=== PATIENT | female | born 1950 | race Caucasian/White ===

== ENCOUNTER → 2017-01-02 | Outpatient (CLI) | payer MEDICARE, BC ==
[~2017-01-02] MED LIST: ACET-62 PO; ALBU18HF4 IH; ALBU2.5V2 AEROSOL; ASPI-1085 PO; BUDE0.5A AEROSOL; BUSP10TA3 PO; CALC600T12 PO; CARV6.25 PO; CEFA1VIA11 IV; CLOP75TA PO; DICL100T3 PO; DULO30CA2 PO; FLUD0.1T PO; HYDR-4072 PO; LACT1CAP46 PO; LEVO50TA11 PO; LIDO20SO PO; LIDOCAINE 1%/EPI 1:100,000 20ml MDV INJ ONE; LISI2.5T2 PO; MENTHOL COUGH MM; MIRT15TA PO; NITR0.4T SL; NYST5ORA7 PO; PANT40TA27 PO; PRED1TAB PO; ROSU20TA PO; TIOT18CA6 IH
== END ==
LOC: NWCC 10:20
PROVIDERS: ATTEND Internal Medicine
DX: L89.893 Pressure ulcer of other site, stage 3 (principal); L89.623 Pressure ulcer of left heel, stage 3; L89.613 Pressure ulcer of right heel, stage 3; T81.4XXA Infection following a procedure, initial encounter; Y83.8 Other surgical procedures as the cause of abnormal reaction of the patient, or of later complication, without mention of misadventure at the time of the procedure; M06.9 Rheumatoid arthritis, unspecified; S91.302A Unspecified open wound, left foot, initial encounter; B95.62 Methicillin resistant Staphylococcus aureus infection as the cause of diseases classified elsewhere; Z87.898 Personal history of other specified conditions
CPT/HCPCS: 11042; 97605; A6021; A6209; A6237; G0463

== ENCOUNTER → 2017-01-12 | Outpatient (CLI) | payer MEDICARE, BC ==
[~2017-01-12] MED LIST changes: -LIDOCAINE 1%/EPI 1:100,000 20ml MDV INJ ONE
== END ==
LOC: NWCC 12:59
PROVIDERS: ATTEND Internal Medicine
DX: L89.623 Pressure ulcer of left heel, stage 3 (principal); L89.893 Pressure ulcer of other site, stage 3; S91.301A Unspecified open wound, right foot, initial encounter; B95.62 Methicillin resistant Staphylococcus aureus infection as the cause of diseases classified elsewhere; Z87.898 Personal history of other specified conditions
CPT/HCPCS: 97605; A6021; A6209; G0463

== ENCOUNTER → 2017-01-16 | Outpatient (CLI) | payer MEDICARE, BC | LOC: NWCC 09:57 | PROVIDERS: ATTEND Internal Medicine | DX: L89.893 Pressure ulcer of other site, stage 3 (principal); L89.623 Pressure ulcer of left heel, stage 3; S91.301A Unspecified open wound, right foot, initial encounter; Z87.898 Personal history of other specified conditions; B95.62 Methicillin resistant Staphylococcus aureus infection as the cause of diseases classified elsewhere | CPT/HCPCS: 97605; A6209; G0463 ==

== ENCOUNTER → 2017-01-19 | Outpatient (CLI) | payer MEDICARE, BC | LOC: NWCC 11:13 | PROVIDERS: ATTEND Internal Medicine | DX: L89.893 Pressure ulcer of other site, stage 3 (principal); L89.623 Pressure ulcer of left heel, stage 3; S91.301A Unspecified open wound, right foot, initial encounter; Z87.898 Personal history of other specified conditions; B95.62 Methicillin resistant Staphylococcus aureus infection as the cause of diseases classified elsewhere | CPT/HCPCS: 97605; A6209; G0463 ==

== ENCOUNTER → 2017-01-23 | Outpatient (CLI) | payer MEDICARE, BC | LOC: NWCC 10:22 | PROVIDERS: ATTEND Internal Medicine | DX: L89.623 Pressure ulcer of left heel, stage 3 (principal); L89.893 Pressure ulcer of other site, stage 3; Z87.898 Personal history of other specified conditions; T81.4XXA Infection following a procedure, initial encounter; Y83.8 Other surgical procedures as the cause of abnormal reaction of the patient, or of later complication, without mention of misadventure at the time of the procedure | CPT/HCPCS: 11042; 97605; A6021; A6209; A6237; G0463 ==

== ENCOUNTER → 2017-01-26 | Outpatient (CLI) | payer MEDICARE, BC ==
[~2017-01-26] MED LIST changes: +SALINE FLUSH 10ml SYRINGE IVF ONE
== END ==
LOC: NWCC 09:57
PROVIDERS: ATTEND Internal Medicine
DX: L89.893 Pressure ulcer of other site, stage 3 (principal); Z87.898 Personal history of other specified conditions; S91.301A Unspecified open wound, right foot, initial encounter; B95.62 Methicillin resistant Staphylococcus aureus infection as the cause of diseases classified elsewhere
CPT/HCPCS: 97605; A6021; A6210; G0463

== ENCOUNTER → 2017-01-30 | Outpatient (CLI) | payer MEDICARE, BC ==
[~2017-01-30] MED LIST changes: -SALINE FLUSH 10ml SYRINGE IVF ONE
[2017-01-30 11:33] LABS: BASOPHILS # (AUTO) 0.1 T/MM3 (0-0.2); BASOPHILS % (AUTO) 0.7 % (0-2); EOSINOPHILS # (AUTO) 0.9 T/MM3 (0-0.5); EOSINOPHILS % (AUTO) 10.2 % (0-4); HCT - HEMATOCRIT 32.2 % (36-46); HGB - HEMOGLOBIN 9.7 GM/DL (12-16); IMMATURE GRANULOCYTE # (AUTO) 0.02 T/MM3 (0.00-0.03); IMMATURE GRANULOCYTE % (AUTO) 0.2 % (0.0-0.5); LYMPHOCYTES % (AUTO) 21.3 % (23-45); MEAN CORPUSCULAR HGB 26.8 UUG (26-34); MEAN CORPUSCULAR HGB CONC(MCHC 30.1 GM/DL (31-37); MEAN PLATELET VOLUME 9.1 UM3 (9.4-12.4); MONOCYTES # (AUTO) 1.5 T/MM3 (0-0.8); MONOCYTES % (AUTO) 15.9 % (0-9.0); NEUTROPHILS #(AUTO)-ABSOLUTE 4.8 T/MM3 (1.8-7.7); NEUTROPHILS % (AUTO) 51.7 % (33-66); RED BLOOD COUNT 3.62 M/MM3 (4.00-5.20); WBC - WHITE BLOOD COUNT 9.2 T/MM3 (4.5-11.0)
[2017-02-01 02:23] LABS: FERRITIN 13.1 NG/ML (11-264)
[2017-02-01 02:53] LABS: FOLATE 17.8 NG/ML (2.76-20)
== END ==
LOC: LAB 11:07
PROVIDERS: ATTEND Family Medicine
DX: D50.9 Iron deficiency anemia, unspecified (principal); D53.9 Nutritional anemia, unspecified; E53.8 Deficiency of other specified B group vitamins; M86.171 Other acute osteomyelitis, right ankle and foot
CPT/HCPCS: 36415; 82607; 82728; 82746; 83540; 83550; 85025

== ENCOUNTER → 2017-01-30 | Outpatient (CLI) | payer MEDICARE, BC | LOC: NWCC 10:10 | PROVIDERS: ATTEND Internal Medicine | DX: L89.893 Pressure ulcer of other site, stage 3 (principal); B95.62 Methicillin resistant Staphylococcus aureus infection as the cause of diseases classified elsewhere; Z87.898 Personal history of other specified conditions; S91.301A Unspecified open wound, right foot, initial encounter | CPT/HCPCS: 97605; A6021; A6209; A6237; G0463 ==

== ENCOUNTER → 2017-02-02 | Outpatient (CLI) | payer MEDICARE, BC | LOC: NWCC 09:48 | PROVIDERS: ATTEND Internal Medicine | DX: L89.893 Pressure ulcer of other site, stage 3 (principal); S91.301A Unspecified open wound, right foot, initial encounter; B95.62 Methicillin resistant Staphylococcus aureus infection as the cause of diseases classified elsewhere; Z87.898 Personal history of other specified conditions | CPT/HCPCS: 11042; 97605 ==

== ENCOUNTER → 2017-02-06 | Outpatient (CLI) | payer MEDICARE, BC | LOC: NWCC 10:36 | PROVIDERS: ATTEND Internal Medicine | DX: L89.893 Pressure ulcer of other site, stage 3 (principal); T81.4XXA Infection following a procedure, initial encounter; Y83.8 Other surgical procedures as the cause of abnormal reaction of the patient, or of later complication, without mention of misadventure at the time of the procedure; S91.302A Unspecified open wound, left foot, initial encounter; Z87.898 Personal history of other specified conditions | CPT/HCPCS: 11042; 97605; G0463 ==

== ENCOUNTER → 2017-02-09 | Outpatient (CLI) | payer MEDICARE, BC | LOC: NWCC 11:15 | PROVIDERS: ATTEND Internal Medicine | DX: L89.893 Pressure ulcer of other site, stage 3 (principal); T81.4XXA Infection following a procedure, initial encounter; Y83.8 Other surgical procedures as the cause of abnormal reaction of the patient, or of later complication, without mention of misadventure at the time of the procedure; S91.302A Unspecified open wound, left foot, initial encounter; Z87.898 Personal history of other specified conditions; B96.89 Other specified bacterial agents as the cause of diseases classified elsewhere | CPT/HCPCS: A6021; A6209; G0463 ==

== ENCOUNTER → 2017-02-20 | Outpatient (CLI) | payer MEDICARE, BC | LOC: NWCC 10:32 | PROVIDERS: ATTEND Internal Medicine | DX: L89.893 Pressure ulcer of other site, stage 3 (principal); T81.4XXA Infection following a procedure, initial encounter; S91.302A Unspecified open wound, left foot, initial encounter; Y83.8 Other surgical procedures as the cause of abnormal reaction of the patient, or of later complication, without mention of misadventure at the time of the procedure; Z87.898 Personal history of other specified conditions | CPT/HCPCS: 11042; A6209; G0463 ==

== ENCOUNTER → 2017-02-23 | Outpatient (CLI) | payer MEDICARE, BC | LOC: NWCC 13:54 | PROVIDERS: ATTEND Internal Medicine | DX: L89.893 Pressure ulcer of other site, stage 3 (principal); T81.4XXA Infection following a procedure, initial encounter; Y83.8 Other surgical procedures as the cause of abnormal reaction of the patient, or of later complication, without mention of misadventure at the time of the procedure; Z87.898 Personal history of other specified conditions | CPT/HCPCS: A6021; A6209; G0463 ==

== ENCOUNTER → 2017-03-06 | Outpatient (CLI) | payer MEDICARE, BC ==
[~2017-03-06] MED LIST changes: +CALMOSEPTINE OINTMENT 3.5 G PACKET TOP ONE
== END ==
LOC: NWCC 10:07
PROVIDERS: ATTEND Internal Medicine
DX: L89.893 Pressure ulcer of other site, stage 3 (principal); T81.4XXA Infection following a procedure, initial encounter; Y83.8 Other surgical procedures as the cause of abnormal reaction of the patient, or of later complication, without mention of misadventure at the time of the procedure; Z87.898 Personal history of other specified conditions; B95.62 Methicillin resistant Staphylococcus aureus infection as the cause of diseases classified elsewhere
CPT/HCPCS: 11042; 87070; 87075; 87077; 87147; 87186; 87205; A6209; A6212; A9270

== ENCOUNTER → 2017-03-07 | Outpatient (CLI) | payer MEDICARE, BC ==
[~2017-03-07] MED LIST changes: -CALMOSEPTINE OINTMENT 3.5 G PACKET TOP ONE; +IOHEXOL 300 MG/ML 75ml INJECTION ONE; +NORMAL SALINE 100 ML ONE; +SALINE FLUSH 10ml SYRINGE ONE
[2017-03-07 15:13] LABS: CREATININE 0.8 MG/DL (0.7-1.2)
--- NOTE | 2017-03-07 16:07 | DI ---
Indication: ITS.REASON: R91.8 abnormal finding of lung field PROCEDURE: CT CHEST W/CONTRAST: Encounter: Subsequent Comparison: CT chest dated December 05, 2005 and CTA chest dated August 24, 2016 Technique: Axial CT images were performed through the chest after the administration of intravenous contrast. Coronal and sagittal two-dimensional reformats. Automated Exposure Control and Iterative Reconstruction dose reducing techniques were utilized. Contrast: Omnipaque 300 74 mL Findings: Scattered areas of subpleural scarring and mild fibrosis are again seen. Intrapulmonary lymph node along the inferior anterior right major fissure. Some small areas of groundglass opacity seen in both lower lung ball, improved from the comparison exam. No consolidative pneumonia, pleural effusion or pneumothorax. The central airways are patent. Prior groundglass opacity in the left lower lobe appears slightly smaller on today's study measuring 7 mm in diameter on axial image #29 compared to 8 mm previously. Stable 4 mm left lower lobe nodule on image #33. Stable area of scarring in the posterior left lower lobe on image #37 with an area of atelectasis in the lingula at this level. No new or enlarging pulmonary nodules or masses. No evidence of bronchial wall thickening. No axillary or mediastinal adenopathy. Heart size is stable. No pericardial effusion. The upper abdomen shows no acute findings. Bone windows show old compression fractures of T7 and T12. Impression: Decreasing size of the 7 mm left lower lobe nodule suggestive of a benign etiology. Stable appearance of the 4 mm left lower lobe nodule. Follow-up CT is recommended in two years to document continued stability. .
== END ==
LOC: IMA 14:38
PROVIDERS: ATTEND Internal Medicine Pulmonary Disease
DX: R91.8 Other nonspecific abnormal finding of lung field (principal)
CPT/HCPCS: 36415; 71260; 82565; 84520; J7050; Q9967

== ENCOUNTER → 2017-03-13 | Outpatient (CLI) | payer MEDICARE, BC ==
[~2017-03-13] MED LIST changes: +CALMOSEPTINE OINTMENT 3.5 G PACKET TOP ONE; -IOHEXOL 300 MG/ML 75ml INJECTION ONE; -NORMAL SALINE 100 ML ONE; -SALINE FLUSH 10ml SYRINGE ONE
== END ==
LOC: NWCC 10:01
PROVIDERS: ATTEND Internal Medicine
DX: L89.893 Pressure ulcer of other site, stage 3 (principal); Z87.898 Personal history of other specified conditions; T81.4XXA Infection following a procedure, initial encounter; Y83.8 Other surgical procedures as the cause of abnormal reaction of the patient, or of later complication, without mention of misadventure at the time of the procedure; B96.89 Other specified bacterial agents as the cause of diseases classified elsewhere
CPT/HCPCS: A6209; A6212; A9270; G0463

== ENCOUNTER 2017-08-17 10:54 | Inpatient (IN) ==
[2017-08-17] MEDS ORDERED: CEFAZOLIN 1 G INJECTION IVP ONE (11:07)
--- NOTE | 2017-08-17 12:54 | Anesthesia Preoperative Report ---
Anesthesia Preoperative Record - Date and Time Date: 08/17/17 Preoperative Diagnosis: grt toe amp/bone bx L89.893 L97.422 M06.9 Proposed Procedure: right toe amputation I/D left ankle NPO Since Date: 08/17/17 NPO Since Time: 05:00 Allergies/Adverse Reactions: Allergies Allergy/AdvReac Type Severity Reaction Status Date / Time morphine Allergy Mild ITCHING Verified 08/17/17 11:26 methylprednisolone Allergy Unknown Verified 08/17/17 11:26 doxycycline AdvReac Severe DIARRHEA Verified 08/17/17 11:26 adalimumab AdvReac Intermediate LOW GRADE Verified 08/17/17 11:26 FEVER atorvastatin AdvReac Unknown LEG CRAMPS Verified 08/17/17 11:26 bupropion AdvReac Unknown ANXIETY Verified 08/17/17 11:26 clotrimazole AdvReac Unknown MOUTH Verified 08/17/17 11:26 DISORDERS - Vital Signs Vital Signs: Temperature 98.5 F 08/17/17 11:10 Pulse Rate 120 H 08/17/17 11:10 Respiratory Rate 22 08/17/17 11:10 Blood Pressure 114/75 08/17/17 11:10 Pulse Oximetry 96 08/17/17 11:10 Height and Weight: Height 1.57 m Weight 38.6 kg Body Mass Index 15.5 - Medications Inpatient Medications: Current Medications Lactated Ringer's (Lactated Ringers) 1,000 mls @ 50 mls/hr IV .Q20H KATHERINE Last Admin: 08/17/17 12:10 Dose: 50 mls/hr Lidocaine HCl (Xylocaine-Mpf 1% Vial) 1 mg ID O ONE Stop: 08/17/17 16:33 Last Admin: 08/17/17 12:10 Dose: 1 mg Home Medications: Home Medications Medication Instructions Recorded Confirmed Type Albuterol Sulfate [Proventil Hfa 1 - 2 puff IH Q4HR PRN #0 07/07/10 08/17/17 History 90mcg] Tiotropium Handihaler [Spiriva] 1 cap IH DAILY #0 07/07/10 08/17/17 History Acetaminophen 1,000 mg PO Q6H PRN #0 01/05/16 08/17/17 History Buspirone HCl 20 mg PO BID #0 01/05/16 08/17/17 History Calcium Carbonate [Calcium] 1,200 mg PO DAILY #0 07/28/16 08/17/17 History Rosuvastatin Calcium [Crestor] 20 mg PO HS #0 07/28/16 08/17/17 History Clopidogrel Bisulfate [Plavix] 75 mg PO DAILY #0 08/24/16 08/17/17 History Diclofenac Sodium [Diclofenac 100 mg PO BID #0 08/24/16 08/17/17 History Sodium ER] Aspirin [Aspirin EC] 81 mg PO DAILY #0 10/09/16 08/17/17 History Lisinopril 2.5 mg PO HS #0 10/09/16 08/17/17 History Nitroglycerin [Nitrostat] 0.4 mg SL Q5MIN PRN #0 10/09/16 08/17/17 History Fludrocortisone [Florinef] 0.1 mg PO DAILY #0 tab 12/18/16 08/17/17 History Levothyroxine Sodium 50 mcg PO ACB #0 tab 12/18/16 08/17/17 History Mirtazapine [Remeron] 1 tab PO HS #0 tab 12/18/16 08/17/17 History Acidoph/L.bulg/Bif.b/S.thermop 2 cap PO DAILY 08/17/17 08/17/17 History [Bacid Caplet] Beclomethasone Dipropionate [Qvar 1 puff INH BID 08/17/17 08/17/17 History 80] Lidocaine For Magic Mouthwash 5 ml PO QID 08/17/17 08/17/17 History [Xylocaine Viscous] Sulfamethox/Tmp [Bactrim Ds] 1 tab PO BID 08/17/17 08/17/17 History Venlafaxine [Effexor] 75 mg PO DAILY 08/17/17 08/17/17 History Is Patient on Beta Gisela?: No - Medical History Respiratory: Reports: Asthma, Chronic Obstructive Pulmonary Disease (COPD), Other (o2 at night ) Cardiovascular: Reports: Abnormal EKG, Congestive Heart Failure, Coronary Artery Disease, Hypertension, Myocardial Infarction (EF 20%) Renal/Endocrine: Reports: Thyroid Disease - Surgical History HEENT Surgeries: Reports: Nose Surgery Cardiac Surgeries/Treatments: Reports: Cardiac Catheterization, Other (stent) Respiratory Surgery/Treatments: Reports: Oxygen Administration (2L/NC with exertion & at noc) GI Surgery/Treatments: Reports: Colon Resection, Other (ileostomy) Musculoskeletal Surgery/Tx: Reports: Joint Surgery (LEFT HIP-PINS), Shoulder Arthroscopy (RIGHT SHOULDER REPLACEMENT), Total Knee Replacement (ANDRES.), Other ( FUSION- L. ANKLE, R,WRIST,NECK) Reproductive Surgery/Treatment: Reports: Tubal Ligation Anesthesia Reactions: None Hx Family Anesthesia Reaction: No History of Motion Sickness: No - Social History Smoking Status: Former smoker Packs per day: 1 Pack-years: 40 Hx Chewing Tobacco Use: No Second Hand Exposure: No Time spent discussing smoking cessation with patient: 3 to 10 minutes Substance Use Type: does not use Alcohol Intake Frequency: does not drink - Pertinent Findings Laboratory: CBC and BMP 08/17/17 11:30 08/17/17 11:30 BMP 08/17/17 11:30 Sodium 139 Potassium 3.9 Chloride 103 Carbon Dioxide 28 BUN 21.0 H Creatinine 0.7 Glucose 66 Calcium 8.7 EKG: Sinus Rhythm - Physical Exam Respiratory Exam: Present: lungs clear Cardiovascular Exam: Present: regular rate and rhythm, systolic murmur - Airway Assessment Mallampati Score: II TMD: 2 Fingerbreadths Neck Extension: poor Teeth: chipped teeth/crowns Overall Assessment: may be difficult intubation - ASA ASA Score: 4 - Plan Anesthesia: General TIVA - Discussion Discussion: Discussed risks/options/alternatives of anesthesia and questions answered. Patient consents. Nursing pain assessment noted. Present for Discussion: family member Attestation Statement: Prior to the delivery of any anesthetic medication, I examined the patient, developed the plan, obtained the patient's consent and discussed the risk and benefits of the procedure with the patient/guardian. - Additional Information Seen by Anesthesia: Yes
[2017-08-17] MEDS ORDERED: MIDAZOLAM 2mg/2ml INJECTION IVP ONE (12:55)
[2017-08-17] MEDS ORDERED: FentaNYL 100 MCG/2 ML INJECTION ONE (12:58)
[2017-08-17] MEDS ORDERED: KETAMINE 500 MG/10 ML INJECTION ONE (12:59)
[2017-08-17] MEDS ORDERED: PROPOFOL 500 MG/50 ML VIAL IV ONE (12:59)
[2017-08-17] MEDS ORDERED: BUPIVACAINE 0.25% (2.5mg/ml) PF 30ml INJECTION ONE (13:18)
[2017-08-17] MEDS ORDERED: LIDOCAINE 1% (10mg/ml) 30ml SDV INJ ONE (13:18)
--- NOTE | 2017-08-17 14:20 | Anesthesia Postoperative Note ---
- Date and Time Date: 08/17/17 Time: 14:20 - Status Patient Participated in Evaluation: Patient Participated in Person Vital Signs: Temperature 96.8 F 08/17/17 13:47 Pulse Rate 102 H 08/17/17 14:10 Respiratory Rate 20 08/17/17 14:05 Blood Pressure 129/73 08/17/17 14:05 Pulse Oximetry 98 08/17/17 14:05 Respiratory Function: Airway Patent, Regular Respirations Cardiovascular Function: Regular Pulse Mental Status: Alert and Oriented Pain Intensity: 0 Hydration: IV Infusing Complications During Recover: None Apparent - Follow-Up Instructions Instructions: Per Surgeon
[2017-08-17] MEDS ORDERED: HYDROCODONE/APAP 7.5 MG/325 MG TABLET PO PRN (15:29)
[2017-08-17] MEDS ORDERED: NITROGLYCERIN 0.4 MG SUBLINGUAL TABLET SL PRN (15:29)
[2017-08-17] MEDS ORDERED: ONDANSETRON 4 MG/2 ML INJECTION IVP PRN (15:29)
[2017-08-17] MEDS ORDERED: VANCOMYCIN - PHARMACY CONSULT MC ONE (15:35)
--- NOTE | 2017-08-17 16:30 | Operative Note ---
DATE OF OPERATION 08/17/2017 POSTOPERATIVE DIAGNOSIS 1. Right great toe osteomyelitis. 2. Left heel pressure ulcer. POSTOPERATIVE DIAGNOSIS 1. Right great toe osteomyelitis. 2. Left heel pressure ulcer. PROCEDURE 1. Right great toe amputation. 2. Bone biopsy of right first metatarsal head. 3. Excisional debridement of left heel pressure ulcer. SURGEON Omar Collier MD TERRAZZO LAYER Rogelio Rogers PA-C COMPLICATIONS None ANESTHESIA TIVA EBL AND FLUIDS Please see Anesthetic record. DESCRIPTION OF PROCEDURE Ms. Gore and her bilateral feet were identified and marked in the preoperative holding area. She was brought back to the operating suite and placed supine on the operating table. She was placed under general anesthesia. Time-out was performed after both lower extremities were prepped and draped in my normal sterile fashion. was used at the incision site. It was first marked out around the base of the first toe. Sharp incision was made down to bone around the base of the great toe. The MTP joint was then disarticulated and the great toe removed. There was some pustulous material noted especially inferiorly at the incision site. Then I assessed the first metatarsal head articular cartilage. There was some damage and it was rather soft. It was difficult to tell if this was from infection or from her rheumatoid disease. I removed some distal metatarsal head with a rongeur to send for bone biopsy and also to allow better closure of the amputation site so that it would close without pressure. I then thoroughly irrigated the wound with normal saline. The amputation site was then closed with 3-0 nylon in a simple interrupted fashion. This was then dressed. I then moved to the left foot. She had a pressure ulcer measuring 1 cm x 0.5 cm. The base was 100% necrotic subcutaneous tissue. I sharply debrided it with a curet down to fascia. The fascia itself looked to be viable so I did not go past the fascia. This wound was then also thoroughly irrigated with normal saline and then dressed with Aquacel silver and a Mepilex dressing. She was then allowed to awake from general anesthesia and taken to the recovery room under the care of Anesthesia. She tolerated the procedure well and there were no complications. TONY
[2017-08-17] MEDS ORDERED: LIDOCAINE 1% (10mg/ml) 2mL INJ PF SDV ID ONE (16:32)
[2017-08-17] MEDS ORDERED: LR 1,000 ML IV SCH (16:45)
[2017-08-17] MEDS ORDERED: NS FLUSH BAG 500ml IV PRN (20:01)
[2017-08-17] MEDS: PANTOPRAZOLE 40 MG TABLET PO SCH (20:09)
[2017-08-17] MEDS: CARVEDILOL 6.25 MG TABLET PO SCH (20:09)
[2017-08-17] MEDS: DICLOFENAC SODIUM DR 25 MG TABLET PO SCH (20:10)
[2017-08-17] MEDS: TMP PO SCH (20:33)
[2017-08-17] MEDS: [UNRECOGNIZED DRUG - OTHER] PO SCH (20:33)
[2017-08-17] MEDS: SULFAMETHOXAZOLE PO SCH (20:33)
[2017-08-17] MEDS: BUSPIRONE 10 MG TABLET PO SCH (20:33)
[2017-08-17] MEDS: POM ROSUVASTATIN 20 MG TABLET PO SCH (20:34)
[2017-08-17] MEDS ORDERED: BUDESONIDE INH.SOLN 0.5mg/2ml NEB AEROSOL SCH (21:00)
[2017-08-17] MEDS ORDERED: DICLOFENAC SODIUM 100 MG PO SCH (21:00)
[2017-08-17] MEDS ORDERED: MIRTAZAPINE 15 MG TABLET PO SCH (21:00)
[2017-08-17] MEDS ORDERED: LISINOPRIL 2.5 MG PO SCH (21:00)
[2017-08-17] MEDS: ALBUTEROL 2.5mg/3ml (0.083%) NEB AEROSOL PRN (21:05)
[2017-08-18] MEDS: PANTOPRAZOLE 40 MG TABLET PO SCH ×2 (06:05→17:50)
[2017-08-18] MEDS: POM LEVOTHYROXINE 50 MCG TABLET PO SCH (06:05)
[2017-08-18] MEDS ORDERED: DICLOFENAC 100 MG PO ONE (09:00)
[2017-08-18] MEDS ORDERED: CALCIUM CARBONATE 600 MG TABLET PO SCH (09:00)
[2017-08-18] MEDS ORDERED: VENLAFAXINE 75 MG TABLET PO SCH (09:00)
[2017-08-18] MEDS ORDERED: PREDNISONE 1 MG PO ONE (09:15)
[2017-08-18] MEDS: ASPIRIN *EC* 81 MG TABLET PO SCH (09:41)
[2017-08-18] MEDS: BUSPIRONE 10 MG TABLET PO SCH ×2 (09:42→20:08)
[2017-08-18] MEDS: POM CLOPIDOGREL 75 MG TABLET PO SCH (09:44)
[2017-08-18] MEDS: FLUDROCORTISONE 0.1 MG PO SCH (09:44)
[2017-08-18] MEDS: SULFAMETHOXAZOLE PO SCH (09:46)
[2017-08-18] MEDS: TMP PO SCH (09:46)
[2017-08-18] MEDS: [UNRECOGNIZED DRUG - OTHER] PO SCH (09:46)
[2017-08-18] MEDS: POM TIOTROPIUM 18mcg/cap HANDIHALER ORAL INH SCH (09:47)
[2017-08-18] MEDS: POM PredniSONE 5 MG TABLET PO SCH (09:48)
[2017-08-18] MEDS: CARVEDILOL 3.125 MG TABLET PO SCH ×2 (09:49→17:51)
[2017-08-18] MEDS: ALBUTEROL 2.5mg/3ml (0.083%) NEB AEROSOL PRN (10:14)
[2017-08-18] MEDS: BUDESONIDE INH.SOLN 0.5mg/2ml NEB AEROSOL SCH (10:15)
[2017-08-18] MEDS ORDERED: TRAMADOL 50 MG TABLET PO PRN (10:23)
--- NOTE | 2017-08-18 10:41 | Pharmacy Consult-Antibiotics ---
Pharmacy Consult-Vancomycin - Laboratory Information WBC 7.4 T/MM3 (4.5-11.0) 08/17/17 11:30 BUN 21.0 MG/DL (7-17) H 08/17/17 11:30 Creatinine 0.7 MG/DL (0.7-1.2) 08/17/17 11:30 - Consult Information VANCOMYCIN CONSULT: Dx: toe amputation. Current Renal Fx: SCr = 0.7mg/dl. Will give Vancomycin 750mg IV q12hrs. Will continue to monitor and adjust regimen to maintain therapeutic levels. Thank you.
[2017-08-18] MEDS: VENLAFAXINE 75 MG PO SCH (10:58)
[2017-08-18] MEDS: CARVEDILOL 6.25 MG TABLET PO SCH (11:58)
[2017-08-18] MEDS: DICLOFENAC SODIUM DR 25 MG TABLET PO SCH (11:58)
--- NOTE | 2017-08-18 14:10 | Orthopedic Progress Note ---
Date: 406 Subjective/Severity of Illness: Moderate pain. Dressing has been changed several times due to bleeding thru. No CP, cough or SOA. She feels very unsteady on her feet. Orthopedic Objective PO Vital signs: Temperature 98.6 F 08/18/17 11:49 Pulse Rate 108 H 08/18/17 12:20 Respiratory Rate 18 08/18/17 12:20 Blood Pressure 98/63 08/18/17 12:20 Pulse Oximetry 97 08/18/17 11:49 Height and Weight: Height 5 ft 2 in Weight 87 lb 4.849 oz Body Mass Index 15.5 - Constitutional General Appearance: Present: alert, cooperative - Respiratory Exam Present: non-labored - Extremities Exam Extremities: Present: pulses intact - Surgical Site Incision: dressing intact, bloody drainage present Wound Drainage: moderate amount - Neurological Exam Present: no deficits - Psychiatric Exam Present: alert, oriented, normal affect - Labs Result Diagrams: 08/17/17 11:30 08/17/17 11:30 H & H 08/17/17 Range/Units 11:30 Hgb 12.0 (12-16) GM/DL Hct 37.3 (36-46) % Orthopedic Assessment and Plan (1) Toe osteomyelitis, right Status: Acute Assessment and Plan: Will add PT / OT for her mobility needs. Change to inpatient and plan IV Vanco until culture results are available. Hospitalist consulted to help manage multiple medical conditions. Continue dressing changes PRN. (2) Ulcer of left heel Status: Acute Assessment and Plan: I&D of the wound done 08/17/17. Wound care to resume seeing her after discharge. Aquacel dressing and Mepilex in place. Bactrim DS BID PO after discharge. IV Vanco at this time - Anticoagulation Therapy Anticoagulation: other Hospital Course Summary Disclaimer: The visit summary below is not to be considered part of the above Progress Note.
--- NOTE | 2017-08-18 14:46 | Consult Note ---
<Shabnam Valentine - Last Filed: 08/18/17 15:22> Consult Information - Data of Consult Consult date: 08/18/17 Requesting Physician: Omar Collier MD Primary Care Provider: Eula Shoemaker [facility] Provider: Eula Shoemaker - Consult Narrative Reason for consult: tachycardia, hypotension History of present illness: Patient is a 67-year-old female who had a right great toe amputation for osteomyelitis performed yesterday by Dr. Collier. Hospitalist service has been consulted regarding hypotension and tachycardia. She reports she feels "woozy and floaty" but otherwise has no other complaints. Patient reports her pulse is likely high because she just had a breathing treatment and this usually causes her heart to race. 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 She has CHF with systolic dysfunction. She takes lisinopril and Coreg for this. She is on Crestor, Plavix, and aspirin 81 mg daily as she had cardiac stent placement in 12/2015 and had a TIA in March 2017. She takes Ventolin , Spiriva, Breo Ellipta for COPD and is on oxygen at 2 L at home. She runs it through her CPAP at night. She has a history of hyponatremia. Workup was suggestive of adrenal insufficiency. She's on Florinef daily. Sodium levels have been stable. She has a history of iron deficiency anemia and has had intermittent iron infusions. Hemoglobin has been stable. She has B12 deficiency and receives monthly B12 injections. She takes Synthroid for hypothyroidism. TSH was last checked 12/2016. Amputation went well. Pathology is pending. She is on vancomycin at this time for the infection. Her most recent labs performed yesterday are essentially normal. Normal white count of 7.4. Hemoglobin is 12.0. BUN is slightly high 21. Creatinine 0.7. PFSH Medical History Coronary artery disease - (s/p PTCA with stent placement 1) 2014 Dr. 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 Anxiety/depression Hypothyroidism Ileostomy due to bowel perforation Surgical History: Left inguinal hernia and mid abdominal incisional hernia repair (2007), repeat left inguinal hernia repair (2008), right hernia repair (), tubal ligation (1980), right oophorectomy and lysis of adhesions (06/2002 ), sinus surgery (01/1999), right knee synovectomy (02/2003), small bowel perforation with right hemicolectomy and ileostomy placement 01/23, bilateral bunionectomies, right foot joint fusion (1989), left ankle fusion (07/2000), bilateral knee replacements (left 2006, right 2004), left hip repair, right wrist fusion (09/2002), right shoulder surgery, cervical spine fusion C3, 4, 5 fusion (Isaac), carpal tunnel surgery (left 2005, right 2003), right great toe amputation secondary to osteomyelitis (Dr. Collier 08/2017), cardiac stent 1 ( Dr. Arora 2014). Colonoscopy 04/2011 (diverticulitis), EGD 07/28 (essentially normal) Family History: Father-coronary artery disease, at age 78 from an [place] Mother-depression Sister-breast cancer Sister-depression Sister-hyperlipidemia - Social History Smoking status: Former smoker (quit in 2002. Smoked 1 pack per day starting at age 27) Substance use type: does not use Alcohol intake frequency: does not drink Housing: apartment ([employer] in [place]) Household members: none Current occupational status: retired Does patient use chewing tobacco?: No Social history: PCP-Dr. Eula Espinosa-[employer] Telesales Professional-Dr. Arora Medical Social Worker-Dr. Hernandez Shirt Closer-Dr. Bill Neurosurgeon-Dr. Gray Application Development Team Lead-Dr. Fajardo Review of Systems All systems PM: 10-point ROS was reviewed, no additional remarkable complaints except - Constitutional Constitutional: Present: other ("woozy and floaty") Medications Home Medications Medication Instructions Recorded Confirmed Type Albuterol Sulfate [Proventil Hfa 1 - 2 puff IH Q4HR PRN #0 07/07/10 08/17/17 History 90mcg] Tiotropium Handihaler [Spiriva] 1 cap IH DAILY #0 07/07/10 08/17/17 History Acetaminophen 1,000 mg PO Q6H PRN #0 01/05/16 08/17/17 History Buspirone HCl 20 mg PO BID #0 01/05/16 08/17/17 History Calcium Carbonate [Calcium] 1,200 mg PO DAILY #0 07/28/16 08/17/17 History Rosuvastatin Calcium [Crestor] 20 mg PO HS #0 07/28/16 08/17/17 History Clopidogrel Bisulfate [Plavix] 75 mg PO DAILY #0 08/24/16 08/17/17 History Diclofenac Sodium [Diclofenac 100 mg PO BID #0 08/24/16 08/17/17 History Sodium ER] Aspirin [Aspirin EC] 81 mg PO DAILY #0 10/09/16 08/17/17 History Lisinopril 2.5 mg PO HS #0 10/09/16 08/17/17 History Nitroglycerin [Nitrostat] 0.4 mg SL Q5MIN PRN #0 10/09/16 08/17/17 History Fludrocortisone [Florinef] 0.1 mg PO DAILY #0 tab 12/18/16 08/17/17 History Levothyroxine Sodium 50 mcg PO ACB #0 tab 12/18/16 08/17/17 History Mirtazapine [Remeron] 1 tab PO HS #0 tab 12/18/16 08/17/17 History Acidoph/L.bulg/Bif.b/S.thermop 2 cap PO DAILY 08/17/17 08/17/17 History [Bacid Caplet] Beclomethasone Dipropionate [Qvar 1 puff INH BID 08/17/17 08/17/17 History 80] Lidocaine For Magic Mouthwash 5 ml PO QID 08/17/17 08/17/17 History [Xylocaine Viscous] Sulfamethox/Tmp [Bactrim Ds] 1 tab PO BID 08/17/17 08/17/17 History Venlafaxine [Effexor] 75 mg PO DAILY 08/17/17 08/17/17 History Allergies Allergy/AdvReac Type Severity Reaction Status Date / Time morphine Allergy Mild ITCHING Verified 08/17/17 11:26 methylprednisolone Allergy Unknown Verified 08/17/17 11:26 doxycycline AdvReac Severe DIARRHEA Verified 08/17/17 11:26 adalimumab AdvReac Intermediate LOW GRADE Verified 08/17/17 11:26 FEVER atorvastatin AdvReac Unknown LEG CRAMPS Verified 08/17/17 11:26 bupropion AdvReac Unknown ANXIETY Verified 08/17/17 11:26 clotrimazole AdvReac Unknown MOUTH Verified 08/17/17 11:26 DISORDERS Exam Vital Signs: Temperature 98.6 F 08/18/17 11:49 Pulse Rate 108 H 08/18/17 12:20 Respiratory Rate 18 08/18/17 12:20 Blood Pressure 98/63 08/18/17 12:20 Pulse Oximetry 97 08/18/17 11:49 Height/Weight/BMI: Height 1.57 m Weight 39.6 kg Body Mass Index 15.5 - Constitutional Present: no acute distress, well nourished, well developed, thin, cooperative - Routine HEENT Exam Head: Present: normocephalic, atraumatic Eye: Present: EOMI. Absent: conjunctival icterus ENT: Present: mucous membranes moist, external ear normal - Routine Neck Exam Present: supple. Absent: thyromegaly - Routine Respiratory Exam Present: CTA bilaterally, distant breath sounds. Absent: wheezes - Routine Cardiovascular Exam Present: RRR, S1, S2, tachycardia (mild). Absent: murmur - Routine Abdominal Exam Present: soft, normoactive bowel sounds, non distended, ostomy. Absent: tenderness - Routine Extremities Exam Present: no edema, normal capillary refill, amputation (right great toe. Right foot is wrapped with gauze) Comments: Deformity of the hands secondary to rheumatoid arthritis - Routine Skin Exam Present: dry, warm - Routine Neurological Exam Present: alert, oriented X3, CN II-XII intact - Routine Psychiatric Exam Present: normal affect, normal thought process, cooperative Results - Labs CBC & Chem 7: 08/17/17 11:30 08/17/17 11:30 Microbiology Results: Microbiology 08/17/17 13:22 Toe,Right Great Gram Stain - Final 08/17/17 13:22 Toe,Right Great Deep Wound Culture - Preliminary Culture Initiated - Results Pending 08/17/17 13:20 Toe Great, Right, Bone Gram Stain - Final 08/17/17 13:20 Toe Great, Right, Bone Surgical Culture - Preliminary Early growth - ECG Data Tracing #1 Sinus tachycardia with incomplete right bundle branch block. Rate 110. Assessment and Plan Assessment and Plan: Assessment Status post right great toe amputation secondary to osteomyelitis-Dr. Collier (08/17) Coronary artery disease - (s/p PTCA with stent placement 1) 2014 Dr. Ulysses CERDA Hypertension CHF- transthoracic echo 04/29 EF =15% TIA-03/2017 Rheumatoid arthritis COPD - requiring 2 L O2 Adrenal insufficiency secondary to chronic steroid use Anxiety/depression Hypothyroidism Ileostomy due to bowel perforation Plan Check CBC, BMP, pro calcitonin and lactate given the hypotension and tachycardia and diagnosis of osteomyelitis. Reviewed recent EKGs. Will bolus 500 cc of normal saline. I spoke with her PCP, Dr. Eula Shoemaker, who states patient is typically tachycardic at baseline. Will continue to follow her vital signs and watch for development of new or worsening symptoms. Appreciate the consult. We will follow patient with you throughout the rest of her stay. Hospital Course Summary Disclaimer: The visit summary below is not to be considered part of the above Progress Note. Hospital Course: Assessment Status post right great toe amputation secondary to osteomyelitis-Dr. Collier (08/17) Coronary artery disease - (s/p PTCA with stent placement 1) 2014 Dr. Ulysses CERDA Hypertension CHF- transthoracic echo 04/29 EF =15% TIA-03/2017 Rheumatoid arthritis COPD - requiring 2 L O2 Adrenal insufficiency secondary to chronic steroid use Anxiety/depression Hypothyroidism Ileostomy due to bowel perforation 08/18/17-hospitalist consult Check CBC, BMP, pro calcitonin and lactate given the hypotension and tachycardia and diagnosis of osteomyelitis. Reviewed recent EKGs. Will bolus 500 cc of normal saline. I spoke with her PCP, Dr. Eula Shoemaker, who states patient is typically tachycardic at baseline. Will continue to follow her vital signs and watch for development of new or worsening symptoms. Appreciate the consult. We will follow patient with you throughout the rest of her stay. <Shayy Salazar - Last Filed: 08/18/17 20:42> Consult Information - Data of Consult Requesting Physician: Omar Collier MD Primary Care Provider: Eula Shoemaker Family Provider: Eula Shoemaker COUNT INCLUDES THE [facility] Patient Stated Medical History Transient Ischemic Attacks ( march 2017 TIA) Angina Yes: none in past year Cardiac Arrhythmia Yes: at. fib./ tachycardia Congestive Heart Failure Yes Coronary Artery Disease Yes Hypertension Yes Myocardial Infarction Yes: EF 20% Asthma Yes Chronic Obstructive Pulmonary Yes Disease (COPD) Sleep Apnea No Other Respiratory Yes: o2 at night Gastroesophageal Reflux Yes Disease Anemia Yes Clotting Problems Yes: takes plavix Osteoarthritis Yes Other Musculoskeletal Yes: RA MRSA Yes Blood Transfusions Yes: NO REACTION Depression Yes Ovarian Cysts Yes Post Menopausal Yes Exam Vital Signs: Temperature 97.0 F 08/18/17 19:47 Pulse Rate 101 H 08/18/17 19:47 Respiratory Rate 18 08/18/17 19:47 Blood Pressure 129/75 08/18/17 19:47 Pulse Oximetry 91 08/18/17 19:47 Height/Weight/BMI: Height 1.57 m Weight 39.6 kg Body Mass Index 15.5 Results - Labs CBC & Chem 7: 08/18/17 15:03 08/18/17 18:17 Microbiology Results: Microbiology 08/17/17 13:22 Toe,Right Great Gram Stain - Final 08/17/17 13:22 Toe,Right Great Deep Wound Culture - Preliminary Culture Initiated - Results Pending 08/17/17 13:20 Toe Great, Right, Bone Gram Stain - Final 08/17/17 13:20 Toe Great, Right, Bone Surgical Culture - Preliminary Early growth Assessment and Plan Assessment and Plan: 08/18/2017-I reviewed this chart, the patient history, and the [facility] GEOLOGIST's/PA's documented findings as above. We discussed and formulated the assessment and plan as above with the additions below.-Dr. Salazar The patient was seen earlier this evening. She stated she was feeling better after IV fluids. She no longer felt lightheaded or woozy. She is eating and drinking okay. She denies any chest pains or palpitations. Ileostomy is functioning normally. On exam she is thin and appears chronically ill. HEENT reveals sclerae to be anicteric and oropharynx is moist. Neck is supple. Chest is clear to auscultation. Cardio vascular reveals a borderline tachycardic rate with irregular rhythm. She states her heart rate is always a little high and more so after breathing treatment. Abdomen is soft and nontender. Extremities are free of edema. Right foot is wrapped after surgery. She has ulnar deviation in her hands from rheumatoid arthritis. Potassium earlier today was 5.2 up from 3.9. A repeat potassium was ordered and was 5.0. She was given lactated Ringer's earlier today. Impression/plan Hypotension and tachycardia improved with normal saline IV fluid bolus. The patient tends to have borderline tachycardia per primary care physician. She is on chronic low-dose steroids for rheumatoid arthritis and Florinef. Since blood pressure improved with IV fluids, I do not think the patient needs stress dose steroids at this time, but if blood pressure is low again would consider repeating IV fluids and if not improving then would give stress dose steroids. She would like to avoid stress dose steroids if possible, but is agreeable if necessary. Regarding elevated potassium-I would watch this closely. She is on Bactrim which she thinks was started about a week ago for her infected toe. She is also on lisinopril which is a chronic medication. Will recheck potassium tomorrow. Renal function shows a BUN of 15 and creatinine of 0.8. Baseline creatinine appears to be 0.5-0.7. Continue current treatment for COPD. Hospital Course Summary Disclaimer: The visit summary below is not to be considered part of the above Progress Note.
[2017-08-18] MEDS: DICLOFENAC 100 MG PO SCH (17:51)
[2017-08-18] MEDS: ACETAMINOPHEN 500 MG TABLET PO PRN (19:54)
[2017-08-18] MEDS: CALCIUM CARBONATE 600 MG TABLET PO SCH ×2 (19:54→20:02)
[2017-08-18] MEDS: POM ROSUVASTATIN 20 MG TABLET PO SCH (20:03)
[2017-08-18] MEDS ORDERED: MIRTAZAPINE 30 MG PO SCH (21:00)
[2017-08-19] MEDS: BUDESONIDE INH.SOLN 0.5mg/2ml NEB AEROSOL SCH ×3 (00:36→19:54)
[2017-08-19] MEDS: PANTOPRAZOLE 40 MG TABLET PO SCH ×2 (05:59→17:10)
[2017-08-19] MEDS: POM LEVOTHYROXINE 50 MCG TABLET PO SCH (05:59)
[2017-08-19] MEDS: ACETAMINOPHEN 500 MG TABLET PO PRN (05:59)
[2017-08-19] MEDS ORDERED: PREDNISONE 1 MG PO SCH (08:00)
[2017-08-19] MEDS: POM TIOTROPIUM 18mcg/cap HANDIHALER ORAL INH SCH (09:07)
--- NOTE | 2017-08-19 09:58 | Orthopedic Progress Note ---
Date: Subjective/Severity of Illness: POD 2 sp right foot debridement. Bleeding slowed significantly and no recent dressing changes needed. No significant pain. Awaiting cultures for abx direction. Denies NVFC. Orthopedic Objective PO Vital signs: Temperature 97.7 F 08/19/17 07:32 Pulse Rate 104 H 08/19/17 07:32 Respiratory Rate 16 08/19/17 09:08 Blood Pressure 133/68 08/19/17 07:32 Pulse Oximetry 94 08/19/17 07:32 Height and Weight: Height 5 ft 2 in Weight 89 lb 8.123 oz Body Mass Index 15.5 - Constitutional General Appearance: Present: alert, orientated x3, cooperative - Respiratory Exam Present: non-labored - Abdominal Exam Absent: tenderness - Extremities Exam Extremities: Present: pulses intact. Absent: calf tenderness, Kelsea's sign - Surgical Site Incision: dressing intact, bloody drainage present (smaller than dime sized. Dry.) Wound Drainage: minimal amount - Neurological Exam Present: no deficits - Psychiatric Exam Present: alert, oriented, normal affect - Labs Result Diagrams: 08/19/17 05:02 08/19/17 05:02 Abnormal lab results 08/18/17 08/18/17 08/19/17 Range/Units 15:03 15:03 05:02 RBC 3.72 L (4.00-5.20) M/MM3 Hgb 10.4 L D 11.2 L (12-16) GM/DL Hct 33.1 L D (36-46) % RDW Std Deviation 54.0 H 54.8 H (36.9-50.2) FL MPV 9.0 L 8.8 L (9.4-12.4) UM3 Neut % (Auto) 72.0 H (33-66) % Lymph % (Auto) 18.1 L (23-45) % Lymphocytes % (Manual) 50.0 H (23-45) % Eosinophils % (Manual) 5.0 H (0-4) % Potassium 5.2 H D (3.6-5) MEQ/L Glucose 112 H (65-110) MG/DL Albumin (3.5-5.0) G/DL 08/19/17 Range/Units 05:02 RBC (4.00-5.20) M/MM3 Hgb (12-16) GM/DL Hct (36-46) % RDW Std Deviation (36.9-50.2) FL MPV (9.4-12.4) UM3 Neut % (Auto) (33-66) % Lymph % (Auto) (23-45) % Lymphocytes % (Manual) (23-45) % Eosinophils % (Manual) (0-4) % Potassium (3.6-5) MEQ/L Glucose (65-110) MG/DL Albumin 3.2 L (3.5-5.0) G/DL H & H 08/17/17 08/18/17 08/19/17 Range/Units 11:30 15:03 05:02 Hgb 12.0 10.4 L D 11.2 L (12-16) GM/DL Hct 37.3 33.1 L D 36.1 (36-46) % Orthopedic Assessment and Plan (1) Toe osteomyelitis, right Status: Acute Assessment and Plan: Cont PT / OT for her mobility needs. Cont IV Vanco until culture results are available. Hospitalist consulted to help manage multiple medical conditions. Continue dressing changes PRN. (2) Ulcer of left heel Status: Acute Assessment and Plan: I&D of the wound done 08/17/17. Wound care to resume seeing her after discharge. Aquacel dressing and Mepilex in place. Bactrim DS BID PO after discharge. IV Vanco at this time - Anticoagulation Therapy Anticoagulation: other Hospital Course Summary Disclaimer: The visit summary below is not to be considered part of the above Progress Note. Hospital Course: Assessment Status post right great toe amputation secondary to osteomyelitis-Dr. Collier (08/17) Coronary artery disease - (s/p PTCA with stent placement 1) 2014 Dr. 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 Anxiety/depression Hypothyroidism Ileostomy due to bowel perforation 08/18/17-hospitalist consult Check CBC, BMP, pro calcitonin and lactate given the hypotension and tachycardia and diagnosis of osteomyelitis. Reviewed recent EKGs. Will bolus 500 cc of normal saline. I spoke with her PCP, Dr. Eula Shoemaker, who states patient is typically tachycardic at baseline. Will continue to follow her vital signs and watch for development of new or worsening symptoms. Appreciate the consult. We will follow patient with you throughout the rest of her stay.
[2017-08-19] MEDS: CARVEDILOL 3.125 MG TABLET PO SCH ×2 (10:04→17:10)
[2017-08-19] MEDS: DICLOFENAC 100 MG PO SCH ×2 (10:05→17:11)
[2017-08-19] MEDS: ASPIRIN *EC* 81 MG TABLET PO SCH (10:06)
[2017-08-19] MEDS: POM PredniSONE 5 MG TABLET PO SCH (10:06)
[2017-08-19] MEDS: CALCIUM CARBONATE 600 MG TABLET PO SCH ×2 (10:07→20:48)
[2017-08-19] MEDS: POM CLOPIDOGREL 75 MG TABLET PO SCH (10:07)
[2017-08-19] MEDS: BUSPIRONE 10 MG TABLET PO SCH ×2 (10:07→20:48)
[2017-08-19] MEDS: FLUDROCORTISONE 0.1 MG PO SCH (10:08)
[2017-08-19] MEDS: VENLAFAXINE 75 MG PO SCH (10:08)
--- NOTE | 2017-08-19 13:39 | Progress Note ---
Subjective: 67-year-old female who had a right great toe amputation for osteomyelitis, Bone biopsy of right first metatarsal head and Excisional debridement of left heel pressure ulcer performed 08/17/[address] Collier. Hospitalist service was consulted regarding hypotension and tachycardia. She reported feeling "woozy and floaty " but otherwise had no other complaints. She reported her HR was likely high from recent resp treatment and this usually causes her heart to race. Patient has COPD, rheumatoid arthritis, coronary artery disease, recent TIA, and adrenal insufficiency due to chronic steroid use. She has CHF with systolic dysfunction. She takes lisinopril and Coreg. She is on Crestor, Plavix, and aspirin 81 mg daily as she had cardiac stent placement in 12/2015 and had a TIA in March 2017. She takes Ventolin, Spiriva, Breo Ellipta for COPD and is on oxygen at 2 L at home. She runs it through her CPAP at night. She has a history of hyponatremia. Workup was suggestive of adrenal insufficiency. She's on Florinef daily. Sodium levels have been stable. She has a history of iron deficiency anemia and has had intermittent iron infusions. Hemoglobin has been stable. She has B12 deficiency and receives monthly B12 injections. She takes Synthroid for hypothyroidism. TSH was last checked 12/2016. 08/19/2017 She is POD 2. She is doing well. Her pain is controlled. She was ambulating with physical therapy earlier this morning. She is not eating well but states that that's not new for her. She is also not drinking much water. She has slight spot of bloody drainage on the great toe area of her right foot. Her left still wound is still bandaged with no sign of bleeding on the Band-Aid. She denies chest pain or palpitations. She denies shortness of breath. She denies lightheadedness or dizziness. She denies fever or chills. She denies nausea or vomiting. She reports her bowels moved yesterday. Objective Vital signs: Temperature 98.4 F 08/19/17 11:41 Pulse Rate 99 08/19/17 11:41 Respiratory Rate 16 08/19/17 11:41 Blood Pressure 127/82 08/19/17 11:41 Pulse Oximetry 94 08/19/17 11:41 Height/Weight/BMI: Height 1.57 m Weight 40.6 kg Body Mass Index 15.5 Comments: Gen.: She patient is alert and oriented. She said no acute distress. Skin: warm and dry. HEENT: NC/AT PERRL. EOMI. Sclera, lids and conjunctiva wnl. MMM. OP clear. Neck: supple. No JVP. Carotids 2+ and upstroke without bruits. Lungs: clear without rales, rhonchi or wheezes. CV: heart is regular. No murmur, Richard or gallop. Abdomen: soft, nontender, nondistended, positive bowel sounds MS: no lower extremity edema. Right foot with dressing intact. Small amt of dried blood on great toe area. Small band aid on Left lateral heel wound. Neuro: No focal deficits. Results - Labs CBC & Chem 7: 08/19/17 05:02 08/19/17 05:02 Microbiology Results: Microbiology 08/17/17 13:22 Toe,Right Great Gram Stain - Final 08/17/17 13:22 Toe,Right Great Deep Wound Culture - Preliminary Gram Positive Cocci 08/17/17 13:20 Toe Great, Right, Bone Gram Stain - Final 08/17/17 13:20 Toe Great, Right, Bone Surgical Culture - Preliminary Assessment and Plan Assessment and Plan: 08/18/2017-I reviewed this chart, the patient history, and the [employer]'s/PA's documented findings as above. We discussed and formulated the assessment and plan as above with the additions below.-Dr. Salazar The patient was seen earlier this evening. She stated she was feeling better after IV fluids. She no longer felt lightheaded or woozy. She is eating and drinking okay. She denies any chest pains or palpitations. Ileostomy is functioning normally. On exam she is thin and appears chronically ill. HEENT reveals sclerae to be anicteric and oropharynx is moist. Neck is supple. Chest is clear to auscultation. Cardio vascular reveals a borderline tachycardic rate with irregular rhythm. She states her heart rate is always a little high and more so after breathing treatment. Abdomen is soft and nontender. Extremities are free of edema. Right foot is wrapped after surgery. She has ulnar deviation in her hands from rheumatoid arthritis. Potassium earlier today was 5.2 up from 3.9. A repeat potassium was ordered and was 5.0. She was given lactated Ringer's earlier today. Impression/plan Hypotension and tachycardia improved with normal saline IV fluid bolus. The patient tends to have borderline tachycardia per primary care physician. She is on chronic low-dose steroids for rheumatoid arthritis and Florinef. Since blood pressure improved with IV fluids, I do not think the patient needs stress dose steroids at this time, but if blood pressure is low again would consider repeating IV fluids and if not improving then would give stress dose steroids. She would like to avoid stress dose steroids if possible, but is agreeable if necessary. Regarding elevated potassium-I would watch this closely. She is on Bactrim which she thinks was started about a week ago for her infected toe. She is also on lisinopril which is a chronic medication. Will recheck potassium tomorrow. Renal function shows a BUN of 15 and creatinine of 0.8. Baseline creatinine appears to be 0.5-0.7. Continue current treatment for COPD. 08/19/2017 Assessment/Plan: 1. Status post right great toe amputation for osteomyelitis, Bone biopsy of right first metatarsal head and Excisional debridement of left heel pressure ulcer performed 08/17/[address] Collier -Cultures with light growth of gram + cocci -Pt on vanco managed by pharm as well as bactrim 2. Coronary artery disease - (s/p PTCA with stent placement 1) 2014 Dr. Arora -On ASA, plavix, Coreg, Lisinopril, crestor 3. PSVT -On coreg, appears stable 4. Hypertension -Reasonable control on Coreg 3.125mg BID and Lisinopril 2.5mg daily -Home coreg dose 6.25mg BID documented 5. Systolic HF -Appears compensated at present. -transthoracic echo 04/29 EF =15% -On Coreg, Lisinopril -No routinely on diuretics 6. TIA-03/2017 -ASA, Plavix 7. HLP -On crestor 8. Rheumatoid arthritis -on steroids 9. COPD - requiring 2 L O2 -On resp therapy 10. Adrenal insufficiency secondary to chronic steroid use -on steroids and florinef 11. Anxiety/depression -On effexor and remeron 12. Hypothyroidism -On levothyroxine 13. Ileostomy due to bowel perforation -Output noted. 14. Prophylaxis -SCDs, ambulate Hospital Course Summary Disclaimer: The visit summary below is not to be considered part of the above Progress Note. Hospital Course: Assessment Status post right great toe amputation secondary to osteomyelitis-Dr. Collier (08/17) Coronary artery disease - (s/p PTCA with stent placement 1) 2014 Dr. 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 Anxiety/depression Hypothyroidism Ileostomy due to bowel perforation 08/18/17-hospitalist consult Check CBC, BMP, pro calcitonin and lactate given the hypotension and tachycardia and diagnosis of osteomyelitis. Reviewed recent EKGs. Will bolus 500 cc of normal saline. I spoke with her PCP, Dr. Eula Shoemaker, who states patient is typically tachycardic at baseline. Will continue to follow her vital signs and watch for development of new or worsening symptoms. Appreciate the consult. We will follow patient with you throughout the rest of her stay.
[2017-08-19] MEDS: --POM--Albuterol HFA 8 GM INHALER ORAL INH PRN (19:54)
[2017-08-19] MEDS: LISINOPRIL 2.5 MG TABLET PO SCH (20:47)
[2017-08-19] MEDS: ROSUVASTATIN 20 MG TABLET PO SCH (20:48)
[2017-08-19] MEDS: SULFAMETHOXAZOLE/TMP 800 MG/160 MG DS TABLET PO SCH (20:49)
[2017-08-19] MEDS: MIRTAZAPINE 30 MG TABLET PO SCH (20:52)
[2017-08-20] MEDS ORDERED: FALL RISK - PHARMACY CONSULT MC ONE (00:13)
[2017-08-20] MEDS: LEVOTHYROXINE 50 MCG TABLET PO SCH (06:35)
[2017-08-20] MEDS: PANTOPRAZOLE 40 MG TABLET PO SCH ×2 (06:35→17:29)
[2017-08-20] MEDS: --POM--Albuterol HFA 8 GM INHALER ORAL INH PRN ×2 (07:04→19:02)
[2017-08-20] MEDS: BUDESONIDE INH.SOLN 0.5mg/2ml NEB AEROSOL SCH ×2 (07:04→19:01)
[2017-08-20] MEDS: POM TIOTROPIUM 18mcg/cap HANDIHALER ORAL INH SCH (08:05)
--- NOTE | 2017-08-20 08:07 | Pharmacy Consult-Antibiotics ---
Pharmacy Consult-Vancomycin - Laboratory Information WBC 8.4 T/MM3 (4.5-11.0) 08/19/17 05:02 BUN 13.0 MG/DL (7-17) 08/19/17 05:02 Creatinine 0.7 MG/DL (0.7-1.2) 08/19/17 05:02 Procalcitonin < 0.05 NG/ML 08/18/17 15:03 Vancomycin Trough 12.49 UG/ML (15-20) L 08/20/17 04:56 - Consult Information VANCOMYCIN CONSULT: Vancomycin Trough = 12.49 mcg/ml. Today's SCr = not ordered. Will give Vancomycin 1,000 mg IV q12hrs. Will continue to monitor and make adjustments accordingly. Thank you.
--- NOTE | 2017-08-20 08:30 | Progress Note ---
<Shabnam Valentine - Last Filed: 08/20/17 08:26> Subjective: Patient is seen today sitting in her chair getting ready for breakfast. She states she feels good. She has no complaints at this time. She's having no pain in the foot. She states that the bolus of IV fluids she received a few days ago "really made a difference." She is no longer feeling "woozy." She is worried about how she will manage transportation if she has to come to [place] for IV antibiotics after discharged. Objective Vital signs: Temperature 97.1 F 08/20/17 07:48 Pulse Rate 104 H 08/20/17 07:48 Respiratory Rate 16 08/20/17 08:05 Blood Pressure 133/85 08/20/17 07:48 Pulse Oximetry 97 08/20/17 07:48 Height/Weight/BMI: Height 1.57 m Weight 40.6 kg Body Mass Index 15.5 - Constitutional Present: no acute distress, thin - Routine Respiratory Exam Present: CTA bilaterally. Absent: wheezes - Routine Cardiovascular Exam Present: RRR, S1, S2. Absent: murmur - Routine Abdominal Exam Present: soft, normoactive bowel sounds, non distended. Absent: tenderness - Routine Extremities Exam Present: no edema, normal capillary refill Comments: Deformity to hands secondary to RA. - Routine Skin Exam Present: dry, warm - Routine Neurological Exam Present: alert, oriented X3 - Routine Lymphatic Exam Lymphatic: Absent: adenopathy - Routine Psychiatric Exam Present: normal affect, normal thought process, cooperative Results - Labs CBC & Chem 7: 08/19/17 05:02 08/19/17 05:02 Microbiology Results: Microbiology Toe culture-Staphylococcus aureus and coag-negative Staphylococcus Sensitive to all tested with the exception of ciprofloxacin, clindamycin, erythromycin, and levofloxacin Assessment and Plan Assessment and Plan: 08/20/2017 Assessment/Plan: 1. Status post right great toe amputation for osteomyelitis, Bone biopsy of right first metatarsal head and Excisional debridement of left heel pressure ulcer performed 08/17/[address] Collier -Cultures with light growth of Staphylococcus aureus and coag-negative Staphylococcus -Pt on vanco managed by pharm as well as bactrim 2. Coronary artery disease - (s/p PTCA with stent placement 1) 2014 Dr. Arora -On ASA, plavix, Coreg, Lisinopril, crestor 3. PSVT -On coreg, appears stable 4. Hypertension -Reasonable control on Coreg 3.125mg BID and Lisinopril 2.5mg daily -Home coreg dose 6.25mg BID documented 5. Systolic HF -Appears compensated at present. -transthoracic echo 04/29 EF =15% -On Coreg, Lisinopril -No routinely on diuretics 6. TIA-03/2017 -ASA, Plavix 7. HLP -On crestor 8. Rheumatoid arthritis -on steroids 9. COPD - requiring 2 L O2 -On resp therapy 10. Adrenal insufficiency secondary to chronic steroid use -on steroids and florinef 11. Anxiety/depression -On effexor and remeron 12. Hypothyroidism -On levothyroxine 13. Ileostomy due to bowel perforation -Output noted. 14. Prophylaxis -SCDs, ambulate No changes to current treatment plan. Patient is stable. Ortho to determine plan for antibiotics post discharge. Hospital Course Summary Disclaimer: The visit summary below is not to be considered part of the above Progress Note. Hospital Course: Assessment Status post right great toe amputation secondary to osteomyelitis-Dr. Collier (08/17) Coronary artery disease - (s/p PTCA with stent placement 1) 2014 Dr. 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 Anxiety/depression Hypothyroidism Ileostomy due to bowel perforation 08/18/17-hospitalist consult Check CBC, BMP, pro calcitonin and lactate given the hypotension and tachycardia and diagnosis of osteomyelitis. Reviewed recent EKGs. Will bolus 500 cc of normal saline. I spoke with her PCP, Dr. Eula Shoemaker, who states patient is typically tachycardic at baseline. Will continue to follow her vital signs and watch for development of new or worsening symptoms. Appreciate the consult. We will follow patient with you throughout the rest of her stay. 08/19/17 No changes. Patient stable. Encouraged p.o. intake. 08/20/17 No changes patient stable. Labs are stable. Continue vancomycin and Bactrim. Microbiology-growth of Staphylococcus aureus and coag-negative Staphylococcus. <Anna Marie Pereira - Last Filed: 08/20/17 11:03> Subjective: Randall GOINS: the patient was seen by the this morning and examined. She is resting comfortably in bed. She states she just had a bath and that made her feel wonderful. She reports having eaten pretty good supper last evening and a good breakfast this morning. Her pain is controlled. She denies lightheadedness or dizziness. She denies chest pain or palpitations. She denies shortness of breath. She denies abdominal pain. She has good ostomy output. Her right foot has a clean dressing with no evidence of blood. SCDs in place. Objective Vital signs: Temperature 97.1 F 08/20/17 07:48 Pulse Rate 102 H 08/20/17 08:10 Respiratory Rate 16 08/20/17 08:05 Blood Pressure 133/85 08/20/17 07:48 Pulse Oximetry 98 08/20/17 10:41 Height/Weight/BMI: Height 1.57 m Weight 40.6 kg Body Mass Index 15.5 Comments: Randall GOINS: patient was examined by me. Her lungs are clear. Heart is regular without murmur. She has no lower extremity edema. Her abdomen is soft, nontender with positive bowel sounds. Ostomy site is clean. Her ostomy bag has just been emptied. Her wound on her right foot is dressed. Results - Labs CBC & Chem 7: 08/19/17 05:02 08/19/17 05:02 Microbiology Results: Microbiology 08/17/17 13:20 Toe Great, Right, Bone Gram Stain - Final 08/17/17 13:20 Toe Great, Right, Bone Surgical Culture - Preliminary Gram Positive Cocci 08/17/17 13:22 Toe,Right Great Gram Stain - Final 08/17/17 13:22 Toe,Right Great Deep Wound Culture - Final Staphylococcus aureus Coag negative Staphylococcus Assessment and Plan Assessment and Plan: Randall GOINS: the patient was interviewed and examined by me with my evaluation noted above. She is doing well. The cultures still only document gram-positive cocci. She continues on antibiotics. She worked with physical therapy yesterday and that will resume tomorrow. I have reviewed her labs, notes and imaging. The patient was discussed with PA and I agree with her assessment and plan. Hospital Course Summary Disclaimer: The visit summary below is not to be considered part of the above Progress Note. Addendum entered and electronically signed by Shabnam Valentine PA 08/20/17 08:52 : Patient requests probiotic. States she normally takes at home. Especially since she is on antibiotics, would like to have while she is here. Culturejodi ordered.
[2017-08-20] MEDS: ASPIRIN *EC* 81 MG TABLET PO SCH (09:16)
[2017-08-20] MEDS: CALCIUM CARBONATE 600 MG TABLET PO SCH ×2 (09:16→20:47)
[2017-08-20] MEDS: CARVEDILOL 3.125 MG TABLET PO SCH ×2 (09:16→17:29)
[2017-08-20] MEDS: PredniSONE 5 MG TABLET PO SCH (09:17)
[2017-08-20] MEDS: BUSPIRONE 10 MG TABLET PO SCH ×2 (09:17→20:47)
[2017-08-20] MEDS: CLOPIDOGREL 75 MG TABLET PO SCH (09:18)
[2017-08-20] MEDS: FLUDROCORTISONE 0.1 MG TABLET PO SCH (09:18)
[2017-08-20] MEDS: Venlaflaxine XR 75 MG CAPSULE (24hr) PO SCH (09:18)
[2017-08-20] MEDS: SULFAMETHOXAZOLE/TMP 800 MG/160 MG DS TABLET PO SCH ×2 (09:18→20:54)
[2017-08-20] MEDS: DICLOFENAC 100 MG PO SCH ×2 (09:19→17:29)
--- NOTE | 2017-08-20 11:00 | Orthopedic Progress Note ---
Date: Subjective/Severity of Illness: POD 3 sp right foot debridement. No significant pain. Feeling much better overall. Cultures and sensitivities returned for S. Aureus shows adequate coverage with her Bactrim and vancomycin. Denies NVFC. Orthopedic Objective PO Vital signs: Temperature 97.1 F 08/20/17 07:48 Pulse Rate 102 H 08/20/17 08:10 Respiratory Rate 16 08/20/17 08:05 Blood Pressure 133/85 08/20/17 07:48 Pulse Oximetry 98 08/20/17 10:41 Height and Weight: Height 5 ft 2 in Weight 89 lb 8.123 oz Body Mass Index 15.5 - Constitutional General Appearance: Present: alert, orientated x3, cooperative - Respiratory Exam Present: non-labored - Abdominal Exam Absent: tenderness - Extremities Exam Extremities: Present: pulses intact. Absent: calf tenderness, Kelsea's sign - Surgical Site Incision: dressing intact, bloody drainage present (smaller than dime sized. Dry.) Wound Drainage: minimal amount - Lymphatic Lymphatic: Absent: adenopathy - Neurological Exam Present: no deficits - Psychiatric Exam Present: alert, oriented, normal affect - Labs Result Diagrams: 08/19/17 05:02 08/19/17 05:02 Abnormal lab results 08/20/17 Range/Units 04:56 Vancomycin Trough 12.49 L (15-20) UG/ML H & H 08/17/17 08/18/17 08/19/17 Range/Units 11:30 15:03 05:02 Hgb 12.0 10.4 L D 11.2 L (12-16) GM/DL Hct 37.3 33.1 L D 36.1 (36-46) % Orthopedic Assessment and Plan (1) Toe osteomyelitis, right Status: Acute Assessment and Plan: Cont PT / OT for her mobility needs. Cont IV Vanco and Bactrim. Likely able to DC tomorrow with oral Bactrim. Hospitalist consulted to help manage multiple medical conditions. Continue dressing changes PRN. I believe wound care to see patient tomorrow. (2) Ulcer of left heel Status: Acute Assessment and Plan: I&D of the wound done 08/17/17. Wound care to resume seeing her after discharge. Aquacel dressing and Mepilex in place. Bactrim DS BID PO after discharge. IV Vanco at this time - Anticoagulation Therapy Anticoagulation: other Hospital Course Summary Disclaimer: The visit summary below is not to be considered part of the above Progress Note. Hospital Course: Assessment Status post right great toe amputation secondary to osteomyelitis-Dr. Collier (08/17) Coronary artery disease - (s/p PTCA with stent placement 1) 2014 Dr. 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 Anxiety/depression Hypothyroidism Ileostomy due to bowel perforation 08/18/17-hospitalist consult Check CBC, BMP, pro calcitonin and lactate given the hypotension and tachycardia and diagnosis of osteomyelitis. Reviewed recent EKGs. Will bolus 500 cc of normal saline. I spoke with her PCP, Dr. Eula Shoemaker, who states patient is typically tachycardic at baseline. Will continue to follow her vital signs and watch for development of new or worsening symptoms. Appreciate the consult. We will follow patient with you throughout the rest of her stay. 08/19/17 No changes. Patient stable. Encouraged p.o. intake. 08/20/17 No changes patient stable. Labs are stable. Continue vancomycin and Bactrim. Microbiology-growth of Staphylococcus aureus and coag-negative Staphylococcus.
[2017-08-20 16:30] VITALS: RESP 16
[2017-08-20] MEDS: LACTOBACILLUS (15B cfu) CAPSULE PO SCH (17:28)
[2017-08-20] MEDS: ROSUVASTATIN 20 MG TABLET PO SCH (20:46)
[2017-08-20] MEDS: LISINOPRIL 2.5 MG TABLET PO SCH (20:46)
[2017-08-20] MEDS: MIRTAZAPINE 30 MG TABLET PO SCH (20:49)
[2017-08-21] MEDS: LEVOTHYROXINE 50 MCG TABLET PO SCH (05:51)
[2017-08-21] MEDS: PANTOPRAZOLE 40 MG TABLET PO SCH (05:51)
[2017-08-21] MEDS: LACTOBACILLUS (15B cfu) CAPSULE PO SCH (09:26)
[2017-08-21] MEDS: Venlaflaxine XR 75 MG CAPSULE (24hr) PO SCH (09:27)
[2017-08-21] MEDS: FLUDROCORTISONE 0.1 MG TABLET PO SCH (09:27)
[2017-08-21] MEDS: BUSPIRONE 10 MG TABLET PO SCH (09:27)
[2017-08-21] MEDS: CALCIUM CARBONATE 600 MG TABLET PO SCH (09:27)
[2017-08-21] MEDS: CLOPIDOGREL 75 MG TABLET PO SCH (09:28)
[2017-08-21] MEDS: CARVEDILOL 3.125 MG TABLET PO SCH (09:28)
[2017-08-21] MEDS: SULFAMETHOXAZOLE/TMP 800 MG/160 MG DS TABLET PO SCH (09:29)
[2017-08-21] MEDS: PredniSONE 5 MG TABLET PO SCH (09:32)
[2017-08-21] MEDS: ASPIRIN *EC* 81 MG TABLET PO SCH (09:32)
[2017-08-21] MEDS: DICLOFENAC 100 MG PO SCH (09:33)
[2017-08-21] MEDS: POM TIOTROPIUM 18mcg/cap HANDIHALER ORAL INH SCH (10:37)
[2017-08-21] MEDS: --POM--Albuterol HFA 8 GM INHALER ORAL INH PRN (10:39)
[2017-08-21] MEDS: BUDESONIDE INH.SOLN 0.5mg/2ml NEB AEROSOL SCH (10:49)
[2017-08-21 11:13] VITALS: BP 129/81; PULSE 101; TEMP 96.3; O2SAT 97
[2017-08-21 13:05] VITALS: BMI 15.9
--- NOTE | 2017-08-21 13:09 | Infectious Disease Consult ---
Infectious Disease Consult Date of Consultation: 08/21/17 Requesting Physician: Omar Collier Reason for Consultation: antibiotic recs History of Present Illness: Ms. Gore is a 67 y/o woman with a h/o RA and a prior h/o osteomyelitis involving her R foot. I saw her for this about 1 year ago, and treated her with IV antibiotics for 6 weeks. SHe reports that that wound healed up. She underwent amputation of R great toe for osteomyelitis on 08/17. Pathology showed osteomyelitis with negative bony margins. She had a bone culture and a wound culture obtained during that surgery, and they both grew MSSA. She has been on VAncomycin and bactrim. I've been asked to help with her antibiotics. She also has a wound on her L lateral heel which was debrided in the OR also. Medications Home Medications Medication Instructions Recorded Confirmed Type Albuterol Sulfate [Proventil Hfa 1 - 2 puff IH Q4HR PRN #0 07/07/10 08/17/17 History 90mcg] Tiotropium Handihaler [Spiriva] 1 cap IH DAILY #0 07/07/10 08/17/17 History Acetaminophen 1,000 mg PO Q6H PRN #0 01/05/16 08/17/17 History Buspirone HCl 20 mg PO BID #0 01/05/16 08/17/17 History Calcium Carbonate [Calcium] 1,200 mg PO DAILY #0 07/28/16 08/17/17 History Rosuvastatin Calcium [Crestor] 20 mg PO HS #0 07/28/16 08/17/17 History Clopidogrel Bisulfate [Plavix] 75 mg PO DAILY #0 08/24/16 08/17/17 History Diclofenac Sodium [Diclofenac 100 mg PO BID #0 08/24/16 08/17/17 History Sodium ER] Aspirin [Aspirin EC] 81 mg PO DAILY #0 10/09/16 08/17/17 History Lisinopril 2.5 mg PO HS #0 10/09/16 08/17/17 History Nitroglycerin [Nitrostat] 0.4 mg SL Q5MIN PRN #0 10/09/16 08/17/17 History Fludrocortisone [Florinef] 0.1 mg PO DAILY #0 tab 12/18/16 08/17/17 History Levothyroxine Sodium 50 mcg PO ACB #0 tab 12/18/16 08/17/17 History Mirtazapine [Remeron] 1 tab PO HS #0 tab 12/18/16 08/17/17 History Acidoph/L.bulg/Bif.b/S.thermop 2 cap PO DAILY 08/17/17 08/17/17 History [Bacid Caplet] Beclomethasone Dipropionate [Qvar 1 puff INH BID 08/17/17 08/17/17 History 80] Lidocaine For Magic Mouthwash 5 ml PO QID 08/17/17 08/17/17 History [Xylocaine Viscous] Sulfamethox/Tmp [Bactrim Ds] 1 tab PO BID 08/17/17 08/17/17 History Venlafaxine [Effexor] 75 mg PO DAILY 08/17/17 08/17/17 History Allergies Allergy/AdvReac Type Severity Reaction Status Date / Time morphine Allergy Mild ITCHING Verified 08/17/17 11:26 methylprednisolone Allergy Unknown Verified 08/17/17 11:26 doxycycline AdvReac Severe DIARRHEA Verified 08/17/17 11:26 adalimumab AdvReac Intermediate LOW GRADE Verified 08/17/17 11:26 FEVER atorvastatin AdvReac Unknown LEG CRAMPS Verified 08/17/17 11:26 bupropion AdvReac Unknown ANXIETY Verified 08/17/17 11:26 clotrimazole AdvReac Unknown MOUTH Verified 08/17/17 11:26 DISORDERS FOR[facility]LY [facility] Patient Stated Medical History Transient Ischemic Attacks ( march 2017 TIA) Angina Yes: none in past year Cardiac Arrhythmia Yes: at. fib./ tachycardia Congestive Heart Failure Yes Coronary Artery Disease Yes Hypertension Yes Myocardial Infarction Yes: EF 20% Asthma Yes Chronic Obstructive Pulmonary Yes Disease (COPD) Sleep Apnea No Other Respiratory Yes: o2 at night Gastroesophageal Reflux Yes Disease Anemia Yes Clotting Problems Yes: takes plavix Osteoarthritis Yes Other Musculoskeletal Yes: RA MRSA Yes Blood Transfusions Yes: NO REACTION Depression Yes Ovarian Cysts Yes Post Menopausal Yes Coronary artery disease - (s/p PTCA with stent placement 1) 2014 Dr. 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 Anxiety/depression Hypothyroidism Ileostomy due to bowel perforation Surgical History: Left inguinal hernia and mid abdominal incisional hernia repair (2007), repeat left inguinal hernia repair (2008), right hernia repair (), tubal ligation (1980), right oophorectomy and lysis of adhesions (06/2002 ), sinus surgery (01/1999), right knee synovectomy (02/2003), small bowel perforation with right hemicolectomy and ileostomy placement 01/23, bilateral bunionectomies, right foot joint fusion (1989), left ankle fusion (07/2000), bilateral knee replacements (left 2006, right 2004), left hip repair, right wrist fusion (09/2002), right shoulder surgery, cervical spine fusion C3, 4, 5 fusion ([facility]), carpal tunnel surgery (left 2005, right 2003), right great toe amputation secondary to osteomyelitis (Dr. Collier 08/2017), cardiac stent 1 ( Dr. Arora 2014). Colonoscopy 04/2011 (diverticulitis), EGD 07/28 (essentially normal) Family History: Father-coronary artery disease, at age 78 from an [place] Mother-depression Sister-breast cancer Sister-depression Sister-hyperlipidemia - Social History Smoking status: Former smoker (quit 2002) Substance use type: does not use Alcohol intake frequency: does not drink Current residence: Apartment/Private Home Review of Systems All systems PM: 10-point ROS was reviewed, no additional remarkable complaints except (pain L heel and R great toe amputation site) Exam Vital Signs: Temperature 96.3 F L 08/21/17 11:09 Pulse Rate 101 H 08/21/17 11:09 Respiratory Rate 16 08/21/17 11:09 Blood Pressure 129/81 08/21/17 11:09 Pulse Oximetry 97 08/21/17 11:09 Height/Weight/BMI: Height 1.57 m Weight 39.463 kg Body Mass Index 15.9 - Constitutional Present: no acute distress, well nourished, well developed - Routine HEENT Exam Head: Present: normocephalic, atraumatic Eye: Present: EOMI, PERRL ENT: Present: mucous membranes moist, dentition normal - Routine Neck Exam Present: supple. Absent: lymphadenopathy - Routine Respiratory Exam Present: CTA bilaterally. Absent: accessory muscle use - Routine Cardiovascular Exam Present: RRR. Absent: murmur - Routine Abdominal Exam Present: soft, normoactive bowel sounds, non distended, non tender. Absent: rebound, guarding - Routine Extremities Exam Absent: cyanosis, clubbing, edema Comments: R great toe amputation site with some mild erythema and ecchymosis, sutures intact, no drainage - Routine Skin Exam Present: intact, wounds (as above, also a wound L lateral heel which appears to be about 1 cm in diameter, no significant erythema or drainage). Absent: rash - Routine Neurological Exam Present: alert, oriented X3, CN II-XII intact. Absent: motor deficit - Routine Psychiatric Exam Present: normal affect, normal thought process Results - Labs CBC & Chem 7: 08/21/17 08:33 08/21/17 08:33 Microbiology Results: Microbiology 08/17/17 13:20 Toe Great, Right, Bone Gram Stain - Final 08/17/17 13:20 Toe Great, Right, Bone Surgical Culture - Preliminary Gram Positive Cocci 08/17/17 13:22 Toe,Right Great Gram Stain - Final 08/17/17 13:22 Toe,Right Great Deep Wound Culture - Final Staphylococcus aureus Coag negative Staphylococcus Impression: Osteomyelitis R great toe, s/p amputation 08/17/17, with pathology margins negative. Wound culture witih MSSA. RA on chronic steroids. Coronary artery disease - (s/p PTCA with stent placement 1) 2014 Dr. 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 I'd be happy to see her in follow up in the Wound clinic.
--- NOTE | 2017-08-21 13:17 | Discharge Summary ---
Orthopedic Discharge Info Date of admission: 08/18/17 11:36 Anticipated date of discharge: 08/21/17 Primary care physician: Eula Shoemaker Attending Physician: Omar Collier MD Consults: 08/17/17 11:07 Consult to Anesthesiology [CONS] Routine Consulting Provider: ODALYS Isaacs Reason For Exam: Surgery 08/17/17 17:08 Dietary Consult [CONS] Routine Comment: Reason For Exam: 08/18/17 12:41 Physician Consult [CONS] Routine Consulting Provider: Shayy Salazar Reason For Exam: ELEVATED HEART RATE AND DECREASED BLOOD PRESSURES Ordering Provider has Notified Furnace Operator And Tender: Yes 08/21/17 11:36 Physician Consult [CONS] Routine Consulting Provider: Victorina Rizo Reason For Exam: Osteomyelitis Ordering Provider has Notified Furnace Operator And Tender: No - Discharge Diagnosis (1) Toe osteomyelitis, right Status: Acute (2) Ulcer of left heel Status: Acute - Procedures Procedures: Procedures Amputation right great toe with biopsy of 1st MT head. Debridement of wound left calcaneus. Dilation of Coronary Artery, One Site with Drug-eluting Intraluminal Device, Percutaneous Approach (01/06/16) Drainage of Right Foot Skin, External Approach (12/18/16) Excision of Right Metatarsal, Open Approach (12/18/16) Fluoroscopy of Left Heart using Low Osmolar Contrast (01/06/16) Fluoroscopy of Multiple Coronary Arteries using Low Osmolar Contrast (01/06/16) Gait Training/Functional Ambulation Treatment using Assistive, Adaptive, Supportive or Protective Equipment (12/24/16) Home Management Treatment (12/24/16) Measurement of Cardiac Sampling and Pressure, Left Heart, Percutaneous Approach (01/06/16) Synovectomy, knee (06/23/09) Therapeutic Exercise Treatment of Musculoskeletal System - Whole Body (12/24/16) Total knee replacement (06/23/09) Transfusion of packed cells (06/23/09) - Laboratory Result Diagrams: 08/21/17 08:33 08/21/17 08:33 Laboratory: Abnormal lab results 08/21/17 08/21/17 Range/Units 08:33 08:33 RDW Std Deviation 55.0 H (36.9-50.2) FL MPV 9.3 L (9.4-12.4) UM3 Metamyelocytes % 1.0 H (0-0) % Creatinine 0.5 L D (0.7-1.2) MG/DL H & H 08/17/17 08/18/17 08/19/17 Range/Units 11:30 15:03 05:02 Hgb 12.0 10.4 L D 11.2 L (12-16) GM/DL Hct 37.3 33.1 L D 36.1 (36-46) % 08/21/17 Range/Units 08:33 Hgb 12.1 (12-16) GM/DL Hct 38.8 (36-46) % - Microbiology Microbiology 08/17/17 13:20 Toe Great, Right, Bone Gram Stain - Final 08/17/17 13:20 Toe Great, Right, Bone Surgical Culture - Preliminary Gram Positive Cocci 08/17/17 13:22 Toe,Right Great Gram Stain - Final 08/17/17 13:22 Toe,Right Great Deep Wound Culture - Final Staphylococcus aureus Coag negative Staphylococcus Orthopedic Discharge HPI - HPI Comments Pt admitted for amputation right great toe after failed outpatient treatment. See admission H&P for details. Orthopedic Hospital Course Hospital course: 08/21/17 13:06 Clarice underwent amputation of the right great toe and biopsy of the 1st MT head on 08/18/17. After appropriate preoperative clearance and signing of operative consent, Clarice was taken to the operating room and underwent amputation of the right great toe and biopsy of the 1st MT head on 08/18/[address] Collier. The ulcer on her left heel was also debrided. The left heel ulcer was down to facia but no bone was involved. Following surgery, vancomycin and Bactrim were continued thru the weekend until culture results were available. ID consult was done and recommendations are for her to go home on dicloxacillin 500mg QID. Hospitalist service was consulted to manage her numerous medical problems. Her Plavix and aspirin were initiated and SCDs added for DVT prevention. The dressings were changed prior to discharge and wound were looking good. Pt will f/u in wound clinic in 2-3 days. Pain control was obtained via multimodal approach. Bowel motivation addressed with scheduled and PRN medications. Early mobilization was initiated through PT services. Discharge arrangements made by a collaborative effort between the patient and Case Management. Follow-up is scheduled in 2-3 days. Discharge instructions given by orthopedic providers and nursing staff at discharge. Discharge condition was good. Discharge Plan - Med Rec/Dispo [place] Instructions: [facility] [place] Instructions Additional Instructions: Keep wounds and dressings dry. Elevate to control swelling. Wear the post operative shoes. F/U in wound clinic on 08/23/17 @ 11:30. Take your antibiotic 4x a day for 2 weeks. Prescriptions: New Dicloxacillin Sodium 500 mg PO Q6H 14 Days #56 cap Tramadol [Ultram] 50 - 100 mg PO Q6H PRN #40 tab PRN Reason: Pain Continue Acetaminophen 1,000 mg PO Q6H PRN #0 PRN Reason: PAIN Buspirone HCl 20 mg PO BID #0 Rosuvastatin Calcium [Crestor] 20 mg PO HS #0 Clopidogrel Bisulfate [Plavix] 75 mg PO DAILY #0 Nitroglycerin [Nitrostat] 0.4 mg SL Q5MIN PRN #0 PRN Reason: CHEST PAIN Levothyroxine Sodium 50 mcg PO ACB #0 tab Carvedilol [Coreg] 6.25 mg PO BIDWM 30 Days #60 tab Pantoprazole Sodium 40 mg PO ACBID 30 Days #60 tab predniSONE [Prednisone] 8 mg PO WB 30 Days #240 tab Hydrocodone/Acetaminophen [Hydrocodon-Acetaminoph 7.5-325] 1 tab PO Q4H PRN # 30 tab PRN Reason: PAIN Lidocaine For Magic Mouthwash [Xylocaine Viscous] 5 ml PO QID Beclomethasone Dipropionate [Qvar 80] 1 puff INH BID Sulfamethox/Tmp [Bactrim Ds] 1 tab PO BID Acidoph/L.bulg/Bif.b/S.thermop [Bacid Caplet] 2 cap PO DAILY Albuterol Sulfate [Proventil Hfa 90mcg] 1 - 2 puff IH Q4HR PRN #0 PRN Reason: COUGH Tiotropium Handihaler [Spiriva] 1 cap IH DAILY #0 Calcium Carbonate [Calcium] 1,200 mg PO DAILY #0 Diclofenac Sodium [Diclofenac Sodium ER] 100 mg PO BID #0 Aspirin [Aspirin EC] 81 mg PO DAILY #0 Lisinopril 2.5 mg PO HS #0 Mirtazapine [Remeron] 1 tab PO HS #0 tab Fludrocortisone [Florinef] 0.1 mg PO DAILY #0 tab Menthol Cough Drops 1 romina MM Q2H PRN 10 Days #0 PRN Reason: COUGH Venlafaxine [Effexor] 75 mg PO DAILY - Disposition 01 Discharged Home, Self-Care
--- NOTE | 2017-08-23 13:44 | History and Physical ---
CHIEF COMPLAINT Right foot pressure ulcerations. HISTORY OF PRESENT ILLNESS Mrs. Gore is a kind 67-year-old female who I have known before from previous treatment for a wound on the plantar aspect of the right foot. Today, 2016, she has been seen in the wound clinic for a pressure ulcer over the first metatarsal head. A second pressure ulcer has developed distal to the first. She has an MRI which suggests osteomyelitis in the bone. Previous treatments include sharp debridements with Hydrofera Blue dressing as well as Mepilex, changing it two times a week. She has also been on antibiotics. She also has a pressure ulcer to the left heel laterally. She has been wearing postop shoes on both feet. PAST MEDICAL HISTORY/PAST SURGICAL HISTORY/MEDICATIONS AND ALLERGIES Are all reviewed by myself and are available in the [facility] EMR. REVIEW OF SYSTEMS Negative for fever, chest pain, shortness of breath, diarrhea, nausea, vomiting , constipation, or bleeding. EXAM VITALS: Blood pressure is 156/87. She is 85 pounds. Her BMI is 15.5. Her pulse is 99. Her temperature is 98.0. She is 62 inches tall. EXTREMITIES: She has obvious deformities to her hands and feet consistent with rheumatoid arthritis. She has a grade 3 pressure ulcer over the first metatarsal head of the right foot measuring 0.3 x 0.3 x 0.2. There is a second pressure distal to the first which measures smaller. There is minimal surrounding erythema. There is an obvious hallux valgus deformity at the great toe. Sensation is intact and she has dorsalis pedis pulse intact. ASSESSMENT Right foot stage 3 pressure ulceration with possible osteomyelitis. PLAN I reviewed the diagnosis and treatment options with her. Given the severe deformity to her great toe causing pressure of the first metatarsal head, I think likely that the wound will not heal without trying to take pressure off of this area of the skin. For this reason, I recommended amputation of the toe with debridement and bone biopsy of the first metatarsal head. We would also debride sharply the ulcer on her left heel as well at the same time. I reviewed the risks and benefits and expected postoperative course. She agreed with this plan. Surgery will be scheduled tomorrow. TONY
== END 2017-08-21 14:15 | disposition home health service (06) | DRG 463 ==
LOC: SUR 10:54 → SRG 10:54
PROVIDERS: ADMIT Orthopaedic Surgery; ATTEND Orthopaedic Surgery

== ENCOUNTER 2017-10-20 08:15 | Inpatient (IN) ==
[2017-10-19] MEDS: NS 1,000 ML IV SCH ×2 (11:51→23:57)
[2017-10-19] MEDS: HYDROCODONE/APAP 7.5 MG/325 MG TABLET PO PRN ×2 (15:17→21:37)
--- NOTE | 2017-10-19 16:56 | Cardiology Report ---
DATE OF PROCEDURE October 19, 2017 The patient is a pleasant 67-year-old lady with nonhealing ulcer of the lower extremities bilaterally and abnormal lower extremity duplex study and was referred for further evaluation by angiography and possible intervention. Informed consent was obtained after explaining the procedure and the potential risks to the patient who agreed to proceed with the procedure. PROCEDURE 1. Abdominal aortography by placing catheter in abdominal aorta across the renal arteries. 2. Pelvic angiography by placing catheter in distal abdominal aorta. 3. Selective left lower extremity angiogram using crossover technique and placing catheter in left SFA and left common femoral arteries. 4. Runoffs of the right lower extremity through the right femoral sheath. TECHNIQUE She was prepped and draped in the usual sterile techniques. Conscious sedation was performed using Versed and fentanyl. 1% lidocaine was used for local anesthesia. Using modified Seldinger technique, arterial access was obtained into the right femoral artery with placement of a 6-Arabic arterial sheath. ABDOMINAL AORTOGRAPHY Abdominal aortography showed diffuse irregularities of the abdominal aorta with small ectatic area with no hemodynamically significant lesions. There were single renal arteries to each kidney which were patent with no hemodynamically significant lesions. PELVIC ANGIOGRAPHY Pelvic angiography showed patent common iliacs, external and internal iliacs and common femoral arteries bilaterally. Selective left lower extremity angiogram showed patent profunda. SFA was patent. Popliteal artery was patent. They were all small-caliber vessels. There were no significant lesions in these vessels except for 30% stenosis in left SFA. Left anterior tibial artery was diffusely diseased and small caliber and occluded very distally. Left peroneal artery was diffusely diseased and a small-caliber vessel with occlusion distally. Left posterior tibial artery appeared to be occluded at the ostium. The vessels were less than 1 mm in diameter distally. Runoffs of the right lower extremity showed patent profunda, SFA and popliteal artery. Right anterior tibial artery was small and diffusely diseased with up to 80%-90% stenosis. Right posterior tibial artery was diffusely diseased with up to 80%-90% stenosis. The right peroneal artery was a small-caliber vessel and tapered down to a minimum-size vessel of less than 1 mm in diameter. The patient tolerated the procedure well with no complications. IMPRESSION Severe bilateral infrapopliteal disease as described above. However, the vessels are very small and diffusely diseased for intervention or bypass. PLAN Medical management. MTDD
[2017-10-19] MEDS: CARVEDILOL 3.125 MG PO SCH (18:17)
[2017-10-19] MEDS: AMOX PO SCH (18:20)
[2017-10-19] MEDS: CLAV PO SCH (18:20)
[2017-10-19] MEDS: LORazepam 0.5 MG TABLET PO PRN (20:07)
[2017-10-19] MEDS: LISINOPRIL 2.5 MG TABLET PO SCH (21:25)
[2017-10-19] MEDS: BECLOMETHASONE 80 MCG ORAL INH SCH (21:25)
[2017-10-19] MEDS: BUSPIRONE 10 MG TABLET PO SCH (21:33)
[2017-10-19] MEDS: MIRTAZAPINE 30 MG TABLET PO SCH (21:34)
[2017-10-19] MEDS: DICLOFENAC SODIUM 100 MG PO SCH (21:34)
[2017-10-19] MEDS: CLOPIDOGREL 75 MG TABLET PO SCH (21:35)
[2017-10-19] MEDS: OLANZapine 2.5 MG TABLET PO SCH (21:35)
[2017-10-19] MEDS: TMP PO SCH (21:36)
[2017-10-19] MEDS: TIOTROPIUM 18mcg/cap HANDIHALER ORAL INH SCH (21:36)
[2017-10-19] MEDS: ROSUVASTATIN 20 MG TABLET PO SCH (21:36)
[2017-10-19] MEDS: [UNRECOGNIZED DRUG - OTHER] PO SCH (21:36)
[2017-10-19] MEDS: SULFAMETHOXAZOLE PO SCH (21:36)
[2017-10-20] MEDS: NS 1,000 ML IV SCH (03:52)
--- NOTE | 2017-10-20 06:25 | Orthopedic Consult Note ---
Orthopedic Consultation HPI - Consultation Info Consult Date: 10/20/17 Attending Physician: Casa Arora MD Consult Reason: other (Wound healing problems left LE.) - History of Present Illness 67 yo female well known to our practice. She had an amputation of the right great toe earlier this year and had been treated multiple times for chronic wounds on bilateral lower extremities. The pt was admitted 10/19/17 for vascular studies to assess her arterial status. Unfortunately, Dr Arora found that the arterial flow to her left LE cannot be corrected with any additional surgical intervention. She has used a wound vac and has been on Bactrim for over a month with no signs of healing. She recently has developed burning pain in the foot and today's studies suggest severe arterial insufficiency to the LE. Clarice is aware that the chances of healing her wounds without blood flow is a losing agustin and she is ready to consider amputation. Dr Collier has been consulted to evaluate her for surgical intervention. Review of Systems All systems: reviewed and no additional remarkable complaints except as stated PFSH Patient Stated Medical History Transient Ischemic Attacks ( Yes: MARCH 2017 TIA) Other HEENT Yes: WEARS GLASSES Angina Yes: HX Cardiac Arrhythmia Yes: at. fib./ tachycardia Congestive Heart Failure Yes Coronary Artery Disease Yes Hypertension Yes Myocardial Infarction Yes: EF 20% Asthma Yes Chronic Obstructive Pulmonary Yes Disease (COPD) Sleep Apnea Yes Other Respiratory Yes Gastroesophageal Reflux Yes Disease Hx Incontinence Yes Anemia Yes Clotting Problems Yes: takes plavix Osteoarthritis Yes Other Musculoskeletal Yes: RA MRSA Yes Blood Transfusions Yes: NO REACTION Depression Yes Ovarian Cysts Yes Post Menopausal Yes Clinic Medical History Toe osteomyelitis, right (Acute Medical) Ulcer of left heel (Acute Medical) Diabetic ulcer of ankle (Inactive Medical) Surgical History: Left inguinal hernia and mid abdominal incisional hernia repair (2007), repeat left inguinal hernia repair (2008), right hernia repair (), tubal ligation (1980), right oophorectomy and lysis of adhesions (06/2002 ), sinus surgery (01/1999), right knee synovectomy (02/2003), small bowel perforation with right hemicolectomy and ileostomy placement 01/23, bilateral bunionectomies, right foot joint fusion (1989), left ankle fusion (07/2000), bilateral knee replacements (left 2006, right 2004), left hip repair, right wrist fusion (09/2002), right shoulder surgery, cervical spine fusion C3, 4, 5 fusion (Isaac), carpal tunnel surgery (left 2005, right 2003), right great toe amputation secondary to osteomyelitis (Dr. Collier 08/2017), cardiac stent 1 ( Dr. Arora 2014). Colonoscopy 04/2011 (diverticulitis), EGD 07/28 (essentially normal) - Social History Smoking status: Former smoker Medications Home Medications Medication Instructions Recorded Confirmed Type Tiotropium Handihaler [Spiriva] 1 cap IH HS #0 07/07/10 10/19/17 History Acetaminophen 1,000 mg PO Q6H PRN #0 01/05/16 10/19/17 History Buspirone HCl 20 mg PO BID #0 01/05/16 10/19/17 History Calcium Carbonate [Calcium] 1,200 mg PO DAILY #0 07/28/16 10/19/17 History Rosuvastatin Calcium [Crestor] 20 mg PO HS #0 07/28/16 10/19/17 History Clopidogrel Bisulfate [Plavix] 75 mg PO DAILY #0 08/24/16 10/19/17 History Diclofenac Sodium [Diclofenac 100 mg PO BID #0 08/24/16 10/19/17 History Sodium ER] Aspirin [Aspirin EC] 81 mg PO DAILY #0 10/09/16 10/19/17 History Lisinopril 2.5 mg PO HS #0 10/09/16 10/19/17 History Nitroglycerin [Nitrostat] 0.4 mg SL Q5MIN3 PRN #0 10/09/16 10/19/17 History Fludrocortisone [Florinef] 0.1 mg PO DAILY #0 tab 12/18/16 10/19/17 History Levothyroxine Sodium 50 mcg PO ACB #0 tab 12/18/16 10/19/17 History Beclomethasone Dipropionate [Qvar 1 puff INH BID 08/17/17 10/19/17 History 80] Venlafaxine [Effexor] 75 mg PO DAILY 08/17/17 10/19/17 History Albuterol HFA Inhaler [Ventolin 1 - 2 puff INH Q4H PRN 09/27/17 10/19/17 History Hfa 90 mcg/actuation] Carvedilol 3.125 mg PO BIDWM 09/27/17 10/19/17 History Cyanocobalamin (B-12) [Vit. B-12] 1,000 mcg IM 1 MONTH 09/27/17 10/19/17 History Furosemide [Lasix] 20 mg PO DAILY PRN 09/27/17 10/19/17 History Mirtazapine [Remeron] 30 mg PO HS 09/27/17 10/19/17 History OLANZapine [Zyprexa] 2.5 mg PO HS 09/27/17 10/19/17 History Swizzle Solution 5Ml 5 ml PO Q4H PRN 09/27/17 10/19/17 History [Lidocaine/Maalox/Benadryl Soln] predniSONE [Prednisone] 3 mg PO WB 09/27/17 10/19/17 History Amoxicillin/Potassium Clav 1 each PO Q12H 10/19/17 10/19/17 History [Amox-Clav 875-125 mg Tablet] Cholecalciferol (Vitamin D3) 1 cap PO DAILY 10/19/17 10/19/17 History [Vitamin D3] Denosumab [Prolia] 60 mg SQ [id number] 10/19/17 10/19/17 History Hydrocodone/APAP 7.5/325 [[place] 1 tab PO Q6H PRN 10/19/17 10/19/17 History 7.5/325] Lansoprazole 1 cap PO DAILY 10/19/17 10/19/17 History Lidocaine/Prilocaine [EMLA 5gm] 1 applicatio TOP PRN 10/19/17 10/19/17 History PredniSONE [Deltasone] 5 mg PO DAILY 10/19/17 10/19/17 History Sulfamethoxazole/Trimethoprim 1 tab PO BID 10/19/17 10/19/17 History [Bactrim Ds Tablet] Triamcinolone 0.1% Cream 15 G 1 applicatio TOP BID PRN 10/19/17 10/19/17 History [Kenalog] Allergies Allergy/AdvReac Type Severity Reaction Status Date / Time morphine Allergy Mild ITCHING Verified 10/19/17 12:15 methylprednisolone Allergy Unknown Verified 10/19/17 12:15 doxycycline AdvReac Severe DIARRHEA Verified 10/19/17 12:15 adalimumab AdvReac Intermediate LOW GRADE Verified 10/19/17 12:15 FEVER atorvastatin AdvReac Unknown LEG CRAMPS Verified 10/19/17 12:15 bupropion AdvReac Unknown ANXIETY Verified 10/19/17 12:15 cortizone meds Allergy Unknown Anxiety Uncoded 10/19/17 12:15 Orthopedic Exam Vital signs: Temperature 97.1 F 10/20/17 04:02 Pulse Rate 101 H 10/20/17 04:02 Respiratory Rate 20 10/20/17 04:02 Blood Pressure 107/67 10/20/17 04:02 Pulse Oximetry 96 10/20/17 04:02 - Constitutional General Appearance: Present: alert, orientated x3, cooperative, no acute distress, thin - Respiratory Exam Present: non-labored - Cardiovascular Exam Absent: pedal pulses intact Capillary Refill: None (at the foot.) - Abdominal Exam Present: soft. Absent: tenderness, distended - Extremities Exam Present: amputation (right great toe.). Absent: pulses intact, normal capillary refill - Integumentary Exam Present: other ( Two non healing wounds to left lateral foot near calcaneous. ) . Absent: erythema - Psychiatric Exam Present: alert, oriented, normal affect - Labs Result Diagrams: 10/20/17 04:37 10/20/17 04:37 Abnormal lab results 10/19/17 10/19/17 10/20/17 Range/Units 12:03 12:03 04:37 RBC 3.99 L 3.28 L (4.00-5.20) M/MM3 Hgb 10.6 L 8.6 L D (12-16) GM/DL Hct 33.3 L 27.6 L D (36-46) % Plt Count 439 H D (130-400) T/MM3 MPV 8.1 L 8.4 L (9.4-12.4) UM3 [place] % (Auto) 12.8 H (0-9.0) % [place] # (Auto) 1.3 H (0-0.8) T/MM3 Sodium (134-144) MEQ/L Chloride 96 L (98-107) MEQ/L BUN 19.0 H (7-17) MG/DL Creatinine 0.6 L (0.7-1.2) MG/DL BUN/Creatinine Ratio 32 H (6-26) RATIO Calculated Osmolality 259 L (261-280) MOSM/KG Calcium (8.4-10.2) MG/DL TSH (0.47-4.68) MIU/L 10/20/17 Range/Units 04:37 RBC (4.00-5.20) M/MM3 Hgb (12-16) GM/DL Hct (36-46) % Plt Count (130-400) T/MM3 MPV (9.4-12.4) UM3 [place] % (Auto) (0-9.0) % [place] # (Auto) (0-0.8) T/MM3 Sodium 132 L (134-144) MEQ/L Chloride (98-107) MEQ/L BUN (7-17) MG/DL Creatinine 0.5 L (0.7-1.2) MG/DL BUN/Creatinine Ratio (6-26) RATIO Calculated Osmolality 254 L (261-280) MOSM/KG Calcium 8.2 L (8.4-10.2) MG/DL TSH 7.07 H (0.47-4.68) MIU/L H & H 10/19/17 10/20/17 Range/Units 12:03 04:37 Hgb 10.6 L 8.6 L D (12-16) GM/DL Hct 33.3 L 27.6 L D (36-46) % Impression and Recommendation (1) Arterial insufficiency of lower extremity Current visit: Yes Status: Acute Dr Collier has met with Clarice to discuss options related to a chronic, non- healing wound on her left foot and lack of arterial flow to sufficiently heal it. She has exhausted all reasonable options to heal this wound and BKA of the left LE is recommended. Questions have all been answered and pt wishes to proceed with left BKA. (2) Ulcer of left heel Current visit: No Status: Acute Hospital Course Summary Disclaimer: The visit summary below is not to be considered part of the above Progress Note.
[2017-10-20] MEDS: POM LEVOTHYROXINE 50 MCG TABLET PO SCH (06:35)
[2017-10-20] MEDS: LANSOPRAZOLE 30 MG PO SCH (06:35)
[~2017-10-20 08:15] MED LIST changes: -ACET-62 PO; +ACETAMINOPHEN 325 MG TABLET PO PRN; +ACETAMINOPHEN 500 MG TABLET PO PRN; -ALBU18HF4 IH; -ALBU2.5V2 AEROSOL; +ALBUTEROL 2.5mg/3ml (0.083%) NEB AEROSOL PRN; -ASPI-1085 PO; +ATROPINE 1 MG/ML INJECTION IVP PRN; +BISACODYL 10 MG SUPPOSITORY RECTALLY PRN; -BUDE0.5A AEROSOL; -BUSP10TA3 PO; +Bisacodyl EC TAB 5 MG TABLET PO PRN; -CALC600T12 PO; -CALMOSEPTINE OINTMENT 3.5 G PACKET TOP ONE; -CARV6.25 PO; -CEFA1VIA11 IV; -CLOP75TA PO; +CYANOCOBALAMIN (B-12) 1,000mcg/ml INJECTION IM SCH; +DENOSUMAB 60 MG/ML SQ SCH; -DICL100T3 PO; -DULO30CA2 PO; +FALL RISK - PHARMACY CONSULT XX ONE; -FLUD0.1T PO; +FUROSEMIDE 20 MG TABLET PO PRN; +FentaNYL 100 MCG/2 ML INJECTION ONE; +HEPARIN 1,000 UNITS/500 ML PREMIX (*CVL ONLY*) IV ONE; -HYDR-4072 PO; +INHALER ASSIST DEVICE (Optichamber) MC ONE; -LACT1CAP46 PO; -LEVO50TA11 PO; -LIDO20SO PO; +LIDOCAINE 1% (10mg/ml) 30ml SDV INJ ONE; -LISI2.5T2 PO; +MAG-AL + SIM ORAL LIQUID 30ml PO PRN; -MENTHOL COUGH MM; +METOCLOPRAMIDE 10mg/2ml INJECTION IVP PRN; +MIDAZOLAM 2mg/2ml INJECTION ONE; -MIRT15TA PO; -NITR0.4T SL; +NITROGLYCERIN 0.4 MG SUBLINGUAL TABLET SL PRN; -NYST5ORA7 PO; +ONDANSETRON 4 MG/2 ML INJECTION IVP PRN; -PANT40TA27 PO; -PRED1TAB PO; +PROMETHAZINE 25 MG INJECTION IVP PRN; -ROSU20TA PO; +SALINE FLUSH 10ml SYRINGE ONE; -TIOT18CA6 IH; +TRIAMCINOLONE 0.1% CREAM 15 G TUBE TOP PRN
[2017-10-20] MEDS: BECLOMETHASONE 80 MCG ORAL INH SCH ×2 (08:21→19:37)
[2017-10-20] MEDS: TIOTROPIUM 18mcg/cap HANDIHALER ORAL INH SCH (08:48)
[2017-10-20] MEDS ORDERED: VENLAFAXINE 75 MG PO SCH (09:00)
[2017-10-20] MEDS ORDERED: POM CLOPIDOGREL 75 MG TABLET PO SCH (09:00)
[2017-10-20] MEDS ORDERED: HYDROCORTISONE SOD SUCC 100mg/2ml INJECTION IVP ONE (09:18)
[2017-10-20] MEDS ORDERED: HYDROMORPHONE 2 MG/ML INJECTION IVP ONE (09:18)
[2017-10-20] MEDS: CARVEDILOL 3.125 MG PO SCH ×2 (09:31→18:27)
[2017-10-20] MEDS: AMOX PO SCH (09:35)
[2017-10-20] MEDS: CLAV PO SCH (09:35)
[2017-10-20] MEDS: POM PredniSONE 5 MG TABLET PO SCH (09:36)
[2017-10-20] MEDS: ASPIRIN *EC* 81 MG TABLET PO SCH (09:36)
[2017-10-20] MEDS: PREDNISONE 1 MG PO SCH (09:36)
[2017-10-20] MEDS: BUSPIRONE 10 MG TABLET PO SCH ×2 (09:36→20:46)
[2017-10-20] MEDS: CALCIUM CARBONATE 600 MG TABLET PO SCH (09:36)
[2017-10-20] MEDS: DICLOFENAC SODIUM 100 MG PO SCH ×2 (09:37→20:43)
[2017-10-20] MEDS: [UNRECOGNIZED DRUG - OTHER] PO SCH (09:37)
[2017-10-20] MEDS: FLUDROCORTISONE 0.1 MG TABLET PO SCH (09:37)
[2017-10-20] MEDS: SULFAMETHOXAZOLE PO SCH (09:37)
[2017-10-20] MEDS: TMP PO SCH (09:37)
--- NOTE | 2017-10-20 10:22 | Anesthesia Preoperative Report ---
Anesthesia Preoperative Record - Date and Time Date: 10/20/17 Preoperative Diagnosis: I70.203 atherosclerosis of [place] arteries of extr Proposed Procedure: Left below the knee Amputation NPO Since Date: 10/20/17 NPO Since Time: 00:00 Allergies/Adverse Reactions: Allergies Allergy/AdvReac Type Severity Reaction Status Date / Time morphine Allergy Mild ITCHING Verified 10/19/17 12:15 methylprednisolone Allergy Unknown Verified 10/19/17 12:15 doxycycline AdvReac Severe DIARRHEA Verified 10/19/17 12:15 adalimumab AdvReac Intermediate LOW GRADE Verified 10/19/17 12:15 FEVER atorvastatin AdvReac Unknown LEG CRAMPS Verified 10/19/17 12:15 bupropion AdvReac Unknown ANXIETY Verified 10/19/17 12:15 cortizone meds Allergy Unknown Anxiety Uncoded 10/19/17 12:15 - Vital Signs Vital Signs: Temperature 98.3 F 10/20/17 08:00 Pulse Rate 100 10/20/17 08:00 Respiratory Rate 22 10/20/17 08:50 Blood Pressure 113/67 10/20/17 08:00 Pulse Oximetry 100 10/20/17 08:00 Height and Weight: Height 1.57 m Weight 38 kg Body Mass Index 15.3 - Medications Inpatient Medications: Current Medications Acetaminophen (Tylenol) 1,000 mg PO Q6H PRN PRN Reason: Pain Hydrocodone Bitart/Acetaminophen ([place] 7.5/325) 1 tab PO Q6H PRN PRN Reason: Pain Last Admin: 10/19/17 21:37 Dose: 1 tab Al Hydroxide/Mg Hydroxide (Maalox Plus) 30 ml PO Q3H PRN PRN Reason: Indigestion Albuterol Sulfate (Proventil Neb (0.083%)) 1 - 2 mg AEROSOL Q4H PRN Amoxicillin/Clavulanate Potassium (Augmentin) 875 mg PO BIDWM REPLACED BY [facility] Last Admin: 10/20/17 09:35 Dose: Not Given Aspirin (Ecotrin) 81 mg PO DAILY REPLACED BY [facility] Last Admin: 10/20/17 09:36 Dose: Not Given Atropine Sulfate (Atropine) 0.5 mg IVP Q5M PRN PRN Reason: Bradycardia Beclomethasone Dipropionate (Qvar Inhaler) 1 puff ORAL INH BID REPLACED BY [facility] Last Admin: 10/20/17 08:21 Dose: 1 puff Bisacodyl (Dulcolax) 5 - 10 mg PO DAILY PRN PRN Reason: Constipation Bisacodyl (Dulcolax) 10 mg RECTALLY DAILY PRN PRN Reason: Constipation Buspirone HCl (Buspar) 20 mg PO BID REPLACED BY [facility] Last Admin: 10/20/17 09:36 Dose: Not Given Calcium Carbonate (Caltrate) 1,200 mg PO DAILY REPLACED BY [facility] Last Admin: 10/20/17 09:36 Dose: Not Given Carvedilol (Coreg) 3.125 mg PO BIDWM REPLACED BY [facility] Last Admin: 10/20/17 09:31 Dose: 3.125 mg Cholecalciferol (Vit. D-3) 2,000 unit PO DAILY REPLACED BY [facility] Last Admin: 10/20/17 09:37 Dose: Not Given Clopidogrel Bisulfate (Plavix) 75 mg PO [facility] Last Admin: 10/19/17 21:35 Dose: 75 mg Cyanocobalamin (Vit. B-12) 1,000 mcg IM Q30D REPLACED BY [facility] Denosumab (Prolia) 60 mg SQ [id number] REPLACED BY [facility] Last Admin: 10/19/17 14:48 Dose: Not Given Fludrocortisone Acetate (Florinef) 0.1 mg PO DAILY REPLACED BY [facility] Last Admin: 10/20/17 09:37 Dose: Not Given Furosemide (Lasix) 20 mg PO DAILY PRN Sodium Chloride (Normal Saline) 1,000 mls @ 75 mls/hr IV .[id number] REPLACED BY [facility] Last Infusion: 10/20/17 06:40 Dose: 75 mls/hr Levothyroxine Sodium (Synthroid) 50 mcg PO ACB REPLACED BY [facility] Last Admin: 10/20/17 06:35 Dose: Not Given Lisinopril (Prinivil) 2.5 mg PO [facility] Last Admin: 10/19/17 21:25 Dose: Not Given Lorazepam (Ativan) 0.5 - 1 mg PO Q4H PRN PRN Reason: Anxiety Last Admin: 10/19/17 20:07 Dose: 0.5 mg Lorazepam (Ativan Inj) 0.5 - 1 mg IVP Q4H PRN PRN Reason: Anxiety Magnesium Hydroxide (Mom) 30 ml PO DAILY PRN PRN Reason: Constipation Mirtazapine (Remeron) 30 mg PO [facility] Last Admin: 10/19/17 21:34 Dose: 30 mg Nitroglycerin (Nitrostat) 0.4 mg SL Q5MIN3 PRN PRN Reason: Angina Pom [Diclofenac (Sodium 100 Mg)) 100 mg PO BID REPLACED BY [facility] Last Admin: 10/20/17 09:37 Dose: Not Given Pom Lansoprazole (30mg) 1 cap PO ACB REPLACED BY [facility] Last Admin: 10/20/17 06:35 Dose: Not Given Olanzapine (Zyprexa) 2.5 mg PO HS REPLACED BY [facility] Last Admin: 10/19/17 21:35 Dose: 2.5 mg Ondansetron HCl (Zofran) 4 mg IVP Q6H PRN PRN Reason: Nausea &/or vomiting Pharmacy Profile Note (Lidocaine/Maalox/Benadryl Soln) 5 ml PO Q4H PRN PRN Reason: Mouth pain Prednisone (Deltasone) 5 mg PO WB REPLACED BY [facility] Last Admin: 10/20/17 09:36 Dose: Not Given Prednisone (Deltasone) 3 mg PO WB REPLACED BY [facility] Last Admin: 10/20/17 09:36 Dose: Not Given Promethazine HCl (Phenergan Inj) 12.5 - 25 mg IVP Q6H PRN PRN Reason: Nausea &/or vomiting Rosuvastatin Calcium (Crestor) 20 mg PO HS REPLACED BY [facility] Last Admin: 10/19/17 21:36 Dose: 20 mg Tiotropium [place] (Spiriva) 1 cap ORAL INH HS REPLACED BY [facility] Last Admin: 10/20/17 08:48 Dose: 1 cap Triamcinolone Acetonide (Kenalog) 1 applic TOP BID PRN PRN Reason: prn Trimethoprim/Sulfamethoxazole (Bactrim Ds) 1 tab PO BID REPLACED BY [facility] Last Admin: 10/20/17 09:37 Dose: Not Given Venlafaxine HCl (Effexor Xr) 75 mg PO DAILY REPLACED BY [facility] Last Admin: 10/20/17 09:37 Dose: Not Given Home Medications: Home Medications Medication Instructions Recorded Confirmed Type Tiotropium Handihaler [Spiriva] 1 cap IH HS #0 07/07/10 10/19/17 History Acetaminophen 1,000 mg PO Q6H PRN #0 01/05/16 10/19/17 History Buspirone HCl 20 mg PO BID #0 01/05/16 10/19/17 History Calcium Carbonate [Calcium] 1,200 mg PO DAILY #0 07/28/16 10/19/17 History Rosuvastatin Calcium [Crestor] 20 mg PO HS #0 07/28/16 10/19/17 History Clopidogrel Bisulfate [Plavix] 75 mg PO DAILY #0 08/24/16 10/19/17 History Diclofenac Sodium [Diclofenac 100 mg PO BID #0 08/24/16 10/19/17 History Sodium ER] Aspirin [Aspirin EC] 81 mg PO DAILY #0 10/09/16 10/19/17 History Lisinopril 2.5 mg PO HS #0 10/09/16 10/19/17 History Nitroglycerin [Nitrostat] 0.4 mg SL Q5MIN3 PRN #0 10/09/16 10/19/17 History Fludrocortisone [Florinef] 0.1 mg PO DAILY #0 tab 12/18/16 10/19/17 History Levothyroxine Sodium 50 mcg PO ACB #0 tab 12/18/16 10/19/17 History Beclomethasone Dipropionate [Qvar 1 puff INH BID 08/17/17 10/19/17 History 80] Venlafaxine [Effexor] 75 mg PO DAILY 08/17/17 10/19/17 History Albuterol HFA Inhaler [Ventolin 1 - 2 puff INH Q4H PRN 09/27/17 10/19/17 History Hfa 90 mcg/actuation] Carvedilol 3.125 mg PO BIDWM 09/27/17 10/19/17 History Cyanocobalamin (B-12) [Vit. B-12] 1,000 mcg IM 1 MONTH 09/27/17 10/19/17 History Furosemide [Lasix] 20 mg PO DAILY PRN 09/27/17 10/19/17 History Mirtazapine [Remeron] 30 mg PO HS 09/27/17 10/19/17 History OLANZapine [Zyprexa] 2.5 mg PO HS 09/27/17 10/19/17 History Swizzle Solution 5Ml 5 ml PO Q4H PRN 09/27/17 10/19/17 History [Lidocaine/Maalox/Benadryl Soln] predniSONE [Prednisone] 3 mg PO WB 09/27/17 10/19/17 History Amoxicillin/Potassium Clav 1 each PO Q12H 10/19/17 10/19/17 History [Amox-Clav 875-125 mg Tablet] Cholecalciferol (Vitamin D3) 1 cap PO DAILY 10/19/17 10/19/17 History [Vitamin D3] Denosumab [Prolia] 60 mg SQ [id number] 10/19/17 10/19/17 History Hydrocodone/APAP 7.5/325 [[place] 1 tab PO Q6H PRN 10/19/17 10/19/17 History 7.5/325] Lansoprazole 1 cap PO DAILY 10/19/17 10/19/17 History Lidocaine/Prilocaine [EMLA 5gm] 1 applicatio TOP PRN 10/19/17 10/19/17 History PredniSONE [Deltasone] 5 mg PO DAILY 10/19/17 10/19/17 History Sulfamethoxazole/Trimethoprim 1 tab PO BID 10/19/17 10/19/17 History [Bactrim Ds Tablet] Triamcinolone 0.1% Cream 15 G 1 applicatio TOP BID PRN 10/19/17 10/19/17 History [Kenalog] - Medical History Respiratory: Reports: Asthma, Chronic Obstructive Pulmonary Disease (COPD), Sleep Apnea, Other Cardiovascular: Reports: Abnormal EKG, Angina (HX), Arrhythmia (at. fib./ tachycardia), Congestive Heart Failure (EF documented as 20-25%), Coronary Artery Disease, Hypertension, High Cholesterol, Myocardial Infarction (EF 20%) Gastrointestional: Reports: Gastroesophageal Reflux Disease Neuro/Musculoskeletal: Reports: HX.MS.OSAR, Back Problems, Depression, Muscle Weakness, Other (RA) Renal/Endocrine: Reports: Thyroid Disease, Weight Loss Other History: Reports: Blood Transfusions (NO REACTION) - Surgical History HEENT Surgeries: Reports: Nose Surgery Cardiac Surgeries/Treatments: Reports: Cardiac Catheterization, Other (STENT 2016) Respiratory Surgery/Treatments: Reports: CPAP Use, Oxygen Administration (2L/NC with exertion & at noc) GI Surgery/Treatments: Reports: Colon Resection, Hernia Repair, Colonoscopy, Other (ileostomy) Musculoskeletal Surgery/Tx: Reports: Carpal Tunnel Release, Joint Surgery (LEFT HIP-PINS), Shoulder Arthroscopy (RIGHT SHOULDER REPLACEMENT), Total Knee Replacement (ANDRES.), Other (FUSION- L. ANKLE, R WRIST,NECK) Reproductive Surgery/Treatment: Reports: Tubal Ligation Anesthesia Reactions: None Hx Family Anesthesia Reaction: No - Social History Smoking Status: Former smoker Pack-years: 40 Hx Chewing Tobacco Use: No Second Hand Exposure: No Substance Use Type: does not use Alcohol Intake Frequency: does not drink - Pertinent Findings Laboratory: CBC and BMP 10/20/17 04:37 10/20/17 04:37 BMP 10/19/17 10/20/17 12:03 04:37 Sodium 134 132 L Potassium 4.4 4.2 Chloride 96 L 99 Carbon Dioxide 30 28 BUN 19.0 H 12.0 Creatinine 0.6 L 0.5 L Glucose 74 76 Calcium 8.9 8.2 L EKG: Sinus Tachycardia - Physical Exam Respiratory Exam: Present: decreased breath sounds-L, decreased breath sounds-R Cardiovascular Exam: Present: regular rate and rhythm - Airway Assessment Mallampati Score: II TMD: 3 Fingerbreadths Neck Extension: fair Overall Assessment: may be difficult mask vent, may be difficult intubation - ASA ASA Score: 4 - Plan Anesthesia: General TIVA - Discussion Discussion: Discussed risks/options/alternatives of anesthesia and questions answered. Patient consents. Nursing pain assessment noted. Attestation Statement: Prior to the delivery of any anesthetic medication, I examined the patient, developed the plan, obtained the patient's consent and discussed the risk and benefits of the procedure with the patient/guardian. - Additional Information Seen by Anesthesia: Yes
[2017-10-20] MEDS ORDERED: LR 1,000 ML IV SCH (10:45)
[2017-10-20] MEDS ORDERED: FentaNYL 100 MCG/2 ML INJECTION ONE (11:58)
[2017-10-20] MEDS ORDERED: PHENYLEPHRINE INJ 10 MG/ML VIAL IV ONE (12:04)
[2017-10-20] MEDS ORDERED: SALINE FLUSH 10ml SYRINGE ONE (12:04)
[2017-10-20] MEDS ORDERED: VASOPRESSIN 20unit/ml INJECTION ONE (12:14)
[2017-10-20] MEDS: CEFAZOLIN 1 G INJECTION IVP ONE ×2 (12:24→17:21)
[2017-10-20] MEDS ORDERED: PROPOFOL 500 MG/50 ML VIAL IV ONE (13:00)
[2017-10-20] MEDS ORDERED: METOCLOPRAMIDE 10mg/2ml INJECTION IVP PRN (13:30)
[2017-10-20] MEDS ORDERED: HYDROMORPHONE 2 MG/ML INJECTION IVP PRN (13:30)
[2017-10-20] MEDS ORDERED: ONDANSETRON 4 MG/2 ML INJECTION IVP PRN (13:30)
--- NOTE | 2017-10-20 14:23 | Cardiology Progress Note ---
<Jaja Hart - Last Filed: 10/20/17 17:34> Subjective Principal diagnosis: PAD Interval history: Clarice is seen in follow up for LE wound, PAD. She is S/P BKA. She is in her bed on the Surgical unit with her daughter at the bedside. Exam Vital signs: Temperature 98.1 F 10/20/17 13:26 Pulse Rate 108 H 10/20/17 14:10 Respiratory Rate 21 10/20/17 14:10 Blood Pressure 118/70 10/20/17 14:10 Pulse Oximetry 98 10/20/17 14:10 - Constitutional no acute distress, thin, cooperative - Routine HEENT Exam Head: Present: normocephalic ENT: Present: mucous membranes dry - Routine Neck Exam Absent: JVD, carotid bruit - Routine Chest/Breast/Axilla Exam Chest wall: Absent: tenderness - Routine Respiratory Exam Present: CTA bilaterally, diminished air movement - Routine Cardiovascular Exam Present: RRR, no murmur, tachycardia - Routine Abdominal Exam Present: soft, normoactive bowel sounds - Routine Extremities Exam Present: no edema. Absent: pulses intact - Routine Skin Exam Present: intact, dry, warm - Routine Neurological Exam Present: alert, oriented X3 - Routine Psychiatric Exam Present: normal affect, normal thought process - Additional findings Additional findings: Acetaminophen (Tylenol) 1,000 mg PO Q6H PRN PRN Reason: Pain Hydrocodone Bitart/Acetaminophen ([place] 7.5/325) 1 tab PO Q6H PRN PRN Reason: Pain Last Admin: 10/19/17 21:37 Dose: 1 tab Al Hydroxide/Mg Hydroxide (Maalox Plus) 30 ml PO Q3H PRN PRN Reason: Indigestion Albuterol Sulfate (Proventil Neb (0.083%)) 1 - 2 mg AEROSOL Q4H PRN Aspirin (Ecotrin) 81 mg PO DAILY [facility] Last Admin: 10/20/17 09:36 Dose: Not Given Atropine Sulfate (Atropine) 0.5 mg IVP Q5M PRN PRN Reason: Bradycardia Beclomethasone Dipropionate (Qvar Inhaler) 1 puff ORAL INH BID KATHERINE Last Admin: 10/20/17 08:21 Dose: 1 puff Bisacodyl (Dulcolax) 5 - 10 mg PO DAILY PRN PRN Reason: Constipation Bisacodyl (Dulcolax) 10 mg RECTALLY DAILY PRN PRN Reason: Constipation Buspirone HCl (Buspar) 20 mg PO BID [facility] Last Admin: 10/20/17 09:36 Dose: Not Given Calcium Carbonate (Caltrate) 1,200 mg PO DAILY [facility] Last Admin: 10/20/17 09:36 Dose: Not Given Carvedilol (Coreg) 3.125 mg PO BIDWM [facility] Last Admin: 10/20/17 09:31 Dose: 3.125 mg Cholecalciferol (Vit. D-3) 2,000 unit PO DAILY [facility] Last Admin: 10/20/17 09:37 Dose: Not Given Clopidogrel Bisulfate (Plavix) 75 mg PO HS [facility] Last Admin: 10/19/17 21:35 Dose: 75 mg Cyanocobalamin (Vit. B-12) 1,000 mcg IM Q30D [facility] Last Admin: 10/20/17 17:03 Dose: 1,000 mcg Fludrocortisone Acetate (Florinef) 0.1 mg PO DAILY [facility] Last Admin: 10/20/17 09:37 Dose: Not Given Furosemide (Lasix) 20 mg PO DAILY PRN Hydromorphone HCl (Dilaudid) 0.25 mg IVP Q1H PRN PRN Reason: Pain Last Admin: 10/20/17 17:19 Dose: 0.25 mg Levothyroxine Sodium (Synthroid) 50 mcg PO ACB [facility] Last Admin: 10/20/17 06:35 Dose: Not Given Lisinopril (Prinivil) 2.5 mg PO [facility] Last Admin: 10/19/17 21:25 Dose: Not Given Lorazepam (Ativan) 0.5 - 1 mg PO Q4H PRN PRN Reason: Anxiety Last Admin: 10/19/17 20:07 Dose: 0.5 mg Lorazepam (Ativan Inj) 0.5 - 1 mg IVP Q4H PRN PRN Reason: Anxiety Magnesium Hydroxide (Mom) 30 ml PO DAILY PRN PRN Reason: Constipation Mirtazapine (Remeron) 30 mg PO [facility] Last Admin: 10/19/17 21:34 Dose: 30 mg Nitroglycerin (Nitrostat) 0.4 mg SL Q5MIN3 PRN PRN Reason: Angina Pom [Diclofenac (Sodium 100 Mg)) 100 mg PO BID [facility] Last Admin: 12/08/17 09:37 Dose: Not Given Pom Lansoprazole (30mg) 1 cap PO ACB KATHERINE Last Admin: 10/20/17 06:35 Dose: Not Given Olanzapine (Zyprexa) 2.5 mg PO HS KATHERINE Last Admin: 10/19/17 21:35 Dose: 2.5 mg Ondansetron HCl (Zofran) 4 mg IVP Q6H PRN PRN Reason: Nausea &/or vomiting Pharmacy Profile Note (Lidocaine/Maalox/Benadryl Soln) 5 ml PO Q4H PRN PRN Reason: Mouth pain Prednisone (Deltasone) 5 mg PO WB KATHERINE Last Admin: 10/20/17 09:36 Dose: Not Given Prednisone (Deltasone) 3 mg PO WB KATHERINE Last Admin: 10/20/17 09:36 Dose: Not Given Promethazine HCl (Phenergan Inj) 12.5 - 25 mg IVP Q6H PRN PRN Reason: Nausea &/or vomiting Rosuvastatin Calcium (Crestor) 20 mg PO HS KATHERINE Last Admin: 10/19/17 21:36 Dose: 20 mg Tiotropium Rein[place] (Spiriva) 1 cap ORAL INH HS KATHERINE Last Admin: 10/20/17 08:48 Dose: 1 cap Triamcinolone Acetonide (Kenalog) 1 applic TOP BID PRN PRN Reason: prn Venlafaxine HCl (Effexor Xr) 75 mg PO WB [facility] Results 10/20/17 04:37 10/20/17 04:37 CBC 10/20/17 Range/Units 04:37 WBC 7.0 (4.5-11.0) T/MM3 RBC 3.28 L (4.00-5.20) M/MM3 Hgb 8.6 L D (12-16) GM/DL Hct 27.6 L D (36-46) % Plt Count 391 (130-400) T/MM3 Comprehensive Metabolic Panel 10/20/17 Range/Units 04:37 Sodium 132 L (134-144) MEQ/L Potassium 4.2 (3.6-5) MEQ/L Chloride 99 (98-107) MEQ/L Carbon Dioxide 28 (22-30) MEQ/L BUN 12.0 (7-17) MG/DL Creatinine 0.5 L (0.7-1.2) MG/DL Glucose 76 (65-110) MG/DL Calcium 8.2 L (8.4-10.2) MG/DL Intake and Output 10/19/17 10/20/17 10/20/17 22:59 06:59 14:59 Intake Total 360 / 360 1411.25 / 1411.25 Output Total 700 / 700 Balance -340 / -340 1411.25 / 1411.25 Intake: IV 1411.25 / 1411.25 Ns 1,000 ml @ 75 mls/hr 1411.25 / 1411.25 IV .[id number] KATHERINE Rx#: [id number] Oral 360 / 360 0 / 0 Output: Urine 700 / 700 Other: Urine Appearance Clear Urine Color Straw Urine Odor Normal Stool Color Brown Brown Stool Consistency Soft Soft Size of Bowel Movement Moderate Moderate # Voids 1 # Bowel Movements 1 1 Weight 83 lb 12.41 oz - Imaging and Cardiology Imaging & Cardiology Narrative: Date of Exam: 10/19/17 Type of Exam(s): CA cardiovascular procedures DATE OF PROCEDURE October 19, 2017 The patient is a pleasant 67-year-old lady with nonhealing ulcer of the lower extremities bilaterally and abnormal lower extremity duplex study and was referred for further evaluation by angiography and possible intervention. Informed consent was obtained after explaining the procedure and the potential risks to the patient who agreed to proceed with the procedure. PROCEDURE 1. Abdominal aortography by placing catheter in abdominal aorta across the renal arteries. 2. Pelvic angiography by placing catheter in distal abdominal aorta. 3. Selective left lower extremity angiogram using crossover technique and placing catheter in left SFA and left common femoral arteries. 4. Runoffs of the right lower extremity through the right femoral sheath. TECHNIQUE She was prepped and draped in the usual sterile techniques. Conscious sedation was performed using Versed and fentanyl. 1% lidocaine was used for local anesthesia. Using modified Seldinger technique, arterial access was obtained into the right femoral artery with placement of a 6-Serbian arterial sheath. ABDOMINAL AORTOGRAPHY Abdominal aortography showed diffuse irregularities of the abdominal aorta with small ectatic area with no hemodynamically significant lesions. There were single renal arteries to each kidney which were patent with no hemodynamically significant lesions. PELVIC ANGIOGRAPHY Pelvic angiography showed patent common iliacs, external and internal iliacs and common femoral arteries bilaterally. Selective left lower extremity angiogram showed patent profunda. SFA was patent. Popliteal artery was patent. They were all small-caliber vessels. There were no significant lesions in these vessels except for 30% stenosis in left SFA. Left anterior tibial artery was diffusely diseased and small caliber and occluded very distally. Left peroneal artery was diffusely diseased and a small-caliber vessel with occlusion distally. Left posterior tibial artery appeared to be occluded at the ostium. The vessels were less than 1 mm in diameter distally. Runoffs of the right lower extremity showed patent profunda, SFA and popliteal artery. Right anterior tibial artery was small and diffusely diseased with up to 80%-90% stenosis. Right posterior tibial artery was diffusely diseased with up to 80%-90% stenosis. The right peroneal artery was a small-caliber vessel and tapered down to a minimum-size vessel of less than 1 mm in diameter. The patient tolerated the procedure well with no complications. IMPRESSION Severe bilateral infrapopliteal disease as described above. However, the vessels are very small and diffusely diseased for intervention or bypass. PLAN Medical management. 10/20/17 17:38 Assessment and Plan - Assessment and Plan (1) Atherosclerosis of [place] artery of both lower extremities Current visit: Yes Status: Acute See LE angiogram report - Non healing wound on foot, - BKA today per Dr. Collier, thank you for your assistance (2) Atherosclerotic heart disease of [place] coronary artery without angina pectoris Current visit: Yes Status: Acute (3) Chronic systolic congestive heart failure Current visit: Yes Status: Acute (4) Mixed hyperlipidemia Current visit: Yes Status: Acute (5) Cardiomyopathy Current visit: Yes Status: Acute (6) Sleep apnea Current visit: Yes Status: Acute (7) Rheumatoid arthritis Current visit: Yes Status: Acute (8) Chronic obstructive pulmonary disease Current visit: Yes Status: Acute - Assessment and Plan 10/20/17 See LE angiogram report - Non healing wound on foot, - BKA today per Dr. Collier, thank you for your assistance Hospital Course Summary Disclaimer: The visit summary below is not to be considered part of the above Progress Note. <Casa Arora - Last Filed: 10/23/17 16:05> Exam Vital signs: Temperature 98.2 F 10/23/17 12:14 Pulse Rate 97 10/23/17 12:14 Respiratory Rate 26 H 10/23/17 15:13 Blood Pressure 118/63 10/23/17 12:14 Pulse Oximetry 97 10/23/17 12:14 Results 10/23/17 04:36 10/23/17 04:36 CBC 10/23/17 Range/Units 04:36 WBC 7.7 (4.5-11.0) T/MM3 RBC 3.58 L (4.00-5.20) M/MM3 Hgb 9.5 L (12-16) GM/DL Hct 30.6 L (36-46) % Plt Count 359 (130-400) T/MM3 Neut # (Auto) 3.1 (1.8-7.7) T/MM3 Lymph # (Auto) 3.0 (1-4.8) T/MM3 Mellette # (Auto) 1.4 H (0-0.8) T/MM3 Eos # (Auto) 0.2 (0-0.5) T/MM3 Baso # (Auto) 0.0 (0-0.2) T/MM3 Comprehensive Metabolic Panel 10/23/17 Range/Units 04:36 Sodium 132 L (134-144) MEQ/L Potassium 3.5 L (3.6-5) MEQ/L Chloride 95 L (98-107) MEQ/L Carbon Dioxide 34 H (22-30) MEQ/L BUN 11.0 (7-17) MG/DL Creatinine 0.5 L (0.7-1.2) MG/DL Glucose 78 (65-110) MG/DL Calcium 8.4 (8.4-10.2) MG/DL Albumin 2.9 L (3.5-5.0) G/DL Intake and Output 10/23/17 10/23/17 10/23/17 06:59 14:59 22:59 Intake Total 0 / 0 1150 / 1150 Output Total 1725 / 1725 Balance 0 / 0 -575 / -575 Intake: Oral 0 / 0 1150 / 1150 Output: Urine 1075 / 1075 Stool 250 / 250 Urine Amount (Catheter) 400 / 400 Other: Urine Appearance Clear Urine Color Yellow Stool Color Brown Stool Consistency Liquid # Bowel Movements 1 Weight 38.2 kg Patient Weight 10/24/17 06:59 Weight 38.2 kg Assessment and Plan - Assessment and Plan (1) Atherosclerosis of [place] artery of both lower extremities Current visit: Yes Status: Acute (2) Atherosclerotic heart disease of [place] coronary artery without angina pectoris Current visit: Yes Status: Acute (3) Chronic systolic congestive heart failure Current visit: Yes Status: Acute (4) Mixed hyperlipidemia Current visit: Yes Status: Acute (5) Cardiomyopathy Current visit: Yes Status: Acute (6) Sleep apnea Current visit: Yes Status: Acute (7) Rheumatoid arthritis Current visit: Yes Status: Acute (8) Chronic obstructive pulmonary disease Current visit: Yes Status: Acute - Attestation Attestation Narrative: 10/23/17 16:05 Recommendation After examining the patient I agree with the above assessment. I am involved in the formulation of the patient's plan of care. Hospital Course Summary Disclaimer: The visit summary below is not to be considered part of the above Progress Note.
--- NOTE | 2017-10-20 14:56 | Anesthesia Postoperative Note ---
- Date and Time Date: 10/20/17 Time: 14:55 - Status Patient Participated in Evaluation: Patient Participated in Person Vital Signs: Temperature 98.7 F 10/20/17 14:25 Pulse Rate 105 H 10/20/17 14:40 Respiratory Rate 20 10/20/17 14:40 Blood Pressure 120/64 10/20/17 14:40 Pulse Oximetry 95 10/20/17 14:40 Respiratory Function: Airway Patent Cardiovascular Function: Regular Pulse EKG: Sinus Rhythm Mental Status: Alert and Oriented Pain Intensity: 3 Hydration: IV Infusing Complications During Recover: None Apparent - Follow-Up Instructions Instructions: Per Surgeon
[2017-10-20] MEDS: HYDROMORPHONE 2 MG/ML INJECTION IVP PRN ×6 (15:36→23:43)
[2017-10-20] MEDS: CLOTRIMAZOLE 10 MG TROCHE MM SCH ×2 (18:20→20:44)
[2017-10-20] MEDS: HYDROCODONE/APAP 7.5 MG/325 MG TABLET PO PRN (18:34)
--- NOTE | 2017-10-20 18:36 | Consult Note ---
<JamieLisette graves Thong - Last Filed: 10/20/17 18:33> Consult Information - Data of Consult Consult date: 10/20/17 Requesting Physician: Casa Aroar MD Primary Care Provider: Eula Shoemaker MD Family Provider: Eula Shoemaker MD - Consult Narrative Reason for consult: Medical management History of present illness: Clarice Gore is seen in consultation from Dr. Arora for medical management of numerous chronic conditions including COPD requiring oxygen, CAD, adrenal insufficiency, CHF, and RA on chronic steroids. She was admitted under cardiology on 10/19/17 for a LE angiogram, which revealed severe b/l infrapopliteal disease, not a candidate for intervention. She was admitted and Dr. Collier was consulted, and she underwent a left BKA on 10/20/17. Clarice was seen postop in the company of several family members. She complains of pain to her left leg rating it 8/10. She states she finished a 10-day course of Augmentin for a COPD exacerbation yesterday - she had a productive cough but her steroids were not increased (she's on 8 mg daily). She now has thrush and her mouth hurts. She's had a very poor appetite for quite a while and has a hx of weight loss. She denies nausea or queasiness or lightheadedness postop. She denies chest pain or SOA. She denies abdominal pain or any bowel changes. She denies dysuria but states that it takes a while to empty her bladder. She bruises and bleeds easily on Plavix, ASA, and steroids. PFSH CAD PSVT HTN HLD Systolic CHF - MANAN 04/29 EF 15% TIA 03/2017 PAD Rheumatoid arthritis COPD on chronic oxygen @ 2L BRANDO Adrenal insufficiency secondary to chronic steroid use Anxiety & depression Hypothyroidism Ileostomy due to bowel perforation Surgical History: Left inguinal hernia and mid abdominal incisional hernia repair (2007), repeat left inguinal hernia repair (2008), right hernia repair (), tubal ligation (1980), right oophorectomy and lysis of adhesions (06/2002 ), sinus surgery (01/1999), right knee synovectomy (02/2003), small bowel perforation with right hemicolectomy and ileostomy placement 3/13, bilateral bunionectomies, right foot joint fusion (1989), left ankle fusion (07/2000), bilateral knee replacements (left 2006, right 2004), left hip repair, right wrist fusion (09/2002), right shoulder surgery, cervical spine fusion C3, 4, 5 fusion (Isaac), carpal tunnel surgery (left 2005, right 2003), right great toe amputation secondary to osteomyelitis (Dr. Collier 08/2017), Left BKA (Dr. Collier 10/20/17), cardiac stent 1 (Dr. Arora 2014). Colonoscopy 04/2011 ( diverticulitis), EGD 07/28 (essentially normal) Family History: Father - CAD, from [place] at age 78 Mother - depression 3 sisters - one with breast cancer, another with depression, third with HLD - Social History Smoking status: Former smoker (smoked 1 ppd since she was 27, quit in 2002) Packs per day: 1 Substance use type: does not use Alcohol intake frequency: does not drink Housing: apartment Social history: PCP _ Dr. Eula Meyer CV _ Dr. Ulysses Mckenzie _ Dr. Hernandez Rheum _ Dr. Bill Neuro _ Dr. Cabrera GI _ Dr. Fajardo Review of Systems All systems PM: 10-point ROS was reviewed, no additional remarkable complaints except - Constitutional Constitutional: Present: weight loss. Absent: fever(s), headache(s) - EENMT Eyes: Absent: change in vision Nose: Absent: obstruction Mouth/Throat: Present: sores (thrush). Absent: sore throat - Cardiovascular Cardiovascular: Absent: chest pain, syncope Vascular: Present: see HPI. Absent: pedal edema - Respiratory Respiratory: Present: cough - Gastrointestinal Gastrointestinal: Absent: abdominal pain, constipation, diarrhea, nausea, vomiting - Genitourinary Genitourinary: Present: urinary hesitancy. Absent: dysuria - Musculoskeletal Musculoskeletal: Present: deformity (RA), neck pain - Integumentary/Breasts Integumentary: Present: wounds (chronic nonhealing wounds) - Neurological Neurological: Absent: abnormal movements, confusion, dizziness, headache(s), loss of vision, weakness - Psychiatric Psychiatric: Present: anxiety, depression - Endocrine Endocrine: Absent: palpitations - Hematologic/Lymphatic Hematologic/Lymphatic: Present: easy bleeding, easy bruising Medications Home Medications Medication Instructions Recorded Confirmed Type Tiotropium Handihaler [Spiriva] 1 cap IH HS #0 07/07/10 10/19/17 History Acetaminophen 1,000 mg PO Q6H PRN #0 01/05/16 10/19/17 History Buspirone HCl 20 mg PO BID #0 01/05/16 10/19/17 History Calcium Carbonate [Calcium] 1,200 mg PO DAILY #0 07/28/16 10/19/17 History Rosuvastatin Calcium [Crestor] 20 mg PO HS #0 07/28/16 10/19/17 History Clopidogrel Bisulfate [Plavix] 75 mg PO DAILY #0 08/24/16 10/19/17 History Diclofenac Sodium [Diclofenac 100 mg PO BID #0 08/24/16 10/19/17 History Sodium ER] Aspirin [Aspirin EC] 81 mg PO DAILY #0 10/09/16 10/19/17 History Lisinopril 2.5 mg PO HS #0 10/09/16 10/19/17 History Nitroglycerin [Nitrostat] 0.4 mg SL Q5MIN3 PRN #0 10/09/16 10/19/17 History Fludrocortisone [Florinef] 0.1 mg PO DAILY #0 tab 12/18/16 10/19/17 History Levothyroxine Sodium 50 mcg PO ACB #0 tab 12/18/16 10/19/17 History Beclomethasone Dipropionate [Qvar 1 puff INH BID 08/17/17 10/19/17 History 80] Venlafaxine [Effexor] 75 mg PO DAILY 08/17/17 10/19/17 History Albuterol HFA Inhaler [Ventolin 1 - 2 puff INH Q4H PRN 09/27/17 10/19/17 History Hfa 90 mcg/actuation] Carvedilol 3.125 mg PO BIDWM 09/27/17 10/19/17 History Cyanocobalamin (B-12) [Vit. B-12] 1,000 mcg IM 1 MONTH 09/27/17 10/19/17 History Furosemide [Lasix] 20 mg PO DAILY PRN 09/27/17 10/19/17 History Mirtazapine [Remeron] 30 mg PO HS 09/27/17 10/19/17 History OLANZapine [Zyprexa] 2.5 mg PO HS 09/27/17 10/19/17 History Swizzle Solution 5Ml 5 ml PO Q4H PRN 09/27/17 10/19/17 History [Lidocaine/Maalox/Benadryl Soln] predniSONE [Prednisone] 3 mg PO WB 09/27/17 10/19/17 History Amoxicillin/Potassium Clav 1 each PO Q12H 10/19/17 10/19/17 History [Amox-Clav 875-125 mg Tablet] Cholecalciferol (Vitamin D3) 1 cap PO DAILY 10/19/17 10/19/17 History [Vitamin D3] Denosumab [Prolia] 60 mg SQ [id number] 10/19/17 10/19/17 History Hydrocodone/APAP 7.5/325 [Story 1 tab PO Q6H PRN 10/19/17 10/19/17 History 7.5/325] Lansoprazole 1 cap PO DAILY 10/19/17 10/19/17 History Lidocaine/Prilocaine [EMLA 5gm] 1 applicatio TOP PRN 10/19/17 10/19/17 History PredniSONE [Deltasone] 5 mg PO DAILY 10/19/17 10/19/17 History Sulfamethoxazole/Trimethoprim 1 tab PO BID 10/19/17 10/19/17 History [Bactrim Ds Tablet] Triamcinolone 0.1% Cream 15 G 1 applicatio TOP BID PRN 10/19/17 10/19/17 History [Kenalog] Allergies Allergy/AdvReac Type Severity Reaction Status Date / Time morphine Allergy Mild ITCHING Verified 10/19/17 12:15 methylprednisolone Allergy Unknown Verified 10/19/17 12:15 doxycycline AdvReac Severe DIARRHEA Verified 10/19/17 12:15 adalimumab AdvReac Intermediate LOW GRADE Verified 10/19/17 12:15 FEVER atorvastatin AdvReac Unknown LEG CRAMPS Verified 10/19/17 12:15 bupropion AdvReac Unknown ANXIETY Verified 10/19/17 12:15 cortizone meds Allergy Unknown Anxiety Uncoded 10/19/17 12:15 Exam Vital Signs: Temperature 99.1 F 10/20/17 15:00 Pulse Rate 118 H 10/20/17 17:00 Respiratory Rate 26 H 10/20/17 17:00 Blood Pressure 108/63 10/20/17 17:00 Pulse Oximetry 97 10/20/17 17:00 Telemetry Rhythm: Sinus Tachycardia Height/Weight/BMI: Height 1.57 m Weight 38 kg Body Mass Index 15.3 - Constitutional Present: no acute distress, well nourished, well developed, thin - Routine HEENT Exam Head: Present: normocephalic Eye: Present: PERRL. Absent: conjunctival icterus, scleral injection ENT: Present: mucous membranes dry (dry lips). Absent: oropharynx clear (thrush ) - Routine Neck Exam Absent: lymphadenopathy - Routine Respiratory Exam Present: CTA bilaterally - Routine Cardiovascular Exam Present: RRR, S1, S2, tachycardia - Routine Abdominal Exam Present: soft, normoactive bowel sounds, non distended, non tender, ostomy - Routine Extremities Exam Present: no edema Comments: left BKA - dressing intact to stump - Routine Back/Spine/Pelvis Exam Back/Spine: Present: kyphosis - Routine Skin Exam Present: dry, warm - Routine Neurological Exam Present: alert, oriented X3, CN II-XII intact, moving all extremities, vision grossly intact, hearing grossly intact, normal speech. Absent: facial asymmetry - Routine Psychiatric Exam Present: normal affect, normal thought process, cooperative Results - Labs CBC & Chem 7: 10/20/17 04:37 10/20/17 04:37 Assessment and Plan (1) Status post below knee amputation of left lower extremity Current visit: Yes Status: Acute Assessment and Plan: Impression S/P Left BKA 10/20/17 - Dr. Collier Hyponatremia Sinus tachycardia Anemia Thrush CAD PSVT HTN HLD Systolic CHF - MANAN 04/29 EF 15% TIA 03/2017 PAD Rheumatoid arthritis COPD on chronic oxygen @ 2L BRANDO Adrenal insufficiency secondary to chronic steroid use Anxiety & depression Hypothyroidism with elevated TSH Ileostomy due to bowel perforation Plan Breathing stable on 2L of oxygen. She just completed a course of Augmentin for COPD exacerbation. Pain control - Dilaudid 0.25 mg IV PRN or Story 7.5 mg - could increase Dilaudid if needed but need to monitor closely for respiratory depression. Sinus tachycardia - poss pain response; HR up to 120s, yesterday was 100-110. Consider small-volume IVF bolus if ok with cardiology. Hyponatremia could also be addressed with NS bolus. Anemia - hgb decreased from 10.6 to 8.6. ?contributing to tachycardia - repeat in am. Thrush - Mycelex neisha + Swizzle. Elevated TSH - free T4 was normal; repeat TSH after acute phase recovery. Urinary retention/hesitancy - check post void bladder scan. Advanced directives/Code status - pt's sister Maci and her daughter Jennifer are her DPOAs. She requests DNR status in the hospital and out of the hospital. She will need to follow up with Dr. Eula Shoemaker for [id number] DNR. We discussed discharge options and she is interested in IRU. Her goal is to return home to her apartment. Thank you for this consultation. We will follow Clarice along with you during her hospital course. GI Prophylaxis: other Resuscitation Status: Do Not Resuscitate Hospital Course Summary Disclaimer: The visit summary below is not to be considered part of the above Progress Note. <Shayy Salazar - Last Filed: 10/20/17 20:18> Consult Information - Data of Consult Requesting Physician: Casa Aroar MD Primary Care Provider: Eula Shoemaker MD Family Provider: Eula Shoemaker MD [facility] Patient Stated Medical History Transient Ischemic Attacks ( Yes: MARCH 2017 TIA) Other HEENT Yes: WEARS GLASSES Angina Yes: HX Cardiac Arrhythmia Yes: at. fib./ tachycardia Congestive Heart Failure Yes: EF documented as 20-25% Coronary Artery Disease Yes Hypertension Yes Myocardial Infarction Yes: EF 20% Asthma Yes Chronic Obstructive Pulmonary Yes Disease (COPD) Sleep Apnea Yes Other Respiratory Yes Gastroesophageal Reflux Yes Disease Hx Incontinence Yes Anemia Yes Clotting Problems Yes: takes plavix Osteoarthritis Yes Other Musculoskeletal Yes: RA MRSA Yes Blood Transfusions Yes: NO REACTION Depression Yes Ovarian Cysts Yes Post Menopausal Yes Clinic Medical History Toe osteomyelitis, right (Acute Medical) Ulcer of left heel (Acute Medical) Arterial insufficiency of lower extremity (Acute Medical) Atherosclerosis of false pass artery of both lower extremities (Acute Medical) Atherosclerotic heart disease of false pass coronary artery without angina pectoris (Acute Medical) Chronic systolic congestive heart failure (Acute Medical) Mixed hyperlipidemia (Acute Medical) Cardiomyopathy (Acute Medical) Sleep apnea (Acute Medical) Rheumatoid arthritis (Acute Medical) Chronic obstructive pulmonary disease (Acute Medical) Diabetic ulcer of ankle (Inactive Medical) Exam Vital Signs: Temperature 99.1 F 10/20/17 15:00 Pulse Rate 127 H 10/20/17 18:00 Respiratory Rate 20 10/20/17 19:39 Blood Pressure 120/68 10/20/17 18:00 Pulse Oximetry 95 10/20/17 19:39 Height/Weight/BMI: Height 1.57 m Weight 38 kg Body Mass Index 15.3 Results - Labs CBC & Chem 7: 10/20/17 04:37 10/20/17 04:37 Assessment and Plan (1) Status post below knee amputation of left lower extremity Current visit: Yes Status: Acute Assessment and Plan: 10/20/2017-I reviewed this chart, the patient history, and the SOLUTIONS DEVELOPMENT ANALYST's/PA's documented findings as above. We discussed and formulated the assessment and plan as above with the additions below.-Dr. Salazar Patient is seen this evening in her room. She states her pain is about 8 on a scale of 1-10. Her pain is in her left leg where her foot used to be before her BKA. She denies any headache, chest pain or shortness of breath. She states she is urinating normally. She has an ostomy and her ostomy output has been normal. She ate some of her supper and vancomycin he shake. She denies any nausea or vomiting. She does feel cold. On exam she is alert and mildly confused, I think secondary to pain medications and pain. HEENT reveals sclerae to be anicteric and pupils are equal. Oropharynx is moist. Neck is supple. Chest reveals some minimal wheezing anteriorly. Cardiovascular reveals a tachycardic rate with irregular rhythm. Heart rate is currently 120 systolic. Blood pressure is 107/60. She is on her usual 2 L of oxygen. Abdomen is soft and nontender. She has mostly air in her ostomy bag. Extremities reveal BKA which is dressed on the left. Right lower extremity is free of edema and SCDs in place. Impression and plan Regarding tachycardia, I did discuss this with Dr. Arora. Will hold off on fluid bolus at this time due to her history of CHF and fluid retention. Will check hemoglobin now. If less than 7 will transfuse. She would likely need Lasix after transfusion. Continue with good pain control. Monitor for adrenal insufficiency. Patient did receive stress dose Solu-Cortef this morning. Resume Florinef and prednisone tomorrow. Repeat CBC and basic metabolic profile tomorrow. Hospital Course Summary Disclaimer: The visit summary below is not to be considered part of the above Progress Note.
[2017-10-20] MEDS: CEFAZOLIN 1 G in NS 100 ML IV SCH (19:31)
[2017-10-20] MEDS ORDERED: CEFAZOLIN 1 G INJECTION IVP SCH (20:00)
[2017-10-20] MEDS: ROSUVASTATIN 20 MG TABLET PO SCH (20:37)
[2017-10-20] MEDS: OLANZapine 2.5 MG TABLET PO SCH (20:41)
[2017-10-20] MEDS: LISINOPRIL 2.5 MG TABLET PO SCH (20:42)
[2017-10-20] MEDS: MIRTAZAPINE 30 MG TABLET PO SCH (20:42)
[2017-10-20] MEDS: CLOPIDOGREL 75 MG TABLET PO SCH (20:45)
[2017-10-21] MEDS: NS 1,000 ML IV SCH (00:33)
[2017-10-21] MEDS: HYDROCODONE/APAP 7.5 MG/325 MG TABLET PO PRN ×3 (00:51→16:18)
[2017-10-21] MEDS: HYDROMORPHONE 2 MG/ML INJECTION IVP PRN (01:38)
[2017-10-21] MEDS: LORazepam 0.5 MG TABLET PO PRN (01:42)
[2017-10-21] MEDS: CEFAZOLIN 1 G in NS 100 ML IV SCH (03:52)
[2017-10-21] MEDS: POM LEVOTHYROXINE 50 MCG TABLET PO SCH (07:04)
[2017-10-21] MEDS: LANSOPRAZOLE 30 MG PO SCH (07:04)
[2017-10-21] MEDS: CARVEDILOL 3.125 MG PO SCH ×2 (09:05→18:26)
[2017-10-21] MEDS: PREDNISONE 1 MG PO SCH (09:17)
[2017-10-21] MEDS: ASPIRIN *EC* 81 MG TABLET PO SCH (09:18)
[2017-10-21] MEDS: CALCIUM CARBONATE 600 MG TABLET PO SCH (09:18)
[2017-10-21] MEDS: Venlaflaxine XR 75 MG CAPSULE (24hr) PO SCH (09:19)
[2017-10-21] MEDS: POM PredniSONE 5 MG TABLET PO SCH (09:19)
[2017-10-21] MEDS: DICLOFENAC SODIUM 100 MG PO SCH ×2 (09:20→21:35)
[2017-10-21] MEDS: FLUDROCORTISONE 0.1 MG TABLET PO SCH (09:20)
[2017-10-21] MEDS: CLOTRIMAZOLE 10 MG TROCHE MM SCH ×5 (09:20→21:34)
[2017-10-21] MEDS: BECLOMETHASONE 80 MCG ORAL INH SCH ×2 (09:32→20:52)
--- NOTE | 2017-10-21 10:26 | Progress Note ---
- Date 10/21/17 Subjective: Clarice is seen this morning in follow up for her recent right BKA on 10/20/17. She is seen in conjunction with Rogelio (ortho), nursing and with family at bedside. She states that she is feeling much better this morning. She does admit to pain throughout the night which disrupted her sleep. She received pain medication prior to the exam this morning and noted to be drowsy. She currently rates her pain at 0/10. She expresses concern about the wound oozing blood. She was repeatedly reassured that the oozing was a good sign as it indicated that the area had excellent blood flow. Wound dressing was changed during the exam and surgical incision was pink and clean with sutures intact. Treatment plan was discussed including outpatient pain control. Ortho recommended considering use of extended release oxycodone 5mg instead of Macarthur or MS Contin which she was open too. She is schedule to start working with therapy today. Her appetite is improving and stool is passing through the ostomy. Review of labs revealed stable hemoglobin at 8.2 as well as persistent hyponatremia (Na 130) which has been trending down. Breathing is stable and she clarified that she only typically uses her home oxygen with exertion. Objective Vital signs: Temperature 98.3 F 10/21/17 07:49 Pulse Rate 96 10/21/17 07:50 Respiratory Rate 22 10/21/17 09:25 Blood Pressure 95/60 10/21/17 09:00 Pulse Oximetry 93 10/21/17 09:00 Rhythm: Normal Sinus Rhythm Height/Weight/BMI: Height 5 ft 2 in Weight 85 lb 8.63 oz Body Mass Index 15.3 Comments: Patient seen while resting in bed with ortho and family at bedside; wound dressing being changed on exam; - Constitutional Present: no acute distress, well developed, thin, cooperative - Routine HEENT Exam Head: Present: normocephalic, atraumatic Eye: Present: PERRL. Absent: conjunctival icterus ENT: Present: mucous membranes dry - Routine Respiratory Exam Present: decreased breath sounds. Absent: dyspnea, respiratory distress, wheezes Comments: no signs of respiratory distress on exam; currently on 2L NC with O2 at 100%; no cough or conversational dyspnea. - Routine Cardiovascular Exam Present: RRR, S1, S2, murmur - Routine Abdominal Exam Present: soft, normoactive bowel sounds, non tender. Absent: rebound, guarding - Routine Extremities Exam Present: no edema, full ROM, pulses intact Comments: right BKA with surgical incision pink, warm and oozing blood; bandage cleaned. - Routine Back/Spine/Pelvis Exam Back/Spine: Present: full ROM, kyphosis. Absent: vertebral tenderness - Routine Musculoskeletal Exam Musculoskeletal: Present: no clubbing or cyanosis, moving extremities well - Routine Skin Exam Present: dry, warm. Absent: jaundice Comments: afebrile. - Routine Neurological Exam Present: alert, moving all extremities, hearing grossly intact, normal speech. Absent: facial asymmetry - Routine Lymphatic Exam Lymphatic: Absent: lymphedema - Routine Psychiatric Exam Present: normal affect, cooperative Results - Labs CBC & Chem 7: 10/21/17 04:01 10/21/17 04:01 Assessment and Plan (1) Status post below knee amputation of left lower extremity Current visit: Yes Status: Acute Assessment and Plan: Acute Assessment S/P Left BKA 10/20/17 - Dr. Collier. Hyponatremia, acute. Acute blood loss anemia. Thrush. 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 GERD Ileostomy due to bowel perforation Anxiety and depression. Plan - 10/21/17 (Mirakian) - POD #1 Clarice reports that she struggled with pain control during the night but is doing much better today. On exam, patient appears sedated and blood pressure trending down. Will continue with pain control. Would encourage avoiding Dilaudid due to current sedation and improved pain. Discussed outpatient pain control options with patient and Rogelio (ortho) and it was recommended to consider extended release Oxycodone 5mg instead of MS Contin or Macarthur. May also consider the addition of neurontin for additional pain control. Continue with bowel motivation. Blood pressure has been lower today most likely a reaction to pain control. Continue to monitor closely on telemetry. Will hold Coreg and lisinopril until systolic pressure >100. Heart rate controlled. Hemoglobin unchanged at 8.2 with active oozing blood noted on exam of surgical incision. Given the patient's history of CAD and systolic CHF, will give PRBC x 1 unit now followed by Lasix 20mg IV. Continue to monitor urinary output closely as <1000cc urine output documented for 10/20. Renal function stable. Recheck hgb following transfusion. Continue to monitor closely for adrenal insufficiency. Stress dose of Solu- Cortef given on 10/20/17. Florinef and prednisone resumed today 10/21/17. Consult dietary for recommendations given suspected protein calorie malnutrition. Repeat CBC and basic metabolic profile in AM to monitor blood counts, electrolytes and renal function. History of chronic home oxygen use with exertion at 2L. Provide as needed to maintain SAO2 >90 with goal of 95%. Wean oxygen as able. Encourage incentive spirometry for pulmonary toileting. Thrush improving. Continue clotrimazole troches and swizzle. Recommend obtaining IRU screen either 10/22/17 or 10/23/17. DVT Prophylaxis: SCD's GI Prophylaxis: Pepcid Resuscitation Status: Do Not Resuscitate - Time spent with patient Time with patient PN: 35 minutes - Physician Narriative Physician: other (Dr. Cabrera) Hospital Course Summary Disclaimer: The visit summary below is not to be considered part of the above Progress Note. Hospital Course: Acute Assessment S/P Left BKA 10/20/17 - Dr. Collier. Hyponatremia, acute. Acute blood loss anemia. Thrush. 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 GERD Ileostomy due to bowel perforation Anxiety and depression. Plan - 10/21/17 (Mirakian) - POD #1 Clarice reports that she struggled with pain control during the night but is doing much better today. On exam, patient appears sedated and blood pressure trending down. Will continue with pain control. Would encourage avoiding Dilaudid due to current sedation and improved pain. Discussed outpatient pain control options with patient and Rogelio (ortho) and it was recommended to consider extended release Oxycodone 5mg instead of MS Contin or Macarthur. May also consider the addition of neurontin for additional pain control. Continue with bowel motivation. Blood pressure has been lower today most likely a reaction to pain control. Continue to monitor closely on telemetry. Will hold Coreg and lisinopril until systolic pressure >100. Heart rate controlled. Hemoglobin unchanged at 8.2 with active oozing blood noted on exam of surgical incision. Given the patient's history of CAD and systolic CHF, will give PRBC x 1 unit now followed by Lasix 20mg IV. Continue to monitor urinary output closely as <1000cc urine output documented for 10/20. Renal function stable. Recheck hgb following transfusion. Continue to monitor closely for adrenal insufficiency. Stress dose of Solu- Cortef given on 10/20/17. Florinef and prednisone resumed today 10/21/17. Repeat CBC and basic metabolic profile in AM to monitor blood counts, electrolytes and renal function. History of chronic home oxygen use with exertion at 2L. Provide as needed to maintain SAO2 >90 with goal of 95%. Wean oxygen as able. Encourage incentive spirometry for pulmonary toileting. Thrush improving. Continue clotrimazole troches and swizzle. Recommend obtaining IRU screen either 10/22/17 or 10/23/17.
--- NOTE | 2017-10-21 10:27 | Orthopedic Progress Note ---
Date: Subjective/Severity of Illness: Clarice is doing well this AM. She had some pain meds during the night but is reporting "no pain" at this time. She has not been up with PT yet. The dressing was reinforced last night due to bloody drainage. Denies having any CP or breathing trouble. Orthopedic Objective PO Vital signs: Temperature 98.3 F 10/21/17 07:49 Pulse Rate 96 10/21/17 07:50 Respiratory Rate 22 10/21/17 09:25 Blood Pressure 95/60 10/21/17 09:00 Pulse Oximetry 93 10/21/17 09:00 Height and Weight: Height 5 ft 2 in Weight 85 lb 8.63 oz Body Mass Index 15.3 - Constitutional General Appearance: Present: alert, cooperative, no acute distress, thin - Respiratory Exam Present: non-labored - Surgical Site Incision: sutures present, dressing intact, bloody drainage present, other ( Dressing changed. Stump flap looks very healthy. Minimal swelling.) - Integumentary Exam Absent: erythema - Neurological Exam Present: no deficits - Psychiatric Exam Present: alert, oriented, normal affect - Labs Result Diagrams: 10/21/17 04:01 10/21/17 04:01 Abnormal lab results 10/20/17 10/21/17 10/21/17 Range/Units 20:46 04:01 04:01 RBC 3.10 L (4.00-5.20) M/MM3 Hgb 8.2 L 8.2 L (12-16) GM/DL Hct 26.5 L (36-46) % MCHC 30.9 L (31-37) GM/DL MPV 8.6 L (9.4-12.4) UM3 Sodium 130 L (134-144) MEQ/L Chloride 95 L (98-107) MEQ/L Creatinine 0.5 L (0.7-1.2) MG/DL Calculated Osmolality 249 L (261-280) MOSM/KG Total Protein 5.7 L (6.3-8.2) G/DL Albumin 2.9 L (3.5-5.0) G/DL Albumin/Globulin Ratio 1.0 L (1.1-2.2) RATIO H & H 10/19/17 10/20/17 10/20/17 Range/Units 12:03 04:37 20:46 Hgb 10.6 L 8.6 L D 8.2 L (12-16) GM/DL Hct 33.3 L 27.6 L D (36-46) % 10/21/17 Range/Units 04:01 Hgb 8.2 L (12-16) GM/DL Hct 26.5 L (36-46) % Orthopedic Assessment and Plan (1) Arterial insufficiency of lower extremity Status: Acute Assessment and Plan: S/P left BKA 10/20/[address] Collier. Surgical site looks good today. Pt in good sprits about things. Discussed pain mgmt options, but at this time she is reporting little pain. Hospitalist managing fluids and medical issues. On ASA and Plavix. Mobilize with PT. Work on transfers for now. IRU consult for placement. (2) Ulcer of left heel Status: Acute - Anticoagulation Therapy Anticoagulation: Resume home anticoagulant Hospital Course Summary Disclaimer: The visit summary below is not to be considered part of the above Progress Note.
[2017-10-21] MEDS ORDERED: FUROSEMIDE 20 MG/2 ML INJECTION IVP ONE (10:34)
[2017-10-21] MEDS ORDERED: NS FLUSH BAG 500ml IV PRN (10:34)
[2017-10-21] MEDS: BUSPIRONE 10 MG TABLET PO SCH ×2 (11:24→21:33)
[2017-10-21] MEDS: FAMOTIDINE 40 MG/5 ML ORAL LIQUID PO SCH (12:19)
--- NOTE | 2017-10-21 14:09 | Operative Note ---
DATE OF SURGERY 10/20/2017 PREOPERATIVE DIAGNOSIS Left foot chronic avascular ulcerations. POSTOPERATIVE DIAGNOSIS Left foot chronic avascular ulcerations. PROCEDURE Left below-knee amputation. SURGEON Shannan Collier MD ANESTHESIA General. COMPLICATIONS None. EBL/FLUIDS Please see anesthetic records. TOURNIQUET TIME None used. DESCRIPTION OF PROCEDURE Mrs. Gore and her left foot were identified and marked in the preoperative holding area. She was brought back to the operating suite and placed supine on the operating table. She was placed under general anesthesia. The left lower extremity was prepped and draped in my normal sterile fashion. Time-out was performed. I measured down 13 cm from her knee joint. This was marked on the skin. I then made a fish-mouth type of incision with a skin marker, making the posterior flap much longer than the anterior flap. Sharp incision was made in the skin outlying this amputation site marking. Electrocautery was then used through the soft tissues. She did have some bleeding but decreased bleeding overall. I did tie off her anterior tibialis vessels laterally and her peroneal nerve was cut sharply and allowed to retract back into the soft tissue. Once the entire tibia and anterior fibula were exposed an osteotomy was made with a sagittal saw at my dimple approximately 12 cm down from the knee joint. The anterior and medial edges were beveled and smoothed to a smooth surface. The fibula was also resected 1 cm proximal to the tibial resection. With this, the posterior soft tissues were transected so that the leg could be passed off to Pathology. At this point, the posterior vessels were tied off. I debulked some of the posterior tissues and then irrigated the wound thoroughly. Her skin was very thin, especially anteriorly. I reapproximated the deep soft tissue muscle with the anterior periosteum with #1 Vicryl. After this I reapproximated the skin edges with 3-0 nylon in a simple interrupted fashion. Again, her anterior skin was very thin and a couple of these sutures did cause tears in the skin. Care was taken not to cause any pressure and there was no tension on the skin edges. The wound was cleaned and a sterile dressing was placed. The drapes were removed. She was allowed to awaken from general anesthesia and taken to the recovery room under the care of Anesthesia. She tolerated the procedure well. There were no complications. TONY
--- NOTE | 2017-10-21 19:00 | Cardiology Progress Note ---
<Mia Campo T - Last Filed: 10/21/17 19:07> Subjective Principal diagnosis: PAD Interval history: F/U LE wound, PAD. She is S/P BKA. She is in her bed on the Surgical unit Clarice is sitting up in bed awake and alert. HR 110's last night. She was dealing with pain. This am her pain meds changed and her pain level better this afternoon. HR 90's today. Hbg 8.3 and with tachycardia, she was given 1 UPRBC's by hospitalist followed by lasix 20mg. for good U/O. No signs of fluid overload. Denies CP or SOB or palpitations. She raises the left amputated leg up with no problem. She ate a bowl of soup and is drinking a Mighty shake. She likes the shake. Exam Vital signs: Temperature 98.3 F 10/21/17 15:43 Pulse Rate 100 10/21/17 18:23 Respiratory Rate 24 10/21/17 18:23 Blood Pressure 122/65 10/21/17 18:23 Pulse Oximetry 97 10/21/17 18:23 - Constitutional no acute distress, thin, cooperative - Routine Neck Exam Absent: JVD - Routine Respiratory Exam Present: CTA bilaterally - Routine Cardiovascular Exam Present: RRR, no murmur - Routine Abdominal Exam Present: soft, non distended - Routine Extremities Exam Present: no edema, amputation (Lt BKA with dressing) Comments: Right foot with prior toes amputated. Unable to palpate pedal pulse, but foot pink/warm. Left leg above dressing pink and warm. - Routine Skin Exam Present: intact, dry, warm - Routine Neurological Exam Present: alert, oriented X3, moving all extremities, vision grossly intact, hearing grossly intact, normal speech - Routine Psychiatric Exam Present: normal affect, normal thought process, cooperative, good insight, good judgment Results 10/21/17 14:44 10/21/17 04:01 Cardiac Enzymes 10/21/17 Range/Units 04:01 AST 27 (14-36) U/L CBC 10/20/17 10/21/17 10/21/17 Range/Units 20:46 04:01 14:44 WBC 9.0 7.6 (4.5-11.0) T/MM3 RBC 3.10 L 3.13 L (4.00-5.20) M/MM3 Hgb 8.2 L 8.2 L 8.3 L (12-16) GM/DL Hct 26.5 L 26.7 L (36-46) % Plt Count 384 383 (130-400) T/MM3 Neut # (Auto) 4.5 (1.8-7.7) T/MM3 Lymph # (Auto) 1.7 (1-4.8) T/MM3 [place] # (Auto) 1.0 H (0-0.8) T/MM3 Eos # (Auto) 0.4 (0-0.5) T/MM3 Baso # (Auto) 0.0 (0-0.2) T/MM3 Comprehensive Metabolic Panel 10/21/17 Range/Units 04:01 Sodium 130 L (134-144) MEQ/L Potassium 3.9 (3.6-5) MEQ/L Chloride 95 L (98-107) MEQ/L Carbon Dioxide 30 (22-30) MEQ/L BUN 9.0 (7-17) MG/DL Creatinine 0.5 L (0.7-1.2) MG/DL Glucose 80 (65-110) MG/DL Calcium 8.4 (8.4-10.2) MG/DL AST 27 (14-36) U/L ALT 30 (9-52) U/L Alkaline Phosphatase 42 (38-126) U/L Total Protein 5.7 L (6.3-8.2) G/DL Albumin 2.9 L (3.5-5.0) G/DL Intake and Output 10/21/17 10/21/17 10/21/17 06:59 14:59 22:59 Intake Total 100 / 100 800 / 800 Output Total 300 / 300 1725 / 1725 700 / 700 Balance -200 / -200 -925 / -925 -700 / -700 Intake: IV 100 / 100 Cefazolin 1 g In Ns 100 100 / 100 ml @ 200 mls/hr IV Q8H [facility] Rx#:[id number] Oral 800 / 800 Output: Urine 300 / 300 1225 / 1225 700 / 700 Stool 500 / 500 Other: Urine Appearance Clear Clear Clear Urine Color Yellow Pale Yellow Yellow Urine Odor Normal Stool Color Brown Stool Consistency Soft Weight 85 lb 8.63 oz Patient Weight 10/22/17 06:59 Weight 85 lb 8.63 oz - Imaging and Cardiology Imaging & Cardiology Narrative: DATE OF PROCEDURE October 19, 2017 The patient is a pleasant 67-year-old lady with nonhealing ulcer of the lower extremities bilaterally and abnormal lower extremity duplex study and was referred for further evaluation by angiography and possible intervention. Informed consent was obtained after explaining the procedure and the potential risks to the patient who agreed to proceed with the procedure. PROCEDURE 1. Abdominal aortography by placing catheter in abdominal aorta across the renal arteries. 2. Pelvic angiography by placing catheter in distal abdominal aorta. 3. Selective left lower extremity angiogram using crossover technique and placing catheter in left SFA and left common femoral arteries. 4. Runoffs of the right lower extremity through the right femoral sheath. TECHNIQUE She was prepped and draped in the usual sterile techniques. Conscious sedation was performed using Versed and fentanyl. 1% lidocaine was used for local anesthesia. Using modified Seldinger technique, arterial access was obtained into the right femoral artery with placement of a 6-Welsh arterial sheath. ABDOMINAL AORTOGRAPHY Abdominal aortography showed diffuse irregularities of the abdominal aorta with small ectatic area with no hemodynamically significant lesions. There were single renal arteries to each kidney which were patent with no hemodynamically significant lesions. PELVIC ANGIOGRAPHY Pelvic angiography showed patent common iliacs, external and internal iliacs and common femoral arteries bilaterally. Selective left lower extremity angiogram showed patent profunda. SFA was patent. Popliteal artery was patent. They were all small-caliber vessels. There were no significant lesions in these vessels except for 30% stenosis in left SFA. Left anterior tibial artery was diffusely diseased and small caliber and occluded very distally. Left peroneal artery was diffusely diseased and a small-caliber vessel with occlusion distally. Left posterior tibial artery appeared to be occluded at the ostium. The vessels were less than 1 mm in diameter distally. Runoffs of the right lower extremity showed patent profunda, SFA and popliteal artery. Right anterior tibial artery was small and diffusely diseased with up to 80%-90% stenosis. Right posterior tibial artery was diffusely diseased with up to 80%-90% stenosis. The right peroneal artery was a small-caliber vessel and tapered down to a minimum-size vessel of less than 1 mm in diameter. The patient tolerated the procedure well with no complications. IMPRESSION Severe bilateral infrapopliteal disease as described above. However, the vessels are very small and diffusely diseased for intervention or bypass. PLAN Medical management. - EKG Interpretation EKG: sinus rhythm (10/19/2017 ECG: SR, 1 PVC, LAE, LAD, RVCD) Assessment and Plan - Assessment and Plan (1) Atherosclerosis of [place] artery of both lower extremities Current visit: Yes Status: Acute (2) Atherosclerotic heart disease of [place] coronary artery without angina pectoris Current visit: Yes Status: Acute (3) Chronic systolic congestive heart failure Current visit: Yes Status: Acute (4) Mixed hyperlipidemia Current visit: Yes Status: Acute (5) Cardiomyopathy Current visit: Yes Status: Acute (6) Sleep apnea Current visit: Yes Status: Acute (7) Rheumatoid arthritis Current visit: Yes Status: Acute (8) Chronic obstructive pulmonary disease Current visit: Yes Status: Acute - Assessment and Plan PVD: s/p 10/20/[address] Collier[address] cont Plavix and ASA. (surgery site oozing this am. Dressing D/I now. CAD: ECG - no ischemia, no CP. Cont ASA and Plavix. CM / CSHF: 04/29/2017 MANAN: EF 15%. No signs of fluid overload. No BB or PIPPA due to low BP, BP 110's after 1UPRBC's followed by Lasix for good U/O > 2000 so far. Sinus Tach: HR 110's last night. HR improved to 90's this morning after pain meds adjusted. Adrenal insufficiency: Florinef and steroids. Anemia: Hbg 8.3 s/p 10/21 1UPRBC's. Ileostomy: she reports stool in bag. Plan to DC to rehab when ready. Pt is in agreement. Hospital Course Summary Disclaimer: The visit summary below is not to be considered part of the above Progress Note. Hospital Course: Acute Assessment S/P Left BKA 10/20/17 - Dr. Collier. Hyponatremia, acute. Acute blood loss anemia. Thrush. 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 GERD Ileostomy due to bowel perforation Anxiety and depression. Plan - 10/21/17 (Mirakian) - POD #1 Clarice reports that she struggled with pain control during the night but is doing much better today. On exam, patient appears sedated and blood pressure trending down. Will continue with pain control. Would encourage avoiding Dilaudid due to current sedation and improved pain. Discussed outpatient pain control options with patient and Rogelio (ortho) and it was recommended to consider extended release Oxycodone 5mg instead of MS Contin or Oral. May also consider the addition of neurontin for additional pain control. Continue with bowel motivation. Blood pressure has been lower today most likely a reaction to pain control. Continue to monitor closely on telemetry. Will hold Coreg and lisinopril until systolic pressure >100. Heart rate controlled. Hemoglobin unchanged at 8.2 with active oozing blood noted on exam of surgical incision. Given the patient's history of CAD and systolic CHF, will give PRBC x 1 unit now followed by Lasix 20mg IV. Continue to monitor urinary output closely as <1000cc urine output documented for 10/20. Renal function stable. Recheck hgb following transfusion. Continue to monitor closely for adrenal insufficiency. Stress dose of Solu- Cortef given on 10/20/17. Florinef and prednisone resumed today 10/21/17. Repeat CBC and basic metabolic profile in AM to monitor blood counts, electrolytes and renal function. History of chronic home oxygen use with exertion at 2L. Provide as needed to maintain SAO2 >90 with goal of 95%. Wean oxygen as able. Encourage incentive spirometry for pulmonary toileting. Thrush improving. Continue clotrimazole troches and swizzle. Recommend obtaining IRU screen either 10/22/17 or 10/23/17. <Casa Arora - Last Filed: 10/23/17 16:00> Exam Vital signs: Temperature 98.2 F 10/23/17 12:14 Pulse Rate 97 10/23/17 12:14 Respiratory Rate 26 H 10/23/17 15:13 Blood Pressure 118/63 10/23/17 12:14 Pulse Oximetry 97 10/23/17 12:14 Results 10/23/17 04:36 10/23/17 04:36 CBC 10/23/17 Range/Units 04:36 WBC 7.7 (4.5-11.0) T/MM3 RBC 3.58 L (4.00-5.20) M/MM3 Hgb 9.5 L (12-16) GM/DL Hct 30.6 L (36-46) % Plt Count 359 (130-400) T/MM3 Neut # (Auto) 3.1 (1.8-7.7) T/MM3 Lymph # (Auto) 3.0 (1-4.8) T/MM3 [place] # (Auto) 1.4 H (0-0.8) T/MM3 Eos # (Auto) 0.2 (0-0.5) T/MM3 Baso # (Auto) 0.0 (0-0.2) T/MM3 Comprehensive Metabolic Panel 10/23/17 Range/Units 04:36 Sodium 132 L (134-144) MEQ/L Potassium 3.5 L (3.6-5) MEQ/L Chloride 95 L (98-107) MEQ/L Carbon Dioxide 34 H (22-30) MEQ/L BUN 11.0 (7-17) MG/DL Creatinine 0.5 L (0.7-1.2) MG/DL Glucose 78 (65-110) MG/DL Calcium 8.4 (8.4-10.2) MG/DL Albumin 2.9 L (3.5-5.0) G/DL Intake and Output 10/23/17 10/23/17 10/23/17 06:59 14:59 22:59 Intake Total 0 / 0 1150 / 1150 Output Total 1725 / 1725 Balance 0 / 0 -575 / -575 Intake: Oral 0 / 0 1150 / 1150 Output: Urine 1075 / 1075 Stool 250 / 250 Urine Amount (Catheter) 400 / 400 Other: Urine Appearance Clear Urine Color Yellow Stool Color Brown Stool Consistency Liquid # Bowel Movements 1 Weight 38.2 kg Patient Weight 10/24/17 06:59 Weight 38.2 kg Assessment and Plan - Assessment and Plan (1) Atherosclerosis of [place] artery of both lower extremities Current visit: Yes Status: Acute (2) Atherosclerotic heart disease of [place] coronary artery without angina pectoris Current visit: Yes Status: Acute (3) Chronic systolic congestive heart failure Current visit: Yes Status: Acute (4) Mixed hyperlipidemia Current visit: Yes Status: Acute (5) Cardiomyopathy Current visit: Yes Status: Acute (6) Sleep apnea Current visit: Yes Status: Acute (7) Rheumatoid arthritis Current visit: Yes Status: Acute (8) Chronic obstructive pulmonary disease Current visit: Yes Status: Acute - Attestation Attestation Narrative: 10/23/17 16:00 Recommendation After examining the patient I agree with the above assessment. I am involved in the formulation of the patient's plan of care. Hospital Course Summary Disclaimer: The visit summary below is not to be considered part of the above Progress Note.
[2017-10-21] MEDS: TIOTROPIUM 18mcg/cap HANDIHALER ORAL INH SCH (20:51)
[2017-10-21] MEDS: CLOPIDOGREL 75 MG TABLET PO SCH (21:34)
[2017-10-21] MEDS: MIRTAZAPINE 30 MG TABLET PO SCH (21:36)
[2017-10-21] MEDS: LISINOPRIL 2.5 MG TABLET PO SCH (21:36)
[2017-10-21] MEDS: SALINE FLUSH 10ml SYRINGE IV PRN (21:37)
[2017-10-21] MEDS: OLANZapine 2.5 MG TABLET PO SCH (21:37)
[2017-10-21] MEDS: ROSUVASTATIN 20 MG TABLET PO SCH (21:43)
[2017-10-22] MEDS: LANSOPRAZOLE 30 MG PO SCH (05:44)
[2017-10-22] MEDS: POM LEVOTHYROXINE 50 MCG TABLET PO SCH (05:44)
[2017-10-22] MEDS: BECLOMETHASONE 80 MCG ORAL INH SCH ×2 (09:20→21:27)
[2017-10-22] MEDS: CARVEDILOL 3.125 MG PO SCH (09:31)
[2017-10-22] MEDS: PREDNISONE 1 MG PO SCH (09:31)
[2017-10-22] MEDS: POM PredniSONE 5 MG TABLET PO SCH (09:32)
[2017-10-22] MEDS: ASPIRIN *EC* 81 MG TABLET PO SCH (09:33)
[2017-10-22] MEDS: Venlaflaxine XR 75 MG CAPSULE (24hr) PO SCH (09:33)
[2017-10-22] MEDS: CALCIUM CARBONATE 600 MG TABLET PO SCH (09:34)
[2017-10-22] MEDS: BUSPIRONE 10 MG TABLET PO SCH ×2 (09:34→20:52)
[2017-10-22] MEDS: CLOTRIMAZOLE 10 MG TROCHE MM SCH ×5 (09:36→20:53)
[2017-10-22] MEDS: FAMOTIDINE 40 MG/5 ML ORAL LIQUID PO SCH (09:37)
[2017-10-22] MEDS: DICLOFENAC SODIUM 100 MG PO SCH ×2 (09:37→20:54)
[2017-10-22] MEDS: FLUDROCORTISONE 0.1 MG TABLET PO SCH (09:38)
[2017-10-22] MEDS: HYDROCODONE/APAP 7.5 MG/325 MG TABLET PO PRN ×2 (10:06→19:27)
--- NOTE | 2017-10-22 10:33 | Orthopedic Progress Note ---
Date: Subjective/Severity of Illness: Clarice is resting this AM and I did not wake her. She got a unit of blood yesterday and labs have improved. Orthopedic Objective PO Vital signs: Temperature 98.2 F 10/22/17 08:09 Pulse Rate 112 H 10/22/17 08:09 Respiratory Rate 20 10/22/17 09:22 Blood Pressure 140/75 H 10/22/17 08:09 Pulse Oximetry 91 10/22/17 08:09 Height and Weight: Height 5 ft 2 in Weight 84 lb 10.52 oz Body Mass Index 15.3 - Constitutional General Appearance: Present: other (Sleeping.) - Surgical Site Incision: dressing intact, no drainage - Psychiatric Exam Present: other (Sleeping) - Labs Result Diagrams: 10/22/17 03:58 10/22/17 03:58 Abnormal lab results 10/20/17 10/21/17 10/21/17 Range/Units 20:46 14:44 18:56 RBC 3.13 L (4.00-5.20) M/MM3 Hgb 8.3 L 9.4 L D (12-16) GM/DL Hct 26.7 L (36-46) % MPV 8.0 L (9.4-12.4) UM3 Lymph % (Auto) 22.8 L (23-45) % [place] % (Auto) 13.0 H (0-9.0) % Eos % (Auto) 4.8 H (0-4) % [place] # (Auto) 1.0 H (0-0.8) T/MM3 Sodium (134-144) MEQ/L Chloride (98-107) MEQ/L Carbon Dioxide (22-30) MEQ/L Anion Gap (5-15) MEQ/L Creatinine (0.7-1.2) MG/DL Calculated Osmolality (261-280) MOSM/KG Crossmatch (AHG) See Detail 10/22/17 10/22/17 Range/Units 03:58 03:58 RBC 3.49 L (4.00-5.20) M/MM3 Hgb 9.3 L (12-16) GM/DL Hct 29.5 L (36-46) % MPV 8.7 L (9.4-12.4) UM3 Lymph % (Auto) 21.9 L (23-45) % [place] % (Auto) 15.9 H (0-9.0) % Eos % (Auto) (0-4) % [place] # (Auto) 1.5 H (0-0.8) T/MM3 Sodium 129 L (134-144) MEQ/L Chloride 94 L (98-107) MEQ/L Carbon Dioxide 33 H (22-30) MEQ/L Anion Gap 2 L (5-15) MEQ/L Creatinine 0.5 L (0.7-1.2) MG/DL Calculated Osmolality 248 L (261-280) MOSM/KG Crossmatch (AHG) H & H 10/19/17 10/20/17 10/20/17 Range/Units 12:03 04:37 20:46 Hgb 10.6 L 8.6 L D 8.2 L (12-16) GM/DL Hct 33.3 L 27.6 L D (36-46) % 10/21/17 10/21/17 10/21/17 Range/Units 04:01 14:44 18:56 Hgb 8.2 L 8.3 L 9.4 L D (12-16) GM/DL Hct 26.5 L 26.7 L (36-46) % 10/22/17 Range/Units 03:58 Hgb 9.3 L (12-16) GM/DL Hct 29.5 L (36-46) % Orthopedic Assessment and Plan (1) Arterial insufficiency of lower extremity Status: Acute Assessment and Plan: S/P left BKA 10/20/[address] Collier. Dressing is dry today. I did not wake her. On ASA and Plavix. Mobilize with PT. Work on transfers for now. IRU consult for placement. (2) Ulcer of left heel Status: Acute - Anticoagulation Therapy Anticoagulation: Resume home anticoagulant Hospital Course Summary Disclaimer: The visit summary below is not to be considered part of the above Progress Note. Hospital Course: Acute Assessment S/P Left BKA 10/20/17 - Dr. Collier. Hyponatremia, acute. Acute blood loss anemia. Thrush. 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 GERD Ileostomy due to bowel perforation Anxiety and depression. Plan - 10/21/17 (Mirakian) - POD #1 Clarice reports that she struggled with pain control during the night but is doing much better today. On exam, patient appears sedated and blood pressure trending down. Will continue with pain control. Would encourage avoiding Dilaudid due to current sedation and improved pain. Discussed outpatient pain control options with patient and Rogelio (ortho) and it was recommended to consider extended release Oxycodone 5mg instead of MS Contin or [place]. May also consider the addition of neurontin for additional pain control. Continue with bowel motivation. Blood pressure has been lower today most likely a reaction to pain control. Continue to monitor closely on telemetry. Will hold Coreg and lisinopril until systolic pressure >100. Heart rate controlled. Hemoglobin unchanged at 8.2 with active oozing blood noted on exam of surgical incision. Given the patient's history of CAD and systolic CHF, will give PRBC x 1 unit now followed by Lasix 20mg IV. Continue to monitor urinary output closely as <1000cc urine output documented for 10/20. Renal function stable. Recheck hgb following transfusion. Continue to monitor closely for adrenal insufficiency. Stress dose of Solu- Cortef given on 10/20/17. Florinef and prednisone resumed today 10/21/17. Repeat CBC and basic metabolic profile in AM to monitor blood counts, electrolytes and renal function. History of chronic home oxygen use with exertion at 2L. Provide as needed to maintain SAO2 >90 with goal of 95%. Wean oxygen as able. Encourage incentive spirometry for pulmonary toileting. Thrush improving. Continue clotrimazole troches and swizzle. Recommend obtaining IRU screen either 10/22/17 or 10/23/17.
[2017-10-22] MEDS ORDERED: FUROSEMIDE 20 MG/2 ML INJECTION IVP ONE (11:29)
--- NOTE | 2017-10-22 11:35 | Progress Note ---
<Cora Robles D - Last Filed: 10/22/17 11:32> - Date 10/22/17 Subjective: Clarice is seen today in follow up. Continues to have some neuropathic discomfort of the left leg at amputation site. Does feel the Fentanyl patch is helping to some extent. She does endorse some SOA and is wearing her O2. Chart is reviewed at length for collateral information. Objective Vital signs: Temperature 98.2 F 10/22/17 08:09 Pulse Rate 112 H 10/22/17 08:09 Respiratory Rate 20 10/22/17 09:22 Blood Pressure 140/75 H 10/22/17 08:09 Pulse Oximetry 91 10/22/17 08:09 Rhythm: Normal Sinus Rhythm Height/Weight/BMI: Height 1.57 m Weight 38.4 kg Body Mass Index 15.3 - Constitutional Present: mild distress, thin, cachectic, cooperative - Routine HEENT Exam Head: Present: normocephalic, atraumatic Eye: Present: EOMI, PERRL ENT: Present: mucous membranes moist - Routine Respiratory Exam Present: dyspnea, decreased breath sounds, diminished air movement. Absent: rales, rhonchi, wheezes - Routine Cardiovascular Exam Present: RRR, S1, S2, no murmur - Routine Abdominal Exam Present: soft, normoactive bowel sounds, non distended, non tender - Routine Extremities Exam Present: no edema, tenderness, amputation (Left acute BKA) - Routine Musculoskeletal Exam Musculoskeletal: Present: limited range of motion. Absent: no tenderness - Routine Skin Exam Present: intact, dry, warm Comments: Skin appears tanned. Warm - Routine Neurological Exam Present: alert, moving all extremities - Routine Psychiatric Exam Present: cooperative, anxious (Mildly anxious) Results - Labs CBC & Chem 7: 10/22/17 03:58 10/22/17 03:58 - Echocardiogram Echocardiogram: 2017 IMPRESSION 1. Severe global hypokinesia with ejection fraction of about 15%. 2. Mild mitral regurgitation. 3. Trace of aortic insufficiency. 4. Mild tricuspid regurgitation with normal estimated pulmonary artery systolic pressure of 29. Assessment and Plan (1) Status post below knee amputation of left lower extremity Current visit: Yes Status: Acute Assessment and Plan: Acute Assessment S/P Left BKA 10/20/17 - Dr. Collier. Hyponatremia, acute. Acute blood loss anemia. Thrush. Chronic Medical Conditions CAD PSVT HTN HLD Systolic CHF - MANAN 04/29 EF 15% HFrEF/NYHA class III TIA 03/2017 PAD Rheumatoid arthritis COPD on chronic oxygen @ 2L BRANDO with CPAP Adrenal insufficiency secondary to chronic steroid use Anxiety & depression Hypothyroidism with elevated TSH. GERD Ileostomy due to bowel perforation Anxiety and depression. Plan - 10/22/17 (Travis/Rick) - POD #2 *POD #2. Pain slowly improving. Low dose fentanyl patch. PRN meds. Add low does Gabapentin TID for neuropathic pain. IRU screen next week is likely. *Hyponatremia-hypoosmolar Start fluid restriction- 1500 ml. Change Lasix from PRN to daily. Add IV Lasix x 1. Monitor potassium level. *HFrEF/Tachycardia Increase coreg due to elevated HR, BP. Continue PIPPA. Add routine Lasix. Check CXR for baseline. *COPD- Continue Albuterol. Add scheduled albuterol as she appears SOA today. Continue QVar/Spiriva Handihaler. O2/COPD. *She is on both Florinef and Prednisone. Change Prednisone back to her daily dosing. Monitor for orthostasis given adrenal insufficiency. Add low dose LMWH for DVT px. She is on ASA/Plavix for arterial occlusion. Continue supportive care. recheck Labs in AM. DVT Prophylaxis: Lovenox GI Prophylaxis: Pepcid Resuscitation Status: Do Not Resuscitate - Time spent with patient Time with patient PN: 30 minutes Hospital Course Summary Disclaimer: The visit summary below is not to be considered part of the above Progress Note. Hospital Course: Acute Assessment S/P Left BKA 10/20/17 - Dr. Collier. Hyponatremia, acute. Acute blood loss anemia. Thrush. 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 GERD Ileostomy due to bowel perforation Anxiety and depression. Plan - 10/21/17 (Mirakian) - POD #1 Clarice reports that she struggled with pain control during the night but is doing much better today. On exam, patient appears sedated and blood pressure trending down. Will continue with pain control. Would encourage avoiding Dilaudid due to current sedation and improved pain. Discussed outpatient pain control options with patient and Rogelio (ortho) and it was recommended to consider extended release Oxycodone 5mg instead of MS Contin or [place]. May also consider the addition of neurontin for additional pain control. Continue with bowel motivation. Blood pressure has been lower today most likely a reaction to pain control. Continue to monitor closely on telemetry. Will hold Coreg and lisinopril until systolic pressure >100. Heart rate controlled. Hemoglobin unchanged at 8.2 with active oozing blood noted on exam of surgical incision. Given the patient's history of CAD and systolic CHF, will give PRBC x 1 unit now followed by Lasix 20mg IV. Continue to monitor urinary output closely as <1000cc urine output documented for 10/20. Renal function stable. Recheck hgb following transfusion. Continue to monitor closely for adrenal insufficiency. Stress dose of Solu- Cortef given on 10/20/17. Florinef and prednisone resumed today 10/21/17. Repeat CBC and basic metabolic profile in AM to monitor blood counts, electrolytes and renal function. History of chronic home oxygen use with exertion at 2L. Provide as needed to maintain SAO2 >90 with goal of 95%. Wean oxygen as able. Encourage incentive spirometry for pulmonary toileting. Thrush improving. Continue clotrimazole troches and swizzle. Recommend obtaining IRU screen either 10/22/17 or 10/23/17. 10/22/17 11:42 Plan - 10/22/17 (Travis/Rick) - POD #2 *POD #2. Pain slowly improving. Low dose fentanyl patch. PRN meds. Add low does Gabapentin TID for neuropathic pain. IRU screen next week is likely. *Hyponatremia-hypoosmolar Start fluid restriction- 1500 ml. Change Lasix from PRN to daily. Add IV Lasix x 1. Monitor potassium level. *HFrEF/Tachycardia Increase coreg due to elevated HR, BP. Continue PIPPA. Add routine Lasix. Check CXR for baseline. *COPD- Continue Albuterol. Add scheduled albuterol as she appears SOA today. Continue QVar/Spiriva Handihaler. O2/COPD. *She is on both Florinef and Prednisone. Change Prednisone back to her daily dosing. Monitor for orthostasis given adrenal insufficiency. Add low dose LMWH for DVT px. She is on ASA/Plavix for arterial occlusion. Continue supportive care. recheck Labs in AM. <Garett Cabrera - Last Filed: 10/22/17 12:08> - Date 10/22/17 Objective Vital signs: Temperature 98.2 F 10/22/17 08:09 Pulse Rate 112 H 10/22/17 08:09 Respiratory Rate 20 10/22/17 09:22 Blood Pressure 140/75 H 10/22/17 08:09 Pulse Oximetry 91 10/22/17 08:09 Height/Weight/BMI: Height 5 ft 2 in Weight 38.4 kg Body Mass Index 15.3 Results - Labs CBC & Chem 7: 10/22/17 03:58 10/22/17 03:58 Assessment and Plan - Physician Narriative Physician: other (Rick) Narriative: 10/22/17 12:07 She has new hyponatremia. I will change her from a cardiac diet which she does not follow a home and she is low in sodium so sodium restriction at this point is not helpful. Additionally, I'm checking a spot urine sodium and osmolality to see if her kidneys are responding appropriately to the level of hyponatremia. Antidepressant medications can also contribute to the hyponatremia. Hospital Course Summary Disclaimer: The visit summary below is not to be considered part of the above Progress Note.
[2017-10-22] MEDS ORDERED: ALBUTEROL 2.5mg/3ml (0.083%) NEB AEROSOL PRN (11:43)
[2017-10-22] MEDS: GABAPENTIN 100 MG CAPSULE PO SCH ×4 (12:13→20:54)
--- NOTE | 2017-10-22 15:47 | Cardiology Progress Note ---
<AlberMia Bill - Last Filed: 10/22/17 15:51> Subjective Principal diagnosis: PAD Interval history: Clarice in sitting up in chair. She is sleepy and ready to take a nap. Denies CP , SOB, or pain at amputation site. She says the fentanyl patch has helped as she was needing pain meds often before. In SR, was on NC this am and now RA for O2 sat 90%. Exam Vital signs: Temperature 98.3 F 10/22/17 12:00 Pulse Rate 102 H 10/22/17 12:00 Respiratory Rate 22 10/22/17 12:00 Blood Pressure 115/72 10/22/17 12:00 Pulse Oximetry 90 10/22/17 12:00 - Constitutional no acute distress - Routine Neck Exam Absent: JVD - Routine Respiratory Exam Present: CTA bilaterally - Routine Cardiovascular Exam Present: RRR, no murmur - Routine Abdominal Exam Present: soft, non distended - Routine Extremities Exam Present: no edema Comments: Right foot warm and pink. unable to palpate pedal pulse. Left leg with BKA wrapped. Hands with signs of RA. - Routine Skin Exam Present: intact, dry - Routine Neurological Exam Present: alert, oriented X3, normal speech - Routine Psychiatric Exam Present: normal affect, normal thought process, cooperative, good insight, good judgment Results 10/22/17 03:58 10/22/17 03:58 CBC 10/21/17 10/22/17 Range/Units 18:56 03:58 WBC 9.2 (4.5-11.0) T/MM3 RBC 3.49 L (4.00-5.20) M/MM3 Hgb 9.4 L D 9.3 L (12-16) GM/DL Hct 29.5 L (36-46) % Plt Count 337 (130-400) T/MM3 Neut # (Auto) 5.4 (1.8-7.7) T/MM3 Lymph # (Auto) 2.0 (1-4.8) T/MM3 Morris # (Auto) 1.5 H (0-0.8) T/MM3 Eos # (Auto) 0.3 (0-0.5) T/MM3 Baso # (Auto) 0.0 (0-0.2) T/MM3 Comprehensive Metabolic Panel 10/22/17 Range/Units 03:58 Sodium 129 L (134-144) MEQ/L Potassium 4.1 (3.6-5) MEQ/L Chloride 94 L (98-107) MEQ/L Carbon Dioxide 33 H (22-30) MEQ/L BUN 11.0 (7-17) MG/DL Creatinine 0.5 L (0.7-1.2) MG/DL Glucose 90 (65-110) MG/DL Calcium 8.6 (8.4-10.2) MG/DL Intake and Output 10/22/17 10/22/17 10/22/17 06:59 14:59 22:59 Intake Total 50 / 50 420 / 420 Output Total 400 / 400 1125 / 1125 Balance -350 / -350 -705 / -705 Intake: Oral 50 / 50 420 / 420 Output: Urine 400 / 400 700 / 700 Stool 425 / 425 Other: Urine Appearance Clear Clear Urine Color Yellow Yellow Urine Odor Normal Normal Stool Color Brown Stool Consistency Liquid Weight 84 lb 10.52 oz Patient Weight 10/23/17 06:59 Weight 84 lb 10.52 oz - Imaging and Cardiology Imaging & Cardiology Narrative: 10/19/2017 AOR: Severe bilateral infrapopliteal disease as described above. However, the vessels are very small and diffusely diseased for intervention or bypass. - EKG Interpretation EKG: sinus rhythm Assessment and Plan - Assessment and Plan (1) Atherosclerosis of [place] artery of both lower extremities Current visit: Yes Status: Acute (2) Atherosclerotic heart disease of [place] coronary artery without angina pectoris Current visit: Yes Status: Acute (3) Chronic systolic congestive heart failure Current visit: Yes Status: Acute (4) Mixed hyperlipidemia Current visit: Yes Status: Acute (5) Cardiomyopathy Current visit: Yes Status: Acute (6) Sleep apnea Current visit: Yes Status: Acute (7) Rheumatoid arthritis Current visit: Yes Status: Acute (8) Chronic obstructive pulmonary disease Current visit: Yes Status: Acute - Assessment and Plan 10/21/2017 PVD: s/p 10/20/[address] Collier[address] cont Plavix and ASA. (surgery site oozing this am. Dressing D/I now. CAD: ECG - no ischemia, no CP. Cont ASA and Plavix. CM / CSHF: 04/29/2017 MANAN: EF 15%. No signs of fluid overload. No BB or PIPPA due to low BP, BP 110's after 1UPRBC's followed by Lasix for good U/O > 2000 so far. Sinus Tach: HR 110's last night. HR improved to 90's this morning after pain meds adjusted. Adrenal insufficiency: Florinef and steroids. Anemia: Hbg 8.3 s/p 12/ 1UPRBC's. Ileostomy: she reports stool in bag. Plan to DC to rehab when ready. Pt is in agreement. 10/22/2017 PVD: s/p 10/20/[address] Collier[address] cont Plavix and ASA. CAD: ECG - no ischemia, no CP. Cont ASA and Plavix. CM / CSHF: 04/29/2017 MANAN: EF 15%. No signs of fluid overload. No PIPPA due to low BP, BP 110's, HR 90 - 100's. Lasix 20mg IV x1 today given by hospitalist for good U/O > 3000 today so far. Lasix 20mg po daily restarted. Coreg 3.125mg given this am and increased to Coreg 6.25mg BID to start this evening - BP and HR can tolerate. Monitor I/O, Wts, lytes and renal function. Sinus Tach: HR 90's to 110's. Restarted on Coreg 3.125mg this am and Coreg 6.25mg BID starting this evening. Cont to monitor tele. Adrenal insufficiency: Florinef and steroids. Anemia: Hbg 8.3 s/p 12 1UPRBC's. Hbg stable at 9.3 today. Ileostomy: she reports stool in bag. Hyponatremia: placed on 1500 fluid restriction and taken off cardiac diet by hospitalist. Plan to DC to rehab when ready. Pt is in agreement. Thank you to all consults for your assistance. Hospital Course Summary Disclaimer: The visit summary below is not to be considered part of the above Progress Note. Hospital Course: Acute Assessment S/P Left BKA 10/20/17 - Dr. Collier. Hyponatremia, acute. Acute blood loss anemia. Thrush. 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 GERD Ileostomy due to bowel perforation Anxiety and depression. Plan - 10/21/17 (Mirsriraman) - POD #1 Clarice reports that she struggled with pain control during the night but is doing much better today. On exam, patient appears sedated and blood pressure trending down. Will continue with pain control. Would encourage avoiding Dilaudid due to current sedation and improved pain. Discussed outpatient pain control options with patient and Rogelio (ortho) and it was recommended to consider extended release Oxycodone 5mg instead of MS Contin or [place]. May also consider the addition of neurontin for additional pain control. Continue with bowel motivation. Blood pressure has been lower today most likely a reaction to pain control. Continue to monitor closely on telemetry. Will hold Coreg and lisinopril until systolic pressure >100. Heart rate controlled. Hemoglobin unchanged at 8.2 with active oozing blood noted on exam of surgical incision. Given the patient's history of CAD and systolic CHF, will give PRBC x 1 unit now followed by Lasix 20mg IV. Continue to monitor urinary output closely as <1000cc urine output documented for 10/20. Renal function stable. Recheck hgb following transfusion. Continue to monitor closely for adrenal insufficiency. Stress dose of Solu- Cortef given on 10/20/17. Florinef and prednisone resumed today 10/21/17. Repeat CBC and basic metabolic profile in AM to monitor blood counts, electrolytes and renal function. History of chronic home oxygen use with exertion at 2L. Provide as needed to maintain SAO2 >90 with goal of 95%. Wean oxygen as able. Encourage incentive spirometry for pulmonary toileting. Thrush improving. Continue clotrimazole troches and swizzle. Recommend obtaining IRU screen either 10/22/17 or 10/23/17. 10/22/17 11:42 Plan - 10/22/17 (Travis/Rick) - POD #2 *POD #2. Pain slowly improving. Low dose fentanyl patch. PRN meds. Add low does Gabapentin TID for neuropathic pain. IRU screen next week is likely. *Hyponatremia-hypoosmolar Start fluid restriction- 1500 ml. Change Lasix from PRN to daily. Add IV Lasix x 1. Monitor potassium level. *HFrEF/Tachycardia Increase coreg due to elevated HR, BP. Continue PIPPA. Add routine Lasix. Check CXR for baseline. *COPD- Continue Albuterol. Add scheduled albuterol as she appears SOA today. Continue QVar/Spiriva Handihaler. O2/COPD. *She is on both Florinef and Prednisone. Change Prednisone back to her daily dosing. Monitor for orthostasis given adrenal insufficiency. Add low dose LMWH for DVT px. She is on ASA/Plavix for arterial occlusion. Continue supportive care. recheck Labs in AM. <Casa Arora - Last Filed: 10/23/17 16:02> Exam Vital signs: Temperature 98.2 F 10/23/17 12:14 Pulse Rate 97 10/23/17 12:14 Respiratory Rate 26 H 10/23/17 15:13 Blood Pressure 118/63 10/23/17 12:14 Pulse Oximetry 97 10/23/17 12:14 Results 10/23/17 04:36 10/23/17 04:36 CBC 10/23/17 Range/Units 04:36 WBC 7.7 (4.5-11.0) T/MM3 RBC 3.58 L (4.00-5.20) M/MM3 Hgb 9.5 L (12-16) GM/DL Hct 30.6 L (36-46) % Plt Count 359 (130-400) T/MM3 Neut # (Auto) 3.1 (1.8-7.7) T/MM3 Lymph # (Auto) 3.0 (1-4.8) T/MM3 Morris # (Auto) 1.4 H (0-0.8) T/MM3 Eos # (Auto) 0.2 (0-0.5) T/MM3 Baso # (Auto) 0.0 (0-0.2) T/MM3 Comprehensive Metabolic Panel 10/23/17 Range/Units 04:36 Sodium 132 L (134-144) MEQ/L Potassium 3.5 L (3.6-5) MEQ/L Chloride 95 L (98-107) MEQ/L Carbon Dioxide 34 H (22-30) MEQ/L BUN 11.0 (7-17) MG/DL Creatinine 0.5 L (0.7-1.2) MG/DL Glucose 78 (65-110) MG/DL Calcium 8.4 (8.4-10.2) MG/DL Albumin 2.9 L (3.5-5.0) G/DL Intake and Output 10/23/17 10/23/17 10/23/17 06:59 14:59 22:59 Intake Total 0 / 0 1150 / 1150 Output Total 1725 / 1725 Balance 0 / 0 -575 / -575 Intake: Oral 0 / 0 1150 / 1150 Output: Urine 1075 / 1075 Stool 250 / 250 Urine Amount (Catheter) 400 / 400 Other: Urine Appearance Clear Urine Color Yellow Stool Color Brown Stool Consistency Liquid # Bowel Movements 1 Weight 38.2 kg Patient Weight 10/24/17 06:59 Weight 38.2 kg Assessment and Plan - Assessment and Plan (1) Atherosclerosis of [place] artery of both lower extremities Current visit: Yes Status: Acute (2) Atherosclerotic heart disease of [place] coronary artery without angina pectoris Current visit: Yes Status: Acute (3) Chronic systolic congestive heart failure Current visit: Yes Status: Acute (4) Mixed hyperlipidemia Current visit: Yes Status: Acute (5) Cardiomyopathy Current visit: Yes Status: Acute (6) Sleep apnea Current visit: Yes Status: Acute (7) Rheumatoid arthritis Current visit: Yes Status: Acute (8) Chronic obstructive pulmonary disease Current visit: Yes Status: Acute - Attestation Attestation Narrative: 10/23/17 16:02 Recommendation After examining the patient I agree with the above assessment. I am involved in the formulation of the patient's plan of care. Hospital Course Summary Disclaimer: The visit summary below is not to be considered part of the above Progress Note.
[2017-10-22] MEDS: ALBUTEROL 2.5mg/3ml (0.083%) NEB AEROSOL SCH ×2 (16:30→21:38)
[2017-10-22] MEDS: PredniSONE 5 MG TABLET PO SCH ×2 (17:34→17:37)
[2017-10-22] MEDS: CARVEDILOL 6.25 MG TABLET PO SCH (17:37)
[2017-10-22] MEDS: LISINOPRIL 2.5 MG TABLET PO SCH (20:53)
[2017-10-22] MEDS: MIRTAZAPINE 30 MG TABLET PO SCH (20:53)
[2017-10-22] MEDS: ROSUVASTATIN 20 MG TABLET PO SCH (20:53)
[2017-10-22] MEDS: OLANZapine 2.5 MG TABLET PO SCH (20:54)
[2017-10-22] MEDS: SALINE FLUSH 10ml SYRINGE IV PRN (20:55)
[2017-10-22] MEDS: TIOTROPIUM 18mcg/cap HANDIHALER ORAL INH SCH (21:28)
[2017-10-22] MEDS: CLOPIDOGREL 75 MG TABLET PO SCH (21:46)
[2017-10-23] MEDS: LANSOPRAZOLE 30 MG PO SCH (06:18)
[2017-10-23] MEDS ORDERED: LEVOTHYROXINE 50 MCG TABLET PO SCH (06:30)
[2017-10-23] MEDS: ALBUTEROL 2.5mg/3ml (0.083%) NEB AEROSOL SCH ×4 (06:48→22:30)
[2017-10-23] MEDS: FUROSEMIDE 20 MG TABLET PO SCH (09:41)
[2017-10-23] MEDS: ASPIRIN *EC* 81 MG TABLET PO SCH (09:41)
[2017-10-23] MEDS: CLOTRIMAZOLE 10 MG TROCHE MM SCH ×5 (09:41→20:56)
[2017-10-23] MEDS: BUSPIRONE 10 MG TABLET PO SCH ×2 (09:42→20:54)
[2017-10-23] MEDS: CARVEDILOL 6.25 MG TABLET PO SCH ×2 (09:42→18:29)
[2017-10-23] MEDS: ENOXAPARIN 40 MG/0.4 ML INJECTION SQ SCH (09:43)
[2017-10-23] MEDS: CALCIUM CARBONATE 600 MG TABLET PO SCH (09:43)
[2017-10-23] MEDS: Venlaflaxine XR 75 MG CAPSULE (24hr) PO SCH (09:43)
[2017-10-23] MEDS: GABAPENTIN 100 MG CAPSULE PO SCH ×3 (09:43→20:54)
[2017-10-23] MEDS: FLUDROCORTISONE 0.1 MG TABLET PO SCH (09:43)
[2017-10-23] MEDS: DICLOFENAC SODIUM 100 MG PO SCH ×2 (09:44→20:56)
[2017-10-23] MEDS: FAMOTIDINE 40 MG/5 ML ORAL LIQUID PO SCH (09:44)
--- NOTE | 2017-10-23 09:52 | Progress Note ---
<Felicia So V - Last Filed: 10/23/17 09:42> - Date 10/23/17 Subjective: Clarice is seen this morning in follow up. She is eating breakfast and reports that she is feeling good. Her pain is much better controlled on the Fentanyl patch. Appetite is good, no difficulty with urinations, Ostomy with normal bowel output. Hgb stable at 9.5. Objective Vital signs: Temperature 98.7 F 10/23/17 08:26 Pulse Rate 96 10/23/17 08:26 Respiratory Rate 18 10/23/17 08:46 Blood Pressure 119/65 10/23/17 08:26 Pulse Oximetry 90 10/23/17 08:26 Rhythm: Normal Sinus Rhythm Height/Weight/BMI: Height 1.57 m Weight 38.2 kg Body Mass Index 15.3 - Constitutional Present: no acute distress, well nourished, well developed - Routine HEENT Exam Eye: Present: EOMI ENT: Present: mucous membranes moist, dentition normal - Routine Respiratory Exam Present: diminished air movement (dininished). Absent: wheezes - Routine Cardiovascular Exam Present: RRR, S1, S2. Absent: murmur - Routine Abdominal Exam Present: soft, normoactive bowel sounds, non distended. Absent: tenderness Comments: Ostomy - Routine Extremities Exam Present: full ROM Comments: Post op dressing and pippa wrap to LLE - Routine Skin Exam Present: intact, dry, warm - Routine Neurological Exam Present: alert, oriented X3, CN II-XII intact, moving all extremities - Routine Lymphatic Exam Lymphatic: Absent: adenopathy - Routine Psychiatric Exam Present: normal affect, cooperative Results - Labs CBC & Chem 7: 10/23/17 04:36 10/23/17 04:36 Assessment and Plan (1) Status post below knee amputation of left lower extremity Current visit: Yes Status: Acute Assessment and Plan: Acute Assessment S/P Left BKA 10/20/17 - Dr. Collier. Hyponatremia, acute. Acute blood loss anemia. Thrush. Chronic Medical Conditions CAD PSVT HTN HLD Systolic CHF - MANAN 04/29 EF 15% HFrEF/NYHA class III TIA 03/2017 PAD Rheumatoid arthritis COPD on chronic oxygen @ 2L BRANDO with CPAP Adrenal insufficiency secondary to chronic steroid use Anxiety & depression Hypothyroidism with elevated TSH. GERD Ileostomy due to bowel perforation Anxiety and depression. Plan - POD #3 Pain is well controlled on fentanyl patch with Gabapentin Will up current Prednisone to baseline 8 mg daily Need to monitor hyponatremia, 132 this morning. Continues on fluid restriction. Mild Hypokalemia- 3.5. Will continue to monitor. Appetite improving COPD- Continue Albuterol, QVar/Spiriva Handihaler, O2/COPD. Lovenox for DVT px. Hospital Course Summary Disclaimer: The visit summary below is not to be considered part of the above Progress Note. Hospital Course: Acute Assessment S/P Left BKA 10/20/17 - Dr. Collier. Hyponatremia, acute. Acute blood loss anemia. Thrush. 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 GERD Ileostomy due to bowel perforation Anxiety and depression. Plan - 10/21/17 (Mirakian) - POD #1 Clarice reports that she struggled with pain control during the night but is doing much better today. On exam, patient appears sedated and blood pressure trending down. Will continue with pain control. Would encourage avoiding Dilaudid due to current sedation and improved pain. Discussed outpatient pain control options with patient and Rogelio (ortho) and it was recommended to consider extended release Oxycodone 5mg instead of MS Contin or [place]. May also consider the addition of neurontin for additional pain control. Continue with bowel motivation. Blood pressure has been lower today most likely a reaction to pain control. Continue to monitor closely on telemetry. Will hold Coreg and lisinopril until systolic pressure >100. Heart rate controlled. Hemoglobin unchanged at 8.2 with active oozing blood noted on exam of surgical incision. Given the patient's history of CAD and systolic CHF, will give PRBC x 1 unit now followed by Lasix 20mg IV. Continue to monitor urinary output closely as <1000cc urine output documented for 10/20. Renal function stable. Recheck hgb following transfusion. Continue to monitor closely for adrenal insufficiency. Stress dose of Solu- Cortef given on 10/20/17. Florinef and prednisone resumed today 10/21/17. Repeat CBC and basic metabolic profile in AM to monitor blood counts, electrolytes and renal function. History of chronic home oxygen use with exertion at 2L. Provide as needed to maintain SAO2 >90 with goal of 95%. Wean oxygen as able. Encourage incentive spirometry for pulmonary toileting. Thrush improving. Continue clotrimazole troches and swizzle. Recommend obtaining IRU screen either 10/22/17 or 10/23/17. 10/22/17 11:42 Plan - 10/22/17 (Travis/Rick) - POD #2 *POD #2. Pain slowly improving. Low dose fentanyl patch. PRN meds. Add low does Gabapentin TID for neuropathic pain. IRU screen next week is likely. *Hyponatremia-hypoosmolar Start fluid restriction- 1500 ml. Change Lasix from PRN to daily. Add IV Lasix x 1. Monitor potassium level. *HFrEF/Tachycardia Increase coreg due to elevated HR, BP. Continue PIPPA. Add routine Lasix. Check CXR for baseline. *COPD- Continue Albuterol. Add scheduled albuterol as she appears SOA today. Continue QVar/Spiriva Handihaler. O2/COPD. *She is on both Florinef and Prednisone. Change Prednisone back to her daily dosing. Monitor for orthostasis given adrenal insufficiency. Add low dose LMWH for DVT px. She is on ASA/Plavix for arterial occlusion. Continue supportive care. recheck Labs in AM. 10/23/17 Plan - POD #3 Pain is well controlled on fentanyl patch with Gabapentin Will up current Prednisone to baseline 8 mg daily Need to monitor hyponatremia, 132 this morning. Continues on fluid restriction. Mild Hypokalemia- 3.5. Will continue to monitor. Appetite improving COPD- Continue Albuterol, QVar/Spiriva Handihaler, O2/COPD. Lovenox for DVT px. <Marbin Hicks - Last Filed: 10/23/17 17:03> - Date 10/23/17 Objective Vital signs: Temperature 98.3 F 10/23/17 16:17 Pulse Rate 88 10/23/17 16:17 Respiratory Rate 19 10/23/17 16:17 Blood Pressure 92/55 10/23/17 16:17 Pulse Oximetry 97 10/23/17 16:17 Height/Weight/BMI: Height 1.57 m Weight 38.2 kg Body Mass Index 15.4 Results - Labs CBC & Chem 7: 10/23/17 04:36 10/23/17 04:36 Assessment and Plan Assessment and Plan: 10/23/17 Pt seen and evaluated with Felicia So APRN. Pt looking forward to IRU. Working with PT and OT. Pain managed. Assessment s/p BKA left Hyponatremia, excess free water. anemia, post surgical. Plan cont with duragesic patch for pain. Fluid restriction to continue. Sodium to be followed while in IRU. Cbc in am to follow hgb level. cont other meds. PT OT in IRU due to BKA. Marbin Hicks MD. Hospital Course Summary Disclaimer: The visit summary below is not to be considered part of the above Progress Note.
[2017-10-23] MEDS ORDERED: PredniSONE 5 MG TABLET PO ONE (10:15)
--- NOTE | 2017-10-23 12:30 | XRay Report ---
Indication: CHF PROCEDURE: XR chest 1V: Encounter: Initial Comparison: December 30, 2016 Findings: Prior left PICC line has been removed. Lungs are stable and clear. Hyperinflation. No pneumothorax. Trace left effusion. Heart size and mediastinal contours are stable. Pulmonary vascularity appears normal. Right shoulder replacement. Possible postoperative change in the left distal clavicle with severe degenerative change in the left glenohumeral joint. Mild scoliosis. Orthopedic hardware in the cervical spine. Impression: No pneumonia. Trace left pleural effusion. .
[2017-10-23 12:34] VITALS: BMI 15.4
[2017-10-23] MEDS: BECLOMETHASONE 80 MCG ORAL INH SCH ×2 (13:36→22:30)
--- NOTE | 2017-10-23 15:03 | Cardiology Progress Note ---
<Jaja Hart - Last Filed: 10/27/17 07:56> Subjective Principal diagnosis: PAD Interval history: Clarice is seen in follow up, S/P BKA for severe PAD and nonhealing wound. She denies CP, SOB, or pain at amputation site. She is hopeful to discharge to IRU soon. Exam Vital signs: Temperature 98.2 F 10/23/17 12:14 Pulse Rate 97 10/23/17 12:14 Respiratory Rate 24 10/23/17 12:14 Blood Pressure 118/63 10/23/17 12:14 Pulse Oximetry 97 10/23/17 12:14 - Constitutional no acute distress, thin, cooperative - Routine HEENT Exam Head: Present: normocephalic ENT: Present: mucous membranes moist - Routine Neck Exam Absent: JVD, carotid bruit - Routine Chest/Breast/Axilla Exam Chest wall: Absent: tenderness - Routine Respiratory Exam Present: CTA bilaterally. Absent: rales, wheezes - Routine Cardiovascular Exam Present: RRR, no murmur - Routine Abdominal Exam Present: soft, normoactive bowel sounds - Routine Extremities Exam Present: no edema. Absent: pulses intact (right LE) - Routine Skin Exam Present: intact, dry, warm - Routine Neurological Exam Present: alert, oriented X3 - Routine Psychiatric Exam Present: normal affect, normal thought process - Additional findings Additional findings: Acetaminophen (Tylenol) 1,000 mg PO Q6H PRN PRN Reason: Pain Hydrocodone Bitart/Acetaminophen ([place] 7.5/325) 1 - 2 tab PO Q6H PRN PRN Reason: Pain Last Admin: 10/22/17 19:27 Dose: 1 tab Al Hydroxide/Mg Hydroxide (Maalox Plus) 30 ml PO Q3H PRN PRN Reason: Indigestion Albuterol Sulfate (Proventil Neb (0.083%)) 2.5 mg AEROSOL RTQID [facility] Last Admin: 10/23/17 13:36 Dose: Not Given Albuterol Sulfate (Proventil Neb (0.083%)) 2.5 mg AEROSOL Q4H PRN Aspirin (Ecotrin) 81 mg PO DAILY [facility] Last Admin: 10/23/17 09:41 Dose: 81 mg Atropine Sulfate (Atropine) 0.5 mg IVP Q5M PRN PRN Reason: Bradycardia Beclomethasone Dipropionate (Qvar Inhaler) 1 puff ORAL INH BID [facility] Last Admin: 10/23/17 13:36 Dose: 1 puff Bisacodyl (Dulcolax) 5 - 10 mg PO DAILY PRN PRN Reason: Constipation Bisacodyl (Dulcolax) 10 mg RECTALLY DAILY PRN PRN Reason: Constipation Buspirone HCl (Buspar) 20 mg PO BID [facility] Last Admin: 10/23/17 09:42 Dose: 20 mg Calcium Carbonate (Caltrate) 1,200 mg PO DAILY [facility] Last Admin: 10/23/17 09:43 Dose: 1,200 mg Carvedilol (Coreg) 6.25 mg PO BIDWM [facility] Last Admin: 10/23/17 09:42 Dose: 6.25 mg Cholecalciferol (Vit. D-3) 2,000 unit PO DAILY [facility] Last Admin: 10/23/17 09:43 Dose: 2,000 unit Clopidogrel Bisulfate (Plavix) 75 mg PO HS [facility] Last Admin: 10/22/17 21:46 Dose: 75 mg Clotrimazole (Mycelex Alyx) 10 mg MM 5XD [facility] Last Admin: 10/23/17 12:40 Dose: 10 mg Cyanocobalamin (Vit. B-12) 1,000 mcg IM Q30D [facility] Last Admin: 10/20/17 17:03 Dose: 1,000 mcg Enoxaparin Sodium (Lovenox) 40 mg SQ DAILY [facility] Last Admin: 10/23/17 09:43 Dose: 40 mg Famotidine (Pepcid) 20 mg PO DAILY [facility] Last Admin: 10/23/17 09:44 Dose: 20 mg Fentanyl (Duragesic Patch) 12 mcg TD Q3D [facility] Last Admin: 10/21/17 21:30 Dose: 12 mcg Fentanyl Citrate (Duragesic Patch Removal) 1 removal TD Q3D [facility] Fludrocortisone Acetate (Florinef) 0.1 mg PO DAILY [facility] Last Admin: 10/23/17 09:43 Dose: 0.1 mg Furosemide (Lasix) 20 mg PO DAILY [facility] Last Admin: 10/23/17 09:41 Dose: 20 mg Gabapentin (Neurontin) 100 mg PO TID [facility] Last Admin: 10/23/17 09:43 Dose: 100 mg Levothyroxine Sodium (Synthroid) 75 mcg PO ACB [facility] Lisinopril (Prinivil) 2.5 mg PO [facility] Last Admin: 10/22/17 20:53 Dose: 2.5 mg Lorazepam (Ativan) 0.5 - 1 mg PO Q4H PRN PRN Reason: Anxiety Last Admin: 10/21/17 01:42 Dose: 0.5 mg Lorazepam (Ativan Inj) 0.5 - 1 mg IVP Q4H PRN PRN Reason: Anxiety Magnesium Hydroxide (Mom) 30 ml PO DAILY PRN PRN Reason: Constipation Mirtazapine (Remeron) 30 mg PO [facility] Last Admin: 10/22/17 20:53 Dose: 30 mg Nitroglycerin (Nitrostat) 0.4 mg SL Q5MIN3 PRN PRN Reason: Angina Pom [Diclofenac (Sodium 100 Mg)) 100 mg PO BID [facility] Last Admin: 10/23/17 09:44 Dose: 100 mg Pom Lansoprazole (30mg) 1 cap PO B [facility] Last Admin: 10/23/17 06:18 Dose: 1 cap Olanzapine (Zyprexa) 2.5 mg PO [facility] Last Admin: 10/22/17 20:54 Dose: 2.5 mg Ondansetron HCl (Zofran) 4 mg IVP Q6H PRN PRN Reason: Nausea &/or vomiting Pharmacy Profile Note (Lidocaine/Maalox/Benadryl Soln) 5 ml PO Q4H PRN PRN Reason: Mouth pain Prednisone (Deltasone) 3 mg PO [facility] Prednisone (Deltasone) 5 mg PO [facility] Rosuvastatin Calcium (Crestor) 20 mg PO [facility] Last Admin: 10/22/17 20:53 Dose: 20 mg Sodium Chloride (Iv Flush) 10 - 80 ml IV PRN PRN PRN Reason: Flushing Last Admin: 10/22/17 20:55 Dose: 10 ml Sodium Chloride (Normal Saline) 500 ml IV PRN PRN Tiotropium Proctor (Spiriva) 1 cap ORAL INH [facility] Last Admin: 10/22/17 21:28 Dose: 1 cap Triamcinolone Acetonide (Kenalog) 1 applic TOP BID PRN PRN Reason: prn Venlafaxine HCl (Effexor Xr) 75 mg PO [facility] Last Admin: 10/23/17 09:43 Dose: 75 mg Results 10/24/17 04:11 10/24/17 04:11 CBC 10/23/17 Range/Units 04:36 WBC 7.7 (4.5-11.0) T/MM3 RBC 3.58 L (4.00-5.20) M/MM3 Hgb 9.5 L (12-16) GM/DL Hct 30.6 L (36-46) % Plt Count 359 (130-400) T/MM3 Neut # (Auto) 3.1 (1.8-7.7) T/MM3 Lymph # (Auto) 3.0 (1-4.8) T/MM3 Summers # (Auto) 1.4 H (0-0.8) T/MM3 Eos # (Auto) 0.2 (0-0.5) T/MM3 Baso # (Auto) 0.0 (0-0.2) T/MM3 Comprehensive Metabolic Panel 10/23/17 Range/Units 04:36 Sodium 132 L (134-144) MEQ/L Potassium 3.5 L (3.6-5) MEQ/L Chloride 95 L (98-107) MEQ/L Carbon Dioxide 34 H (22-30) MEQ/L BUN 11.0 (7-17) MG/DL Creatinine 0.5 L (0.7-1.2) MG/DL Glucose 78 (65-110) MG/DL Calcium 8.4 (8.4-10.2) MG/DL Albumin 2.9 L (3.5-5.0) G/DL Intake and Output 10/23/17 10/23/17 10/23/17 06:59 14:59 22:59 Intake Total 0 / 0 1150 / 1150 Output Total 1725 / 1725 Balance 0 / 0 -575 / -575 Intake: Oral 0 / 0 1150 / 1150 Output: Urine 1075 / 1075 Stool 250 / 250 Urine Amount (Catheter) 400 / 400 Other: Urine Appearance Clear Urine Color Yellow Stool Color Brown Stool Consistency Liquid # Bowel Movements 1 Weight 84 lb 3.465 oz Patient Weight 10/24/17 06:59 Weight 84 lb 3.465 oz - Imaging and Cardiology Imaging & Cardiology Narrative: Date of Exam: 10/22/17 Ordering Provider: Cora Robles APRN Type of Exam(s): XR chest 1V Reason for Exam(s): CHF Indication: CHF PROCEDURE: XR chest 1V: Encounter: Initial Comparison: December 30, 2016 Findings: Prior left PICC line has been removed. Lungs are stable and clear. Hyperinflation. No pneumothorax. Trace left effusion. Heart size and mediastinal contours are stable. Pulmonary vascularity appears normal. Right shoulder replacement. Possible postoperative change in the left distal clavicle with severe degenerative change in the left glenohumeral joint. Mild scoliosis. Orthopedic hardware in the cervical spine. Impression: No pneumonia. Trace left pleural effusion. 10/23/17 15:04 Assessment and Plan - Assessment and Plan (1) Atherosclerosis of [place] artery of both lower extremities Status: Chronic (2) Atherosclerotic heart disease of [place] coronary artery without angina pectoris Status: Chronic (3) Chronic systolic congestive heart failure Status: Chronic (4) Mixed hyperlipidemia Status: Chronic (5) Cardiomyopathy Status: Chronic (6) Sleep apnea Status: Chronic (7) Rheumatoid arthritis Status: Chronic (8) Chronic obstructive pulmonary disease Status: Chronic - Assessment and Plan 10/20/17 See LE angiogram report - Non healing wound on foot, - BKA today per Dr. Collier, thank you for your assistance 10/21/2017 PVD: s/p 10/20/[address] Collier. cont Plavix and ASA. (surgery site oozing this am. Dressing D/I now. CAD: ECG - no ischemia, no CP. Cont ASA and Plavix. CM / CSHF: 04/29/2017 MANAN: EF 15%. No signs of fluid overload. No BB or PIPPA due to low BP, BP 110's after 1UPRBC's followed by Lasix for good U/O > 2000 so far. Sinus Tach: HR 110's last night. HR improved to 90's this morning after pain meds adjusted. Adrenal insufficiency: Florinef and steroids. Anemia: Hbg 8.3 s/p 10/21 1UPRBC's. Ileostomy: she reports stool in bag. Plan to DC to rehab when ready. Pt is in agreement. 10/22/2017 PVD: s/p 10/20/[address] Collier. cont Plavix and ASA. CAD: ECG - no ischemia, no CP. Cont ASA and Plavix. CM / CSHF: 04/29/2017 MANAN: EF 15%. No signs of fluid overload. No PIPPA due to low BP, BP 110's, HR 90 - 100's. Lasix 20mg IV x1 today given by hospitalist for good U/O > 3000 today so far. Lasix 20mg po daily restarted. Coreg 3.125mg given this am and increased to Coreg 6.25mg BID to start this evening - BP and HR can tolerate. Monitor I/O, Wts, lytes and renal function. Sinus Tach: HR 90's to 110's. Restarted on Coreg 3.125mg this am and Coreg 6.25mg BID starting this evening. Cont to monitor tele. Adrenal insufficiency: Florinef and steroids. Anemia: Hbg 8.3 s/p 10/21 1UPRBC's. Hbg stable at 9.3 today. Ileostomy: she reports stool in bag. Hyponatremia: placed on 1500 fluid restriction and taken off cardiac diet by hospitalist. Plan to DC to rehab when ready. Pt is in agreement. Thank you to all consults for your assistance. Hospital Course Summary Disclaimer: The visit summary below is not to be considered part of the above Progress Note. Hospital Course: Acute Assessment S/P Left BKA 10/20/17 - Dr. Collier. Hyponatremia, acute. Acute blood loss anemia. Thrush. 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 GERD Ileostomy due to bowel perforation Anxiety and depression. Plan - 10/21/17 (Mirakian) - POD #1 Clarice reports that she struggled with pain control during the night but is doing much better today. On exam, patient appears sedated and blood pressure trending down. Will continue with pain control. Would encourage avoiding Dilaudid due to current sedation and improved pain. Discussed outpatient pain control options with patient and Rogelio (ortho) and it was recommended to consider extended release Oxycodone 5mg instead of MS Contin or [place]. May also consider the addition of neurontin for additional pain control. Continue with bowel motivation. Blood pressure has been lower today most likely a reaction to pain control. Continue to monitor closely on telemetry. Will hold Coreg and lisinopril until systolic pressure >100. Heart rate controlled. Hemoglobin unchanged at 8.2 with active oozing blood noted on exam of surgical incision. Given the patient's history of CAD and systolic CHF, will give PRBC x 1 unit now followed by Lasix 20mg IV. Continue to monitor urinary output closely as <1000cc urine output documented for 10/20. Renal function stable. Recheck hgb following transfusion. Continue to monitor closely for adrenal insufficiency. Stress dose of Solu- Cortef given on 10/20/17. Florinef and prednisone resumed today 10/21/17. Repeat CBC and basic metabolic profile in AM to monitor blood counts, electrolytes and renal function. History of chronic home oxygen use with exertion at 2L. Provide as needed to maintain SAO2 >90 with goal of 95%. Wean oxygen as able. Encourage incentive spirometry for pulmonary toileting. Thrush improving. Continue clotrimazole troches and swizzle. Recommend obtaining IRU screen either 10/22/17 or 10/23/17. 10/22/17 11:42 Plan - 10/22/17 (Travis/Rick) - POD #2 *POD #2. Pain slowly improving. Low dose fentanyl patch. PRN meds. Add low does Gabapentin TID for neuropathic pain. IRU screen next week is likely. *Hyponatremia-hypoosmolar Start fluid restriction- 1500 ml. Change Lasix from PRN to daily. Add IV Lasix x 1. Monitor potassium level. *HFrEF/Tachycardia Increase coreg due to elevated HR, BP. Continue PIPPA. Add routine Lasix. Check CXR for baseline. *COPD- Continue Albuterol. Add scheduled albuterol as she appears SOA today. Continue QVar/Spiriva Handihaler. O2/COPD. *She is on both Florinef and Prednisone. Change Prednisone back to her daily dosing. Monitor for orthostasis given adrenal insufficiency. Add low dose LMWH for DVT px. She is on ASA/Plavix for arterial occlusion. Continue supportive care. recheck Labs in AM. 10/23/17 Plan - POD #3 Pain is well controlled on fentanyl patch with Gabapentin Will up current Prednisone to baseline 8 mg daily Need to monitor hyponatremia, 132 this morning. Continues on fluid restriction. Mild Hypokalemia- 3.5. Will continue to monitor. Appetite improving COPD- Continue Albuterol, QVar/Spiriva Handihaler, O2/COPD. Lovenox for DVT px. <[place] - Last Filed: 10/27/17 13:02> Exam Vital signs: Temperature 98.4 F 10/24/17 07:40 Pulse Rate 82 10/24/17 08:00 Respiratory Rate 20 10/24/17 10:59 Blood Pressure 108/80 10/24/17 07:40 Pulse Oximetry 92 10/24/17 07:40 Results 10/24/17 04:11 10/24/17 04:11 Assessment and Plan - Assessment and Plan (1) Atherosclerosis of [place] artery of both lower extremities Status: Chronic (2) Atherosclerotic heart disease of [place] coronary artery without angina pectoris Status: Chronic (3) Chronic systolic congestive heart failure Status: Chronic (4) Mixed hyperlipidemia Status: Chronic (5) Cardiomyopathy Status: Chronic (6) Sleep apnea Status: Chronic (7) Rheumatoid arthritis Status: Chronic (8) Chronic obstructive pulmonary disease Status: Chronic - Attestation Attestation Narrative: 10/27/17 13:02 Recommendation After examining the patient I agree with the above assessment. I am involved in the formulation of the patient's plan of care. Hospital Course Summary Disclaimer: The visit summary below is not to be considered part of the above Progress Note.
--- NOTE | 2017-10-23 18:08 | Orthopedic Progress Note ---
Date: Subjective/Severity of Illness: Doing well. S/P transfusion of 1unit PRBCs on the weekend. No dizziness or lightheadedness today. Pain much better on Fentanyl patch. No other concerns at this time. Orthopedic Objective PO Vital signs: Temperature 98.3 F 10/23/17 16:17 Pulse Rate 88 10/23/17 16:17 Respiratory Rate 19 10/23/17 16:17 Blood Pressure 92/55 10/23/17 16:17 Pulse Oximetry 97 10/23/17 16:17 Height and Weight: Height 5 ft 2 in Weight 84 lb 3.465 oz Body Mass Index 15.4 - Constitutional General Appearance: Present: alert - Respiratory Exam Present: non-labored - Cardiovascular Exam Absent: pedal pulses intact - Surgical Site Incision: other (Dressing changed today. Stump healing well. Sutures intact.) - Integumentary Exam Present: pink, warm, dry. Absent: erythema - Neurological Exam Present: no deficits - Psychiatric Exam Present: alert, normal affect - Labs Result Diagrams: 10/23/17 04:36 10/23/17 04:36 Abnormal lab results 10/23/17 10/23/17 Range/Units 04:36 04:36 RBC 3.58 L (4.00-5.20) M/MM3 Hgb 9.5 L (12-16) GM/DL Hct 30.6 L (36-46) % MPV 8.6 L (9.4-12.4) UM3 [place] % (Auto) 18.0 H (0-9.0) % [place] # (Auto) 1.4 H (0-0.8) T/MM3 Sodium 132 L (134-144) MEQ/L Potassium 3.5 L (3.6-5) MEQ/L Chloride 95 L (98-107) MEQ/L Carbon Dioxide 34 H (22-30) MEQ/L Anion Gap 3 L (5-15) MEQ/L Creatinine 0.5 L (0.7-1.2) MG/DL Calculated Osmolality 253 L (261-280) MOSM/KG Albumin 2.9 L (3.5-5.0) G/DL H & H 10/19/17 10/20/17 10/20/17 Range/Units 12:03 04:37 20:46 Hgb 10.6 L 8.6 L D 8.2 L (12-16) GM/DL Hct 33.3 L 27.6 L D (36-46) % 10/21/17 10/21/17 10/21/17 Range/Units 04:01 14:44 18:56 Hgb 8.2 L 8.3 L 9.4 L D (12-16) GM/DL Hct 26.5 L 26.7 L (36-46) % 10/22/17 10/23/17 Range/Units 03:58 04:36 Hgb 9.3 L 9.5 L (12-16) GM/DL Hct 29.5 L 30.6 L (36-46) % Orthopedic Assessment and Plan (1) Arterial insufficiency of lower extremity Status: Acute Assessment and Plan: S/P left BKA 10/20/[address] Collier. Dressing changed. Stump looking good. On ASA and Plavix. Mobilize with PT. Work on transfers for now. IRU consult for placement. (2) Ulcer of left heel Status: Acute Hospital Course Summary Disclaimer: The visit summary below is not to be considered part of the above Progress Note. Hospital Course: Acute Assessment S/P Left BKA 10/20/17 - Dr. Collier. Hyponatremia, acute. Acute blood loss anemia. Thrush. 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 GERD Ileostomy due to bowel perforation Anxiety and depression. Plan - 10/21/17 (Mirakian) - POD #1 Clarice reports that she struggled with pain control during the night but is doing much better today. On exam, patient appears sedated and blood pressure trending down. Will continue with pain control. Would encourage avoiding Dilaudid due to current sedation and improved pain. Discussed outpatient pain control options with patient and Rogelio (ortho) and it was recommended to consider extended release Oxycodone 5mg instead of MS Contin or [place]. May also consider the addition of neurontin for additional pain control. Continue with bowel motivation. Blood pressure has been lower today most likely a reaction to pain control. Continue to monitor closely on telemetry. Will hold Coreg and lisinopril until systolic pressure >100. Heart rate controlled. Hemoglobin unchanged at 8.2 with active oozing blood noted on exam of surgical incision. Given the patient's history of CAD and systolic CHF, will give PRBC x 1 unit now followed by Lasix 20mg IV. Continue to monitor urinary output closely as <1000cc urine output documented for 10/20. Renal function stable. Recheck hgb following transfusion. Continue to monitor closely for adrenal insufficiency. Stress dose of Solu- Cortef given on 10/20/17. Florinef and prednisone resumed today 10/21/17. Repeat CBC and basic metabolic profile in AM to monitor blood counts, electrolytes and renal function. History of chronic home oxygen use with exertion at 2L. Provide as needed to maintain SAO2 >90 with goal of 95%. Wean oxygen as able. Encourage incentive spirometry for pulmonary toileting. Thrush improving. Continue clotrimazole troches and swizzle. Recommend obtaining IRU screen either 10/22/17 or 10/23/17. 10/22/17 11:42 Plan - 10/22/17 (Travis/Rick) - POD #2 *POD #2. Pain slowly improving. Low dose fentanyl patch. PRN meds. Add low does Gabapentin TID for neuropathic pain. IRU screen next week is likely. *Hyponatremia-hypoosmolar Start fluid restriction- 1500 ml. Change Lasix from PRN to daily. Add IV Lasix x 1. Monitor potassium level. *HFrEF/Tachycardia Increase coreg due to elevated HR, BP. Continue PIPPA. Add routine Lasix. Check CXR for baseline. *COPD- Continue Albuterol. Add scheduled albuterol as she appears SOA today. Continue QVar/Spiriva Handihaler. O2/COPD. *She is on both Florinef and Prednisone. Change Prednisone back to her daily dosing. Monitor for orthostasis given adrenal insufficiency. Add low dose LMWH for DVT px. She is on ASA/Plavix for arterial occlusion. Continue supportive care. recheck Labs in AM. 10/23/17 Plan - POD #3 Pain is well controlled on fentanyl patch with Gabapentin Will up current Prednisone to baseline 8 mg daily Need to monitor hyponatremia, 132 this morning. Continues on fluid restriction. Mild Hypokalemia- 3.5. Will continue to monitor. Appetite improving COPD- Continue Albuterol, QVar/Spiriva Handihaler, O2/COPD. Lovenox for DVT px.
[2017-10-23] MEDS: SALINE FLUSH 10ml SYRINGE IV PRN (20:53)
[2017-10-23] MEDS: CLOPIDOGREL 75 MG TABLET PO SCH (20:54)
[2017-10-23] MEDS: MIRTAZAPINE 30 MG TABLET PO SCH (20:54)
[2017-10-23] MEDS: LISINOPRIL 2.5 MG TABLET PO SCH (20:55)
[2017-10-23] MEDS: OLANZapine 2.5 MG TABLET PO SCH (20:55)
[2017-10-23] MEDS: ROSUVASTATIN 20 MG TABLET PO SCH (20:55)
[2017-10-23] MEDS: TIOTROPIUM 18mcg/cap HANDIHALER ORAL INH SCH (22:30)
[2017-10-24] MEDS: LANSOPRAZOLE 30 MG PO SCH (05:55)
[2017-10-24] MEDS ORDERED: LEVOTHYROXINE 75 MCG TABLET PO SCH (06:30)
[2017-10-24] MEDS: ALBUTEROL 2.5mg/3ml (0.083%) NEB AEROSOL SCH ×2 (06:33→10:56)
[2017-10-24 07:41] VITALS: BP 108/80; RESP 20; TEMP 98.4; O2SAT 92
--- NOTE | 2017-10-24 07:56 | Orthopedic Progress Note ---
Date: Subjective/Severity of Illness: Clarice states her pain is controlled. She has no new complaints. She denies chest pain or shortness of breath. She is known to have a nonhealing wound on the right great toe. She had been having this addressed at the wound care center and is requesting they take a look at it while she is here. She reports she is supposed to transfer to IRU today. Orthopedic Objective PO Vital signs: Temperature 98.4 F 10/24/17 07:40 Pulse Rate 87 10/24/17 07:40 Respiratory Rate 20 10/24/17 07:40 Blood Pressure 108/80 10/24/17 07:40 Pulse Oximetry 92 10/24/17 07:40 Height and Weight: Height 5 ft 2 in Weight 83 lb 15.938 oz Body Mass Index 15.4 - Constitutional General Appearance: Present: alert - Respiratory Exam Present: non-labored - Cardiovascular Exam Absent: pedal pulses intact - Abdominal Exam Present: soft. Absent: tenderness, distended - Surgical Site Incision: other (No drainage on dressing) - Integumentary Exam Present: pink, warm, dry. Absent: erythema - Lymphatic Lymphatic: Absent: adenopathy - Neurological Exam Present: no deficits - Psychiatric Exam Present: alert, normal affect - Labs Result Diagrams: 10/24/17 04:11 10/24/17 04:11 Abnormal lab results 10/24/17 10/24/17 Range/Units 04:11 04:11 RBC 3.63 L (4.00-5.20) M/MM3 Hgb 9.7 L (12-16) GM/DL Hct 31.5 L (36-46) % MCHC 30.8 L (31-37) GM/DL MPV 8.5 L (9.4-12.4) UM3 Chlor[place] 97 L (98-107) MEQ/L Carbon Dioxide 35 H (22-30) MEQ/L Anion Gap 3 L (5-15) MEQ/L Creatinine 0.5 L (0.7-1.2) MG/DL Calculated Osmolality 259 L (261-280) MOSM/KG Calcium 8.2 L (8.4-10.2) MG/DL H & H 10/19/17 10/20/17 10/20/17 Range/Units 12:03 04:37 20:46 Hgb 10.6 L 8.6 L D 8.2 L (12-16) GM/DL Hct 33.3 L 27.6 L D (36-46) % 10/21/17 10/21/17 10/21/17 Range/Units 04:01 14:44 18:56 Hgb 8.2 L 8.3 L 9.4 L D (12-16) GM/DL Hct 26.5 L 26.7 L (36-46) % 10/22/17 10/23/17 10/24/17 Range/Units 03:58 04:36 04:11 Hgb 9.3 L 9.5 L 9.7 L (12-16) GM/DL Hct 29.5 L 30.6 L 31.5 L (36-46) % Orthopedic Assessment and Plan (1) Ulcer of left heel Status: Acute (2) Arterial insufficiency of lower extremity Status: Acute Assessment and Plan: S/P left BKA 10/20/[address] Collier. On ASA and Plavix. Mobilize with PT. Work on transfers for now. IRU consult for placement. I will ask the wound care team to evaluate her right foot. Hospital Course Summary Disclaimer: The visit summary below is not to be considered part of the above Progress Note. Hospital Course: Acute Assessment S/P Left BKA 10/20/17 - Dr. Collier. Hyponatremia, acute. Acute blood loss anemia. Thrush. 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 GERD Ileostomy due to bowel perforation Anxiety and depression. Plan - 10/21/17 (Mirakian) - POD #1 Clarice reports that she struggled with pain control during the night but is doing much better today. On exam, patient appears sedated and blood pressure trending down. Will continue with pain control. Would encourage avoiding Dilaudid due to current sedation and improved pain. Discussed outpatient pain control options with patient and Rogelio (ortho) and it was recommended to consider extended release Oxycodone 5mg instead of MS Contin or [place]. May also consider the addition of neurontin for additional pain control. Continue with bowel motivation. Blood pressure has been lower today most likely a reaction to pain control. Continue to monitor closely on telemetry. Will hold Coreg and lisinopril until systolic pressure >100. Heart rate controlled. Hemoglobin unchanged at 8.2 with active oozing blood noted on exam of surgical incision. Given the patient's history of CAD and systolic CHF, will give PRBC x 1 unit now followed by Lasix 20mg IV. Continue to monitor urinary output closely as <1000cc urine output documented for 10/20. Renal function stable. Recheck hgb following transfusion. Continue to monitor closely for adrenal insufficiency. Stress dose of Solu- Cortef given on 10/20/17. Florinef and prednisone resumed today 10/21/17. Repeat CBC and basic metabolic profile in AM to monitor blood counts, electrolytes and renal function. History of chronic home oxygen use with exertion at 2L. Provide as needed to maintain SAO2 >90 with goal of 95%. Wean oxygen as able. Encourage incentive spirometry for pulmonary toileting. Thrush improving. Continue clotrimazole troches and swizzle. Recommend obtaining IRU screen either 10/22/17 or 10/23/17. 10/22/17 11:42 Plan - 10/22/17 (Travis/Rick) - POD #2 *POD #2. Pain slowly improving. Low dose fentanyl patch. PRN meds. Add low does Gabapentin TID for neuropathic pain. IRU screen next week is likely. *Hyponatremia-hypoosmolar Start fluid restriction- 1500 ml. Change Lasix from PRN to daily. Add IV Lasix x 1. Monitor potassium level. *HFrEF/Tachycardia Increase coreg due to elevated HR, BP. Continue PIPPA. Add routine Lasix. Check CXR for baseline. *COPD- Continue Albuterol. Add scheduled albuterol as she appears SOA today. Continue QVar/Spiriva Handihaler. O2/COPD. *She is on both Florinef and Prednisone. Change Prednisone back to her daily dosing. Monitor for orthostasis given adrenal insufficiency. Add low dose LMWH for DVT px. She is on ASA/Plavix for arterial occlusion. Continue supportive care. recheck Labs in AM. 10/23/17 Plan - POD #3 Pain is well controlled on fentanyl patch with Gabapentin Will up current Prednisone to baseline 8 mg daily Need to monitor hyponatremia, 132 this morning. Continues on fluid restriction. Mild Hypokalemia- 3.5. Will continue to monitor. Appetite improving COPD- Continue Albuterol, QVar/Spiriva Handihaler, O2/COPD. Lovenox for DVT px.
[2017-10-24] MEDS ORDERED: PredniSONE 5 MG TABLET PO SCH (08:00)
[2017-10-24] MEDS: CARVEDILOL 6.25 MG TABLET PO SCH (09:02)
[2017-10-24] MEDS: Venlaflaxine XR 75 MG CAPSULE (24hr) PO SCH (09:02)
[2017-10-24] MEDS: ASPIRIN *EC* 81 MG TABLET PO SCH (09:03)
[2017-10-24] MEDS: CALCIUM CARBONATE 600 MG TABLET PO SCH (09:04)
[2017-10-24] MEDS: BUSPIRONE 10 MG TABLET PO SCH (09:04)
[2017-10-24] MEDS: FLUDROCORTISONE 0.1 MG TABLET PO SCH (09:05)
[2017-10-24] MEDS: GABAPENTIN 100 MG CAPSULE PO SCH (09:05)
[2017-10-24] MEDS: FUROSEMIDE 20 MG TABLET PO SCH (09:05)
[2017-10-24] MEDS: CLOTRIMAZOLE 10 MG TROCHE MM SCH (09:06)
[2017-10-24] MEDS: ENOXAPARIN 40 MG/0.4 ML INJECTION SQ SCH (09:06)
[2017-10-24] MEDS: DICLOFENAC SODIUM 100 MG PO SCH (09:08)
[2017-10-24] MEDS: FAMOTIDINE 40 MG/5 ML ORAL LIQUID PO SCH (09:29)
--- NOTE | 2017-10-24 10:10 | Discharge Summary ---
<Jaja Hart - Last Filed: 10/27/17 07:57> Discharge Information Date of admission: 10/20/17 09:55 Anticipated date of discharge: 10/24/17 Attending Physician: Casa Arora MD Primary care physician: Eula Shoemaker MD Consults: 10/19/17 11:58 Wound Vein Clinic Consult [CONS] Routine Reason for consultation: WOUND TO LEFT FOOT W/ WOUND VAC AND RIGHT GREAT TOE AMPUTEE 10/19/17 15:28 Physician Consult [CONS] Routine Consulting Provider: Omar Collier Reason For Exam: LEFT HEEL/FOOT WOUND WITH WOUND VAC. Ordering Provider has Notified Construction Project Administrator: Yes 10/20/17 16:05 Physician Consult [CONS] Routine Consulting Provider: Rogelio Rogers Reason For Exam: MEDICAL MANAGEMENT Ordering Provider has Notified Construction Project Administrator: No 10/20/17 17:09 Physician Consult [CONS] Routine Consulting Provider: Shayy Salazar Reason For Exam: MEDICAL MANAGEMENT Ordering Provider has Notified Construction Project Administrator: No 10/21/17 11:00 Dietary Consult [CONS] Routine Comment: Reason For Exam: protein calorie malnutrition 10/23/17 IRU Screening [Inpatient Rehab Screening] [CONS] Routine 10/23/17 12:25 Wound Vein Clinic Consult [CONS] Routine Reason for consultation: WOUND TO RIGHT GREAT TOE 10/24/17 07:58 Wound Vein Clinic Consult [CONS] Routine Reason for consultation: RIGHT GREAT TOE AMPUTATION SITE WOUND - Discharge Diagnosis (1) Atherosclerosis of [place] artery of both lower extremities Status: Chronic (2) Atherosclerotic heart disease of [place] coronary artery without angina pectoris Status: Chronic (3) Chronic systolic congestive heart failure Status: Chronic (4) Mixed hyperlipidemia Status: Chronic (5) Cardiomyopathy Status: Chronic (6) Sleep apnea Status: Chronic (7) Rheumatoid arthritis Status: Chronic (8) Chronic obstructive pulmonary disease Status: Chronic - Procedures Procedures: Date of Exam: 10/19/17 Type of Exam(s): CA cardiovascular procedures DATE OF PROCEDURE October 19, 2017 The patient is a pleasant 67-year-old lady with nonhealing ulcer of the lower extremities bilaterally and abnormal lower extremity duplex study and was referred for further evaluation by angiography and possible intervention. Informed consent was obtained after explaining the procedure and the potential risks to the patient who agreed to proceed with the procedure. PROCEDURE 1. Abdominal aortography by placing catheter in abdominal aorta across the renal arteries. 2. Pelvic angiography by placing catheter in distal abdominal aorta. 3. Selective left lower extremity angiogram using crossover technique and placing catheter in left SFA and left common femoral arteries. 4. Runoffs of the right lower extremity through the right femoral sheath. TECHNIQUE She was prepped and draped in the usual sterile techniques. Conscious sedation was performed using Versed and fentanyl. 1% lidocaine was used for local anesthesia. Using modified Seldinger technique, arterial access was obtained into the right femoral artery with placement of a 6-Serbian arterial sheath. ABDOMINAL AORTOGRAPHY Abdominal aortography showed diffuse irregularities of the abdominal aorta with small ectatic area with no hemodynamically significant lesions. There were single renal arteries to each kidney which were patent with no hemodynamically significant lesions. PELVIC ANGIOGRAPHY Pelvic angiography showed patent common iliacs, external and internal iliacs and common femoral arteries bilaterally. Selective left lower extremity angiogram showed patent profunda. SFA was patent. Popliteal artery was patent. They were all small-caliber vessels. There were no significant lesions in these vessels except for 30% stenosis in left SFA. Left anterior tibial artery was diffusely diseased and small caliber and occluded very distally. Left peroneal artery was diffusely diseased and a small-caliber vessel with occlusion distally. Left posterior tibial artery appeared to be occluded at the ostium. The vessels were less than 1 mm in diameter distally. Runoffs of the right lower extremity showed patent profunda, SFA and popliteal artery. Right anterior tibial artery was small and diffusely diseased with up to 80%-90% stenosis. Right posterior tibial artery was diffusely diseased with up to 80%-90% stenosis. The right peroneal artery was a small-caliber vessel and tapered down to a minimum-size vessel of less than 1 mm in diameter. The patient tolerated the procedure well with no complications. IMPRESSION Severe bilateral infrapopliteal disease as described above. However, the vessels are very small and diffusely diseased for intervention or bypass. PLAN Medical management. DATE OF SURGERY 10/20/2017 PREOPERATIVE DIAGNOSIS Left foot chronic avascular ulcerations. POSTOPERATIVE DIAGNOSIS Left foot chronic avascular ulcerations. PROCEDURE Left below-knee amputation. SURGEON Shannan Collier MD ANESTHESIA General. COMPLICATIONS None. EBL/FLUIDS Please see anesthetic records. TOURNIQUET TIME None used. DESCRIPTION OF PROCEDURE Mrs. Gore and her left foot were identified and marked in the preoperative holding area. She was brought back to the operating suite and placed supine on the operating table. She was placed under general anesthesia. The left lower extremity was prepped and draped in my normal sterile fashion. Time-out was performed. I measured down 13 cm from her knee joint. This was marked on the skin. I then made a fish-mouth type of incision with a skin marker, making the posterior flap much longer than the anterior flap. Sharp incision was made in the skin outlying this amputation site marking. Electrocautery was then used through the soft tissues. She did have some bleeding but decreased bleeding overall. I did tie off her anterior tibialis vessels laterally and her peroneal nerve was cut sharply and allowed to retract back into the soft tissue. Once the entire tibia and anterior fibula were exposed an osteotomy was made with a sagittal saw at my dimple approximately 12 cm down from the knee joint. The anterior and medial edges were beveled and smoothed to a smooth surface. The fibula was also resected 1 cm proximal to the tibial resection. With this, the posterior soft tissues were transected so that the leg could be passed off to Pathology. At this point, the posterior vessels were tied off. I debulked some of the posterior tissues and then irrigated the wound thoroughly. Her skin was very thin, especially anteriorly. I reapproximated the deep soft tissue muscle with the anterior periosteum with #1 Vicryl. After this I reapproximated the skin edges with 3-0 nylon in a simple interrupted fashion. Again, her anterior skin was very thin and a couple of these sutures did cause tears in the skin. Care was taken not to cause any pressure and there was no tension on the skin edges. The wound was cleaned and a sterile dressing was placed. The drapes were removed. She was allowed to awaken from general anesthesia and taken to the recovery room under the care of Anesthesia. She tolerated the procedure well. There were no complications. - Laboratory Labs: 10/24/17 04:11 10/24/17 04:11 Abnormal Lab Results 10/22/17 10/23/17 10/24/17 11:34 04:36 04:11 WBC 6.7 RBC 3.63 L Hgb 9.7 L Hct 31.5 L MCV 86.8 MCH 26.7 MCHC 30.8 L RDW Std Deviation 48.2 Plt Count 389 MPV 8.5 L Turbidity Sodium Potassium Chloride Carbon Dioxide Anion Gap BUN Creatinine GFR Calculation BUN/Creatinine Ratio Glucose Calculated Osmolality Calcium Magnesium 1.9 Icterus Index Specimen Hemolysis Urine Osmolality 183 10/24/17 04:11 WBC RBC Hgb Hct MCV MCH MCHC RDW Std Deviation Plt Count MPV Turbidity < 20 Sodium 135 Potassium 4.4 D Chloride 97 L Carbon Dioxide 35 H Anion Gap 3 L BUN 12.0 Creatinine 0.5 L GFR Calculation 124 BUN/Creatinine Ratio 24 Glucose 86 Calculated Osmolality 259 L Calcium 8.2 L Magnesium 1.9 Icterus Index < 2 Specimen Hemolysis < 15 Urine Osmolality - Radiology Radiology: Date of Exam: 10/22/17 Ordering Provider: Cora Robles APRN Type of Exam(s): XR chest 1V Reason for Exam(s): CHF Indication: CHF PROCEDURE: XR chest 1V: Encounter: Initial Comparison: December 30, 2016 Findings: Prior left PICC line has been removed. Lungs are stable and clear. Hyperinflation. No pneumothorax. Trace left effusion. Heart size and mediastinal contours are stable. Pulmonary vascularity appears normal. Right shoulder replacement. Possible postoperative change in the left distal clavicle with severe degenerative change in the left glenohumeral joint. Mild scoliosis. Orthopedic hardware in the cervical spine. Impression: No pneumonia. Trace left pleural effusion. History of Present Illness HPI: Clarice Gore is a 67 year old female who is well known to Dr. Arora who was admitted on 10/19/17 for a LE angiogram, which revealed severe bilateral infrapopliteal disease, not a candidate for intervention. Dr. Collier was consulted , and she underwent a left BKA on 10/20/17. Dr. Salazar was consulted for medical management of numerous chronic conditions including COPD requiring oxygen, CAD, adrenal insufficiency, CHF, and RA on chronic steroids. Hospital Course This is a general summary of the patient's hospital course. For more details refer to the complete medical record. Hospital course: Acute Assessment S/P Left BKA 10/20/17 - Dr. Collier. Hyponatremia, acute. Acute blood loss anemia. Thrush. 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 GERD Ileostomy due to bowel perforation Anxiety and depression. Plan - 10/21/17 ([place]) - POD #1 Clarice reports that she struggled with pain control during the night but is doing much better today. On exam, patient appears sedated and blood pressure trending down. Will continue with pain control. Would encourage avoiding Dilaudid due to current sedation and improved pain. Discussed outpatient pain control options with patient and Rogelio (ortho) and it was recommended to consider extended release Oxycodone 5mg instead of MS Contin or Hamler. May also consider the addition of neurontin for additional pain control. Continue with bowel motivation. Blood pressure has been lower today most likely a reaction to pain control. Continue to monitor closely on telemetry. Will hold Coreg and lisinopril until systolic pressure >100. Heart rate controlled. Hemoglobin unchanged at 8.2 with active oozing blood noted on exam of surgical incision. Given the patient's history of CAD and systolic CHF, will give PRBC x 1 unit now followed by Lasix 20mg IV. Continue to monitor urinary output closely as <1000cc urine output documented for 10/20. Renal function stable. Recheck hgb following transfusion. Continue to monitor closely for adrenal insufficiency. Stress dose of Solu- Cortef given on 10/20/17. Florinef and prednisone resumed today 10/21/17. Repeat CBC and basic metabolic profile in AM to monitor blood counts, electrolytes and renal function. History of chronic home oxygen use with exertion at 2L. Provide as needed to maintain SAO2 >90 with goal of 95%. Wean oxygen as able. Encourage incentive spirometry for pulmonary toileting. Thrush improving. Continue clotrimazole troches and swizzle. Recommend obtaining IRU screen either 10/22/17 or 10/23/17. 10/22/17 11:42 Plan - 10/22/17 (Travis/Rick) - POD #2 *POD #2. Pain slowly improving. Low dose fentanyl patch. PRN meds. Add low does Gabapentin TID for neuropathic pain. IRU screen next week is likely. *Hyponatremia-hypoosmolar Start fluid restriction- 1500 ml. Change Lasix from PRN to daily. Add IV Lasix x 1. Monitor potassium level. *HFrEF/Tachycardia Increase coreg due to elevated HR, BP. Continue PIPPA. Add routine Lasix. Check CXR for baseline. *COPD- Continue Albuterol. Add scheduled albuterol as she appears SOA today. Continue QVar/Spiriva Handihaler. O2/COPD. *She is on both Florinef and Prednisone. Change Prednisone back to her daily dosing. Monitor for orthostasis given adrenal insufficiency. Add low dose LMWH for DVT px. She is on ASA/Plavix for arterial occlusion. Continue supportive care. recheck Labs in AM. 10/23/17 Plan - POD #3 Pain is well controlled on fentanyl patch with Gabapentin Will up current Prednisone to baseline 8 mg daily Need to monitor hyponatremia, 132 this morning. Continues on fluid restriction. Mild Hypokalemia- 3.5. Will continue to monitor. Appetite improving COPD- Continue Albuterol, QVar/Spiriva Handihaler, O2/COPD. Lovenox for DVT px. Time spent with patient: 25 - 35 minutes DVT Prophylaxis: Lovenox Exam Vital signs: Temperature 98.4 F 10/24/17 07:40 Pulse Rate 87 10/24/17 07:40 Respiratory Rate 20 10/24/17 07:40 Blood Pressure 108/80 10/24/17 07:40 Pulse Oximetry 92 10/24/17 07:40 - Constitutional no acute distress, thin, cooperative - Routine HEENT Exam Head: Present: normocephalic ENT: Present: mucous membranes moist - Routine Neck Exam Absent: JVD, carotid bruit - Routine Chest/Breast/Axilla Exam Chest wall: Absent: tenderness - Routine Respiratory Exam Present: CTA bilaterally. Absent: rales, wheezes - Routine Cardiovascular Exam Present: RRR, no murmur. Absent: JVD - Routine Abdominal Exam Present: soft, normoactive bowel sounds - Routine Extremities Exam Present: no edema - Routine Skin Exam Present: intact, dry, warm - Routine Neurological Exam Present: alert, oriented X3 - Routine Psychiatric Exam Present: normal affect, normal thought process Results 10/24/17 04:11 10/24/17 04:11 CBC 10/24/17 Range/Units 04:11 WBC 6.7 (4.5-11.0) T/MM3 RBC 3.63 L (4.00-5.20) M/MM3 Hgb 9.7 L (12-16) GM/DL Hct 31.5 L (36-46) % Plt Count 389 (130-400) T/MM3 Comprehensive Metabolic Panel 10/24/17 Range/Units 04:11 Sodium 135 (134-144) MEQ/L Potassium 4.4 D (3.6-5) MEQ/L Chloride 97 L (98-107) MEQ/L Carbon Dioxide 35 H (22-30) MEQ/L BUN 12.0 (7-17) MG/DL Creatinine 0.5 L (0.7-1.2) MG/DL Glucose 86 (65-110) MG/DL Calcium 8.2 L (8.4-10.2) MG/DL Intake and Output 10/23/17 10/24/17 10/24/17 22:59 06:59 14:59 Intake Total 390 / 390 350 / 350 360 / 360 Output Total 750 / 750 400 / 400 Balance -360 / -360 350 / 350 -40 / -40 Intake: Oral 390 / 390 350 / 350 360 / 360 Output: Urine 450 / 450 400 / 400 Stool 300 / 300 Other: Urine Appearance Cloudy Clear Urine Color Yellow Yellow Urine Odor Strong Normal Stool Color Brown Brown Brown Stool Consistency Liquid Liquid Liquid # Voids 1 1 # Bowel Movements 1 1 Weight 83 lb 15.938 oz Patient Weight 10/25/17 06:59 Weight 83 lb 15.938 oz Discharge Plan - Med Rec/Dispo Referrals/Follow Up: Casa Arora MD [Physician] - 10/23/17 1:30 pm (EKG ordered by PCP) [facility] Instructions: [facility] Heart Cath, Blood Transfusion (GEN), [facility] Ortho Postop Instructions Prescriptions: New Clotrimazole Neisha [Mycelex Neisha] 10 mg MM 5XD neisha FentaNYL PATCH REMOVAL [Duragesic Patch Removal] 1 removal TD Q3D patch PredniSONE [Deltasone] 3 mg PO WB tab Fentanyl [Duragesic] 12 mcg TD Q3D patch.[id number] Continue Acetaminophen 1,000 mg PO Q6H PRN #0 PRN Reason: PAIN Buspirone HCl 20 mg PO BID #0 Rosuvastatin Calcium [Crestor] 20 mg PO HS #0 Clopidogrel Bisulfate [Plavix] 75 mg PO HS #0 Nitroglycerin [Nitrostat] 0.4 mg SL Q5MIN3 PRN #0 PRN Reason: CHEST PAIN Levothyroxine Sodium 75 mcg PO ACB #0 tab Beclomethasone Dipropionate [Qvar 80] 1 puff INH RTBID Cyanocobalamin (B-12) [Vit. B-12] 1,000 mcg IM 1 MONTH Albuterol HFA Inhaler [Ventolin Hfa 90 mcg/actuation] 1 - 2 puff INH Q4H PRN PRN Reason: Prn Orders Swizzle Solution 5Ml [Lidocaine/Maalox/Benadryl Soln] 5 ml PO Q4H PRN PRN Reason: Mouth Pain Furosemide [Lasix] 20 mg PO DAILY Carvedilol 6.25 mg PO BIDWM Mirtazapine [Remeron] 30 mg PO HS Triamcinolone 0.1% Cream 15 G [Kenalog] 1 applicatio TOP BID PRN PRN Reason: prn Lansoprazole 1 cap PO ACB Hydrocodone/APAP 7.5/325 [Hamler 7.5/325] 1 - 2 tab PO Q6H PRN PRN Reason: Pain Tiotropium Handihaler [Spiriva] 1 cap IH HS #0 Calcium Carbonate [Calcium] 1,200 mg PO DAILY #0 Diclofenac Sodium [Diclofenac Sodium ER] 100 mg PO BID #0 Aspirin [Aspirin EC] 81 mg PO DAILY #0 Lisinopril 2.5 mg PO HS #0 Fludrocortisone [Florinef] 0.1 mg PO DAILY #0 tab Venlafaxine [Effexor] 75 mg PO WB OLANZapine [Zyprexa] 2.5 mg PO HS Cholecalciferol (Vitamin D3) [Vitamin D3] 1 cap PO DAILY Lidocaine/Prilocaine [EMLA 5gm] 1 applicatio TOP PRN Discontinued predniSONE [Prednisone] 3 mg PO WB Sulfamethoxazole/Trimethoprim [Bactrim Ds Tablet] 1 tab PO BID PredniSONE [Deltasone] 5 mg PO DAILY Amoxicillin/Potassium Clav [Amox-Clav 875-125 mg Tablet] 1 each PO Q12H No Action LORazepam [Ativan] 0.5 - 1 mg PO Q4H PRN PRN Reason: Anxiety Famotidine Oral Liq [Pepcid] 20 mg PO DAILY PredniSONE [Deltasone] 5 mg PO WB Mom 30 ml PO DAILY PRN PRN Reason: Constipation Enoxaparin [Lovenox] 40 mg SQ DAILY Gabapentin [Neurontin] 100 mg PO TID - Disposition [address] [facility] INPT Rehab - Dismissal Complete Discharge Instructions are:: Complete <Casa Arora - Last Filed: 10/27/17 13:03> Discharge Information Date of admission: 10/20/17 09:55 Attending Physician: Casa Arora MD Primary care physician: Eula Shoemaker MD Consults: 10/19/17 11:58 Wound Vein Clinic Consult [CONS] Routine Reason for consultation: WOUND TO LEFT FOOT W/ WOUND VAC AND RIGHT GREAT TOE AMPUTEE 10/19/17 15:28 Physician Consult [CONS] Routine Consulting Provider: Omar Collier Reason For Exam: LEFT HEEL/FOOT WOUND WITH WOUND VAC. Ordering Provider has Notified Construction Project Administrator: Yes 10/20/17 16:05 Physician Consult [CONS] Routine Consulting Provider: Rogelio Rogers Reason For Exam: MEDICAL MANAGEMENT Ordering Provider has Notified Construction Project Administrator: No 10/20/17 17:09 Physician Consult [CONS] Routine Consulting Provider: Shayy Salazar Reason For Exam: MEDICAL MANAGEMENT Ordering Provider has Notified Construction Project Administrator: No 10/21/17 11:00 Dietary Consult [CONS] Routine Comment: Reason For Exam: protein calorie malnutrition 10/23/17 IRU Screening [Inpatient Rehab Screening] [CONS] Routine 10/23/17 12:25 Wound Vein Clinic Consult [CONS] Routine Reason for consultation: WOUND TO RIGHT GREAT TOE 10/24/17 07:58 Wound Vein Clinic Consult [CONS] Routine Reason for consultation: RIGHT GREAT TOE AMPUTATION SITE WOUND - Discharge Diagnosis (1) Atherosclerosis of [place] artery of both lower extremities Status: Chronic (2) Atherosclerotic heart disease of [place] coronary artery without angina pectoris Status: Chronic (3) Chronic systolic congestive heart failure Status: Chronic (4) Mixed hyperlipidemia Status: Chronic (5) Cardiomyopathy Status: Chronic (6) Sleep apnea Status: Chronic (7) Rheumatoid arthritis Status: Chronic (8) Chronic obstructive pulmonary disease Status: Chronic - Laboratory Labs: 10/24/17 04:11 10/24/17 04:11 Hospital Course This is a general summary of the patient's hospital course. For more details refer to the complete medical record. Exam Vital signs: Temperature 98.4 F 10/24/17 07:40 Pulse Rate 82 10/24/17 08:00 Respiratory Rate 20 10/24/17 10:59 Blood Pressure 108/80 10/24/17 07:40 Pulse Oximetry 92 10/24/17 07:40 Results 10/24/17 04:11 10/24/17 04:11 Attestation Narriative - Attestation Attestation Narrative: 10/27/17 13:02 Recommendation After examining the patient I agree with the above assessment. I am involved in the formulation of the patient's plan of care.
[2017-10-24 10:28] VITALS: PULSE 82
[2017-10-24] MEDS: BECLOMETHASONE 80 MCG ORAL INH SCH (10:52)
--- NOTE | 2017-10-24 11:25 | Progress Note ---
<Felicia So V - Last Filed: 10/24/17 11:02> - Date 10/24/17 Subjective: Clarice is seen this morning again in consultation. She is overwhelmed and anxious about the future and how she is going to be able to get home and be independent. Pain continues to be well controlled. Breathing is at baseline. Objective Vital signs: Temperature 98.4 F 10/24/17 07:40 Pulse Rate 82 10/24/17 08:00 Respiratory Rate 20 10/24/17 10:59 Blood Pressure 108/80 10/24/17 07:40 Pulse Oximetry 92 10/24/17 07:40 Rhythm: Normal Sinus Rhythm Height/Weight/BMI: Height 1.57 m Weight 38.1 kg Body Mass Index 15.4 - Constitutional Present: no acute distress, well nourished, well developed - Routine HEENT Exam Eye: Present: EOMI ENT: Present: mucous membranes moist, dentition normal - Routine Respiratory Exam Present: CTA bilaterally. Absent: wheezes - Routine Cardiovascular Exam Present: RRR, S1, S2. Absent: murmur - Routine Abdominal Exam Present: soft, normoactive bowel sounds, non distended. Absent: tenderness - Routine Extremities Exam Present: normal capillary refill Comments: LLE- stump with pippa wrap intact - Routine Back/Spine/Pelvis Exam Back/Spine: Present: full ROM - Routine Skin Exam Present: intact, dry, warm - Routine Neurological Exam Present: alert, oriented X3, CN II-XII intact, moving all extremities - Routine Lymphatic Exam Lymphatic: Absent: adenopathy - Routine Psychiatric Exam Present: cooperative, anxious Results - Labs CBC & Chem 7: 10/24/17 04:11 10/24/17 04:11 Assessment and Plan (1) Status post below knee amputation of left lower extremity Status: Acute Assessment and Plan: Impression S/p BKA left Hyponatremia, excess free water. anemia, post surgical. CAD PSVT HTN HLD Systolic CHF - MANAN 04/29 EF 15% HFrEF/NYHA class III TIA 03/2017 PAD Rheumatoid arthritis COPD on chronic oxygen @ 2L BRANDO with CPAP Adrenal insufficiency secondary to chronic steroid use Anxiety & depression Hypothyroidism with elevated TSH. GERD Ileostomy due to bowel perforation Anxiety and depression. Plan Continue with Duragesic patch for pain. Sodium increased to 135- Will increase Fluid restriction to 1800 and continue to follow sodium while on IRU She does report that primary care provider had been giving her Effexor 75 every other day. While adding Zyprexa at night with caution to monitor for any cardiac rhythm changes. Spoke with the pharmacist and Dr. Macdonald regarding this dosing. With such a short half-life. Patient will likely get symptomatic without it every other day. We would recommend decreasing it to 37.5 of Effexor daily and continue to utilize Zyprexa at at bedtime as needed. Did spend time discussing anxiety regarding acute amputation, discharge planning , as she does hope to go home independently. Open with cardiology. They will transfer patient to IRU. The hospitalist services will continue to follow patient for medical management during her stay there. Hospital Course Summary Disclaimer: The visit summary below is not to be considered part of the above Progress Note. Hospital Course: Acute Assessment S/P Left BKA 10/20/17 - Dr. Collier. Hyponatremia, acute. Acute blood loss anemia. Thrush. 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 GERD Ileostomy due to bowel perforation Anxiety and depression. Plan - 10/21/17 ([facility]) - POD #1 Clarice reports that she struggled with pain control during the night but is doing much better today. On exam, patient appears sedated and blood pressure trending down. Will continue with pain control. Would encourage avoiding Dilaudid due to current sedation and improved pain. Discussed outpatient pain control options with patient and Rogelio (ortho) and it was recommended to consider extended release Oxycodone 5mg instead of MS Contin or Rozel. May also consider the addition of neurontin for additional pain control. Continue with bowel motivation. Blood pressure has been lower today most likely a reaction to pain control. Continue to monitor closely on telemetry. Will hold Coreg and lisinopril until systolic pressure >100. Heart rate controlled. Hemoglobin unchanged at 8.2 with active oozing blood noted on exam of surgical incision. Given the patient's history of CAD and systolic CHF, will give PRBC x 1 unit now followed by Lasix 20mg IV. Continue to monitor urinary output closely as <1000cc urine output documented for 10/20. Renal function stable. Recheck hgb following transfusion. Continue to monitor closely for adrenal insufficiency. Stress dose of Solu- Cortef given on 10/20/17. Florinef and prednisone resumed today 10/21/17. Repeat CBC and basic metabolic profile in AM to monitor blood counts, electrolytes and renal function. History of chronic home oxygen use with exertion at 2L. Provide as needed to maintain SAO2 >90 with goal of 95%. Wean oxygen as able. Encourage incentive spirometry for pulmonary toileting. Thrush improving. Continue clotrimazole troches and swizzle. Recommend obtaining IRU screen either 10/22/17 or 10/23/17. 10/22/17 11:42 Plan - 10/22/17 (Travis/Rick) - POD #2 *POD #2. Pain slowly improving. Low dose fentanyl patch. PRN meds. Add low does Gabapentin TID for neuropathic pain. IRU screen next week is likely. *Hyponatremia-hypoosmolar Start fluid restriction- 1500 ml. Change Lasix from PRN to daily. Add IV Lasix x 1. Monitor potassium level. *HFrEF/Tachycardia Increase coreg due to elevated HR, BP. Continue PIPPA. Add routine Lasix. Check CXR for baseline. *COPD- Continue Albuterol. Add scheduled albuterol as she appears SOA today. Continue QVar/Spiriva Handihaler. O2/COPD. *She is on both Florinef and Prednisone. Change Prednisone back to her daily dosing. Monitor for orthostasis given adrenal insufficiency. Add low dose LMWH for DVT px. She is on ASA/Plavix for arterial occlusion. Continue supportive care. recheck Labs in AM. 10/23/17 Plan - POD #3 Pain is well controlled on fentanyl patch with Gabapentin Will up current Prednisone to baseline 8 mg daily Need to monitor hyponatremia, 132 this morning. Continues on fluid restriction. Mild Hypokalemia- 3.5. Will continue to monitor. Appetite improving COPD- Continue Albuterol, QVar/Spiriva Handihaler, O2/COPD. Lovenox for DVT px. 10/24/17 11:35 Plan Continue with Duragesic patch for pain. Sodium increased to 135- Will increase Fluid restriction to 1800 and continue to follow sodium while on IRU She does report that primary care provider had been giving her Effexor 75 every other day. While adding Zyprexa at night with caution to monitor for any cardiac rhythm changes. Spoke with the pharmacist and Dr. Macdonald regarding this dosing. With such a short half-life. Patient will likely get symptomatic without it every other day. We would recommend decreasing it to 37.5 of Effexor daily and continue to utilize Zyprexa at at bedtime as needed. Did spend time discussing anxiety regarding acute amputation, discharge planning , as she does hope to go home independently. Open with cardiology. They will transfer patient to IRU. The hospitalist services will continue to follow patient for medical management during her stay there. <Marbin Hicks E - Last Filed: 10/24/17 15:09> - Date 10/24/17 Objective Vital signs: Temperature 98.4 F 10/24/17 07:40 Pulse Rate 82 10/24/17 08:00 Respiratory Rate 20 10/24/17 10:59 Blood Pressure 108/80 10/24/17 07:40 Pulse Oximetry 92 10/24/17 07:40 Height/Weight/BMI: Height 1.57 m Weight 38.1 kg Body Mass Index 15.4 Results - Labs CBC & Chem 7: 10/24/17 04:11 10/24/17 04:11 Assessment and Plan Assessment and Plan: 10/24/2017 Impression Status post BKA left Hyponatremia Anemia, postop Coronary artery disease Hypertension Rheumatoid arthritis Adrenal insufficiency, secondary to chronic redness on usage. Plan Patient was seen and evaluated today. Patient discharged to rehabilitation. Dr. Macdonald aware. She normally was taking Effexor 75 mg every other day, however she is in agreement to change to a daily dose of 37.5 mg and will use Zyprexa at bedtime as needed. This more frequent dosing of Effexor should help with some withdrawal symptoms on the days that she was not taking it. Duragesic patch to be used for pain management. Patient does not like fluid restriction, however this was discussed with her and will be continued, however total volume of free water increased to 1800 cc daily. She understands the need to control her sodium level. Marbin Stevenson M.D. Hospital Course Summary Disclaimer: The visit summary below is not to be considered part of the above Progress Note.
== END 2017-10-24 11:40 | DRG 240 ==
LOC: SRG 08:15
PROVIDERS: ADMIT Internal Medicine Cardiovascular Disease; ATTEND Internal Medicine Cardiovascular Disease

== ENCOUNTER 2017-10-24 11:45 | Inpatient (IN) ==
[2017-10-24] MEDS ORDERED: FALL RISK - PHARMACY CONSULT XX ONE (11:56)
[2017-10-24] MEDS ORDERED: ONDANSETRON 4 MG/2 ML INJECTION IVP PRN (11:56)
[2017-10-24] MEDS ORDERED: LORazepam 0.5 MG TABLET PO PRN (11:56)
[2017-10-24] MEDS ORDERED: FALL RISK - PHARMACY CONSULT MC ONE (11:56)
[2017-10-24] MEDS ORDERED: BISACODYL 10 MG SUPPOSITORY RECTALLY PRN (11:56)
[2017-10-24] MEDS ORDERED: HYDROCODONE/APAP 7.5 MG/325 MG TABLET PO PRN (11:56)
[2017-10-24] MEDS ORDERED: ALBUTEROL 2.5mg/3ml (0.083%) NEB AEROSOL PRN (11:56)
[2017-10-24] MEDS ORDERED: ATROPINE 1 MG/ML INJECTION IVP PRN (11:56)
[2017-10-24] MEDS ORDERED: TRIAMCINOLONE 0.1% CREAM 15 G TUBE TOP PRN (11:56)
[2017-10-24] MEDS ORDERED: SALINE FLUSH 10ml SYRINGE IV PRN (11:56)
[2017-10-24] MEDS ORDERED: MAG-AL + SIM ORAL LIQUID 30ml PO PRN (11:56)
[2017-10-24] MEDS ORDERED: NITROGLYCERIN 0.4 MG SUBLINGUAL TABLET SL PRN (11:56)
[2017-10-24] MEDS ORDERED: NS FLUSH BAG 500ml IV PRN (11:56)
[2017-10-24] MEDS ORDERED: Bisacodyl EC TAB 5 MG TABLET PO PRN (11:56)
--- NOTE | 2017-10-24 13:06 | IRU History & Physical Report ---
HPI IR Date: Chief complaint: I need to get stronger to go home HPI: Ms. Castellano is a very pleasant 67-year-old female referred by Felicia So APRN and Dr. Shayy Salazar, hospitalist as well as Dr. Arora, supervisor paint. Her primary care physician is Dr. Eula Shoemaker. The patient has a history of severe peripheral vascular disease. She has a history of bilateral lower extremity nonhealing wounds. Recently she has developed a nonhealing wound in the left foot starting around September 13. Multiple attempts were made at healing this including wound care and wound VAC placement. Ultimately a sonogram was done demonstrating the presence of significant peripheral vascular disease. For this reason she was admitted to cardiology on 10/19/2017. A lower extremity angiogram was performed by Dr. Arora demonstrating severe bilateral infrapopliteal disease. It was not felt that these small vessels would be amenable to intervention. Dr. Collier was consulted and the patient underwent a left [id number] of amputation on 10/20/2017. She initially had quite a bit of pain in the extremity but she is now on a fentanyl patch in the pain is much improved. In addition the patient has a history of COPD with exacerbation recently and has been on Augmentin. She does have a productive cough. The patient is quite complex and has a history not only of severe COPD but also coronary artery disease. She reportedly suffered a "heart attack" in 2014. One or 2 stents were placed at that time. An echocardiogram done shortly after the infarction apparently was not very remarkable. Subsequently, according to her family, she underwent another echocardiogram in April 2015 demonstrating markedly reduced ejection fraction. There is a record of an ejection fraction of around 15% but I'm not certain exactly when that was recorded. She does have dyspnea with activity. She smoked cigarettes from age 24 until age 53 less than 1 pack daily. She has not smoked since about 2002. The patient does have history of TIA in March 2017. A MANAN was done in April 2017. The patient does have history of severe rheumatoid arthritis. She has had multiple medications for this including methotrexate, Remicade, gold, as well as many of the newer Biologics. Nothing is really helped her and she is now on prednisone only. She has a history of adrenal insufficiency in view of chronic corticosteroid usage. I believe she has been on steroids for both the COPD as well as the rheumatoid arthritis. Her sodium at present is 132. She is on Florinef plus prednisone. She has demonstrated some hypotension with blood pressures in the 90s from time to time while on acute. In addition the patient does have a history of anxiety and depression. She sees a provider at [facility] in this regard. She has been on Effexor on a tapering dose of 75 mg every other day for the last week. She was also started on Zyprexa the latter of which has been very helpful for her. She is also on mirtazapine. According to the patient, she is trying to taper off of the Effexor under the direction of the [facility] provider. She is on this every other day and we suggested going to 37.5 mg once daily and she is agreeable to this. She states that her anxiety and depression are currently adequately controlled. She has demonstrated the presence of acute blood loss anemia. Her initial hemoglobin was 10.6 on 10/19/2012. At the present time it is 9.7 having been a low of 8.2 on October 21. She did receive 1 unit of packed red blood cells. She does require oxygen at home. She uses oxygen all night at 2 L/m via her nasal CPAP. She uses it during the daytime with exertion only. She does have a walker at home that she has been using recently. She does not have any steps to get up into her home. Her level of functioning prior to the current illness is as follows: She was modified independent for eating, grooming, bathing, toileting, bed/chair/ wheelchair transfers, toilet transfers and walking. She was walking with a rolling walker. She was independent for upper and lower body dressing. Current level of functioning is as follows: She is independent for eating. Requires moderate assistance for grooming and bathing. Upper body dressing is supervision level and lower body dressing is modified assistance. Toileting, bed /chair/wheelchair transfers are moderate assistance. Requires minimal assistance for toilet transfers. She requires total assistance for walking with a rolling walker 8 feet. The following medical conditions are noted and require active monitoring and/or management: 1. Systolic heart failure with EF 15%: She is at risk for worsening heart failure symptoms and easy fatigability. She is also at risk for new cardiac events in view of history of documented coronary disease. This will be monitored carefully. 2. ASPVD with concern for wound healing in view of the severe peripheral vascular disease. 3. COPD with recent exacerbation: She has markedly diminished breath sounds. Currently no sputum is noted but does report a cough. She is at risk for worsening pulmonary status and increased oxygen requirement. 4. Chronic adrenal insufficiency secondary to chronic cortical steroid usage. Her blood pressure runs low at times at 92 systolic. Her sodium is low at 132. Potassium is low at 3.5. She is at risk for hypotension as well as electron abnormalities. 5. Acute blood loss anemia with a low of 8.2 and now up to 9.7. The following therapies will be needed: 1. Physical therapy: for transfers and ambulation and stairs. 2. Occupational therapy: for ADL's and transfers. 4. Medical management: for the above conditions. 5. 24 hour Rehabilitation Nursing to monitor and address the following: To monitor vital signs in view of adrenal insufficiency, oxygen saturations in view of COPD as well as monitoring for evidence of worsening heart failure. [facility] Patient Stated Medical History Transient Ischemic Attacks ( Yes: MARCH 2017 TIA) Other HEENT Yes: WEARS GLASSES Angina Yes: HX Cardiac Arrhythmia Yes: at. fib./ tachycardia Congestive Heart Failure Yes: EF documented as 20-25% Coronary Artery Disease Yes Hypertension Yes Myocardial Infarction Yes: EF 20% Asthma Yes Chronic Obstructive Pulmonary Yes Disease (COPD) Sleep Apnea Yes Other Respiratory Yes Gastroesophageal Reflux Yes Disease Hx Incontinence Yes Anemia Yes Clotting Problems Yes: takes plavix Osteoarthritis Yes Other Musculoskeletal Yes: RA MRSA Yes Blood Transfusions Yes: NO REACTION Depression Yes Ovarian Cysts Yes Post Menopausal Yes Clinic Medical History Toe osteomyelitis, right (Acute Medical) Ulcer of left heel (Acute Medical) Arterial insufficiency of lower extremity (Acute Medical) Atherosclerosis of [place] artery of both lower extremities (Acute Medical) Atherosclerotic heart disease of [place] coronary artery without angina pectoris (Acute Medical) Chronic systolic congestive heart failure (Acute Medical) Mixed hyperlipidemia (Acute Medical) Cardiomyopathy (Acute Medical) Sleep apnea (Acute Medical) Rheumatoid arthritis (Acute Medical) Chronic obstructive pulmonary disease (Acute Medical) Diabetic ulcer of ankle (Inactive Medical) Surgical History: Left inguinal hernia and mid abdominal incisional hernia repair (2007), repeat left inguinal hernia repair (2008), right hernia repair (), tubal ligation (1980), right oophorectomy and lysis of adhesions (06/2002 ), sinus surgery (01/1999), right knee synovectomy (02/2003), small bowel perforation with right hemicolectomy and ileostomy placement 01/23, bilateral bunionectomies, right foot joint fusion (1989), left ankle fusion (07/2000), bilateral knee replacements (left 2006, right 2004), left hip repair, right wrist fusion (09/2002), right shoulder surgery, cervical spine fusion C3, 4, 5 fusion ([facility]), carpal tunnel surgery (left 2005, right 2003), right great toe amputation secondary to osteomyelitis (Dr. Collier 08/2017), Left BKA (Dr. Collier 10/20/17), cardiac stent 1 (Dr. Arora 2014). Colonoscopy 04/2011 ( diverticulitis), EGD 07/28 (essentially normal) Family History: She does have strong family history for cardiac disease. Her father from a heart attack in his late 70s. Mother suffered from depression. A sister does have breast cancer and another has depression. - Social History Smoking status: Former smoker (she smoked less than 1 pack daily from age 24 through 89. Has not smoked since 2002.) Substance use type: does not use Alcohol intake: former (last alcohol intake was over a year ago.) Housing: house Household members: none Current occupational status: disabled Current residence: Apartment/Private Home Social history: Clarice lives alone. She does have a walker at home which she has been using recently. She is been disabled since 2003. 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 Review of Systems - Constitutional Constitutional: Absent: anorexia, chills, fatigue, fever(s), headache(s), lethargy, malaise, night sweats, weakness, weight gain, weight loss - EENMT Eyes: Absent: blurry vision, change in vision, diplopia Mouth/Throat: Absent: changes in swallowing, painful swallowing, change in taste , bleeding gums, change in voice - Cardiovascular Cardiovascular: Absent: chest pain, palpitations, syncope, dyspnea on exertion, orthopnea, edema, cyanosis, heart murmur Rhythm: Present: regular rhythm Vascular: Present: intermittent claudication (did have pain predominantly in the left foot prior to the amputation. This appeared to be consistent with claudication.). Absent: pedal edema, unilateral swelling - Respiratory Respiratory: Present: cough (denies sputum.), dyspnea, dyspnea on exertion. Absent: hemoptysis, wheezing, pain on inspiration, chest congestion, excessive phlegm production - Gastrointestinal Gastrointestinal: Absent: abdominal pain, change in bowel habits, constipation, diarrhea, dyspepsia, dysphagia, early satiety, hematochezia, melena, nausea, vomiting - Musculoskeletal Musculoskeletal: Absent: abnormal gait, arthralgias, back pain, joint swelling, limited range of motion, muscle weakness - Integumentary/Breasts Integumentary: Absent: alopecia, erythema, lesions, pruritus, rash, jaundice - Neurological Neurological: Present: weakness. Absent: abnormal gait, abnormal movements, abnormal speech, confusion, convulsions, dizziness, focal weakness, frequent falls, headache(s), loss of vision, memory loss, numbness, paresthesias, tremor( s) - Psychiatric Psychiatric: Present: depression (she has been on a variety of antidepressants which she states none of helped very much except for Zyprexa.). Absent: abnormal sleep pattern, anxiety Psychiatric Comments: She is followed by a provider at [facility]. She is in the process of tapering off the Effexor. - Endocrine Endocrine: Absent: cold intolerance, flushing, heat intolerance, palpitations - Hematologic/Lymphatic Hematologic/Lymphatic: Absent: easy bleeding, easy bruising, lymphadenopathy - Allergic/Immunologic Allergic/Immunologic: Absent: urticaria Medications Home Medications Medication Instructions Recorded Confirmed Type Tiotropium Handihaler [Spiriva] 1 cap IH HS #0 07/07/10 10/24/17 History Acetaminophen 1,000 mg PO Q6H PRN #0 01/05/16 10/24/17 History Buspirone HCl 20 mg PO BID #0 01/05/16 10/24/17 History Calcium Carbonate [Calcium] 1,200 mg PO DAILY #0 07/28/16 10/24/17 History Rosuvastatin Calcium [Crestor] 20 mg PO HS #0 07/28/16 10/24/17 History Clopidogrel Bisulfate [Plavix] 75 mg PO HS #0 08/24/16 10/24/17 History Diclofenac Sodium [Diclofenac 100 mg PO BID #0 08/24/16 10/24/17 History Sodium ER] Aspirin [Aspirin EC] 81 mg PO DAILY #0 10/09/16 10/24/17 History Lisinopril 2.5 mg PO HS #0 10/09/16 10/24/17 History Nitroglycerin [Nitrostat] 0.4 mg SL Q5MIN3 PRN #0 10/09/16 10/24/17 History Fludrocortisone [Florinef] 0.1 mg PO DAILY #0 tab 12/18/16 10/24/17 History Levothyroxine Sodium 75 mcg PO ACB #0 tab 12/18/16 10/24/17 History Beclomethasone Dipropionate [Qvar 1 puff INH RTBID 08/17/17 10/24/17 History 80] Venlafaxine [Effexor] 75 mg PO WB 08/17/17 10/24/17 History Albuterol HFA Inhaler [Ventolin 1 - 2 puff INH Q4H PRN 09/27/17 10/24/17 History Hfa 90 mcg/actuation] Carvedilol 6.25 mg PO BIDWM 09/27/17 10/24/17 History Cyanocobalamin (B-12) [Vit. B-12] 1,000 mcg IM 1 MONTH 09/27/17 10/24/17 History Furosemide [Lasix] 20 mg PO DAILY 09/27/17 10/24/17 History Mirtazapine [Remeron] 30 mg PO HS 09/27/17 10/24/17 History OLANZapine [Zyprexa] 2.5 mg PO HS 09/27/17 10/24/17 History Swizzle Solution 5Ml 5 ml PO Q4H PRN 09/27/17 10/24/17 History [Lidocaine/Maalox/Benadryl Soln] Cholecalciferol (Vitamin D3) 1 cap PO DAILY 10/19/17 10/24/17 History [Vitamin D3] Hydrocodone/APAP 7.5/325 [[place] 1 - 2 tab PO Q6H PRN 10/19/17 10/24/17 History 7.5/325] Lansoprazole 1 cap PO ACB 10/19/17 10/24/17 History Lidocaine/Prilocaine [EMLA 5gm] 1 applicatio TOP PRN 10/19/17 10/24/17 History Triamcinolone 0.1% Cream 15 G 1 applicatio TOP BID PRN 10/19/17 10/24/17 History [Kenalog] Enoxaparin [Lovenox] 40 mg SQ DAILY 10/24/17 10/24/17 History Famotidine Oral Liq [Pepcid] 20 mg PO DAILY 10/24/17 10/24/17 History Gabapentin [Neurontin] 100 mg PO TID 10/24/17 10/24/17 History LORazepam [Ativan] 0.5 - 1 mg PO Q4H PRN 10/24/17 10/24/17 History Mom 30 ml PO DAILY PRN 10/24/17 10/24/17 History PredniSONE [Deltasone] 5 mg PO WB 10/24/17 10/24/17 History Allergies Allergy/AdvReac Type Severity Reaction Status Date / Time morphine Allergy Mild ITCHING Verified 10/19/17 12:15 methylprednisolone Allergy Unknown Verified 10/19/17 12:15 doxycycline AdvReac Severe DIARRHEA Verified 10/19/17 12:15 adalimumab AdvReac Intermediate LOW GRADE Verified 10/19/17 12:15 FEVER atorvastatin AdvReac Unknown LEG CRAMPS Verified 10/19/17 12:15 bupropion AdvReac Unknown ANXIETY Verified 10/19/17 12:15 cortizone meds Allergy Unknown Anxiety Uncoded 10/19/17 12:15 Results IRU - Labs Labs: I reviewed extensive notes from the acute side. Exam Vital Signs: Temperature 98.7 F 10/24/17 11:51 Pulse Rate 88 10/24/17 11:51 Respiratory Rate 18 10/24/17 11:51 Blood Pressure 134/75 10/24/17 11:51 Pulse Oximetry 96 10/24/17 11:51 Height/Weight/BMI: Height 1.57 m Weight 37.5 kg Body Mass Index 15.1 - Constitutional Present: no acute distress, well nourished, well developed, thin, cachectic, cooperative - Routine HEENT Exam Head: Present: normocephalic, atraumatic. Absent: cushingoid faces, abrasion, laceration, hematoma Eye: Present: EOMI, PERRL. Absent: conjunctival icterus, scleral injection, periorbital swelling, nystagmus ENT: Present: mucous membranes moist, oropharynx clear - Routine Neck Exam Present: supple, full ROM, trachea midline. Absent: lymphadenopathy, thyromegaly, tenderness, swelling - Routine Chest/Breast/Axilla Exam Chest wall: Absent: tenderness, mass Axillae: Absent: lymphadenopathy, mass - Routine Respiratory Exam Present: decreased breath sounds (markedly diminished breath sounds bilaterally. ), CTA bilaterally. Absent: accessory muscle use, prolonged expiratory phase, rales, respiratory distress, rhonchi, stridor, wheezes, crackles, distant breath sounds - Routine Cardiovascular Exam Present: RRR, S1, S2, no murmur. Absent: gallop, S3, S4, click, irregular rhythm - Routine Abdominal Exam Present: soft, normoactive bowel sounds, non distended, non tender. Absent: rebound, guarding, firm, rigid, organomegaly, mass, hernia, wound - Routine Extremities Exam Present: no edema, non tender. Absent: cyanosis, clubbing, pulses intact (do not feel good pulses in the right lower extremity. Status post right forefoot or great toe amputation. Status post left below the knee amputation. Did not remove the dressing.), normal capillary refill - Routine Back/Spine/Pelvis Exam Back/Spine: Present: full ROM. Absent: scoliosis, kyphosis - Routine Skin Exam Present: intact, dry, warm. Absent: cyanosis, erythema, pallor, mottling, petechiae, urticaria, lesions, jaundice - Routine Neurological Exam Present: alert, oriented X3, CN II-XII intact, moving all extremities, normal speech - Routine Psychiatric Exam Present: normal affect, normal thought process, cooperative, good insight, good judgment. Absent: depressed, anxious Sepsis Assessment - Evaluation Severe Sepsis: none seen IRU A/P (1) Status post below knee amputation of left lower extremity Current visit: No Status: Acute She is at risk for poor wound healing in view of the presence of severe peripheral vascular disease. She will be monitored carefully in this regard. In addition, she requires a multidisciplinary approach to allow her to learn how to do transfers and be able to safely return home. (2) Arterial insufficiency of lower extremity Current visit: No Status: Chronic Has history of documented severe peripheral vascular disease. In this regard she is at risk for further ischemia as well as poor wound healing. (3) Acute blood loss anemia Current visit: Yes Status: Acute Initial hemoglobin was 10.6 dropping to a low of 8.2. She has required 1 unit of packed red blood cells. She will be monitored for continued evidence of acute blood loss. (4) Chronic obstructive pulmonary disease Qualifiers: COPD type: emphysema Current visit: No Status: Chronic Has history of recent exacerbation and was on Augmentin. Continues to have a cough and dyspnea. Lung sounds are markedly diminished. We will monitor her oxygen saturations and pulmonary status carefully. (5) Chronic systolic congestive heart failure Current visit: No Status: Chronic The patient has history of cardiomyopathy with ejection fraction 15%. She is at risk for further cardiac events as well as at risk for exacerbation of her heart failure. (6) Rheumatoid arthritis Qualifiers: Rheumatoid arthritis location: multiple sites Rheumatoid factor presence: unspecified presence Qualified Code(s): M06.9 - Rheumatoid arthritis, unspecified Current visit: No Status: Chronic Patient appears to have and stage multiple joint rheumatoid arthritis. She has been on a number of agents. Currently she is managed with corticosteroids. This will be an impediment to her functional recovery. (7) Adrenal insufficiency Current visit: Yes Status: Chronic Patient has history of adrenal insufficiency secondary to chronic corticosteroid usage. Her electrolytes will be monitored along with her blood pressure and fluid status. DVT Prophylaxis: SCD's, Lovenox Resuscitation Status: Full Code - Course Hospital Course: Ashish Macdonald MD: - Interventions to Obtain Goals PT Treatment Plan: Balance/Proprioception, Functional Activities, Patient/ Family Education OT Treatment Plan: ADL (Basic Care), Balance Training, Pt./Family Education Goals Progress/Modifications: An intensive multidisciplinary approach will be undertaken in this patient's functional recovery. She has significant functional deficits that can only be met by a multidisciplinary approach. She has multiple medical problems including severe systolic heart failure with ejection fraction 15%, COPD with recent acute exacerbation and chronic hypoxemic respiratory failure. She has a history of recent acute blood loss anemia.
--- NOTE | 2017-10-24 13:32 | IRU 24Hr Post Admit Eval ---
24 Hr Post Admission Physical - Relevant Changes Relevant Changes: No Reviewed: I have reviewed the patient's information and concur with the finding and results of the pre-admission screen. Certification: I certify the patient for rehabilitation. - Patient Condition (1) Status post below knee amputation of left lower extremity Status: Acute Code(s): Z89.512 - Acquired absence of left leg below knee Classification: Present on IRF Admission, IRF Tx That Should Address Diagnosis, Diagnosis Requiring Medical Follow Up (2) Arterial insufficiency of lower extremity Status: Chronic Code(s): I73.9 - Peripheral vascular disease, unspecified Classification: Present on IRF Admission, IRF Tx That Should Address Diagnosis, Diagnosis Requiring Medical Follow Up (3) Acute blood loss anemia Status: Acute Code(s): D62 - Acute posthemorrhagic anemia Classification: Present on IRF Admission, IRF Tx That Should Address Diagnosis, Diagnosis Requiring Medical Follow Up (4) Chronic obstructive pulmonary disease Status: Chronic Qualifiers: COPD type: emphysema Code(s): J44.9 - Chronic obstructive pulmonary disease, unspecified Classification: Present on IRF Admission, IRF Tx That Should Address Diagnosis, Diagnosis Requiring Medical Follow Up (5) Chronic systolic congestive heart failure Status: Chronic Code(s): I50.22 - Chronic systolic (congestive) heart failure Classification: Present on IRF Admission, IRF Tx That Should Address Diagnosis, Diagnosis Requiring Medical Follow Up (6) Rheumatoid arthritis Status: Chronic Qualifiers: Rheumatoid arthritis location: multiple sites Rheumatoid factor presence: unspecified presence Qualified Code(s): M06.9 - Rheumatoid arthritis, unspecified Code(s): M06.9 - Rheumatoid arthritis, unspecified Classification: Present on IRF Admission, IRF Tx That Should Address Diagnosis, Diagnosis Requiring Medical Follow Up (7) Adrenal insufficiency Status: Chronic Code(s): E27.40 - Unspecified adrenocortical insufficiency Classification: Present on IRF Admission, IRF Tx That Should Address Diagnosis, Diagnosis Requiring Medical Follow Up - Prior Functional Status Lives With: Alone Residence Type: Apartment/Private Home Assitive Devices: Front Wheeled Walker Prior Functional Status: Indep. at home or school - Current Functional Status Current Level of Function: Current level of functioning is as follows: She is independent for eating. Requires moderate assistance for grooming and bathing. Upper body dressing is supervision level and lower body dressing is modified assistance. Toileting, bed /chair/wheelchair transfers are moderate assistance. Requires minimal assistance for toilet transfers. She requires total assistance for walking with a rolling walker 8 feet. Failed Alternative Therapy: Arrived from Acute Care Patient Requirements: The patient requires oversight by rehabilitation physician to manage their rehabilitation treatment plan and multidisciplinary approach to care that can only be provided in an IRF and requires a multidisciplinary approach to care, provided by professional PTs, OTs, STs, dieticians, RTs, rehabilitation nurses and is not available in lesser levels of care. Limitations Req: Mobility Impairment, ADL Impairment, Respiratory Impairment Physical Therapy Minutes: 90 Occupational Therapy Minutes: 90 Therapy: The patient is to receive therapy at least 5 days a week. - Complications/Comorbidities Impact on Functional Outcomes: Her COPD as well as chronic systolic heart failure and rheumatoid arthritis likely negatively impact her functional outcome. Barriers to Discharge: Weakness, Endurance, Medical Limitation - Plan to Avoid Complications Plan to Avoid Complications: The patient cannot receive this care in a lesser intensive setting such as Intermediate or Outpatient Therapy due to the patient requiring the following : Close monitoring of her oxygen saturations, evidence of heart failure worsening as well as monitoring of her pulmonary status/COPD. In addition she requires medical supervision requiring monitoring of her hemoglobin in view of the recent acute blood loss anemia as well as monitoring electrolytes in view of the adrenal insufficiency.
[2017-10-24] MEDS ORDERED: GABAPENTIN 100 MG CAPSULE PO SCH (15:00)
--- NOTE | 2017-10-24 15:12 | Wound Care Progress Note ---
Wound Management - Wound Right Great Toe Wound Present on Admission?: Yes (Right great toe Amputation site) Length: 0.6 Width: 1.4 Depth: 0.2 Wound Bed Appearance: Pale Deysi Wound Appearance: Holstein Tunneling: No Undermining: No Drainage Description: Sanguineous Drainage Amount: Small Drainage Odor: No Odor Dressing Status: Changed Primary Dressing: Foam Dressing (Hydra Fera Blue) Secondary Dressing: Gauze Pad, Gauze Roll/Wrap Dressing Change Date: 10/24/17 Dressing Change Time: 15:11 Dressing Change Patient Tolerance: Tolerated Well
[2017-10-24] MEDS: ALBUTEROL 2.5mg/3ml (0.083%) NEB AEROSOL SCH ×2 (16:13→20:02)
[2017-10-24] MEDS: CLOTRIMAZOLE 10 MG TROCHE MM SCH ×5 (16:37→21:31)
[2017-10-24] MEDS: CARVEDILOL 6.25 MG TABLET PO SCH (17:43)
[2017-10-24] MEDS: BECLOMETHASONE 80 MCG ORAL INH SCH (20:36)
[2017-10-24] MEDS: SYSTANE EYE DROPS 0.7ml EACH EYE PRN (21:21)
[2017-10-24] MEDS: ROSUVASTATIN 20 MG TABLET PO SCH (21:22)
[2017-10-24] MEDS: OLANZapine 2.5 MG TABLET PO SCH (21:22)
[2017-10-24] MEDS: BUSPIRONE 10 MG TABLET PO SCH (21:23)
[2017-10-24] MEDS: CLOPIDOGREL 75 MG TABLET PO SCH (21:23)
[2017-10-24] MEDS: MIRTAZAPINE 30 MG TABLET PO SCH (21:24)
[2017-10-24] MEDS: LISINOPRIL 2.5 MG TABLET PO SCH (21:24)
[2017-10-25] MEDS: LEVOTHYROXINE 75 MCG TABLET PO SCH (06:53)
[2017-10-25] MEDS: ALBUTEROL 2.5mg/3ml (0.083%) NEB AEROSOL SCH ×3 (07:03→20:54)
[2017-10-25] MEDS ORDERED: Venlaflaxine XR 75 MG CAPSULE (24hr) PO SCH (08:00)
[2017-10-25] MEDS: FLUDROCORTISONE 0.1 MG TABLET PO SCH (08:51)
[2017-10-25] MEDS: CALCIUM CARBONATE 600 MG TABLET PO SCH (08:51)
[2017-10-25] MEDS: FUROSEMIDE 20 MG TABLET PO SCH (08:52)
[2017-10-25] MEDS: BUSPIRONE 10 MG TABLET PO SCH ×2 (08:52→21:11)
[2017-10-25] MEDS: PredniSONE 5 MG TABLET PO SCH (08:53)
[2017-10-25] MEDS: CARVEDILOL 6.25 MG TABLET PO SCH ×2 (08:53→18:49)
[2017-10-25] MEDS: ENOXAPARIN 40 MG/0.4 ML INJECTION SQ SCH ×2 (08:55→10:16)
[2017-10-25] MEDS: FAMOTIDINE 40 MG/5 ML ORAL LIQUID PO SCH (08:55)
[2017-10-25] MEDS: ASPIRIN *EC* 81 MG TABLET PO SCH (08:56)
[2017-10-25] MEDS: CLOTRIMAZOLE 10 MG TROCHE MM SCH ×5 (08:56→21:13)
[2017-10-25] MEDS: Venlafaxine XR 37.5 MG CAPSULE (24hr) PO SCH (10:16)
--- NOTE | 2017-10-25 11:06 | IRU Progress Note ---
- Subjective/Serverity of Illness Date: 10/25/17 Clarice was evaluated and interviewed in her room with a therapist present. She has several concerns. Firstly, she reports some greenish discharge from her right nostril. She is afebrile. She is otherwise feeling okay and I recommended that we not give her an antibiotic for this at present. However she is receiving oxygen without humidification so we will add that to see if that helps. Secondly, she reports canker sores. She has had these in the past. Has one on the right upper lip and one on the tongue. She uses some type of cream for this at home and she would like for me to call her pharmacy to see what that is. I called [facility] and she uses triamcinolone Dental Paste. Electrocardiogram was done yesterday revealing a corrected QT interval of 411 ms which is still within the normal range. Update on medical issues were actively monitoring and managin. Systolic heart failure with EF 15%: Her lungs are clear (actually markedly diminished breath sounds) but she does report dyspnea with activity. 2. ASPVD with concern for wound healing: Left BKA stump is dressed. Wound care monitoring as well. 3. COPD with recent exacerbation: She does have dyspnea with activity. She is on supplemental oxygen. Her lungs sound clear with diminished breath sounds. 4. Chronic adrenal insufficiency secondary to chronic cortical steroid usage. Potassium and sodium are now normal. Blood pressures are good in the 1 teens. 5. Acute blood loss anemia: Repeat hemoglobin here shows values above 10 g percent. Brief therapy update: She is just getting started with therapy. She is very cooperative. She does have some dyspnea with activity. Exam Vital Signs: Temperature 97.7 F 10/25/17 08:00 Pulse Rate 96 10/25/17 08:00 Respiratory Rate 14 10/25/17 08:00 Blood Pressure 113/73 10/25/17 08:00 Pulse Oximetry 99 10/25/17 08:00 Height/Weight/BMI: Height 1.57 m Weight 37.5 kg Body Mass Index 15.1 Comments: The patient is awake, alert and oriented and in no acute distress. Intraoral exam shows a canker sore in the right tongue and the right upper lip. Pupils are equal. The neck is supple. Chest: Markedly diminished breath sounds noted bilaterally. No wheezes present. Cor: RR with no gallop, click nor murmur Abd: soft with normo-active bowel sounds. There are no masses, no tenderness and no guarding. Extremities: No edema on the right side. Left BKA is dressed at present. Results IRU - Labs Labs: Reviewed current labs as well as ECG from yesterday and QT interval corrected at 411 ms IRU A/P (1) Status post below knee amputation of left lower extremity Current visit: No Status: Acute Pain is adequately managed at present according to patient. (2) Arterial insufficiency of lower extremity Current visit: No Status: Chronic Wound care also monitoring wound. (3) Acute blood loss anemia Current visit: Yes Status: Acute Hemoglobin is improved. (4) Chronic obstructive pulmonary disease Qualifiers: COPD type: emphysema Current visit: No Status: Chronic Does have greenish discharge from right nostril. Recommend no antibiotics unless fever or other symptoms. Has markedly diminished breath sounds and she does have dyspnea with activity as anticipated. We will add on humidification for oxygenation. (5) Chronic systolic congestive heart failure Current visit: No Status: Chronic (6) Rheumatoid arthritis Qualifiers: Rheumatoid arthritis location: multiple sites Rheumatoid factor presence: unspecified presence Qualified Code(s): M06.9 - Rheumatoid arthritis, unspecified Current visit: No Status: Chronic (7) Adrenal insufficiency Current visit: Yes Status: Chronic Blood pressures are stable. (8) Aphthous ulcer of mouth Current visit: Yes Status: Acute Has several intraoral lesions. We will add triamcinolone dental paste as she has used that in the past. DVT Prophylaxis: SCD's, Lovenox Resuscitation Status: Full Code - Course Hospital Course: Ashish Macdonald MD: 10/25/17 11:20 Patient is cooperative with therapy. Dyspnea with activity as anticipated. Discolored nasal drainage but no fever so no antibiotic. Canker sores noted. - Interventions to Obtain Goals PT Treatment Plan: Balance/Proprioception, Functional Activities, Patient/ Family Education, Therapeutic Exercise OT Treatment Plan: ADL (Basic Care), Balance Training, IADL, Pt./Family Education, Ther. Exercise for ADL Goals Progress/Modifications: Time spent with patient and on floor reviewing data and documentin min Barriers to dismissal: Dyspnea with activity, endurance, strength Medical decision-making: Patient has a markedly reduced ejection fraction of 15% . She does have dyspnea with activity as anticipated. In addition she has severe COPD. Nevertheless, the patient is very cooperative with therapy. She is just getting started with therapy at present. She does have some greenish discoloration nasal drainage from the right nostril but in the absence of fever or other symptoms we will hold off on antibiotics. She does have some intraoral lesions for which she has used triamcinolone dental paste in the past we will use that at present. We will monitor her tolerance to therapy in view of her severe cardiomyopathy and COPD.
[2017-10-25] MEDS: BECLOMETHASONE 80 MCG ORAL INH SCH ×2 (12:38→20:56)
--- NOTE | 2017-10-25 13:47 | IRU Plan of Care ---
[facility] Overall Plan of Care - Date Date: 10/25/17 - Patient Impairments (1) Status post below knee amputation of left lower extremity Code(s): Z89.512 - Acquired absence of left leg below knee Status: Acute Classification: Present on IRF Admission, IRF Tx That Should Address Diagnosis, Diagnosis Requiring Medical Follow Up (2) Arterial insufficiency of lower extremity Code(s): I73.9 - Peripheral vascular disease, unspecified Status: Chronic Classification: Present on IRF Admission, IRF Tx That Should Address Diagnosis, Diagnosis Requiring Medical Follow Up (3) Acute blood loss anemia Code(s): D62 - Acute posthemorrhagic anemia Status: Acute Classification: Present on IRF Admission, IRF Tx That Should Address Diagnosis, Diagnosis Requiring Medical Follow Up (4) Chronic obstructive pulmonary disease Qualifiers: COPD type: emphysema Code(s): J44.9 - Chronic obstructive pulmonary disease, unspecified Status: Chronic Classification: Present on IRF Admission, IRF Tx That Should Address Diagnosis, Diagnosis Requiring Medical Follow Up (5) Chronic systolic congestive heart failure Code(s): I50.22 - Chronic systolic (congestive) heart failure Status: Chronic Classification: Present on IRF Admission, IRF Tx That Should Address Diagnosis, Diagnosis Requiring Medical Follow Up (6) Rheumatoid arthritis Qualifiers: Rheumatoid arthritis location: multiple sites Rheumatoid factor presence: unspecified presence Qualified Code(s): M06.9 - Rheumatoid arthritis, unspecified Code(s): M06.9 - Rheumatoid arthritis, unspecified Status: Chronic Classification: Present on IRF Admission, IRF Tx That Should Address Diagnosis, Diagnosis Requiring Medical Follow Up (7) Adrenal insufficiency Code(s): E27.40 - Unspecified adrenocortical insufficiency Status: Chronic Classification: Present on IRF Admission, IRF Tx That Should Address Diagnosis, Diagnosis Requiring Medical Follow Up (8) Aphthous ulcer of mouth Code(s): K12.0 - Recurrent oral aphthae Status: Acute - Relevant Changes Relevant Changes: No Reviewed: I have reviewed the patient's information and concur with the finding and results of the pre-admission screen. Certification: I certify the patient for rehabilitation. - Medical Prognosis Medical Prognosis: Good Vital Signs: Last Vital Signs Temp 97.7 F 10/25/17 08:00 Pulse 96 10/25/17 08:00 Resp 18 10/25/17 12:36 BP 113/73 10/25/17 08:00 Pulse Ox 99 10/25/17 08:00 - Anticipated Interventions Anticipated Interventions: The patient requires inpatient IRF care for PT, OT, and/or ST for residuals remaining from left BKA resulting in muscular weakness and strength deficits. - Current Functional Status Failed Alternative Therapy: Arrived from Acute Care Patient Requires: The patient requires oversight by rehabilitation physician to manage their rehabilitation treatment plan and multidisciplinary approach to care that can only be provided in an IRF and requires a multidisciplinary approach to care, provided by professional PTs, OTs, rehabilitation nurses, and may require STs, dieticians, and RTS. This is not available in lesser levels of care. Physical Therapy Minutes: 90 Occupational Therapy Minutes: 90 Therapy: The patient is to receive therapy at least 5 days a week. - Anticipated LOS/Outcomes Anticipated Functional Outcome: Expected functional improvements include: -- Modified independant to independant ambulation with or without assistive device -- Modified independant to independant ADL's with or without assistive device -- Return to pre-morbid level of mobility -- Maximize level of mobility and ADL's to decrease burden on any caregiver involved with this patient's care Anticipated Length of Stay (days): 7 Anticipated DC Destination: Home, Self Care, Home Health Service Home Safety Plan: The patient will be provided with the development of a Home Safety Plan for return to a home or home-like environment and and to ensure safety post discharge. - Plan to Avoid Complications Barriers to Attaining Goals: Balance, Endurance, Medical Limitation Plan to Avoid Complications: The patient cannot receive this care in a lesser intensive setting such as [facility] or Outpatient Therapy due to the patient requiring the following : Patient requires close 24 rehabilitation nursing monitoring of her wound to ensure adequate healing in view of her severe underlying peripheral vascular arterial insufficiency. In addition she has medical problems including severe COPD and cardiomyopathy with ejection fraction of 15%. Because of this a multidisciplinary, coordinated approach to her rehabilitation is needed. .
--- NOTE | 2017-10-25 14:56 | Progress Note ---
Progress Note: Ms. Gore is status post left [id number] amputation. She is non- ambulatory. She will require a wheelchair for the foreseeable future until and if she is able to be fitted for a prosthesis. It is not clear if she will be able to do that at this time.
--- NOTE | 2017-10-25 15:17 | Consult Note ---
<Veronica Clarke - Last Filed: 10/25/17 14:47> Consult Information - Data of Consult Consult date: 10/25/17 Requesting Physician: Ashish Macdonald MD Primary Care Provider: Eula Shoemaker MD Family Provider: Eula Shoemaker MD - Consult Narrative Reason for consult: medical management, hypertension, COPD History of present illness: Chief complaint: I need to get stronger to go home HPI: Ms. Castellano is a very pleasant 67-year-old female patient of Dr. Eula Meyer who is well known to the hospitalist service. She has a history of severe peripheral vascular disease with nonhealing bilateral lower extremity wounds. Approximately September 13, she has developed a nonhealing wound in the left foot. Multiple outpatient attempts were made to assist in the healing of the wound including wound care management and wound VAC placement. Ultimately a lower extremity sonogram was done demonstrating the presence of significant peripheral vascular disease. For this reason she was [place] [facility] [place] the care of Dr. Arora, cardiology, on 10/19/2017. A lower extremity angiogram was then performed by Dr. Arora which demonstrated severe bilateral infrapopliteal disease. It was not felt that these small vessels would be amenable to intervention. Dr. Collier, orthopedics, was consulted and the she underwent a left [id number] amputation on 10/20/2017. She initially had quite a bit of pain in the extremity which improved significantly with the placement of a fentanyl patch. During her acute hospitalization, the hospitalist service was consulted for medical management. She has a complex medical history with numerous chronic conditions including COPD requiring nocturnal oxygen at 2L via nasal CPAP and daytime oxygen with exertion only, CAD , adrenal insufficiency secondary to chronic cortical steroid usage, CHF, anxiety and depression for which she has a provider at [facility] and . She reportedly suffered a "heart attack" in 2014. One or 2 stents were placed at that time. Echocardiogram from 04/2017 revealed severe global hypokinesia with EF of 15%. She does have dyspnea with activity and admits to form tobacco use, approximately 1 pack per day, from the age of 24 until age 53 less than 1 pack daily. She has not smoked since about 2002. Her post-op recovery has been fairly unremarkable. She did experience some acute blood loss anemia requiring a blood transfusion x 1 unit on 10/21/17. Her initial hemoglobin was 10.6 on 05/2012 decreased as low as 8.2 prior to transfusion. Hemoglobin has remained stable, currently at 10.9. Her level of functioning prior to the current illness was as follows: she was modified independent for eating, grooming, bathing, toileting, bed/chair/wheelchair transfers, toilet transfers and walking. She was walking with a rolling walker. She was independent for upper and lower body dressing. She was admitted to IRU for continued strengthening and improvement in functional abilities. Given her complex medical history, the hospitalist service was consulted for medical management. Patient's clinical team includes: Dr. Eula Shoemaker - PCP. Dr. Arora - brazer assembler. Dr. Phillips - Pulmonology Dr. Bill - Rheumatology Dr. Cabrera - Neurology Dr. Fajardo - GI Her home medications prior to admission on 10/19/17 are as follows: Hydrocodone 7.5/325 Q6H PRN Lansoprazole ACB Rosuvastatin 20mg QHS Spiriva QHS Swizzle Solution 5ml Q4H PRN Lisinopril 2.5mg QHS Vit. D3 1 cap daily. Albuterol HFA Inhaler 1-2 puff Q4H PRN Fludrocortisone 0.1mg daily Diclofenc ER 100mg BID Carvedilol 6.25 BID Venlafaxine 75mg daily - BEING TITRATED DOWN FOR DISCONTINUATION Synthyroid 75 mcg daily. Buspirone 20mg BID. Beclomethasone 1 puff BID ASA 81mg daily. Triamcinolone 0.1% cream BID PRN Zyprexa 2.5mg QHS Mirtazapine 30mg QHS B12 1000mg IM Q month Plavix 75mg QHS Nitro 0.4 SL PRN Lasix 20mg daily Calcium 1200mg daily [id number] 1000mg Q6H PRN Prednisone 3mg daily MOM PRN Lorazepam 0.5-1mg Q4H Gabapentin 100mg TID Pepcid 20mg daily Fentanyl patch 12mcg Q3D Clotrimazole Alyx 10mg MM 5xD PFSH Patient Stated Chronic Medical History CAD with severe peripheral vascular disease. A-fib/PSVT. Hypertension. Hyperlipidemia. Systolic CHF - echocardiogram 04/2017 revealed EF 15%. TIA - 03/2017. PAD. Rheumatoid arthritis. COPD. Oxygen dependence - 2L at night and as needed with exertion during the day. BRANDO with home CPAP. Adrenal insufficiency secondary to chronic steroid use. Anxiety and depression - clinical at [facility]. Hypothyroidism. Ileostomy secondary to prior bowel perforation. Bilateral lower extremity nonhealing wounds secondary to PAD. GERD. Urinary incontinence. Osteoarthritis. Recent Medical History Failed outpatient treatment of bilateral lower extremity wounds. S/P left BKA - Dr. Collier, 10/20/17. Recent COPD exacerbation treated with Augmentin prior to admission. Thrush secondary to antibiotic treatment for COPD exacerbation, acute. Blood transfusion without reaction - 10/21/17. Surgical History: Left inguinal hernia and mid abdominal incisional hernia repair (2007). Repeat left inguinal hernia repair (2008). Right hernia repair (06/2011). Tubal ligation (1980). Right oophorectomy and lysis of adhesions (2001). Sinus surgery (01/1999). Right knee synovectomy (02/2003). Small bowel perforation with right hemicolectomy and ileostomy placement 01/23. Bilateral bunionectomies. Right foot joint fusion (1989). Left ankle fusion (07/2000). Bilateral knee replacements (left 2006, right 2004). Left hip repair. Right wrist fusion (09/2002). Right shoulder surgery. Cervical spine fusion C3, 4, 5 fusion ([facility]). Carpal tunnel surgery (left 2005, right 2003). Right great toe amputation secondary to osteomyelitis (Dr. Collier 08/2017). Left BKA ( Dr. Collier 10/20/17). Cardiac stent 1 (Dr. Arora 2014). Colonoscopy 04/2011 ( diverticulitis), EGD 07/28 (essentially normal) Family History Updates: Father - deceaesed age 78, CAD, [place]. Mother - depression. 3 sisters - one with breast cacner, another with depression and third with hyperlipidemia. - Social History Smoking status: Former smoker (quit 2002) Substance use type: does not use Alcohol intake frequency: does not drink Housing: apartment Household members: none Current occupational status: retired, disabled Does patient use chewing tobacco?: No Current residence: Apartment/Private Home Social history: Dr. Eula Shoemaker - PCP. Dr. Arora - brazer assembler. Dr. Phillips - Pulmonology Dr. Bill - Rheumatology Dr. Cabrera - Neurology Dr. Fajardo - GI Review of Systems All systems PM: 10-point ROS was reviewed, no additional remarkable complaints except - Constitutional Constitutional: Present: weakness. Absent: chills, fatigue, fever(s) - EENMT Eyes: Absent: diplopia, photophobia Ears: Absent: ear pain Balance: Absent: falling to one side Nose: Absent: nosebleeds Mouth/Throat: Present: dry mouth. Absent: sore throat, changes in swallowing EENMT Comments: recent thrush, improving. - Cardiovascular Cardiovascular: Present: dyspnea on exertion. Absent: chest pain, palpitations , syncope, orthopnea, edema Rhythm: Present: regular rhythm Vascular: Absent: pallor of an extermity, pedal edema - Respiratory Respiratory: Present: cough (occasional), dyspnea on exertion. Absent: dyspnea , hemoptysis, wheezing, chest congestion - Gastrointestinal Gastrointestinal: Absent: abdominal pain, constipation, diarrhea, dysphagia, melena, nausea, vomiting Gastrointestinal Comments: ostomy - Genitourinary Genitourinary: Absent: dysuria, flank pain, hematuria Menstruation: post menopausal - Musculoskeletal Musculoskeletal: Absent: back pain, deformity - Integumentary/Breasts Integumentary: Present: non-healing lesions (right lower extremity). Absent: rash - Neurological Neurological: Present: weakness. Absent: confusion, convulsions, dizziness, focal weakness, headache(s) - Psychiatric Psychiatric: Present: anxiety, depression - Endocrine Endocrine: Absent: heat intolerance, palpitations - Hematologic/Lymphatic Hematologic/Lymphatic: Present: easy bruising - Allergic/Immunologic Allergic/Immunologic: Absent: seasonal rhinorrhea Medications Home Medications Medication Instructions Recorded Confirmed Type Tiotropium [place]ihal[place] [Spiriva] 1 cap IH HS #0 07/07/10 10/24/17 History Acetaminophen 1,000 mg PO Q6H PRN #0 01/05/16 10/24/17 History Buspirone HCl 20 mg PO BID #0 01/05/16 10/24/17 History Calcium Carbonate [Calcium] 1,200 mg PO DAILY #0 07/28/16 10/24/17 History Rosuvastatin Calcium [Crestor] 20 mg PO HS #0 07/28/16 10/24/17 History Clopidogrel Bisulfate [Plavix] 75 mg PO HS #0 08/24/16 10/24/17 History Diclofenac Sodium [Diclofenac 100 mg PO BID #0 08/24/16 10/24/17 History Sodium ER] Aspirin [Aspirin EC] 81 mg PO DAILY #0 10/09/16 10/24/17 History Lisinopril 2.5 mg PO HS #0 10/09/16 10/24/17 History Nitroglycerin [Nitrostat] 0.4 mg SL Q5MIN3 PRN #0 10/09/16 10/24/17 History Fludrocortisone [Florinef] 0.1 mg PO DAILY #0 tab 12/18/16 10/24/17 History Levothyroxine Sodium 75 mcg PO ACB #0 tab 12/18/16 10/24/17 History Beclomethasone Dipropionate [Qvar 1 puff INH RTBID 08/17/17 10/24/17 History 80] Venlafaxine [Effexor] 75 mg PO WB 08/17/17 10/24/17 History Albuterol HFA Inhaler [Ventolin 1 - 2 puff INH Q4H PRN 09/27/17 10/24/17 History Hfa 90 mcg/actuation] Carvedilol 6.25 mg PO BIDWM 09/27/17 10/24/17 History Cyanocobalamin (B-12) [Vit. B-12] 1,000 mcg IM 1 MONTH 09/27/17 10/24/17 History Furosemide [Lasix] 20 mg PO DAILY 09/27/17 10/24/17 History Mirtazapine [Remeron] 30 mg PO HS 09/27/17 10/24/17 History OLANZapine [Zyprexa] 2.5 mg PO HS 09/27/17 10/24/17 History Swizzle Solution 5Ml 5 ml PO Q4H PRN 09/27/17 10/24/17 History [Lidocaine/Maalox/Benadryl Soln] Cholecalciferol (Vitamin D3) 1 cap PO DAILY 10/19/17 10/24/17 History [Vitamin D3] Hydrocodone/APAP 7.5/325 [[place] 1 - 2 tab PO Q6H PRN 10/19/17 10/24/17 History 7.5/325] Lansoprazole 1 cap PO ACB 10/19/17 10/24/17 History Lidocaine/Prilocaine [EMLA 5gm] 1 applicatio TOP PRN 10/19/17 10/24/17 History Triamcinolone 0.1% Cream 15 G 1 applicatio TOP BID PRN 10/19/17 10/24/17 History [Kenalog] Enoxaparin [Lovenox] 40 mg SQ DAILY 10/24/17 10/24/17 History Famotidine Oral Liq [Pepcid] 20 mg PO DAILY 10/24/17 10/24/17 History Gabapentin [Neurontin] 100 mg PO TID 10/24/17 10/24/17 History LORazepam [Ativan] 0.5 - 1 mg PO Q4H PRN 10/24/17 10/24/17 History Mom 30 ml PO DAILY PRN 10/24/17 10/24/17 History PredniSONE [Deltasone] 5 mg PO WB 10/24/17 10/24/17 History Allergies Allergy/AdvReac Type Severity Reaction Status Date / Time morphine Allergy Mild ITCHING Verified 10/19/17 12:15 methylprednisolone Allergy Unknown Verified 10/19/17 12:15 doxycycline AdvReac Severe DIARRHEA Verified 10/19/17 12:15 adalimumab AdvReac Intermediate LOW GRADE Verified 10/19/17 12:15 FEVER atorvastatin AdvReac Unknown LEG CRAMPS Verified 10/19/17 12:15 bupropion AdvReac Unknown ANXIETY Verified 10/19/17 12:15 cortizone meds Allergy Unknown Anxiety Uncoded 10/19/17 12:15 Exam Vital Signs: Temperature 97.7 F 10/25/17 08:00 Pulse Rate 96 10/25/17 08:00 Respiratory Rate 18 10/25/17 12:36 Blood Pressure 113/73 10/25/17 08:00 Pulse Oximetry 99 10/25/17 08:00 Height/Weight/BMI: Height 5 ft 2 in Weight 82 lb 10.774 oz Body Mass Index 15.1 Comments: Patient is seen immediately following her therapy in her room; alert and orientated x 3. - Constitutional Present: no acute distress, well nourished, well developed, thin, cooperative - Routine HEENT Exam Head: Present: normocephalic, atraumatic Eye: Present: PERRL. Absent: conjunctival icterus ENT: Present: mucous membranes moist - Routine Neck Exam Present: supple, full ROM, trachea midline - Routine Chest/Breast/Axilla Exam Chest wall: Absent: pacemaker - Routine Respiratory Exam Present: decreased breath sounds, diminished air movement. Absent: respiratory distress, rhonchi, stridor, wheezes - Routine Cardiovascular Exam Present: RRR, S1, S2 - Routine Abdominal Exam Present: soft, normoactive bowel sounds, non distended, non tender - Routine Extremities Exam Present: no edema, full ROM, pulses intact Comments: left BTK amputation. - Routine Back/Spine/Pelvis Exam Back/Spine: Present: full ROM. Absent: vertebral tenderness - Routine Skin Exam Present: dry, warm. Absent: jaundice Comments: lesion to right lower extremity - chronic. - Routine Neurological Exam Present: alert, oriented X3, moving all extremities, hearing grossly intact, normal speech - Routine Psychiatric Exam Present: normal affect, cooperative Results - Labs CBC & Chem 7: 10/25/17 04:50 10/25/17 04:50 Assessment and Plan (1) Status post below knee amputation of left lower extremity Current visit: No Status: Acute (2) Acute blood loss anemia Current visit: Yes Status: Acute (3) Atherosclerosis of [place] artery of both lower extremities Current visit: No Status: Chronic (4) Atherosclerotic heart disease of [place] coronary artery without angina pectoris Current visit: No Status: Chronic Assessment and Plan: Acute Medical History S/P left BKA secondary to severe peripheral arterial disease and failed outpatient treatment of bilateral lower extremity wounds. - Dr. Collier, 10/20/2017. Post-op anemia requiring blood transfusion x 1 unit on 10/21/17 without reaction , acute. Thrombocytosis, acute. Thrush, present prior to admission secondary to recent treatment of COPD exacerbation with Augmentin, acute, improving. Chronic Medical History CAD with severe peripheral vascular disease. A-fib/PSVT. Hypertension. Hyperlipidemia. Systolic CHF - echocardiogram 04/2017 revealed EF 15%. TIA - 03/2017. PAD. Rheumatoid arthritis. COPD. Oxygen dependence - 2L at night and as needed with exertion during the day. BRANDO with home CPAP. Adrenal insufficiency secondary to chronic steroid use. Anxiety and depression - clinical at [facility]. Hypothyroidism. Ileostomy secondary to prior bowel perforation. Bilateral lower extremity nonhealing wounds secondary to PAD. GERD. Urinary incontinence. Osteoarthritis. Plan - 10/25/17 (Admission) Agree with admission to IRU for continued intensive therapies for strengthening and improvement in functional abilities. Continue pain control per Dr. Macdonald and encourage participation in therapies. Provide safe and supportive environment. Dr. Collier to continue to follow and will provide recommendations regarding stump shrinking treatment in preparation for prostesis. Wound care consulted for treatment of right lower extremity non-healing wound present prior to admission as well as close clinical monitoring of surgical site. Post-op anemia noted during inpatient hospitalization requiring 1 unit PRBC on 10/21/17 without reaction. Hemoglobin remains stable - currently 10.9. Will continue to monitor periodically throughout admission. Continue home medications. Monitor blood pressure closely. Lovenox and SCDs for DVT prophylaxis. In light of history of COPD with recent exacerbation, encourage incentive spirometry. Patient completed course of Augmentin prior to admission resulting in thrush. Continue swizzle and clotrimazole troches. Monitor daily weights and I&O closely for signs of fluid overload given history of EF 15%. Patient follows with Dr. Arora, cardiology. Continue use of CPAP with 2L oxygen at night and supplemental oxygen as needed for dyspnea with exertion. Patient has history of anxiety and depression - currently tapering Effexor with intent to discontinue per doctor at [facility]. Currently at Effexor 37.5mg and anticipate discontinuation on 11/01/17. Continue with Zyprexa and mirtazapine. Encourage oral intake. Patient was seen by dietary during acute hospitalization due to concerns of protein calorie malnutrition. Encourage Boost. May continue other home medications. Upon discharge, patient's care will be returned to her PCP, Dr. Shoemaker. Appreciate the opportunity to contribute to patient's care. DVT Prophylaxis: SCD's, Lovenox Resuscitation Status: Do Not Resuscitate - Time spent with patient Time with patient PN: 70 minutes - Physician Narriative Physician: other (Dr. Hicks) Hospital Course Summary Disclaimer: The visit summary below is not to be considered part of the above Progress Note. Hospital Course: Acute Medical History S/P left BKA secondary to severe peripheral arterial disease and failed outpatient treatment of bilateral lower extremity wounds. - Dr. Collier, 10/20/2017. Post-op anemia requiring blood transfusion x 1 unit on 10/21/17 without reaction , acute. Thrombocytosis, acute. Thrush, present prior to admission secondary to recent treatment of COPD exacerbation with Augmentin, acute, improving. Chronic Medical History CAD with severe peripheral vascular disease. A-fib/PSVT. Hypertension. Hyperlipidemia. Systolic CHF - echocardiogram 04/2017 revealed EF 15%. TIA - 03/2017. PAD. Rheumatoid arthritis. COPD. Oxygen dependence - 2L at night and as needed with exertion during the day. BRANDO with home CPAP. Adrenal insufficiency secondary to chronic steroid use. Anxiety and depression - clinical at [facility]. Hypothyroidism. Ileostomy secondary to prior bowel perforation. Bilateral lower extremity nonhealing wounds secondary to PAD. GERD. Urinary incontinence. Osteoarthritis. Plan - 10/25/17 (Admission) Agree with admission to IRU for continued intensive therapies for strengthening and improvement in functional abilities. Continue pain control per Dr. Macdonald and encourage participation in therapies. Provide safe and supportive environment. Dr. Collier to continue to follow and will provide recommendations regarding stump shrinking treatment in preparation for prostesis. Wound care consulted for treatment of right lower extremity non-healing wound present prior to admission as well as close clinical monitoring of surgical site. Post-op anemia noted during inpatient hospitalization requiring 1 unit PRBC on 10/21/17 without reaction. Hemoglobin remains stable - currently 10.9. Will continue to monitor periodically throughout admission. Continue home medications. Monitor blood pressure closely. Lovenox and SCDs for DVT prophylaxis. In light of history of COPD with recent exacerbation, encourage incentive spirometry. Patient completed course of Augmentin prior to admission resulting in thrush. Continue swizzle and clotrimazole troches. Monitor daily weights and I&O closely for signs of fluid overload given history of EF 15%. Patient follows with Dr. Arora, cardiology. Continue use of CPAP with 2L oxygen at night and supplemental oxygen as needed for dyspnea with exertion. Patient has history of anxiety and depression - currently tapering Effexor with intent to discontinue per doctor at [facility]. Currently at Effexor 37.5mg and anticipate discontinuation on 11/01/17. Continue with Zyprexa and mirtazapine. Encourage oral intake. Patient was seen by dietary during acute hospitalization due to concerns of protein calorie malnutrition. Encourage Boost. May continue other home medications. Upon discharge, patient's care will be returned to her PCP, Dr. Shoemaker. Appreciate the opportunity to contribute to patient's care. <Marbin Hicks - Last Filed: 10/25/17 17:08> Consult Information - Data of Consult Requesting Physician: Ashish Macdonald MD Primary Care Provider: Eula Shoemaker MD Family Provider: Eula Shoemaker MD [facility] Patient Stated Medical History Transient Ischemic Attacks ( Yes: MARCH 2017 TIA) Other HEENT Yes: WEARS GLASSES Angina Yes: HX Cardiac Arrhythmia Yes: at. fib./ tachycardia Congestive Heart Failure Yes: EF documented as 20-25% Coronary Artery Disease Yes Hypertension Yes Myocardial Infarction Yes: EF 20%, dec 2015 Asthma Yes Chronic Obstructive Pulmonary Yes Disease (COPD) Sleep Apnea Yes: cpap Other Respiratory Yes Gastroesophageal Reflux Yes Disease Hx Incontinence Yes Anemia Yes Clotting Problems Yes: takes plavix Osteoarthritis Yes: osteoporosis Other Musculoskeletal Yes: RA MRSA Yes Blood Transfusions Yes: NO REACTION Depression Yes Ovarian Cysts Yes Post Menopausal Yes Exam Vital Signs: Temperature 98.4 F 10/25/17 16:00 Pulse Rate 93 10/25/17 16:00 Respiratory Rate 16 10/25/17 16:44 Blood Pressure 112/66 10/25/17 16:00 Pulse Oximetry 91 10/25/17 16:00 Height/Weight/BMI: Height 1.57 m Weight 37.5 kg Body Mass Index 15.1 Results - Labs CBC & Chem 7: 10/25/17 04:50 10/25/17 04:50 Assessment and Plan Assessment and Plan: 10/25/2017 Patient is a 67-year-old female who is admitted IRU after left BKA. Patient has history of significant peripheral vascular disease. She was worked up by cardiology with both ultrasound and angiogram and noted to be significant vasculopath with left lower extremity having minimal if any blood flow. She developed a wound which was unhealing. Therefore orthopedics ultimately took her to the operating room to perform the BKA. Patient has an EF of 15% and has had issues with both anemia and with overload of total fluid in the past. She also has rheumatoid arthritis which has caused significant issues with her ability to grasp due to deformity of both hands. Past medical history medication allergies social history and surgical history reviewed, please see note above. Review of systems, 10 systems reviewed and negative except for those noted above. Exam Gen. very pleasant female, postop. Lungs have diminished breath sounds bilateral bases, otherwise clear to auscultation. Cardiac regular rate and rhythm with early systolic murmur heard Abdomen positive bowel sounds, scaphoid, nontender Extremities, left leg bandaged due to BKA, postop. Right, no edema, however slight cyanosis with poor capillary refill noted and toes. Hands show significant ulnar deviation of fingers with distortion of peripheral and MCP joints. Assessment CAD with severe peripheral vascular disease. Postoperative anemia Rheumatoid arthritis with severe joint distortion of hands Depression Heart failure with EF of 15% Hyperlipidemia Hypertension Plan Patient admitted to IRU for 3 hour daily physical and occupational therapy. She is committed to this despite the significant rheumatoid arthritis issues. Respiratory will follow the patient due to COPD and reactive airway issues. CPAP m ordered. Blood pressure as well as peripheral edema will be monitored closely. Cardiology will be consulted, Pain management per IRU attending Calorie supplementation due to failure to thrive and muscle wasting with dietary consult. Patient was seen and evaluated by myself . Marbin Hicks M.D. Hospital Course Summary Disclaimer: The visit summary below is not to be considered part of the above Progress Note.
[2017-10-25] MEDS: DENTAL PASTE DT PRN (18:49)
[2017-10-25] MEDS: TRIAMCINOLONE 0.1% DT PRN (18:49)
[2017-10-25] MEDS: MIRTAZAPINE 30 MG TABLET PO SCH (21:12)
[2017-10-25] MEDS: CLOPIDOGREL 75 MG TABLET PO SCH (21:12)
[2017-10-25] MEDS: ROSUVASTATIN 20 MG TABLET PO SCH (21:12)
[2017-10-25] MEDS: LISINOPRIL 2.5 MG TABLET PO SCH (21:12)
[2017-10-25] MEDS: OLANZapine 2.5 MG TABLET PO SCH (21:13)
[2017-10-25] MEDS: SYSTANE EYE DROPS 0.7ml EACH EYE PRN (21:18)
[2017-10-26] MEDS: LEVOTHYROXINE 75 MCG TABLET PO SCH (05:47)
[2017-10-26] MEDS: ALBUTEROL 2.5mg/3ml (0.083%) NEB AEROSOL SCH ×6 (07:01→19:56)
[2017-10-26] MEDS: BECLOMETHASONE 80 MCG ORAL INH SCH ×2 (07:19→19:56)
[2017-10-26] MEDS: CARVEDILOL 6.25 MG TABLET PO SCH ×2 (09:19→17:54)
[2017-10-26] MEDS: PredniSONE 5 MG TABLET PO SCH (09:20)
[2017-10-26] MEDS: ASPIRIN *EC* 81 MG TABLET PO SCH (09:21)
[2017-10-26] MEDS: Venlafaxine XR 37.5 MG CAPSULE (24hr) PO SCH (09:21)
[2017-10-26] MEDS: CALCIUM CARBONATE 600 MG TABLET PO SCH (09:22)
[2017-10-26] MEDS: BUSPIRONE 10 MG TABLET PO SCH ×2 (09:22→20:23)
[2017-10-26] MEDS: CLOTRIMAZOLE 10 MG TROCHE MM SCH ×5 (09:23→20:24)
[2017-10-26] MEDS: ENOXAPARIN 40 MG/0.4 ML INJECTION SQ SCH (09:23)
[2017-10-26] MEDS: FLUDROCORTISONE 0.1 MG TABLET PO SCH (09:25)
[2017-10-26] MEDS: FUROSEMIDE 20 MG TABLET PO SCH (09:26)
[2017-10-26] MEDS: DENTAL PASTE DT PRN (09:27)
[2017-10-26] MEDS: TRIAMCINOLONE 0.1% DT PRN (09:27)
[2017-10-26] MEDS: FAMOTIDINE 40 MG/5 ML ORAL LIQUID PO SCH (09:32)
[2017-10-26] MEDS: TIOTROPIUM 18mcg/cap HANDIHALER ORAL INH SCH ×2 (19:55→20:20)
[2017-10-26] MEDS: SYSTANE EYE DROPS 0.7ml EACH EYE PRN (20:21)
[2017-10-26] MEDS: ROSUVASTATIN 20 MG TABLET PO SCH (20:22)
[2017-10-26] MEDS: LISINOPRIL 2.5 MG TABLET PO SCH (20:22)
[2017-10-26] MEDS: MIRTAZAPINE 30 MG TABLET PO SCH (20:23)
[2017-10-26] MEDS: CLOPIDOGREL 75 MG TABLET PO SCH (20:24)
[2017-10-26] MEDS: OLANZapine 2.5 MG TABLET PO SCH (20:25)
[2017-10-27] MEDS: LEVOTHYROXINE 75 MCG TABLET PO SCH (06:09)
[2017-10-27] MEDS: ALBUTEROL 2.5mg/3ml (0.083%) NEB AEROSOL SCH ×4 (07:00→19:32)
[2017-10-27] MEDS: CARVEDILOL 6.25 MG TABLET PO SCH ×2 (08:27→17:49)
[2017-10-27] MEDS: BUSPIRONE 10 MG TABLET PO SCH ×2 (08:28→21:34)
[2017-10-27] MEDS: PredniSONE 5 MG TABLET PO SCH (08:28)
[2017-10-27] MEDS: ASPIRIN *EC* 81 MG TABLET PO SCH (08:28)
[2017-10-27] MEDS: CALCIUM CARBONATE 600 MG TABLET PO SCH (08:28)
[2017-10-27] MEDS: Venlafaxine XR 37.5 MG CAPSULE (24hr) PO SCH (08:28)
[2017-10-27] MEDS: CLOTRIMAZOLE 10 MG TROCHE MM SCH ×5 (08:29→21:37)
[2017-10-27] MEDS: ENOXAPARIN 40 MG/0.4 ML INJECTION SQ SCH (08:29)
[2017-10-27] MEDS: FUROSEMIDE 20 MG TABLET PO SCH (08:30)
[2017-10-27] MEDS: FLUDROCORTISONE 0.1 MG TABLET PO SCH (08:30)
[2017-10-27 08:50] VITALS: BMI 15.6
[2017-10-27] MEDS: FAMOTIDINE 40 MG/5 ML ORAL LIQUID PO SCH (09:56)
[2017-10-27] MEDS: BECLOMETHASONE 80 MCG ORAL INH SCH ×2 (10:07→19:32)
--- NOTE | 2017-10-27 10:45 | IRU Progress Note ---
- Subjective/Serverity of Illness Date: 10/27/17 Clarice was evaluated in her room. She has several concerns. She had questions about getting a prosthesis. I advised her that would be down the road a bit after her BKA has totally healed. Secondly she reports dyspnea with activity. She has severe COPD as well as an ejection fraction recorded at 15%. The patient states that primarily she has dyspnea after taking a shower so this could be related to humidity and her COPD as well as CHF. She reports that her appetite is reasonable. She continues to have canker sores and this is bothersome to her. She is also as a solution as well as the topical triamcinolone paste. She would like the triamcinolone paste at her bedside. She has a colostomy or ileostomy and that is functioning normally. Brief therapy update: Physical therapy she is modified independent for transfers. For occupational therapy she is standby assistance for most activities. She seems to be improving. Update on medical issues were actively monitoring and managin. Systolic heart failure with EF 15%: Her exam is unchanged with clear lungs although diminished breath sounds. No crackles heard at this time. Does not have edema in the right lower extremity. Does report dyspnea with activity. 2. ASPVD with concern for wound healing: Patient states that there is an irritated area on the bottom of her stump. It is still dressed. She says that Dr. Collier will check on this. 3. COPD with recent exacerbation: Has a mild cough without sputum. She now is getting humidification with her oxygen. No active wheezing identified. 4. Chronic adrenal insufficiency secondary to chronic cortical steroid usage. Blood pressures are stable. 5. Acute blood loss anemia: Hemoglobin is stable without evidence of further blood loss. Exam Vital Signs: Temperature 98.3 F 10/27/17 08:00 Pulse Rate 96 10/27/17 08:00 Respiratory Rate 16 10/27/17 10:00 Blood Pressure 132/80 10/26/17 23:07 Pulse Oximetry 95 10/27/17 08:00 Height/Weight/BMI: Height 1.57 m Weight 38.8 kg Body Mass Index 15.6 - Constitutional Present: moderate distress (dyspnea primarily. States pain is controlled.), thin , cachectic, cooperative - Routine HEENT Exam Eye: Present: EOMI ENT: Present: mucous membranes moist Comments: Aphthous ulcer right upper lip as well as right tongue and left buccal mucosa. - Routine Neck Exam Present: supple, full ROM - Routine Respiratory Exam Present: decreased breath sounds. Absent: rhonchi, wheezes, crackles Comments: Dyspneic after her shower. - Routine Cardiovascular Exam Present: RRR, S1, S2. Absent: murmur - Routine Abdominal Exam Present: soft, normoactive bowel sounds, non distended. Absent: tenderness - Routine Extremities Exam Present: no edema Comments: I did not remove the dressing at this time. We will defer to wound care as well as Dr. Collier. - Routine Skin Exam Present: ecchymosis - Routine Neurological Exam Present: alert, oriented X3, CN II-XII intact. Absent: sensory deficit, motor deficit - Routine Psychiatric Exam Present: normal affect Comments: She specifically denies depression. She is happy with the current dose of Effexor XR 37.5 mg daily and feels as though this was a good choice. Remains on Zyprexa as well. IRU A/P (1) Status post below knee amputation of left lower extremity Current visit: No Status: Acute Pain is adequately controlled. She is progressing with therapy. We will defer wound management to wound care and Dr. Collier. (2) Arterial insufficiency of lower extremity Current visit: No Status: Chronic Uncertain status of wound. Currently no other evidence of active arterial insufficiency although does have evidence on previous ultrasound as well as angiogram. (3) Acute blood loss anemia Current visit: Yes Status: Acute (4) Chronic obstructive pulmonary disease Qualifiers: COPD type: emphysema Current visit: No Status: Chronic Currently no exacerbation noted. She does not have any wheezes. She has decreased breath sounds and does have dyspnea with activity as well as exposure to humidified environment. (5) Chronic systolic congestive heart failure Current visit: No Status: Chronic (6) Rheumatoid arthritis Qualifiers: Rheumatoid arthritis location: multiple sites Rheumatoid factor presence: unspecified presence Qualified Code(s): M06.9 - Rheumatoid arthritis, unspecified Current visit: No Status: Chronic (7) Adrenal insufficiency Current visit: Yes Status: Chronic Sodium and potassium have been stable. Blood pressures are stable. (8) Aphthous ulcer of mouth Current visit: Yes Status: Acute Continues to struggle with aphthous ulceration. She is not on methotrexate. Topical agents are ordered. We will place this at her bedside. DVT Prophylaxis: SCD's, Lovenox Resuscitation Status: Do Not Resuscitate - Course Hospital Course: Ashish Macdonald MD: 10/25/17 11:20 Patient is cooperative with therapy. Dyspnea with activity as anticipated. Discolored nasal drainage but no fever so no antibiotic. Canker sores noted. 10/27/17 10:48 She is cooperative and progressing with therapy. Continues to have dyspnea with activity. No chest pain is reported and no cough. Continues to struggle with aphthous ulceration. - Interventions to Obtain Goals PT Treatment Plan: Balance/Proprioception, Functional Activities, Patient/ Family Education, Therapeutic Exercise OT Treatment Plan: ADL (Basic Care), Balance Training, IADL, Pt./Family Education, Ther. Exercise for ADL Goals Progress/Modifications: Time spent with patient and on floor reviewing data and documentin min Barriers to dismissal: Strength, endurance Medical decision-making: She has demonstrated progress with therapy. Please see above discussion. However she continues to struggle with dyspnea with activity. Denies any cough. Her lungs remain clear with diminished breath sounds. She has severe COPD as well as severe cardiomyopathy with ejection fraction of 15%. I reassessed her medically and feel it is safe to continue therapy at this time. She does report some irritation on the distal stump. We will review the wound shortly unless she is seen by wound care or Dr. Collier.
[2017-10-27] MEDS: ACETAMINOPHEN 500 MG TABLET PO PRN ×2 (13:49→21:35)
--- NOTE | 2017-10-27 16:50 | Progress Note ---
- Date 10/27/17 Subjective: Clarice is seen today in follow up. She denies any complaints or concerns and states that she feels like she is getting stronger every day. Her appetite is good and bowels are moving. No new labs. Weight trending up slightly. Breathing stable. No chest pain, shortness of breath, abdominal pain, nausea, vomiting or dysuria. Objective Vital signs: Temperature 98.6 F 10/27/17 16:00 Pulse Rate 101 H 10/27/17 16:00 Respiratory Rate 14 10/27/17 16:00 Blood Pressure 110/64 10/27/17 16:00 Pulse Oximetry 94 10/27/17 16:00 Height/Weight/BMI: Height 5 ft 2 in Weight 89 lb 8.123 oz Body Mass Index 15.6 Comments: Sitting in her recliner, playing on her phone, in no acute distress; pleasant. - Constitutional Present: no acute distress, well nourished, well developed, thin, cooperative - Routine HEENT Exam Head: Present: normocephalic, atraumatic Eye: Present: PERRL. Absent: conjunctival icterus ENT: Present: mucous membranes moist - Routine Respiratory Exam Present: diminished air movement. Absent: wheezes Comments: no distress, cough or conversational dyspnea. - Routine Cardiovascular Exam Present: RRR, S1, S2 - Routine Abdominal Exam Present: soft, normoactive bowel sounds, non distended, non tender - Routine Extremities Exam Present: no edema, full ROM, pulses intact Comments: left BKA. - Routine Back/Spine/Pelvis Exam Back/Spine: Present: full ROM. Absent: vertebral tenderness - Routine Musculoskeletal Exam Musculoskeletal: Present: moving extremities well - Routine Skin Exam Present: intact, dry, warm. Absent: jaundice Comments: afebrile. - Routine Neurological Exam Present: alert, oriented X3, moving all extremities, normal speech - Routine Lymphatic Exam Lymphatic: Absent: lymphedema - Routine Psychiatric Exam Present: normal affect, cooperative, good insight, good judgment Results - Labs CBC & Chem 7: 10/25/17 04:50 10/25/17 04:50 Assessment and Plan (1) Status post below knee amputation of left lower extremity Current visit: No Status: Acute (2) Acute blood loss anemia Current visit: Yes Status: Acute (3) Atherosclerosis of [place] artery of both lower extremities Current visit: No Status: Chronic (4) Atherosclerotic heart disease of [place] coronary artery without angina pectoris Current visit: No Status: Chronic Assessment and Plan: Acute Medical History S/P left BKA secondary to severe peripheral arterial disease and failed outpatient treatment of bilateral lower extremity wounds. - Dr. Collier, 10/20/2017. Post-op anemia requiring blood transfusion x 1 unit on 10/21/17 without reaction , acute. Thrombocytosis, acute. Thrush, present prior to admission secondary to recent treatment of COPD exacerbation with Augmentin, acute, improving. Chronic Medical History CAD with severe peripheral vascular disease. A-fib/PSVT. Hypertension. Hyperlipidemia. Systolic CHF - echocardiogram 04/2017 revealed EF 15%. TIA - 03/2017. PAD. Rheumatoid arthritis. COPD. Oxygen dependence - 2L at night and as needed with exertion during the day. BRANDO with home CPAP. Adrenal insufficiency secondary to chronic steroid use. Anxiety and depression - clinical at [facility]. Hypothyroidism. Ileostomy secondary to prior bowel perforation. Bilateral lower extremity nonhealing wounds secondary to PAD. GERD. Urinary incontinence. Osteoarthritis. Plan - 10/27/17 ([place]ian) Overall, patient is doing well is medically stable. Continue pain control per Dr. Macdonald and encourage participation in therapies. Continue to provide safe and supportive environment. Blood pressure stable. Continue to monitor closely. Lovenox and SCDs for DVT prophylaxis. Continue to encourage incentive spirometry for pulmonary toileting given history of COPD. Weight continues to trend up slowly. Continue to monitor closely. No signs of fluid overload on exam. History of EF 15%. Patient follows with Dr. Arora, cardiology. Continue use of CPAP with 2L oxygen at night and supplemental oxygen as needed for dyspnea with exertion. Patient has history of anxiety and depression - currently tapering Effexor with intent to discontinue per doctor at [facility]. Currently at Effexor 37.5mg and anticipate discontinuation on 11/01/17. Continue with Zyprexa and mirtazapine. Encourage oral intake. Patient was seen by dietary during acute hospitalization due to concerns of protein calorie malnutrition. Encourage Boost. DVT Prophylaxis: SCD's, Lovenox Resuscitation Status: Do Not Resuscitate - Time spent with patient Time with patient PN: 25 minutes - Physician Narrative Narrative: Date: 10/27/17 Time: 1647 Hospital Course Summary Disclaimer: The visit summary below is not to be considered part of the above Progress Note. Hospital Course: Acute Medical History S/P left BKA secondary to severe peripheral arterial disease and failed outpatient treatment of bilateral lower extremity wounds. - Dr. Collier, 10/20/2017. Post-op anemia requiring blood transfusion x 1 unit on 10/21/17 without reaction , acute. Thrombocytosis, acute. Thrush, present prior to admission secondary to recent treatment of COPD exacerbation with Augmentin, acute, improving. Chronic Medical History CAD with severe peripheral vascular disease. A-fib/PSVT. Hypertension. Hyperlipidemia. Systolic CHF - echocardiogram 04/2017 revealed EF 15%. TIA - 03/2017. PAD. Rheumatoid arthritis. COPD. Oxygen dependence - 2L at night and as needed with exertion during the day. BRANDO with home CPAP. Adrenal insufficiency secondary to chronic steroid use. Anxiety and depression - clinical at [facility]. Hypothyroidism. Ileostomy secondary to prior bowel perforation. Bilateral lower extremity nonhealing wounds secondary to PAD. GERD. Urinary incontinence. Osteoarthritis. Plan - 10/25/17 (Admission) Agree with admission to IRU for continued intensive therapies for strengthening and improvement in functional abilities. Continue pain control per Dr. Macdonald and encourage participation in therapies. Provide safe and supportive environment. Dr. Collier to continue to follow and will provide recommendations regarding stump shrinking treatment in preparation for prostesis. Wound care consulted for treatment of right lower extremity non-healing wound present prior to admission as well as close clinical monitoring of surgical site. Post-op anemia noted during inpatient hospitalization requiring 1 unit PRBC on 10/21/17 without reaction. Hemoglobin remains stable - currently 10.9. Will continue to monitor periodically throughout admission. Continue home medications. Monitor blood pressure closely. Lovenox and SCDs for DVT prophylaxis. In light of history of COPD with recent exacerbation, encourage incentive spirometry. Patient completed course of Augmentin prior to admission resulting in thrush. Continue swizzle and clotrimazole troches. Monitor daily weights and I&O closely for signs of fluid overload given history of EF 15%. Patient follows with Dr. Arora, cardiology. Continue use of CPAP with 2L oxygen at night and supplemental oxygen as needed for dyspnea with exertion. Patient has history of anxiety and depression - currently tapering Effexor with intent to discontinue per doctor at [facility]. Currently at Effexor 37.5mg and anticipate discontinuation on 11/01/17. Continue with Zyprexa and mirtazapine. Encourage oral intake. Patient was seen by dietary during acute hospitalization due to concerns of protein calorie malnutrition. Encourage Boost. May continue other home medications. Upon discharge, patient's care will be returned to her PCP, Dr. Shoemaker. Appreciate the opportunity to contribute to patient's care. Plan - 10/27/17 ([place]ian) Overall, patient is doing well is medically stable. Continue pain control per Dr. Macdonald and encourage participation in therapies. Continue to provide safe and supportive environment. Blood pressure stable. Continue to monitor closely. Lovenox and SCDs for DVT prophylaxis. Continue to encourage incentive spirometry for pulmonary toileting given history of COPD. Weight continues to trend up slowly. Continue to monitor closely. No signs of fluid overload on exam. History of EF 15%. Patient follows with Dr. Arora, cardiology. Continue use of CPAP with 2L oxygen at night and supplemental oxygen as needed for dyspnea with exertion. Patient has history of anxiety and depression - currently tapering Effexor with intent to discontinue per doctor at [facility]. Currently at Effexor 37.5mg and anticipate discontinuation on 11/01/17. Continue with Zyprexa and mirtazapine. Encourage oral intake. Patient was seen by dietary during acute hospitalization due to concerns of protein calorie malnutrition. Encourage Boost.
[2017-10-27] MEDS: TIOTROPIUM 18mcg/cap HANDIHALER ORAL INH SCH ×2 (19:33→19:34)
[2017-10-27] MEDS: SYSTANE EYE DROPS 0.7ml EACH EYE PRN (21:33)
[2017-10-27] MEDS: LISINOPRIL 2.5 MG TABLET PO SCH (21:34)
[2017-10-27] MEDS: CLOPIDOGREL 75 MG TABLET PO SCH (21:35)
[2017-10-27] MEDS: ROSUVASTATIN 20 MG TABLET PO SCH (21:35)
[2017-10-27] MEDS: MIRTAZAPINE 30 MG TABLET PO SCH (21:35)
[2017-10-27] MEDS: OLANZapine 2.5 MG TABLET PO SCH (21:36)
[2017-10-28] MEDS: LEVOTHYROXINE 75 MCG TABLET PO SCH (06:21)
[2017-10-28] MEDS: ALBUTEROL 2.5mg/3ml (0.083%) NEB AEROSOL SCH ×4 (08:26→19:27)
[2017-10-28] MEDS: CARVEDILOL 6.25 MG TABLET PO SCH ×2 (09:21→17:53)
[2017-10-28] MEDS: ASPIRIN *EC* 81 MG TABLET PO SCH (09:22)
[2017-10-28] MEDS: BUSPIRONE 10 MG TABLET PO SCH ×2 (09:22→21:28)
[2017-10-28] MEDS: FUROSEMIDE 20 MG TABLET PO SCH (09:22)
[2017-10-28] MEDS: FLUDROCORTISONE 0.1 MG TABLET PO SCH (09:23)
[2017-10-28] MEDS: PredniSONE 5 MG TABLET PO SCH (09:23)
[2017-10-28] MEDS: Venlafaxine XR 37.5 MG CAPSULE (24hr) PO SCH (09:23)
[2017-10-28] MEDS: CALCIUM CARBONATE 600 MG TABLET PO SCH (09:24)
[2017-10-28] MEDS: CLOTRIMAZOLE 10 MG TROCHE MM SCH ×3 (09:24→12:03)
[2017-10-28] MEDS: FAMOTIDINE 40 MG/5 ML ORAL LIQUID PO SCH (09:25)
[2017-10-28] MEDS: ENOXAPARIN 40 MG/0.4 ML INJECTION SQ SCH (09:25)
[2017-10-28] MEDS: BECLOMETHASONE 80 MCG ORAL INH SCH ×2 (11:46→19:27)
[2017-10-28] MEDS: TIOTROPIUM 18mcg/cap HANDIHALER ORAL INH SCH (19:27)
[2017-10-28] MEDS: CLOPIDOGREL 75 MG TABLET PO SCH (21:29)
[2017-10-28] MEDS: LISINOPRIL 2.5 MG TABLET PO SCH (21:29)
[2017-10-28] MEDS: MIRTAZAPINE 30 MG TABLET PO SCH (21:30)
[2017-10-28] MEDS: ROSUVASTATIN 20 MG TABLET PO SCH (21:30)
[2017-10-28] MEDS: OLANZapine 2.5 MG TABLET PO SCH (21:51)
[2017-10-29] MEDS: LEVOTHYROXINE 75 MCG TABLET PO SCH (06:13)
[2017-10-29] MEDS: ALBUTEROL 2.5mg/3ml (0.083%) NEB AEROSOL SCH ×4 (06:45→19:00)
[2017-10-29] MEDS: ENOXAPARIN 40 MG/0.4 ML INJECTION SQ SCH (09:40)
[2017-10-29] MEDS: Venlafaxine XR 37.5 MG CAPSULE (24hr) PO SCH (09:40)
[2017-10-29] MEDS: ASPIRIN *EC* 81 MG TABLET PO SCH (09:40)
[2017-10-29] MEDS: PredniSONE 5 MG TABLET PO SCH (09:40)
[2017-10-29] MEDS: CALCIUM CARBONATE 600 MG TABLET PO SCH (09:40)
[2017-10-29] MEDS: BUSPIRONE 10 MG TABLET PO SCH ×2 (09:40→20:17)
[2017-10-29] MEDS: CARVEDILOL 6.25 MG TABLET PO SCH ×2 (09:41→17:46)
[2017-10-29] MEDS: FUROSEMIDE 20 MG TABLET PO SCH ×2 (09:41→10:41)
[2017-10-29] MEDS: FLUDROCORTISONE 0.1 MG TABLET PO SCH (09:41)
[2017-10-29] MEDS: FAMOTIDINE 40 MG/5 ML ORAL LIQUID PO SCH (09:42)
[2017-10-29] MEDS: BECLOMETHASONE 80 MCG ORAL INH SCH ×2 (11:23→20:56)
[2017-10-29] MEDS: CLOPIDOGREL 75 MG TABLET PO SCH (20:17)
[2017-10-29] MEDS: MIRTAZAPINE 30 MG TABLET PO SCH (20:18)
[2017-10-29] MEDS: LISINOPRIL 2.5 MG TABLET PO SCH (20:18)
[2017-10-29] MEDS: OLANZapine 2.5 MG TABLET PO SCH (20:18)
[2017-10-29] MEDS: ROSUVASTATIN 20 MG TABLET PO SCH (20:19)
[2017-10-29] MEDS: TIOTROPIUM 18mcg/cap HANDIHALER ORAL INH SCH (20:57)
[2017-10-30] MEDS: LEVOTHYROXINE 75 MCG TABLET PO SCH ×2 (04:24→07:03)
[2017-10-30] MEDS: PANTOPRAZOLE 40 MG TABLET PO SCH (07:03)
[2017-10-30] MEDS: CARVEDILOL 6.25 MG TABLET PO SCH ×2 (08:06→17:52)
[2017-10-30] MEDS: Venlafaxine XR 37.5 MG CAPSULE (24hr) PO SCH (08:08)
[2017-10-30] MEDS: ASPIRIN *EC* 81 MG TABLET PO SCH (08:08)
[2017-10-30] MEDS: BUSPIRONE 10 MG TABLET PO SCH ×2 (08:09→21:05)
[2017-10-30] MEDS: CALCIUM CARBONATE 600 MG TABLET PO SCH (08:09)
[2017-10-30] MEDS: FLUDROCORTISONE 0.1 MG TABLET PO SCH (08:10)
[2017-10-30] MEDS: ENOXAPARIN 40 MG/0.4 ML INJECTION SQ SCH (08:11)
[2017-10-30] MEDS: PredniSONE 5 MG TABLET PO SCH (08:11)
[2017-10-30] MEDS: FAMOTIDINE 40 MG/5 ML ORAL LIQUID PO SCH (08:12)
[2017-10-30] MEDS: FUROSEMIDE 20 MG TABLET PO SCH (08:12)
--- NOTE | 2017-10-30 10:29 | IRU Progress Note ---
- Subjective/Serverity of Illness Date: 10/30/17 Ms. Gore was seen in her room on the inpatient rehabilitation unit. She does complain of some excess dyspnea when in hot or humid environments such as her shower. She is not using oxygen at the present time. She denies any cough or sputum. Her canker sores are improved. She says that the Mycelex for she did not help a lot so she has stopped using that. With regard to her heart failure, she requested that we stop the Lasix. I told her we conserving monitor things at this time. Denies any chest pain. Her appetite is fair at this time. She is taking supplements. Brief therapy update: For occupational therapy toileting is with contact-guard assistance. Transfers are mostly with contact-guard assistance. Physical therapy supine to sit transfers are now modified independent. Wheelchair propulsion is now with maximum assistance I believe due to distance. She is tolerating therapy well otherwise. Update on medical issues were actively monitoring and managin. Systolic heart failure with EF 15%: As noted above, she requested that we stop the Lasix. She does report dyspnea with activity but I think this could well be COPD related because it is in a warm and humid environment. 2. ASPVD with concern for wound healing: Have discussed with the nurse. We will review this today. 3. COPD with recent exacerbation: She denies any cough or sputum at the present time. Her lungs sound clear with diminished breath sounds. 4. Chronic adrenal insufficiency secondary to chronic cortical steroid usage. Her sodium remained stable. 5. Acute blood loss anemia: Hemoglobin is stable at 10 g percent. No evidence of ongoing blood loss. Exam Vital Signs: Temperature 98.1 F 10/30/17 08:07 Pulse Rate 105 H 10/30/17 08:07 Respiratory Rate 18 10/30/17 08:07 Blood Pressure 126/78 10/30/17 08:07 Pulse Oximetry 95 10/30/17 08:07 Height/Weight/BMI: Height 1.57 m Weight 87.4 kg Body Mass Index 15.6 - Constitutional Present: well nourished, well developed, thin, cachectic, cooperative - Routine HEENT Exam Eye: Present: EOMI ENT: Present: mucous membranes moist, dentition normal Comments: Canker sores remain but perhaps are less prominent. - Routine Neck Exam Present: supple, full ROM - Routine Respiratory Exam Present: dyspnea, decreased breath sounds, CTA bilaterally, prolonged expiratory phase. Absent: rhonchi, wheezes, crackles - Routine Cardiovascular Exam Present: RRR, S1, S2. Absent: murmur, S3, S4 - Routine Abdominal Exam Present: soft, normoactive bowel sounds, non distended. Absent: tenderness Comments: Ostomy bag in place and functional. - Routine Extremities Exam Present: no edema, normal capillary refill. Absent: cyanosis, clubbing Comments: Exam of the left stump was undertaken with the nurse present. [facility] remove the dressing. There is a fairly large "blood blister" over the lateral portion of the distal wound. However there is no evidence of infection. There is some serous drainage. No purulence identified. - Routine Skin Exam Present: dry, warm, ecchymosis - Routine Neurological Exam Present: alert, oriented X3, CN II-XII intact. Absent: sensory deficit, motor deficit - Routine Psychiatric Exam Present: normal affect, cooperative. Absent: depressed (seems to be tolerating the venlafaxine at lower dose adequately.) Results IRU - Labs Labs: I reviewed labs and other notes as well. IRU A/P (1) Status post below knee amputation of left lower extremity Current visit: No Status: Acute Pain is adequately controlled. She is improving with therapy in general. Please see above discussion. We will review the wound today. (2) Arterial insufficiency of lower extremity Current visit: No Status: Chronic I inspected the wound involving the left stump. There is a fairly large "blood blister" with serous drainage only and no evidence of infection. Seems to be healing well otherwise. (3) Acute blood loss anemia Current visit: Yes Status: Acute Hemoglobin stable at 10 g percent without evidence for ongoing blood loss. (4) Chronic obstructive pulmonary disease Qualifiers: COPD type: emphysema Current visit: No Status: Chronic She denies any cough or sputum. She evidently does have significant underlying obstructive airways disease. She does have a worsening problem in hot humid environments such as a shower. However things appear to be stable at present. Oxygen requirements are stable. (5) Chronic systolic congestive heart failure Current visit: No Status: Chronic Does not have evidence of acute decompensation of her heart failure. However she did request that the Lasix be discontinued. We'll monitor this carefully. Her lungs sound clear with diminished breath sounds. (6) Rheumatoid arthritis Qualifiers: Rheumatoid arthritis location: multiple sites Rheumatoid factor presence: unspecified presence Qualified Code(s): M06.9 - Rheumatoid arthritis, unspecified Current visit: No Status: Chronic (7) Adrenal insufficiency Current visit: Yes Status: Chronic (8) Aphthous ulcer of mouth Current visit: Yes Status: Acute DVT Prophylaxis: SCD's, Lovenox Resuscitation Status: Do Not Resuscitate - Course Hospital Course: Ashish Macdonald MD: 10/25/17 11:20 Patient is cooperative with therapy. Dyspnea with activity as anticipated. Discolored nasal drainage but no fever so no antibiotic. Canker sores noted. 10/27/17 10:48 She is cooperative and progressing with therapy. Continues to have dyspnea with activity. No chest pain is reported and no cough. Continues to struggle with aphthous ulceration. 10/30/17 10:31 Continues to progress with therapy. At this ulceration perhaps improved. Currently no cough or sputum and lungs are clear with diminished breath sounds. - Interventions to Obtain Goals PT Treatment Plan: Balance/Proprioception, Functional Activities, Patient/ Family Education, Therapeutic Exercise OT Treatment Plan: ADL (Basic Care), Balance Training, IADL, Pt./Family Education, Ther. Exercise for ADL Goals Progress/Modifications: Time spent with patient and on floor reviewing data and documentin min Barriers to dismissal: endurance, dyspnea Medical decision-making: I reviewed her overall situation. She does have severe COPD as well as heart failure. She requested discontinuing the Lasix. Her lungs are clear with diminished breath sounds. It is safe to continue therapy. She is making progress. In addition, I inspected the wound today involving the left stump. There is a blood blister noted without evidence of infection. The wound itself appears to be viable.
[2017-10-30] MEDS: ALBUTEROL 2.5mg/3ml (0.083%) NEB AEROSOL SCH ×3 (10:48→20:22)
[2017-10-30] MEDS: BECLOMETHASONE 80 MCG ORAL INH SCH ×2 (10:49→20:21)
--- NOTE | 2017-10-30 11:58 | Progress Note ---
- Date 10/30/17 Subjective: Clarice is seen today in follow up this morning. Overall she is feeling better and her spirits seem improved. She is worried about her stump and requests to have ortho team see it today. She does not feel she needs the Lasix as she only takes it PRN at home. Objective Vital signs: Temperature 98.1 F 10/30/17 08:07 Pulse Rate 105 H 10/30/17 08:07 Respiratory Rate 14 10/30/17 10:55 Blood Pressure 126/78 10/30/17 08:07 Pulse Oximetry 95 10/30/17 08:07 Height/Weight/BMI: Height 1.57 m Weight 87.4 kg Body Mass Index 15.6 - Constitutional Present: no acute distress, well nourished, well developed - Routine HEENT Exam Eye: Present: EOMI ENT: Present: mucous membranes moist, dentition normal - Routine Respiratory Exam Present: diminished air movement (throughout bilaterally). Absent: wheezes - Routine Cardiovascular Exam Present: RRR, S1, S2. Absent: murmur - Routine Abdominal Exam Present: soft, normoactive bowel sounds, non distended. Absent: tenderness - Routine Extremities Exam Present: normal capillary refill Comments: Left stump with dressing intact. Reported blood blister distally - Routine Skin Exam Present: dry, warm - Routine Neurological Exam Present: alert, oriented X3, CN II-XII intact - Routine Lymphatic Exam Lymphatic: Absent: adenopathy - Routine Psychiatric Exam Present: normal affect Results - Labs CBC & Chem 7: 10/30/17 04:11 10/30/17 04:11 Assessment and Plan (1) Atherosclerosis of [place] artery of both lower extremities Current visit: No Status: Chronic (2) Atherosclerotic heart disease of [place] coronary artery without angina pectoris Current visit: No Status: Chronic (3) Status post below knee amputation of left lower extremity Current visit: No Status: Acute (4) Acute blood loss anemia Current visit: Yes Status: Acute Assessment and Plan: Acute Medical History S/P left BKA secondary to severe peripheral arterial disease and failed outpatient treatment of bilateral lower extremity wounds. - Dr. Collier, 10/20/2017. Post-op anemia requiring blood transfusion x 1 unit on 10/21/17 without reaction , acute. Thrombocytosis, acute. Thrush, present prior to admission secondary to recent treatment of COPD exacerbation with Augmentin, acute, improving. Chronic Medical History CAD with severe peripheral vascular disease. A-fib/PSVT. Hypertension. Hyperlipidemia. Systolic CHF - echocardiogram 04/2017 revealed EF 15%. TIA - 03/2017. PAD. Rheumatoid arthritis. COPD. Oxygen dependence - 2L at night and as needed with exertion during the day. BRANDO with home CPAP. Adrenal insufficiency secondary to chronic steroid use. Anxiety and depression - clinical at [place]. Hypothyroidism. Ileostomy secondary to prior bowel perforation. Bilateral lower extremity nonhealing wounds secondary to PAD. GERD. Urinary incontinence. Osteoarthritis. Plan - 10/30 Overall, patient is doing well is medically , and overall affect appears to be improved. Did ask orthopedic team if they would evaluate stump later today as patient has requested. Will discontinue Lasix and only utilize as needed. Ask nursing staff to maintain accurate, daily weights, last reported weight was an accurate. Continue with incentive spirometry and scheduled nebulizers and inhalers for chronic COPD management. Hyponatremia continues to be improved. Will discontinue fluid restriction and recheck sodium in several days [place] as needed for pain control. Overall, she is somewhat anxious to develop a ongoing discharge plan. Planning on team meeting today with Dr. Macdonald. - Physician Narrative Narrative: Date: 10/30/17 Time: 1153 Hospital Course Summary Disclaimer: The visit summary below is not to be considered part of the above Progress Note. Hospital Course: Acute Medical History S/P left BKA secondary to severe peripheral arterial disease and failed outpatient treatment of bilateral lower extremity wounds. - Dr. Collier, 10/20/2017. Post-op anemia requiring blood transfusion x 1 unit on 10/21/17 without reaction , acute. Thrombocytosis, acute. Thrush, present prior to admission secondary to recent treatment of COPD exacerbation with Augmentin, acute, improving. Chronic Medical History CAD with severe peripheral vascular disease. A-fib/PSVT. Hypertension. Hyperlipidemia. Systolic CHF - echocardiogram 04/2017 revealed EF 15%. TIA - 03/2017. PAD. Rheumatoid arthritis. COPD. Oxygen dependence - 2L at night and as needed with exertion during the day. BRANDO with home CPAP. Adrenal insufficiency secondary to chronic steroid use. Anxiety and depression - clinical at [place]. Hypothyroidism. Ileostomy secondary to prior bowel perforation. Bilateral lower extremity nonhealing wounds secondary to PAD. GERD. Urinary incontinence. Osteoarthritis. Plan - 10/25/17 (Admission) Agree with admission to IRU for continued intensive therapies for strengthening and improvement in functional abilities. Continue pain control per Dr. Macdonald and encourage participation in therapies. Provide safe and supportive environment. Dr. Collier to continue to follow and will provide recommendations regarding stump shrinking treatment in preparation for prostesis. Wound care consulted for treatment of right lower extremity non-healing wound present prior to admission as well as close clinical monitoring of surgical site. Post-op anemia noted during inpatient hospitalization requiring 1 unit PRBC on 10/21/17 without reaction. Hemoglobin remains stable - currently 10.9. Will continue to monitor periodically throughout admission. Continue home medications. Monitor blood pressure closely. Lovenox and SCDs for DVT prophylaxis. In light of history of COPD with recent exacerbation, encourage incentive spirometry. Patient completed course of Augmentin prior to admission resulting in thrush. Continue swizzle and clotrimazole troches. Monitor daily weights and I&O closely for signs of fluid overload given history of EF 15%. Patient follows with Dr. Arora, cardiology. Continue use of CPAP with 2L oxygen at night and supplemental oxygen as needed for dyspnea with exertion. Patient has history of anxiety and depression - currently tapering Effexor with intent to discontinue per doctor at [place]. Currently at Effexor 37.5mg and anticipate discontinuation on 11/01/17. Continue with Zyprexa and mirtazapine. Encourage oral intake. Patient was seen by dietary during acute hospitalization due to concerns of protein calorie malnutrition. Encourage Boost. May continue other home medications. Upon discharge, patient's care will be returned to her PCP, Dr. Shoemaker. Appreciate the opportunity to contribute to patient's care. Plan - 10/27/17 ([place]) Overall, patient is doing well is medically stable. Continue pain control per Dr. Macdonald and encourage participation in therapies. Continue to provide safe and supportive environment. Blood pressure stable. Continue to monitor closely. Lovenox and SCDs for DVT prophylaxis. Continue to encourage incentive spirometry for pulmonary toileting given history of COPD. Weight continues to trend up slowly. Continue to monitor closely. No signs of fluid overload on exam. History of EF 15%. Patient follows with Dr. Arora, cardiology. Continue use of CPAP with 2L oxygen at night and supplemental oxygen as needed for dyspnea with exertion. Patient has history of anxiety and depression - currently tapering Effexor with intent to discontinue per doctor at [place]. Currently at Effexor 37.5mg and anticipate discontinuation on 11/01/17. Continue with Zyprexa and mirtazapine. Encourage oral intake. Patient was seen by dietary during acute hospitalization due to concerns of protein calorie malnutrition. Encourage Boost. Plan - 10/30 Overall, patient is doing well is medically , and overall affect appears to be improved. Did ask orthopedic team if they would evaluate stump later today as patient has requested. Will discontinue Lasix and only utilize as needed. Ask nursing staff to maintain accurate, daily weights, last reported weight was an accurate. Continue with incentive spirometry and scheduled nebulizers and inhalers for chronic COPD management. Hyponatremia continues to be improved. Will discontinue fluid restriction and recheck sodium in several days [place] as needed for pain control. Overall, she is somewhat anxious to develop a ongoing discharge plan. Planning on team meeting today with Dr. Macdonald.
--- NOTE | 2017-10-30 14:10 | IRU Team Meeting ---
IRU Team Meeting - Nursing Bladder Management Level of Assist: Independent Bladder Frequency of Accidents: No accidents Number of Bladder Accidents: 1 Bowel Assistive Devices Utilized:: Colostomy Bowel Management Level of Assist: Independent Bowel Frequency of Accidents: No accidents Vital Signs: Vital Signs - 24 hr 10/29/17 16:00 10/29/17 20:00 10/29/17 21:00 Temperature 98.4 F 98.7 F Pulse Rate 106 H 96 Respiratory Rate 20 20 16 Blood Pressure 107/69 104/65 Pulse Oximetry 95 94 10/30/17 08:07 10/30/17 10:55 Temperature 98.1 F Pulse Rate 105 H Respiratory Rate 18 14 Blood Pressure 126/78 Pulse Oximetry 95 Current Medications: Acetaminophen (Tylenol) 1,000 mg PO Q6H PRN PRN Reason: Pain Last Admin: 10/27/17 21:35 Dose: 1,000 mg Hydrocodone Bitart/Acetaminophen ([place] 7.5/325) 1 - 2 tab PO Q6H PRN PRN Reason: Pain Al Hydroxide/Mg Hydroxide (Maalox Plus) 30 ml PO Q3H PRN PRN Reason: Indigestion Albuterol Sulfate (Proventil Neb (0.083%)) 2.5 mg AEROSOL RTQID [facility] Last Admin: 10/30/17 10:48 Dose: Not Given Albuterol Sulfate (Proventil Neb (0.083%)) 2.5 mg AEROSOL Q4H PRN Aspirin (Ecotrin) 81 mg PO DAILY [facility] Last Admin: 10/30/17 08:08 Dose: 81 mg Atropine Sulfate (Atropine) 0.5 mg IVP Q5M PRN PRN Reason: Bradycardia Beclomethasone Dipropionate (Qvar Inhaler) 1 puff ORAL INH BID [facility] Last Admin: 10/30/17 10:49 Dose: 1 puff Bisacodyl (Dulcolax) 5 - 10 mg PO DAILY PRN PRN Reason: Constipation Bisacodyl (Dulcolax) 10 mg RECTALLY DAILY PRN PRN Reason: Constipation Buspirone HCl (Buspar) 20 mg PO BID [facility] Last Admin: 10/30/17 08:09 Dose: 20 mg Calcium Carbonate (Caltrate) 1,200 mg PO DAILY [facility] Last Admin: 10/30/17 08:09 Dose: 1,200 mg Carvedilol (Coreg) 6.25 mg PO BIDWM [facility] Last Admin: 10/30/17 08:06 Dose: 6.25 mg Cholecalciferol (Vit. D-3) 2,000 unit PO DAILY [facility] Last Admin: 10/30/17 08:10 Dose: 2,000 unit Clopidogrel Bisulfate (Plavix) 75 mg PO HS [facility] Last Admin: 10/29/17 20:17 Dose: 75 mg Cyanocobalamin (Vit. B-12) 1,000 mcg IM Q30D [facility] Enoxaparin Sodium (Lovenox) 40 mg SQ DAILY [facility] Last Admin: 10/30/17 08:11 Dose: 40 mg Famotidine (Pepcid) 20 mg PO DAILY [facility] Last Admin: 10/30/17 08:12 Dose: 20 mg Fentanyl (Duragesic Patch) 12 mcg TD Q3D [facility] Last Admin: 10/27/17 21:42 Dose: 12 mcg Fentanyl Citrate (Duragesic Patch Removal) 1 removal TD Q3D [facility] Last Admin: 10/27/17 21:42 Dose: 1 removal Fludrocortisone Acetate (Florinef) 0.1 mg PO DAILY [facility] Last Admin: 10/30/17 08:10 Dose: 0.1 mg Levothyroxine Sodium (Synthroid) 75 mcg PO ACB [facility] Last Admin: 10/30/17 07:03 Dose: Not Given Lisinopril (Prinivil) 2.5 mg PO [facility] Last Admin: 10/29/17 20:18 Dose: 2.5 mg Lorazepam (Ativan) 0.5 - 1 mg PO Q4H PRN PRN Reason: Anxiety Lorazepam (Ativan Inj) 0.5 - 1 mg IVP Q4H PRN PRN Reason: Anxiety Magnesium Hydroxide (Mom) 30 ml PO DAILY PRN PRN Reason: Constipation Mirtazapine (Remeron) 30 mg PO [facility] Last Admin: 10/29/17 20:18 Dose: 30 mg Nitroglycerin (Nitrostat) 0.4 mg SL Q5MIN3 PRN PRN Reason: Angina Pom-Diclofenac (Sodium 100mg) 100 mg PO BID [facility] Last Admin: 10/30/17 08:15 Dose: 100 mg Olanzapine (Zyprexa) 2.5 mg PO [facility] Last Admin: 10/29/17 20:18 Dose: 2.5 mg Ondansetron HCl (Zofran) 4 mg IVP Q6H PRN PRN Reason: Nausea &/or vomiting Pantoprazole Sodium (Protonix Tab) 40 mg PO ACB [facility] Last Admin: 10/30/17 07:03 Dose: 40 mg Pharmacy Profile Note (Lidocaine/Maalox/Benadryl Soln) 5 ml PO Q4H PRN PRN Reason: Mouth pain Last Admin: 10/29/17 20:19 Dose: 5 ml Polyethyl Glycol/Propylene Glycol (Systane Eye Drops) 1 drop EACH EYE PRN PRN PRN Reason: Dry eyes Last Admin: 10/27/17 21:33 Dose: 1 drop Prednisone (Deltasone) 3 mg PO WB [facility] Last Admin: 10/30/17 08:07 Dose: 3 mg Prednisone (Deltasone) 5 mg PO WB [facility] Last Admin: 10/30/17 08:11 Dose: 5 mg Rosuvastatin Calcium (Crestor) 20 mg PO HS [facility] Last Admin: 10/29/17 20:19 Dose: 20 mg Sodium Chloride (Normal Saline) 500 ml IV PRN PRN Sodium Chloride (Iv Flush) 10 - 80 ml IV PRN PRN PRN Reason: Flushing Last Admin: 10/24/17 19:39 Dose: 10 ml Tiotropium [place] (Spiriva) 1 cap ORAL INH HS [facility] Last Admin: 10/29/17 20:57 Dose: 1 cap Triamcinolone Acetonide (Kenalog) 1 applic TOP BID PRN PRN Reason: prn Triamcinolone Acetonide (Kenalog 0.1% [place]) 1 applic DT PRN PRN Last Admin: 10/26/17 09:27 Dose: 1 applic Venlafaxine HCl (Effexor Xr) 37.5 mg PO WB [facility] Stop: 11/01/17 23:59 Last Admin: 10/30/17 08:08 Dose: 37.5 mg Current Medical Issues: COPD, hypoxemia, 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 Team meeting was held in the patient's room with the patient and the following family members present: Patient's sister Patient does experience some dyspnea with activity particularly in a humid environment. Oxygen levels look good during the daytime. She is on CPAP at night. Lasix has been discontinued. - Dietary Her intake has been 50-100% of her meals over the past 3 days. She is getting a regular diet plus supplements. She is tolerating this well. Her weight has been stable. - Physical Therapy Bed, Chair, Wheelchair Transfer Assist: Modified Independent Ambulation Ability: Patient Unsafe/Unable Wheelchair Propulsion Ability: Modified Independent Wheelchair Propulsion Distance: 160 Stair Climbing Ability: Patient Unsafe/Unable Car Transfer Ability: Stand By Assist/Supervision Comments: She has done well with therapy and has been most of her goals. 4 wheeled walker not recommended but front-wheeled walker recommended. She is cooperative. She will require home health to adjust to her home environment. - Occupational Therapy Eating Ability: Independent Grooming Ability: Modified Independent Bathing Ability: Stand By Assist/Supervision Upper Body Dressing Ability: Modified Independent Lower Body Dressing Ability: Stand By Assist/Supervision Tub Transfer Assist: Contact Guard Assistance Toileting Assist: Modified Independent Toilet Transfer Assist: Stand By Assist/Supervision Comments: Patient has progressed well with occupational therapy. She is able to perform stand pivot transfers for ADLs. Upper body dressing and grooming is with modified independent functioning. - Goals Physical Therapy Goals: 10/30/17 Goals: 1.) Maintain single leg stance for 5 seconds. 2.) Discharge Planning Occupational Therapy Goals: OT goals 10/27/17: 1.) LB dressing w/ mod I. - ongoing at supervision. 2.) Toileting w/ mod I. - ongoing at supervision. 3.) Light meal prep w/ mod I. - ongoing. OT goals 10/30/17: Continue with goals above. - Barriers to Discharge Barriers to Attaining Goals: Weakness, Pain Control, Medical Limitation - Care Plan Anticipated Length of Stay (days): 1 Anticipated DC Destination: Home, Self Care, Home Health Service I have led this team conference and agree with the plan.
--- NOTE | 2017-10-30 15:59 | Discharge Summary ---
Discharge Information Date of admission: 10/24/17 11:45 Anticipated date of discharge: 10/31/17 Attending Physician: Ashish Macdonald MD Primary care physician: Eula Shoemaker MD Consults: 10/24/17 11:56 Dietary Consult [CONS] Routine Comment: Reason For Exam: protein calorie malnutrition IRU Screening [Inpatient Rehab Screening] [CONS] Routine Physician Consult [CONS] Routine Consulting Provider: Shayy Salazar Reason For Exam: MEDICAL MANAGEMENT Ordering Provider has Notified Interactive Media Marketing Director: No Physician Consult [CONS] Routine Consulting Provider: Omar Collier Reason For Exam: Left BKA follow-up Ordering Provider has Notified Interactive Media Marketing Director: Yes W[facility] Consult [CONS] Routine Reason for consultation: RIGHT GREAT TOE AMPUTATION SITE WOUND [facility] Consult [CONS] Routine Reason for consultation: WOUND TO LEFT FOOT W/ WOUND VAC AND RIGHT GREAT TOE AMPUTEE [facility] Consult [CONS] Routine Reason for consultation: WOUND TO RIGHT GREAT TOE - Discharge Diagnosis (1) Status post below knee amputation of left lower extremity Status: Acute (2) Arterial insufficiency of lower extremity Status: Chronic (3) Acute blood loss anemia Status: Acute (4) Chronic obstructive pulmonary disease Status: Chronic (5) Chronic systolic congestive heart failure Status: Chronic (6) Rheumatoid arthritis Status: Chronic (7) Adrenal insufficiency Status: Chronic (8) Aphthous ulcer of mouth Status: Acute 1. Status post left [id number] amputation 2. Atherosclerotic peripheral vascular disease 3. Congestive cardiomyopathy with ejection fraction 15% 4. Chronic obstructive pulmonary disease 5. Aphthous ulcerations of mouth 6. Rheumatoid arthritis 7. Acute blood loss anemia - Laboratory Labs: 10/30/17 04:11 10/30/17 04:11 History of Present Illness HPI: 10/30/17 15:54 Ms. Gore is a 67-year-old female with a nonhealing wound to the left lower extremity. She was admitted by Dr. Arora who performed an angiogram on the lower extremities demonstrates severe bilateral disease. This was not felt to be amenable to percutaneous intervention or bypass. She was seen in concert by Dr. Collier who performed a left below-knee amputation on 10/20/2017. The patient also has history of severe ingestive cardiomyopathy, currently compensated. Her ejection fraction is reportedly 15%. Also has history of severe COPD and adrenal insufficiency related to chronic corticosteroid usage. Hospital Course This is a general summary of the patient's hospital course. For more details refer to the complete medical record. Patient was admitted to acute care on 10/19/2017. She underwent angiography of the lower extremities. This demonstrated no amenable vessels to bypass or angioplasty. For this reason a left [id number]" was performed by Dr. Collier on 10/20/2017. She tolerated the procedure well. She required a multidisciplinary and intense program of rehabilitation in order to return her to her home and allow her to be relatively independent. In addition she required medical supervision in view of her COPD, hypoxemia, acute blood loss anemia, and renal insufficiency and known congestive cardiomyopathy with ejection fraction of 15%. She was seen by occupational therapy. Eating was initially standby assistance and ultimately independent level. Grooming was initially minimum assistance and ultimately modified independent. Bathing ability was initially minimum assistance and ultimately standby assistance. Upper body dressing was initially standby assistance and ultimately modified independent. Lower body dressing was initially minimum assistance and ultimately standby assistance. Toileting assistance was initially standby level and ultimately modified independent. Toilet transfer assistance was initially minimum assistance and ultimately standby assistance. Bed/chair/wheelchair transfers were initially standby assistance and ultimately contact-guard assistance. Physical therapy saw the patient. Bed/chair/wheelchair transfers were initially standby assistance and ultimately modified independent level. Toileting assistance was initially moderate assistance and ultimately modified independent level. Toilet transfer assistance was initially independent level and ultimately standby assistance. She was able to self propel in a wheelchair 160 feet at modified independent level. It is recommended the patient use a front-wheeled walker for stabilization with standing at the sink etc. and not use a 4 wheeled walker. Her appetite initially was poor but improved with time. She did express some degree of dyspnea with activity particularly in a hot humid environment such as her shower. The left distal wound was inspected. There is some area of ecchymosis noted but no evidence of breakdown and no evidence of non-viability. She was also followed by wound therapy. She was felt to be stable to return to her home with home health on 10/31/2017. We did remove the fentanyl patch on the day prior to dismissal. The patient states that she does have her own Lortab at home and additional prescription for pain medication was not given at this time. Home health will monitor the wound as well as provide physical therapy and occupational therapy to aid in her transition to her home environment. Hospital course: Acute Medical History S/P left BKA secondary to severe peripheral arterial disease and failed outpatient treatment of bilateral lower extremity wounds. - Dr. Collier, 10/20/2017. Post-op anemia requiring blood transfusion x 1 unit on 10/21/17 without reaction , acute. Thrombocytosis, acute. Thrush, present prior to admission secondary to recent treatment of COPD exacerbation with Augmentin, acute, improving. Chronic Medical History CAD with severe peripheral vascular disease. A-fib/PSVT. Hypertension. Hyperlipidemia. Systolic CHF - echocardiogram 04/2017 revealed EF 15%. TIA - 03/2017. PAD. Rheumatoid arthritis. COPD. Oxygen dependence - 2L at night and as needed with exertion during the day. BRANDO with home CPAP. Adrenal insufficiency secondary to chronic steroid use. Anxiety and depression - clinical at [place]. Hypothyroidism. Ileostomy secondary to prior bowel perforation. Bilateral lower extremity nonhealing wounds secondary to PAD. GERD. Urinary incontinence. Osteoarthritis. Plan - 10/25/17 (Admission) Agree with admission to IRU for continued intensive therapies for strengthening and improvement in functional abilities. Continue pain control per Dr. Macdonald and encourage participation in therapies. Provide safe and supportive environment. Dr. Collier to continue to follow and will provide recommendations regarding stump shrinking treatment in preparation for prostesis. Wound care consulted for treatment of right lower extremity non-healing wound present prior to admission as well as close clinical monitoring of surgical site. Post-op anemia noted during inpatient hospitalization requiring 1 unit PRBC on 10/21/17 without reaction. Hemoglobin remains stable - currently 10.9. Will continue to monitor periodically throughout admission. Continue home medications. Monitor blood pressure closely. Lovenox and SCDs for DVT prophylaxis. In light of history of COPD with recent exacerbation, encourage incentive spirometry. Patient completed course of Augmentin prior to admission resulting in thrush. Continue swizzle and clotrimazole troches. Monitor daily weights and I&O closely for signs of fluid overload given history of EF 15%. Patient follows with Dr. Arora, cardiology. Continue use of CPAP with 2L oxygen at night and supplemental oxygen as needed for dyspnea with exertion. Patient has history of anxiety and depression - currently tapering Effexor with intent to discontinue per doctor at [place]. Currently at Effexor 37.5mg and anticipate discontinuation on 11/01/17. Continue with Zyprexa and mirtazapine. Encourage oral intake. Patient was seen by dietary during acute hospitalization due to concerns of protein calorie malnutrition. Encourage Boost. May continue other home medications. Upon discharge, patient's care will be returned to her PCP, Dr. Shoemaker. Appreciate the opportunity to contribute to patient's care. Plan - 10/27/17 ([place]) Overall, patient is doing well is medically stable. Continue pain control per Dr. Macdonald and encourage participation in therapies. Continue to provide safe and supportive environment. Blood pressure stable. Continue to monitor closely. Lovenox and SCDs for DVT prophylaxis. Continue to encourage incentive spirometry for pulmonary toileting given history of COPD. Weight continues to trend up slowly. Continue to monitor closely. No signs of fluid overload on exam. History of EF 15%. Patient follows with Dr. Arora, cardiology. Continue use of CPAP with 2L oxygen at night and supplemental oxygen as needed for dyspnea with exertion. Patient has history of anxiety and depression - currently tapering Effexor with intent to discontinue per doctor at [place]. Currently at Effexor 37.5mg and anticipate discontinuation on 11/01/17. Continue with Zyprexa and mirtazapine. Encourage oral intake. Patient was seen by dietary during acute hospitalization due to concerns of protein calorie malnutrition. Encourage Boost. Plan - 10/30 Overall, patient is doing well is medically , and overall affect appears to be improved. Did ask orthopedic team if they would evaluate stump later today as patient has requested. Will discontinue Lasix and only utilize as needed. Ask nursing staff to maintain accurate, daily weights, last reported weight was an accurate. Continue with incentive spirometry and scheduled nebulizers and inhalers for chronic COPD management. Hyponatremia continues to be improved. Will discontinue fluid restriction and recheck sodium in several days [place] as needed for pain control. Overall, she is somewhat anxious to develop a ongoing discharge plan. Planning on team meeting today with Dr. Macdonald. Time spent with patient: 25 - 35 minutes Discharge Plan - Med Rec/Dispo Referrals/Follow Up: Omar Collier MD [Physician] - (Dr. Abdifatah Collier on 12/11/17 at 9:30 am for Post-Op follow-up. [facility] [place] [place] [address] [place] [address] [place] [id number] ) Eula Shoemaker MD [Family Provider] - (Dr. John Shoemaker on 11/10/17 at 3:50 pm for Hosp. follow-up. [facility] [address] [place] [address] ) Prescriptions: New Venlafaxine XR [Effexor Xr] 37.5 mg PO WB #30 cap Hydrocodone/APAP 7.5/325 [[place] 7.5/325] 1 - 2 tab PO Q6H PRN tab PRN Reason: Pain Continue Acetaminophen 1,000 mg PO Q6H PRN #0 PRN Reason: PAIN Buspirone HCl 20 mg PO BID #0 Rosuvastatin Calcium [Crestor] 20 mg PO HS #0 Clopidogrel Bisulfate [Plavix] 75 mg PO HS #0 Nitroglycerin [Nitrostat] 0.4 mg SL Q5MIN3 PRN #0 PRN Reason: CHEST PAIN Levothyroxine Sodium 75 mcg PO ACB #0 tab Beclomethasone Dipropionate [Qvar 80] 1 puff INH RTBID Cyanocobalamin (B-12) [Vit. B-12] 1,000 mcg IM 1 MONTH Albuterol HFA Inhaler [Ventolin Hfa 90 mcg/actuation] 1 - 2 puff INH Q4H PRN PRN Reason: Prn Orders Carvedilol 6.25 mg PO BIDWM Mirtazapine [Remeron] 30 mg PO HS Triamcinolone 0.1% Cream 15 G [Kenalog] 1 applicatio TOP BID PRN PRN Reason: prn Lansoprazole 1 cap PO ACB PredniSONE [Deltasone] 3 mg PO WB tab Famotidine Oral Liq [Pepcid] 20 mg PO DAILY PredniSONE [Deltasone] 5 mg PO WB Tiotropium Handihaler [Spiriva] 1 cap IH HS #0 Calcium Carbonate [Calcium] 1,200 mg PO DAILY #0 Diclofenac Sodium [Diclofenac Sodium ER] 100 mg PO BID #0 Aspirin [Aspirin EC] 81 mg PO DAILY #0 Lisinopril 2.5 mg PO HS #0 Fludrocortisone [Florinef] 0.1 mg PO DAILY #0 tab OLANZapine [Zyprexa] 2.5 mg PO HS Cholecalciferol (Vitamin D3) [Vitamin D3] 1 cap PO DAILY Gabapentin [Neurontin] 100 mg PO TID Changed Furosemide [Lasix] 20 mg PO DAILY PRN #0 PRN Reason: Edema Discontinued Swizzle Solution 5Ml [Lidocaine/Maalox/Benadryl Soln] 5 ml PO Q4H PRN PRN Reason: Mouth Pain Hydrocodone/APAP 7.5/325 [[place] 7.5/325] 1 - 2 tab PO Q6H PRN PRN Reason: Pain FentaNYL PATCH REMOVAL [Duragesic Patch Removal] 1 removal TD Q3D patch LORazepam [Ativan] 0.5 - 1 mg PO Q4H PRN PRN Reason: Anxiety Mom 30 ml PO DAILY PRN PRN Reason: Constipation Venlafaxine [Effexor] 75 mg PO WB Lidocaine/Prilocaine [EMLA 5gm] 1 applicatio TOP PRN Fentanyl [Duragesic] 12 mcg TD Q3D patch.[id number] Enoxaparin [Lovenox] 40 mg SQ DAILY - Disposition Discharged Home, Self-Care
--- NOTE | 2017-10-30 16:02 | Letter to Referring Physician ---
Dear Dr. Eula Shoemaker, This is a brief note to bring you up-to-date on the status of Clarice Gore and their stay on the acute inpatient rehabilitation unit at [facility]. As you are likely aware, this patient was admitted to the [facility] hospital on 10/19/17 for left leg angiogram due to non-healing wound left leg. The patient underwent left BKA by Dr. Collier on 10/20/17 while on the acute level and admitted to inpatient rehabilitation unit at [facility] on October 24, 2017. While on inpatient rehabilitation, this patient was seen by occupational therapy and physical therapy and improved overall in their functional ability. We also monitored and managed the patient's COPD, hypoxemia and CHF while on Acute Rehab. Please see a copy of the history and physical examination as well as discharge summary enclosed with this letter for further details. She was on a fentanyl patch for pain relief. This was discontinued on the day prior to dismissal. She states that she has some Lortab at home and therefore we did not provide additional prescription for [place] at this time. Her left stump wound in general looks good. There is a "blood blister" laterally but the entire wound looks viable and there is no evidence of infection. She will be following up with you as well as Dr. Collier. Thank you for allowing us to be involved in this nice patient's care. Please contact me directly should you have any questions regarding their stay on the inpatient rehabilitation unit. Sincerely, Ashish Macdonald M.D.
[2017-10-30] MEDS: TIOTROPIUM 18mcg/cap HANDIHALER ORAL INH SCH (20:21)
[2017-10-30 20:50] VITALS: O2SAT 95
[2017-10-30] MEDS: OLANZapine 2.5 MG TABLET PO SCH (21:06)
[2017-10-30] MEDS: LISINOPRIL 2.5 MG TABLET PO SCH (21:06)
[2017-10-30] MEDS: MIRTAZAPINE 30 MG TABLET PO SCH (21:06)
[2017-10-30] MEDS: CLOPIDOGREL 75 MG TABLET PO SCH (21:06)
[2017-10-30] MEDS: ROSUVASTATIN 20 MG TABLET PO SCH (21:07)
[2017-10-31] MEDS: LEVOTHYROXINE 75 MCG TABLET PO SCH (06:16)
[2017-10-31] MEDS: PANTOPRAZOLE 40 MG TABLET PO SCH (06:16)
[2017-10-31] MEDS: ALBUTEROL 2.5mg/3ml (0.083%) NEB AEROSOL SCH ×2 (06:49→10:00)
[2017-10-31 08:00] VITALS: BP 131/83; PULSE 106; TEMP 98.2
[2017-10-31] MEDS: Venlafaxine XR 37.5 MG CAPSULE (24hr) PO SCH (08:28)
[2017-10-31] MEDS: FLUDROCORTISONE 0.1 MG TABLET PO SCH (08:28)
[2017-10-31] MEDS: BUSPIRONE 10 MG TABLET PO SCH (08:28)
[2017-10-31] MEDS: CARVEDILOL 6.25 MG TABLET PO SCH (08:29)
[2017-10-31] MEDS: ASPIRIN *EC* 81 MG TABLET PO SCH (08:29)
[2017-10-31] MEDS: PredniSONE 5 MG TABLET PO SCH (08:29)
[2017-10-31] MEDS: FAMOTIDINE 40 MG/5 ML ORAL LIQUID PO SCH (08:30)
[2017-10-31] MEDS: CALCIUM CARBONATE 600 MG TABLET PO SCH (08:35)
--- NOTE | 2017-10-31 09:37 | Progress Note ---
- Date 10/31/17 Subjective: Patient seen this morning in her room. Overall she reports she is doing well. She is happy she gets to go home today. She has no concerns at this time. Objective Vital signs: Temperature 98.2 F 10/31/17 07:59 Pulse Rate 106 H 10/31/17 07:59 Respiratory Rate 14 10/31/17 07:59 Blood Pressure 131/83 10/31/17 07:59 Pulse Oximetry 95 10/31/17 07:59 Height/Weight/BMI: Height 1.57 m Weight 40.3 kg Body Mass Index 15.6 - Constitutional Present: no acute distress, thin - Routine Respiratory Exam Present: CTA bilaterally. Absent: wheezes - Routine Cardiovascular Exam Present: RRR. Absent: murmur - Routine Extremities Exam Present: no edema - Routine Skin Exam Present: dry, warm - Routine Neurological Exam Present: alert, oriented X3 - Routine Lymphatic Exam Lymphatic: Absent: adenopathy - Routine Psychiatric Exam Present: normal affect, cooperative Results - Labs CBC & Chem 7: 10/30/17 04:11 10/30/17 04:11 Assessment and Plan (1) Atherosclerosis of [place] artery of both lower extremities Current visit: No Status: Chronic (2) Atherosclerotic heart disease of [place] coronary artery without angina pectoris Current visit: No Status: Chronic (3) Status post below knee amputation of left lower extremity Current visit: Yes Status: Acute (4) Acute blood loss anemia Current visit: No Status: Acute Assessment and Plan: Acute Medical History S/P left BKA secondary to severe peripheral arterial disease and failed outpatient treatment of bilateral lower extremity wounds. - Dr. Collier, 10/20/2017. Post-op anemia requiring blood transfusion x 1 unit on 10/21/17 without reaction , acute. Thrombocytosis, acute. Thrush, present prior to admission secondary to recent treatment of COPD exacerbation with Augmentin, acute, improving. Chronic Medical History CAD with severe peripheral vascular disease. A-fib/PSVT. Hypertension. Hyperlipidemia. Systolic CHF - echocardiogram 04/2017 revealed EF 15%. TIA - 03/2017. PAD. Rheumatoid arthritis. COPD. Oxygen dependence - 2L at night and as needed with exertion during the day. BRANDO with home CPAP. Adrenal insufficiency secondary to chronic steroid use. Anxiety and depression - clinical at [place]. Hypothyroidism. Ileostomy secondary to prior bowel perforation. Bilateral lower extremity nonhealing wounds secondary to PAD. GERD. Urinary incontinence. Osteoarthritis. Plan Overall, patient is doing well is medically. She'll be going home with home health. See discharge plan for med reconciliation and further instructions. - Physician Narrative Narrative: Date: 10/31/17 Time: 0933 Hospital Course Summary Disclaimer: The visit summary below is not to be considered part of the above Progress Note. Hospital Course: Acute Medical History S/P left BKA secondary to severe peripheral arterial disease and failed outpatient treatment of bilateral lower extremity wounds. - Dr. Collier, 10/20/2017. Post-op anemia requiring blood transfusion x 1 unit on 10/21/17 without reaction , acute. Thrombocytosis, acute. Thrush, present prior to admission secondary to recent treatment of COPD exacerbation with Augmentin, acute, improving. Chronic Medical History CAD with severe peripheral vascular disease. A-fib/PSVT. Hypertension. Hyperlipidemia. Systolic CHF - echocardiogram 04/2017 revealed EF 15%. TIA - 03/2017. PAD. Rheumatoid arthritis. COPD. Oxygen dependence - 2L at night and as needed with exertion during the day. BRANDO with home CPAP. Adrenal insufficiency secondary to chronic steroid use. Anxiety and depression - clinical at [place]. Hypothyroidism. Ileostomy secondary to prior bowel perforation. Bilateral lower extremity nonhealing wounds secondary to PAD. GERD. Urinary incontinence. Osteoarthritis. Plan - 10/25/17 (Admission) Agree with admission to IRU for continued intensive therapies for strengthening and improvement in functional abilities. Continue pain control per Dr. Macdonald and encourage participation in therapies. Provide safe and supportive environment. Dr. Collier to continue to follow and will provide recommendations regarding stump shrinking treatment in preparation for prostesis. Wound care consulted for treatment of right lower extremity non-healing wound present prior to admission as well as close clinical monitoring of surgical site. Post-op anemia noted during inpatient hospitalization requiring 1 unit PRBC on 10/21/17 without reaction. Hemoglobin remains stable - currently 10.9. Will continue to monitor periodically throughout admission. Continue home medications. Monitor blood pressure closely. Lovenox and SCDs for DVT prophylaxis. In light of history of COPD with recent exacerbation, encourage incentive spirometry. Patient completed course of Augmentin prior to admission resulting in thrush. Continue swizzle and clotrimazole troches. Monitor daily weights and I&O closely for signs of fluid overload given history of EF 15%. Patient follows with Dr. Arora, cardiology. Continue use of CPAP with 2L oxygen at night and supplemental oxygen as needed for dyspnea with exertion. Patient has history of anxiety and depression - currently tapering Effexor with intent to discontinue per doctor at [place]. Currently at Effexor 37.5mg and anticipate discontinuation on 11/01/17. Continue with Zyprexa and mirtazapine. Encourage oral intake. Patient was seen by dietary during acute hospitalization due to concerns of protein calorie malnutrition. Encourage Boost. May continue other home medications. Upon discharge, patient's care will be returned to her PCP, Dr. Shoemaker. Appreciate the opportunity to contribute to patient's care. Plan - 10/27/17 ([place]) Overall, patient is doing well is medically stable. Continue pain control per Dr. Macdonald and encourage participation in therapies. Continue to provide safe and supportive environment. Blood pressure stable. Continue to monitor closely. Lovenox and SCDs for DVT prophylaxis. Continue to encourage incentive spirometry for pulmonary toileting given history of COPD. Weight continues to trend up slowly. Continue to monitor closely. No signs of fluid overload on exam. History of EF 15%. Patient follows with Dr. Arora, cardiology. Continue use of CPAP with 2L oxygen at night and supplemental oxygen as needed for dyspnea with exertion. Patient has history of anxiety and depression - currently tapering Effexor with intent to discontinue per doctor at [place]. Currently at Effexor 37.5mg and anticipate discontinuation on 11/01/17. Continue with Zyprexa and mirtazapine. Encourage oral intake. Patient was seen by dietary during acute hospitalization due to concerns of protein calorie malnutrition. Encourage Boost. Plan - 10/30 Overall, patient is doing well is medically , and overall affect appears to be improved. Did ask orthopedic team if they would evaluate stump later today as patient has requested. Will discontinue Lasix and only utilize as needed. Ask nursing staff to maintain accurate, daily weights, last reported weight was an accurate. Continue with incentive spirometry and scheduled nebulizers and inhalers for chronic COPD management. Hyponatremia continues to be improved. Will discontinue fluid restriction and recheck sodium in several days [place] as needed for pain control. Overall, she is somewhat anxious to develop a ongoing discharge plan. Planning on team meeting today with Dr. Macdonald.
[2017-10-31] MEDS: BECLOMETHASONE 80 MCG ORAL INH SCH (09:38)
[2017-10-31 09:40] VITALS: RESP 16
[2017-10-31] MEDS: ENOXAPARIN 40 MG/0.4 ML INJECTION SQ SCH (09:56)
--- NOTE | 2017-10-31 10:40 | IRU Progress Note ---
- Subjective/Serverity of Illness Date: 10/31/17 Clarice is doing extremely well. She states that she does not have significant worries about going home. Pain management was discussed. She agreed to stop the fentanyl patch and she will use as needed Lortab which aortic has at home. No new prescription will be given. There is no evidence of infection. Denies any chest pain. Does have chronic dyspnea with activity but no cough and no sputum. Exam Vital Signs: Temperature 98.2 F 10/31/17 07:59 Pulse Rate 106 H 10/31/17 07:59 Respiratory Rate 16 10/31/17 09:38 Blood Pressure 131/83 10/31/17 07:59 Pulse Oximetry 95 10/31/17 07:59 Height/Weight/BMI: Height 1.57 m Weight 38.7 kg Body Mass Index 15.6 - Constitutional Present: no acute distress, thin, cachectic - Routine HEENT Exam Head: Present: normocephalic Eye: Present: EOMI ENT: Present: mucous membranes moist, dentition normal - Routine Neck Exam Present: supple, full ROM - Routine Respiratory Exam Present: dyspnea, decreased breath sounds, prolonged expiratory phase. Absent: respiratory distress, wheezes, crackles - Routine Cardiovascular Exam Present: RRR, S1, S2. Absent: murmur, S3, S4 - Routine Abdominal Exam Present: soft, normoactive bowel sounds, non distended. Absent: tenderness - Routine Extremities Exam Present: no edema Comments: Inspected wound at left stump yesterday with previous description noted. No evidence of infection or inflammation. IRU A/P (1) Status post below knee amputation of left lower extremity Current visit: Yes Status: Acute Patient is stable for dismissal the present time. Home health is arranged. (2) Arterial insufficiency of lower extremity Current visit: No Status: Chronic (3) Acute blood loss anemia Current visit: No Status: Acute (4) Chronic obstructive pulmonary disease Qualifiers: COPD type: emphysema Current visit: No Status: Chronic (5) Chronic systolic congestive heart failure Current visit: No Status: Chronic (6) Rheumatoid arthritis Qualifiers: Rheumatoid arthritis location: multiple sites Rheumatoid factor presence: unspecified presence Qualified Code(s): M06.9 - Rheumatoid arthritis, unspecified Current visit: No Status: Chronic (7) Adrenal insufficiency Current visit: Yes Status: Chronic (8) Aphthous ulcer of mouth Current visit: Yes Status: Acute DVT Prophylaxis: SCD's, Lovenox Resuscitation Status: Do Not Resuscitate - Course Hospital Course: Ashish Macdonald MD: 10/25/17 11:20 Patient is cooperative with therapy. Dyspnea with activity as anticipated. Discolored nasal drainage but no fever so no antibiotic. Canker sores noted. 10/27/17 10:48 She is cooperative and progressing with therapy. Continues to have dyspnea with activity. No chest pain is reported and no cough. Continues to struggle with aphthous ulceration. 10/30/17 10:31 Continues to progress with therapy. At this ulceration perhaps improved. Currently no cough or sputum and lungs are clear with diminished breath sounds. 10/31/17 10:39 Questions were addressed. She has Lortab at home and does not require additional pain medication at present. - Interventions to Obtain Goals PT Treatment Plan: Balance/Proprioception, Functional Activities, Patient/ Family Education, Therapeutic Exercise OT Treatment Plan: ADL (Basic Care), Balance Training, IADL, Pt./Family Education, Ther. Exercise for ADL
[2017-11-19] MEDS ORDERED: CYANOCOBALAMIN (B-12) 1,000mcg/ml INJECTION IM SCH (08:00)
== END 2017-10-31 14:58 | disposition home health service (06) | DRG 300 ==
PROVIDERS: ADMIT Internal Medicine; ATTEND Internal Medicine

== ENCOUNTER 2017-11-01 14:43 | Inpatient (IN) ==
[2017-11-01] MEDS ORDERED: LIDOCAINE 1% (10mg/ml) 2mL INJ PF SDV ID ONE (15:32)
[2017-11-01] MEDS ORDERED: ACETAMINOPHEN 500 MG TABLET PO PRN (15:37)
[2017-11-01] MEDS ORDERED: NITROGLYCERIN 0.4 MG SUBLINGUAL TABLET SL PRN (15:37)
[2017-11-01] MEDS ORDERED: ALBUTEROL 2.5mg/3ml (0.083%) NEB AEROSOL PRN (15:37)
[2017-11-01] MEDS ORDERED: VANCOMYCIN - PHARMACY CONSULT MC ONE (15:40)
--- NOTE | 2017-11-01 16:28 | Pharmacy Consult-Antibiotics ---
Pharmacy Consult-Vancomycin - Laboratory Information WBC 8.4 T/MM3 (4.5-11.0) 11/01/17 15:54 - Consult Information Consult noted for vancomycin therapy for Ms Gore by [facility]. She is 67 years old and weighs 34.6kg. Her renal function is good. Will begin with vancomycin 1 gram IV q12h and will check a trough after the third dose due to a decreased volume of distribution for this patient. Will continue to monitor and adjust doses accordingly. Thank you.
[2017-11-01] MEDS: HYDROCODONE/APAP 7.5 MG/325 MG TABLET PO PRN (16:36)
[2017-11-01] MEDS ORDERED: CARVEDILOL 6.25 MG TABLET PO SCH (17:30)
[2017-11-01] MEDS: NS 1,000 ML IV SCH (18:04)
[2017-11-01] MEDS: BECLOMETHASONE 80 MCG ORAL INH SCH (19:00)
[2017-11-01] MEDS: FLUDROCORTISONE 0.1 MG TABLET PO SCH (20:38)
[2017-11-01] MEDS: DICLOFENAC 100 MG PO SCH (20:39)
[2017-11-01] MEDS: BUSPIRONE 10 MG TABLET PO SCH (20:41)
[2017-11-01] MEDS: ROSUVASTATIN 20 MG TABLET PO SCH (20:42)
[2017-11-01] MEDS: OLANZapine 2.5 MG TABLET PO SCH (20:42)
[2017-11-01] MEDS: MIRTAZAPINE 30 MG TABLET PO SCH (20:43)
[2017-11-01] MEDS: CLOPIDOGREL 75 MG TABLET PO SCH (20:43)
--- NOTE | 2017-11-01 20:54 | Orthopedic History & Physical ---
Orthopedic HPI - HPI Comments Clarice was discharged from IRU yesterday, she is status post left below the knee amputation. She fell last night hitting her left stump against her wheelchair. She complains only of left stump pain. She had bloody drainage from the wound over night. [facility] Patient Stated Medical History Transient Ischemic Attacks ( Yes: MARCH 2017 TIA) Other HEENT Yes: WEARS GLASSES Angina Yes: HX Cardiac Arrhythmia Yes: at. fib./ tachycardia Congestive Heart Failure Yes: EF documented as 20-25% Coronary Artery Disease Yes Hypertension Yes Myocardial Infarction Yes: EF 20%, dec 2015 Asthma Yes Chronic Obstructive Pulmonary Yes Disease (COPD) Sleep Apnea Yes: cpap Other Respiratory Yes Gastroesophageal Reflux Yes Disease Hiatal Hernia Yes Hx Incontinence Yes Hx Renal Disease No Anemia Yes Clotting Problems Yes: takes plavix Osteoarthritis Yes: osteoporosis Other Musculoskeletal Yes: RA MRSA Yes Blood Transfusions Yes: NO REACTION Depression Yes Ovarian Cysts Yes Post Menopausal Yes Surgical History: Left inguinal hernia and mid abdominal incisional hernia repair (2007). Repeat left inguinal hernia repair (2008). Right hernia repair (06/2011). Tubal ligation (1980). Right oophorectomy and lysis of adhesions (2001). Sinus surgery (01/1999). Right knee synovectomy (02/2003). Small bowel perforation with right hemicolectomy and ileostomy placement 01/23. Bilateral bunionectomies. Right foot joint fusion (1989). Left ankle fusion (07/2000). Bilateral knee replacements (left 2006, right 2004). Left hip repair. Right wrist fusion (09/2002). Right shoulder surgery. Cervical spine fusion C3, 4, 5 fusion (Isaac). Carpal tunnel surgery (left 2005, right 2003). Right great toe amputation secondary to osteomyelitis (Dr. Collier 08/2017). Left BKA ( Dr. Collier 10/20/17). Cardiac stent 1 (Dr. Arora 2014). Colonoscopy 04/2011 ( diverticulitis), EGD 07/28 (essentially normal) - Social History Smoking status: Former smoker Review of Systems - Constitutional Constitutional: Absent: chills, fever(s), night sweats - Cardiovascular Cardiovascular: Absent: chest pain, palpitations - Respiratory Respiratory: Absent: cough, dyspnea - Gastrointestinal Gastrointestinal: Absent: abdominal pain, nausea, vomiting - Genitourinary Genitourinary Female: Absent: dysuria - Musculoskeletal Musculoskeletal: Present: as per HPI - Integumentary/Breasts Integumentary: Absent: lesions, rash - Neurological Neurological: Absent: numbness, tingling Medications Home Medications Medication Instructions Recorded Confirmed Type Tiotropium Handihaler [Spiriva] 1 cap IH HS #0 07/07/10 11/01/17 History Acetaminophen 1,000 mg PO Q6H PRN #0 01/05/16 11/01/17 History Buspirone HCl 20 mg PO BID #0 01/05/16 11/01/17 History Calcium Carbonate [Calcium] 1,200 mg PO DAILY #0 07/28/16 11/01/17 History Rosuvastatin Calcium [Crestor] 20 mg PO HS #0 07/28/16 11/01/17 History Clopidogrel Bisulfate [Plavix] 75 mg PO HS #0 08/24/16 11/01/17 History Diclofenac Sodium [Diclofenac 100 mg PO BID #0 08/24/16 11/01/17 History Sodium ER] Aspirin [Aspirin EC] 81 mg PO DAILY #0 10/09/16 11/01/17 History Lisinopril 2.5 mg PO HS #0 10/09/16 11/01/17 History Nitroglycerin [Nitrostat] 0.4 mg SL Q5MIN3 PRN #0 10/09/16 11/01/17 History Fludrocortisone [Florinef] 0.1 mg PO HS #0 tab 12/18/16 11/01/17 History Levothyroxine Sodium 75 mcg PO ACB #0 tab 12/18/16 11/01/17 History Beclomethasone Dipropionate [Qvar 1 puff INH RTBID 08/17/17 11/01/17 History 80] Albuterol HFA Inhaler [Ventolin 1 - 2 puff INH Q4H PRN 09/27/17 11/01/17 History Hfa 90 mcg/actuation] Carvedilol 6.25 mg PO BIDWM 09/27/17 11/01/17 History Cyanocobalamin (B-12) [Vit. B-12] 1,000 mcg IM 1 MONTH 09/27/17 11/01/17 History Mirtazapine [Remeron] 30 mg PO HS 09/27/17 11/01/17 History OLANZapine [Zyprexa] 2.5 mg PO HS 09/27/17 11/01/17 History Cholecalciferol (Vitamin D3) 1 cap PO DAILY 10/19/17 11/01/17 History [Vitamin D3] Lansoprazole 1 cap PO ACB 10/19/17 11/01/17 History PredniSONE [Deltasone] 5 mg PO WB 10/24/17 11/01/17 History Multivitamin [Chewable-Matthew] 1 each PO 11/01/17 History Allergies Allergy/AdvReac Type Severity Reaction Status Date / Time morphine Allergy Mild ITCHING Verified 11/01/17 15:21 methylprednisolone Allergy Unknown Verified 11/01/17 15:21 doxycycline AdvReac Severe DIARRHEA Verified 11/01/17 15:21 adalimumab AdvReac Intermediate LOW GRADE Verified 11/01/17 15:21 FEVER atorvastatin AdvReac Unknown LEG CRAMPS Verified 11/01/17 15:21 bupropion AdvReac Unknown ANXIETY Verified 11/01/17 15:21 cortizone meds Allergy Unknown Anxiety Uncoded 10/19/17 12:15 Orthopedic Exam Vital signs: Temperature 96.5 F L 11/01/17 15:09 Pulse Rate 100 11/01/17 15:09 Respiratory Rate 18 11/01/17 15:09 Blood Pressure 129/92 H 11/01/17 15:09 Pulse Oximetry 97 11/01/17 15:09 - Constitutional General Appearance: Present: no acute distress, thin, cachectic - Respiratory Exam Present: non-labored - Extremities Exam Comments: left BKA stump has dehisced along it's lateral 1/3. There is exposed subcutaneous tissue and mild bloody drainage. There is no exposed bone. - Neurological Exam Present: intact to light touch, no deficits - Psychiatric Exam Present: alert, normal affect - Labs Result Diagrams: 11/01/17 15:54 11/01/17 15:54 Abnormal lab results 11/01/17 11/01/17 11/01/17 Range/Units 15:54 15:54 19:09 Hgb 11.3 L D (12-16) GM/DL Hct 35.5 L D (36-46) % RDW Std Deviation 52.7 H (36.9-50.2) FL Plt Count 455 H (130-400) T/MM3 MPV 8.8 L (9.4-12.4) UM3 Lymph % (Auto) 22.8 L (23-45) % [place] % (Auto) 9.8 H (0-9.0) % BUN 21.0 H (7-17) MG/DL Creatinine 0.6 L (0.7-1.2) MG/DL BUN/Creatinine Ratio 35 H (6-26) RATIO Calculated Osmolality 260 L (261-280) MOSM/KG Ur Specific [place] <=1.005 L (1.015-1.025) H & H 11/01/17 Range/Units 15:54 Hgb 11.3 L D (12-16) GM/DL Hct 35.5 L D (36-46) % Hospital Course Summary Disclaimer: The visit summary below is not to be considered part of the above Progress Note.
[2017-11-01] MEDS: TIOTROPIUM 18mcg/cap HANDIHALER ORAL INH SCH (21:00)
[2017-11-02] MEDS ORDERED: FALL RISK - PHARMACY CONSULT XX ONE (00:18)
[2017-11-02] MEDS: HYDROCODONE/APAP 7.5 MG/325 MG TABLET PO PRN ×2 (01:48→16:39)
[2017-11-02] MEDS: LEVOTHYROXINE 75 MCG TABLET PO SCH (05:41)
[2017-11-02] MEDS: LANSOPRAZOLE 30 MG PO SCH (05:41)
[2017-11-02] MEDS ORDERED: CARVEDILOL 3.125 MG PO SCH (08:00)
[2017-11-02] MEDS: Venlafaxine XR 37.5 MG CAPSULE (24hr) PO SCH (08:07)
[2017-11-02] MEDS: PredniSONE 5 MG TABLET PO SCH (08:07)
[2017-11-02] MEDS: DICLOFENAC 100 MG PO SCH ×2 (08:07→20:53)
[2017-11-02] MEDS: CALCIUM CARBONATE 600 MG TABLET PO SCH (08:07)
[2017-11-02] MEDS: ASPIRIN *EC* 81 MG TABLET PO SCH (08:07)
[2017-11-02] MEDS: BUSPIRONE 10 MG TABLET PO SCH ×2 (08:07→20:52)
[2017-11-02] MEDS: CARVEDILOL 6.25 MG TABLET PO SCH ×2 (08:15→17:56)
[2017-11-02] MEDS ORDERED: HYDROMORPHONE 2 MG/ML INJECTION IVP PRN (10:09)
[2017-11-02] MEDS: BECLOMETHASONE 80 MCG ORAL INH SCH ×2 (11:20→19:48)
[2017-11-02] MEDS ORDERED: LR 1,000 ML IV PRN (13:03)
--- NOTE | 2017-11-02 13:32 | Anesthesia Preoperative Report ---
Anesthesia Preoperative Record - Date and Time Date: 11/02/17 Preoperative Diagnosis: Fall with dehiscence of L BKA Wound Proposed Procedure: Left Stump Revision, debridement NPO Since Date: 11/01/17 NPO Since Time: 22:00 Allergies/Adverse Reactions: Allergies Allergy/AdvReac Type Severity Reaction Status Date / Time morphine Allergy Mild ITCHING Verified 11/01/17 15:21 methylprednisolone Allergy Unknown Verified 11/01/17 15:21 doxycycline AdvReac Severe DIARRHEA Verified 11/01/17 15:21 adalimumab AdvReac Intermediate LOW GRADE Verified 11/01/17 15:21 FEVER atorvastatin AdvReac Unknown LEG CRAMPS Verified 11/01/17 15:21 bupropion AdvReac Unknown ANXIETY Verified 11/01/17 15:21 cortizone meds Allergy Unknown Anxiety Uncoded 10/19/17 12:15 - Vital Signs Vital Signs: Temperature 97.7 F 11/02/17 07:52 Pulse Rate 106 H 11/02/17 13:04 Respiratory Rate 18 11/02/17 11:18 Blood Pressure 129/75 11/02/17 07:52 Pulse Oximetry 96 11/02/17 09:39 Height and Weight: Height 5 ft 2 in Weight 36.6 kg - Medications Inpatient Medications: Current Medications Acetaminophen (Tylenol) 1,000 mg PO Q6H PRN PRN Reason: P Hydrocodone Bitart/Acetaminophen ([place] 7.5/325) 1 - 2 tab PO Q6H PRN PRN Reason: Pain Last Admin: 11/02/17 01:48 Dose: 1 tab Albuterol Sulfate (Proventil Neb (0.083%)) 2.5 mg AEROSOL Q4H PRN PRN Reason: PRN orders Aspirin (Ecotrin) 81 mg PO DAILY [facility] Last Admin: 11/02/17 08:07 Dose: Not Given Beclomethasone Dipropionate (Qvar Inhaler) 1 puff ORAL INH RTBID [facility] [place] Last Admin: 11/02/17 11:20 Dose: 1 puff Buspirone HCl (Buspar) 20 mg PO BID [facility] [place] Last Admin: 11/02/17 08:07 Dose: Not Given Calcium Carbonate (Caltrate) 1,200 mg PO DAILY [facility] Last Admin: 11/02/17 08:07 Dose: Not Given [facility] Admin: 11/02/17 08:15 Dose: Not Given Cholecalciferol (Vit. D-3) 2,000 unit PO DAILY [facility] [place] Last Admin: 11/02/17 08:07 Dose: Not Given Clopidogrel Bisulfate (Plavix) 75 mg PO [facility] Last Admin: 11/01/17 20:43 Dose: 75 mg Cyanocobalamin (Vit. B-12) 1,000 mcg IM Q30D [facility] Fludrocortisone Acetate (Florinef) 0.1 mg PO HS [facility] Last Admin: 11/01/17 20:38 Dose: 0.1 mg Furosemide (Lasix) 20 mg PO DAILY PRN PRN Reason: Edema Hydromorphone HCl (Dilaudid) 0.2 - 0.5 mg IVP Q1H PRN PRN Reason: Pain Last Admin: 11/02/17 10:15 Dose: 0.25 mg Sodium Chloride (Normal Saline) 1,000 mls @ 50 mls/hr IV .Q20H [facility] Last Infusion: 11/02/17 12:53 Dose: 0 mls/hr Vancomycin HCl 1,000 mg/ (Sodium Chloride) 250 mls @ 250 mls/hr IV Q12H [facility] Last Infusion: 11/02/17 06:40 Dose: Infused Lactated Ringer's (Lactated Ringers) 1,000 mls @ 75 mls/hr IV .[id number] PRN Last Admin: 11/02/17 13:07 Dose: 75 mls/hr Levothyroxine Sodium (Synthroid) 75 mcg PO ACB [facility] Last Admin: 11/02/17 05:41 Dose: Not Given Lisinopril (Prinivil) 2.5 mg PO [facility] Last Admin: 11/01/17 20:40 Dose: 2.5 mg Mirtazapine (Remeron) 30 mg PO [facility] Last Admin: 11/01/17 20:43 Dose: 30 mg Nitroglycerin (Nitrostat) 0.4 mg SL Q5MIN3 PRN PRN Reason: CP Pom Diclofenac 100mg (Er) 1 PO BID [facility] Last Admin: 11/02/17 08:07 Dose: Not Given Pom Lansoprazole (30mg) 1 PO ACB [facility] Last Admin: 11/02/17 05:41 Dose: Not Given Olanzapine (Zyprexa) 2.5 mg PO [facility] Last Admin: 11/01/17 20:42 Dose: 2.5 mg Prednisone (Deltasone) 3 mg PO WB [facility] Last Admin: 11/02/17 08:06 Dose: Not Given Prednisone (Deltasone) 5 mg PO WB [facility] Last Admin: 11/02/17 08:07 Dose: Not Given Rosuvastatin Calcium (Crestor) 20 mg PO HS [facility] Last Admin: 11/01/17 20:42 Dose: 20 mg Sodium Chloride (Iv Flush) 10 ml IV PRN PRN PRN Reason: Flushing Tiotropium [place] (Spiriva) 1 cap ORAL INH HS [facility] Last Admin: 11/01/17 21:00 Dose: 1 cap Venlafaxine HCl (Effexor Xr) 37.5 mg PO WB [facility] [place] Last Admin: 11/02/17 08:07 Dose: Not Given Home Medications: Home Medications Medication Instructions Recorded Confirmed Type Tiotropium Handihaler [Spiriva] 1 cap IH HS #0 07/07/10 11/01/17 History Acetaminophen 1,000 mg PO Q6H PRN #0 01/05/16 11/01/17 History Buspirone HCl 20 mg PO BID #0 01/05/16 11/01/17 History Calcium Carbonate [Calcium] 1,200 mg PO DAILY #0 07/28/16 11/01/17 History Rosuvastatin Calcium [Crestor] 20 mg PO HS #0 07/28/16 11/01/17 History Clopidogrel Bisulfate [Plavix] 75 mg PO HS #0 08/24/16 11/01/17 History Diclofenac Sodium [Diclofenac 100 mg PO BID #0 08/24/16 11/01/17 History Sodium ER] Aspirin [Aspirin EC] 81 mg PO DAILY #0 10/09/16 11/01/17 History Lisinopril 2.5 mg PO HS #0 10/09/16 11/01/17 History Nitroglycerin [Nitrostat] 0.4 mg SL Q5MIN3 PRN #0 10/09/16 11/01/17 History Fludrocortisone [Florinef] 0.1 mg PO HS #0 tab 12/18/16 11/01/17 History Levothyroxine Sodium 75 mcg PO ACB #0 tab 12/18/16 11/01/17 History Beclomethasone Dipropionate [Qvar 1 puff INH RTBID 08/17/17 11/01/17 History 80] Albuterol HFA Inhaler [Ventolin 1 - 2 puff INH Q4H PRN 09/27/17 11/01/17 History Hfa 90 mcg/actuation] Carvedilol 6.25 mg PO BIDWM 09/27/17 11/01/17 History Cyanocobalamin (B-12) [Vit. B-12] 1,000 mcg IM 1 MONTH 09/27/17 11/01/17 History Mirtazapine [Remeron] 30 mg PO HS 09/27/17 11/01/17 History OLANZapine [Zyprexa] 2.5 mg PO HS 09/27/17 11/01/17 History Cholecalciferol (Vitamin D3) 1 cap PO DAILY 10/19/17 11/01/17 History [Vitamin D3] Lansoprazole 1 cap PO ACB 10/19/17 11/01/17 History PredniSONE [Deltasone] 5 mg PO WB 10/24/17 11/01/17 History Multivitamin [Chewable-Matthew] 1 each PO 11/01/17 History Is Patient on Beta Gisela?: No - Medical History Respiratory: Reports: Asthma, Chronic Obstructive Pulmonary Disease (COPD), Sleep Apnea (USES C-PAP), Other Cardiovascular: Reports: Abnormal EKG, Angina (HX), Arrhythmia (at. fib./ tachycardia), Congestive Heart Failure (EF documented as 20-25%), Coronary Artery Disease, Hypertension, Myocardial Infarction (EF 20%, dec 2015) Gastrointestional: Reports: Gastroesophageal Reflux Disease, Hiatal Hernia Neuro/Musculoskeletal: Reports: HX.MS.OSAR (osteoporosis), Back Problems, Depression, Muscle Weakness, Other (RA) Renal/Endocrine: Reports: Thyroid Disease, Weight Loss Other History: Reports: Blood Transfusions (NO REACTION) - Surgical History HEENT Surgeries: Reports: Nose Surgery (DEBRIDGMENT) Cardiac Surgeries/Treatments: Reports: Cardiac Catheterization (WITH STENT 2015) , Other (STENT 2015) DENIES: Pacemaker Respiratory Surgery/Treatments: Reports: CPAP Use, Oxygen Administration (2L/NC with exertion & at noc) GI Surgery/Treatments: Reports: Colon Resection, Hernia Repair, Colonoscopy, Other (ileostomy) Musculoskeletal Surgery/Tx: Reports: Carpal Tunnel Release, Joint Surgery (LEFT HIP-PINS), Shoulder Arthroscopy (RIGHT SHOULDER REPLACEMENT), Total Knee Replacement (ANDRES.), Other (FUSION- L. ANKLE, R WRIST,NECK, TOE SURGERY) Reproductive Surgery/Treatment: Reports: Tubal Ligation DENIES: Mastectomy Anesthesia Reactions: None Hx Family Anesthesia Reaction: No History of Motion Sickness: No - Social History Smoking Status: Former smoker Pack-years: 40 Hx Chewing Tobacco Use: No Second Hand Exposure: No Substance Use Type: does not use Alcohol Intake: former Alcohol Intake Frequency: does not drink - Pertinent Findings Laboratory: CBC and BMP 11/01/17 15:54 11/01/17 15:54 BMP 11/01/17 15:54 Sodium 134 Potassium 4.8 Chloride 100 Carbon Dioxide 26 BUN 21.0 H Creatinine 0.6 L Glucose 83 Calcium 8.7 Liver Function 11/01/17 Range/Units 15:54 Total Bilirubin 0.30 (0.20-1.30) MG/DL AST 35 (14-36) U/L ALT 44 (9-52) U/L Alkaline Phosphatase 58 (38-126) U/L Albumin 3.6 (3.5-5.0) G/DL Urine 11/01/17 Range/Units 19:09 Urine Color Yellow (YELLOW) Urine Clarity Clear Urine pH 6.0 (5.0-8.0) Ur Specific [place] <=1.005 L (1.015-1.025) Urine Protein Negative (NEGATIVE) Urine Glucose (UA) Negative (NEGATIVE) EKG: Sinus Tachycardia - Physical Exam Respiratory Exam: Present: bilateral breath sounds equal, decreased breath sounds-L, decreased breath sounds-R Cardiovascular Exam: Present: regular rate and rhythm, no murmur - Airway Assessment Mallampati Score: IV TMD: 2 Fingerbreadths Neck Extension: poor Overall Assessment: may be difficult mask vent, may be difficult intubation - ASA ASA Score: 4 - Plan Anesthesia: MAC - Discussion Discussion: Discussed risks/options/alternatives of anesthesia and questions answered. Patient consents. Nursing pain assessment noted. Present for Discussion: family member Attestation Statement: Prior to the delivery of any anesthetic medication, I examined the patient, developed the plan, obtained the patient's consent and discussed the risk and benefits of the procedure with the patient/guardian. - Additional Information Seen by Anesthesia: Yes
[2017-11-02] MEDS ORDERED: KETAMINE 500 MG/10 ML INJECTION IVP ONE (14:01)
[2017-11-02] MEDS ORDERED: LIDOCAINE 1% (10mg/ml) 30ml SDV INJ INJ ONE (14:01)
[2017-11-02] MEDS ORDERED: FentaNYL 100 MCG/2 ML INJECTION IVP ONE ×2 (14:01)
[2017-11-02] MEDS ORDERED: ESMOLOL 100 MG/10 ML INJECTION IVP ONE (14:01)
[2017-11-02] MEDS ORDERED: MIDAZOLAM 2mg/2ml INJECTION IVP ONE ×2 (14:01)
[2017-11-02] MEDS ORDERED: BUPIVACAINE ID ONE (14:01)
--- NOTE | 2017-11-02 15:04 | Anesthesia Postoperative Note ---
- Date and Time Date: 11/02/17 Time: 15:04 - Status Patient Participated in Evaluation: Patient Participated in Person Vital Signs: Temperature 97.7 F 11/02/17 07:52 Pulse Rate 106 H 11/02/17 13:04 Respiratory Rate 18 11/02/17 11:18 Blood Pressure 129/75 11/02/17 07:52 Pulse Oximetry 96 11/02/17 09:39 Respiratory Function: Airway Patent, Regular Respirations EKG: Sinus Tachycardia Mental Status: Alert and Oriented Pain Intensity: 0 Hydration: IV Infusing Complications During Recover: None Apparent - Follow-Up Instructions Instructions: Per Surgeon
--- NOTE | 2017-11-02 16:37 | Consult Note ---
Consult Information - Data of Consult Consult date: 11/02/17 Requesting Physician: Omar Collier MD Primary Care Provider: Eula Shoemaker MD Family Provider: Eula Shoemaker MD - Consult Narrative Reason for consult: medical management of chronic health problems History of present illness: Patient was dismissed from the rehabilitation unit on 10/31/17 and fell that night. Next day she followed up in Dr. Collier's office and he admitted her due to dehiscence of the wound. She had surgery today to repair it and place wound vac. She was started on IV vancomycin. Hospitalist service was consulted for medical management for chronic health problems. She currently has no pain. She states she took no pain medication yesterday during the day. She has no other concerns. No cough, shortness of breath, nausea or vomiting. Past Medical History Family History Updates: Reviewed Review of Systems All systems PM: 10-point ROS was reviewed, no additional remarkable complaints except (tired from anesthesia) Medications Home Medications Medication Instructions Recorded Confirmed Type Tiotropium Handihaler [Spiriva] 1 cap IH HS #0 07/07/10 11/01/17 History Acetaminophen 1,000 mg PO Q6H PRN #0 01/05/16 11/01/17 History Buspirone HCl 20 mg PO BID #0 01/05/16 11/01/17 History Calcium Carbonate [Calcium] 1,200 mg PO DAILY #0 07/28/16 11/01/17 History Rosuvastatin Calcium [Crestor] 20 mg PO HS #0 07/28/16 11/01/17 History Clopidogrel Bisulfate [Plavix] 75 mg PO HS #0 08/24/16 11/01/17 History Diclofenac Sodium [Diclofenac 100 mg PO BID #0 08/24/16 11/01/17 History Sodium ER] Aspirin [Aspirin EC] 81 mg PO DAILY #0 10/09/16 11/01/17 History Lisinopril 2.5 mg PO HS #0 10/09/16 11/01/17 History Nitroglycerin [Nitrostat] 0.4 mg SL Q5MIN3 PRN #0 10/09/16 11/01/17 History Fludrocortisone [Florinef] 0.1 mg PO HS #0 tab 12/18/16 11/01/17 History Levothyroxine Sodium 75 mcg PO ACB #0 tab 12/18/16 11/01/17 History Beclomethasone Dipropionate [Qvar 1 puff INH RTBID 08/17/17 11/01/17 History 80] Albuterol HFA Inhaler [Ventolin 1 - 2 puff INH Q4H PRN 09/27/17 11/01/17 History Hfa 90 mcg/actuation] Carvedilol 6.25 mg PO BIDWM 09/27/17 11/01/17 History Cyanocobalamin (B-12) [Vit. B-12] 1,000 mcg IM 1 MONTH 09/27/17 11/01/17 History Mirtazapine [Remeron] 30 mg PO HS 09/27/17 11/01/17 History OLANZapine [Zyprexa] 2.5 mg PO HS 09/27/17 11/01/17 History Cholecalciferol (Vitamin D3) 1 cap PO DAILY 10/19/17 11/01/17 History [Vitamin D3] Lansoprazole 1 cap PO ACB 10/19/17 11/01/17 History PredniSONE [Deltasone] 5 mg PO WB 10/24/17 11/01/17 History Multivitamin [Chewable-Matthew] 1 each PO 11/01/17 History Allergies Allergy/AdvReac Type Severity Reaction Status Date / Time morphine Allergy Mild ITCHING Verified 11/01/17 15:21 methylprednisolone Allergy Unknown Verified 11/01/17 15:21 doxycycline AdvReac Severe DIARRHEA Verified 11/01/17 15:21 adalimumab AdvReac Intermediate LOW GRADE Verified 11/01/17 15:21 FEVER atorvastatin AdvReac Unknown LEG CRAMPS Verified 11/01/17 15:21 bupropion AdvReac Unknown ANXIETY Verified 11/01/17 15:21 cortizone meds Allergy Unknown Anxiety Uncoded 10/19/17 12:15 Exam Vital Signs: Temperature 99.3 F 11/02/17 15:48 Pulse Rate 113 H 11/02/17 15:58 Respiratory Rate 16 11/02/17 15:58 Blood Pressure 149/84 H 11/02/17 15:58 Pulse Oximetry 92 11/02/17 15:58 Height/Weight/BMI: Height 1.57 m Weight 36.6 kg - Constitutional Present: no acute distress, thin - Routine HEENT Exam Head: Present: normocephalic, atraumatic Eye: Present: EOMI - Routine Neck Exam Present: supple. Absent: lymphadenopathy, thyromegaly - Routine Respiratory Exam Present: CTA bilaterally. Absent: wheezes - Routine Cardiovascular Exam Present: RRR, S1, S2. Absent: murmur - Routine Abdominal Exam Present: soft, normoactive bowel sounds, non distended, ostomy. Absent: tenderness - Routine Extremities Exam Present: no edema, normal capillary refill Comments: LBKA with wound vac in place Deformity of hands d/t RA - Routine Skin Exam Present: dry, warm - Routine Neurological Exam Present: alert, oriented X3, CN II-XII intact - Routine Psychiatric Exam Present: normal affect, cooperative Results - Labs CBC & Chem 7: 11/01/17 15:54 11/01/17 15:54 Labs: Laboratory Tests 11/01/17 19:09 Ur Collection Type Urine, clean catch Urine Color Yellow Urine Clarity Clear Urine pH 6.0 Ur Specific Mccarley <=1.005 L Urine Protein Negative Urine Glucose (UA) Negative Urine Ketones Negative Urine Occult Blood Negative Urine Nitrate Negative Urine Bilirubin Negative Urine Urobilinogen 0.2 Ur Leukocyte Esterase Negative Assessment and Plan (1) Status post below knee amputation of left lower extremity Current visit: No Status: Acute Assessment and Plan: IMPRESSION Acute Medical History Dehiscence of left BKA surgical wound secondary to fall (repair with wound vac placement 11/02/17) S/P left BKA secondary to severe peripheral arterial disease and failed outpatient treatment of bilateral lower extremity wounds. - Dr. Collier, 10/20/2017. Thrombocytosis, POA Chronic health problems CAD with severe peripheral vascular disease. A-fib/PSVT. Hypertension. Hyperlipidemia. Systolic CHF - echocardiogram 04/2017 revealed EF 15%. TIA - 03/2017. PAD. Rheumatoid arthritis. COPD Chronic anemia Oxygen dependence - 2L at night and as needed with exertion during the day. BRANDO with home CPAP. Adrenal insufficiency secondary to chronic steroid use. Anxiety and depression Hypothyroidism. Ileostomy secondary to prior bowel perforation. Lower extremity nonhealing wounds secondary to PAD. GERD. Urinary incontinence. Osteoarthritis PLAN Monitor daily weights and I&O's given her history of EF 15%. Continue use of CPAP with 2 L oxygen at night and supplemental oxygen as needed for dyspnea with exertion. Patient had 99.3-100.2 post-op. Start IS and check CXR in am. Patient on IV vanc per ortho- pharm managing. PT/OT consults tomorrow to assess patient's functional abilities. Upon discharge, patient's care will be returned to Dr. Eula Shoemaker. We will continue to manage patient medically throughout her stay. Appreciate the consult. - Physician Narrative Narrative: S: Pt denies any n/v/d, f/c, cp or sob. O: Lungs: CTAB without wheezes Abd: soft, non-tender A/P: Medical consult. Will cont. home meds. Plan is for surgery today. Follow along with surgery. Date: 11/02/17 Time: 1999 Hospital Course Summary Disclaimer: The visit summary below is not to be considered part of the above Progress Note.
[2017-11-02] MEDS: NS 1,000 ML IV SCH (17:55)
[2017-11-02] MEDS: TIOTROPIUM 18mcg/cap HANDIHALER ORAL INH SCH (19:47)
[2017-11-02] MEDS: ROSUVASTATIN 20 MG TABLET PO SCH (20:52)
[2017-11-02] MEDS: FLUDROCORTISONE 0.1 MG TABLET PO SCH (20:52)
[2017-11-02] MEDS: CLOPIDOGREL 75 MG TABLET PO SCH (20:52)
[2017-11-02] MEDS: OLANZapine 2.5 MG TABLET PO SCH (21:59)
[2017-11-02] MEDS: MIRTAZAPINE 30 MG TABLET PO SCH (21:59)
[2017-11-03] MEDS: HYDROCODONE/APAP 7.5 MG/325 MG TABLET PO PRN ×2 (03:54→19:07)
[2017-11-03] MEDS: LEVOTHYROXINE 75 MCG TABLET PO SCH (05:34)
[2017-11-03] MEDS: LANSOPRAZOLE 30 MG PO SCH (05:34)
[2017-11-03] MEDS: BECLOMETHASONE 80 MCG ORAL INH SCH ×2 (07:44→20:48)
--- NOTE | 2017-11-03 07:49 | Operative Note ---
DATE OF PROCEDURE 11/02/2017 PREOPERATIVE DIAGNOSIS Dehiscence of left BKA stump. POSTOPERATIVE DIAGNOSIS Dehiscence of left BKA stump. PROCEDURE Surgical debridement of left BKA stump with closure and placement of incisional wound VAC. SURGEON Omar Collier MD CLINICAL PATHOLOGIST Rogelio Rogers PA-C COMPLICATIONS None. ANESTHESIA Monitored anesthesia care. EBL Minimal. DESCRIPTION OF PROCEDURE Mrs. Gore and her left BKA stump were identified and marked in the preoperative holding area. She was brought back to the operating suite and placed supine on the operating table. Anesthesia was administered. The left lower extremity was prepped and draped in my normal sterile fashion. Time-out was performed. She had dehisced her incision from the midpoint laterally. The deep subcutaneous tissue appeared to be intact except for one small opening in the most lateral aspect of the wound where I could probe down about 2 cm and not encounter bone with probing. There was no necrotic tissue except for the very skin edges. Her skin itself was extremely thin. I proceeded to irrigate the wound with 3 liters of normal saline. I was then able to close the skin edges back together using 4-0 nylon in a horizontal mattress fashion. I then examined the skin over the medial aspect of her incision which did appear to have possibly some deep bruising. This was centered over the distal tibia. There was black eschar in the center of this area and it was sharply debrided with a curette and there was some necrotic subcutaneous tissue below this which was removed as well, a total surface area of approximately 2 mm x 2 mm. Given her history and extremely poor healing potential as well as friability of her skin, I did elect then to place an incisional wound VAC and then hook this up to 125 mmHg continuous suction. It obtained a great seal. The drapes were then removed and she was taken back to the recovery room under the care of Anesthesia. She tolerated the procedure well and there were no complications. TONY
--- NOTE | 2017-11-03 08:25 | Orthopedic Progress Note ---
Date: Date: 11/03/17 Time: 821 Subjective/Severity of Illness: Clarice is doing okay this AM. Her nose is itching from the [place]. Pain is controlled. Wound vac functioning well. IV vanco. Hospitalist consulted for medical mgmt. Orthopedic Objective PO Vital signs: Temperature 98.5 F 11/03/17 07:24 Pulse Rate 90 11/03/17 07:24 Respiratory Rate 18 11/03/17 07:44 Blood Pressure 124/75 11/03/17 07:24 Pulse Oximetry 98 11/03/17 07:24 Height and Weight: Height 5 ft 2 in Weight 84 lb 3.465 oz Body Mass Index 14.7 - Constitutional General Appearance: Present: no acute distress, thin - Respiratory Exam Present: non-labored - Surgical Site Incision: other (Wound vac functioning well. No output.) Drains Present: negative pressure therapy - Neurological Exam Present: intact to light touch, no deficits - Psychiatric Exam Present: alert, normal affect - Wound Management Left Leg Wound Type: Amputation Left Knee Wound Type: Amputation - Labs Result Diagrams: 11/03/17 05:26 11/03/17 05:26 Abnormal lab results 11/03/17 11/03/17 11/03/17 Range/Units 05:26 05:26 05:26 RBC 3.32 L (4.00-5.20) M/MM3 Hgb 9.1 L D (12-16) GM/DL Hct 29.7 L D (36-46) % MCHC 30.6 L (31-37) GM/DL RDW Std Deviation 54.8 H (36.9-50.2) FL MPV 8.5 L (9.4-12.4) UM3 [facility] % (Auto) 17.1 H (0-9.0) % Eos % (Auto) 6.0 H (0-4) % [facility] # (Auto) 1.3 H (0-0.8) T/MM3 Chloride 108 H D (98-107) MEQ/L Anion Gap 2 L (5-15) MEQ/L Creatinine 0.5 L (0.7-1.2) MG/DL Calcium 8.2 L (8.4-10.2) MG/DL Total Bilirubin < 0.10 L (0.20-1.30) MG/DL Total Protein 5.0 L (6.3-8.2) G/DL Albumin 2.6 L (3.5-5.0) G/DL Vancomycin Trough 14.43 L (15-20) UG/ML H & H 11/01/17 11/03/17 Range/Units 15:54 05:26 Hgb 11.3 L D 9.1 L D (12-16) GM/DL Hct 35.5 L D 29.7 L D (36-46) % Orthopedic Assessment and Plan (1) Status post below knee amputation of left lower extremity Status: Acute Assessment and Plan: IV vanco Wound vac IRU consult for possible placement Monday. Med mgmt per hospitalist. - Anticoagulation Therapy Anticoagulation: Resume home anticoagulant Hospital Course Summary Disclaimer: The visit summary below is not to be considered part of the above Progress Note.
--- NOTE | 2017-11-03 08:28 | XRay Report ---
INDICATION: COPD, fever PROCEDURE: CHEST 2-VIEWS UPRIGHT (PA & LAT) Encounter: Initial COMPARISON: October 22, 2017 FINDINGS: Lungs are clear. No pneumonia, pleural effusion or pneumothorax. Mild emphysema. Heart size and mediastinal contours are within normal limits. Pulmonary vascularity is normal. Chronic mid and lower thoracic compression fractures. Impression: No pneumonia. .
[2017-11-03] MEDS: ASPIRIN *EC* 81 MG TABLET PO SCH (08:30)
[2017-11-03] MEDS: CALCIUM CARBONATE 600 MG TABLET PO SCH (08:30)
[2017-11-03] MEDS: BUSPIRONE 10 MG TABLET PO SCH ×2 (08:31→20:53)
[2017-11-03] MEDS: PredniSONE 5 MG TABLET PO SCH (08:31)
[2017-11-03] MEDS: Venlafaxine XR 37.5 MG CAPSULE (24hr) PO SCH (08:31)
[2017-11-03] MEDS: CARVEDILOL 6.25 MG TABLET PO SCH ×2 (08:31→18:48)
[2017-11-03] MEDS: DICLOFENAC 100 MG PO SCH ×2 (08:33→20:55)
[2017-11-03] MEDS ORDERED: CYANOCOBALAMIN (B-12) 1,000mcg/ml INJECTION IM SCH (09:00)
--- NOTE | 2017-11-03 11:41 | Progress Note ---
- Date 11/03/17 Subjective: Clarice is doing well. Pain is controlled. No cough or SOA. Objective Vital signs: Temperature 98.5 F 11/03/17 07:24 Pulse Rate 90 11/03/17 07:24 Respiratory Rate 18 11/03/17 07:44 Blood Pressure 124/75 11/03/17 07:24 Pulse Oximetry 98 11/03/17 07:24 Height/Weight/BMI: Height 1.57 m Weight 38.2 kg Body Mass Index 14.7 - Constitutional Present: well developed, thin - Routine HEENT Exam Eye: Present: EOMI - Routine Respiratory Exam Present: CTA bilaterally. Absent: wheezes - Routine Cardiovascular Exam Present: RRR. Absent: murmur - Routine Abdominal Exam Present: soft, normoactive bowel sounds, non distended. Absent: tenderness - Routine Extremities Exam Present: normal capillary refill Comments: wound vac in place to L stump. - Routine Skin Exam Present: dry, warm - Routine Neurological Exam Present: alert, oriented X3 - Routine Lymphatic Exam Lymphatic: Absent: adenopathy - Routine Psychiatric Exam Present: normal affect, cooperative Results - Labs CBC & Chem 7: 11/03/17 05:26 11/03/17 05:26 Assessment and Plan (1) Status post below knee amputation of left lower extremity Current visit: No Status: Acute Assessment and Plan: IMPRESSION Acute Medical History Dehiscence of left BKA surgical wound secondary to fall (repair with wound vac placement 11/02/17) S/P left BKA secondary to severe peripheral arterial disease and failed outpatient treatment of bilateral lower extremity wounds. - Dr. Collier, 10/20/2017. Thrombocytosis, POA Chronic health problems CAD with severe peripheral vascular disease. A-fib/PSVT. Hypertension. Hyperlipidemia. Systolic CHF - echocardiogram 04/2017 revealed EF 15%. TIA - 03/2017. PAD. Rheumatoid arthritis. COPD Chronic anemia Oxygen dependence - 2L at night and as needed with exertion during the day. BRANDO with home CPAP. Adrenal insufficiency secondary to chronic steroid use. Anxiety and depression Hypothyroidism. Ileostomy secondary to prior bowel perforation. Lower extremity nonhealing wounds secondary to PAD. GERD. Urinary incontinence. Osteoarthritis PLAN Patient is doing well. No concerns at present. Hgb has dropped, but is likely dilutional. Will follow. - Physician Narrative Narrative: S: Pt denied any acute sx's.Procedure went okay. O: Card: RRR without murmurs Lungs: CTAB without wheezes A/P: Medically managing, medically stable. Cont. to follow along with surgery. Pt was seen independently and plan of care was discussed with FISHER WEIR/PA. Date: 11/03/17 Time: 1530 Hospital Course Summary Disclaimer: The visit summary below is not to be considered part of the above Progress Note.
--- NOTE | 2017-11-03 12:20 | Pharmacy Consult-Antibiotics ---
Pharmacy Consult-Vancomycin - Laboratory Information WBC 7.3 T/MM3 (4.5-11.0) 11/03/17 05:26 BUN 11.0 MG/DL (7-17) D 11/03/17 05:26 Creatinine 0.5 MG/DL (0.7-1.2) L 11/03/17 05:26 Vancomycin Trough 14.43 UG/ML (15-20) L 11/03/17 05:26 - Consult Information VANCOMYCIN CONSULT: ALIZE is yo female that has an amputation of the right great toe and has been treated multiple times for chronic wounds on bilateral lower extremities. The pt was admitted 10/19/17 for vascular studies to assess her arterial status. Unfortunately, Dr Arora found that the arterial flow to her left LE cannot be corrected with any additional surgical intervention. Clarice was aware that the chances of healing her wounds without blood flow was a losing agustin and she was ready to consider amputation. Dr Collier performed the left BKA. Clarice was discharged from IRU, and she was status post left below the knee amputation. She fell hitting her left stump against her wheelchair. She complains only of left stump pain. She had bloody drainage from the wound over night. Left BKA smp has been dehisced along it's lateral 1/3. There was exposed subcutaneous tissue and mild bloody drainage. There is no exposed bone. Vancomycin Trough = 14.43 mcg/ml. Today's S Cr = 0.5 mg/dl. Estimated Cr Cl ~ 91 mL/min. I will change the Vancomycin to 1,250 mg IV q12hrs (0600/1800). The anticipated trough should be between 16-17 mcg/mL. The pharmacy sill continue to monitor and make adjustments accordingly. Thank you for the Vancomycin Protocol, Karl Neumann, Pharmacist.
[2017-11-03] MEDS: NS 1,000 ML IV SCH (16:46)
[2017-11-03] MEDS: MIRTAZAPINE 30 MG TABLET PO SCH (20:52)
[2017-11-03] MEDS: OLANZapine 2.5 MG TABLET PO SCH (20:52)
[2017-11-03] MEDS: ROSUVASTATIN 20 MG TABLET PO SCH (20:53)
[2017-11-03] MEDS: FLUDROCORTISONE 0.1 MG TABLET PO SCH (20:53)
[2017-11-03] MEDS: CLOPIDOGREL 75 MG TABLET PO SCH (20:53)
[2017-11-03] MEDS: TIOTROPIUM 18mcg/cap HANDIHALER ORAL INH SCH (21:05)
[2017-11-04] MEDS: NS 1,000 ML IV SCH ×2 (05:24→17:43)
[2017-11-04] MEDS: LEVOTHYROXINE 75 MCG TABLET PO SCH (05:32)
[2017-11-04] MEDS: LANSOPRAZOLE 30 MG PO SCH (05:32)
[2017-11-04] MEDS: BECLOMETHASONE 80 MCG ORAL INH SCH ×2 (07:26→20:52)
[2017-11-04] MEDS: Venlafaxine XR 37.5 MG CAPSULE (24hr) PO SCH (08:50)
[2017-11-04] MEDS: PredniSONE 5 MG TABLET PO SCH (08:50)
[2017-11-04] MEDS: CALCIUM CARBONATE 600 MG TABLET PO SCH (08:50)
[2017-11-04] MEDS: CARVEDILOL 6.25 MG TABLET PO SCH ×2 (08:50→17:41)
[2017-11-04] MEDS: FUROSEMIDE 20 MG TABLET PO PRN (08:51)
[2017-11-04] MEDS: BUSPIRONE 10 MG TABLET PO SCH ×2 (08:51→21:15)
[2017-11-04] MEDS: DICLOFENAC 100 MG PO SCH ×2 (08:52→21:15)
[2017-11-04] MEDS: ASPIRIN *EC* 81 MG TABLET PO SCH (08:52)
[2017-11-04] MEDS: HYDROCODONE/APAP 7.5 MG/325 MG TABLET PO PRN ×2 (10:07→21:14)
--- NOTE | 2017-11-04 11:01 | Orthopedic Progress Note ---
Date: Date: 11/04/17 Time: 105 Subjective/Severity of Illness: Salima has no new complaints. Orthopedic Objective Vital signs: Temperature 98.1 F 11/04/17 07:39 Pulse Rate 92 11/04/17 07:39 Respiratory Rate 18 11/04/17 07:39 Blood Pressure 127/79 11/04/17 07:39 Pulse Oximetry 100 11/04/17 07:39 Height and Weight: Height 5 ft 2 in Weight 39.3 kg Body Mass Index 14.7 - Constitutional General Appearance: Present: no acute distress, thin - Respiratory Exam Present: non-labored - Cardiovascular Exam Capillary Refill: < 2-3 Seconds - Extremities Exam Present: normal capillary refill - Lymphatic Lymphatic: Absent: adenopathy - Neurological Exam Present: intact to light touch, no deficits - Wound Management Left Leg Wound Type: Amputation Comments: With wound VAC removed her incision is well approximated. No erythema. No abnormal swelling. There is an area approximately 3 mm x 3 mm in the medial aspect of the incision along the anterior skin flap which is not completely healed. Left Knee Wound Type: Amputation - Labs Result Diagrams: 11/04/17 04:15 11/04/17 04:15 Abnormal lab results 11/04/17 11/04/17 Range/Units 04:15 04:15 RBC 3.51 L (4.00-5.20) M/MM3 Hgb 9.6 L (12-16) GM/DL Hct 31.6 L (36-46) % MCHC 30.4 L (31-37) GM/DL RDW Std Deviation 55.7 H (36.9-50.2) FL MPV 9.0 L (9.4-12.4) UM3 [facility] % (Auto) 17.7 H (0-9.0) % Eos % (Auto) 6.1 H (0-4) % [facility] # (Auto) 1.0 H (0-0.8) T/MM3 Chloride 108 H (98-107) MEQ/L Creatinine 0.5 L (0.7-1.2) MG/DL Calcium 8.3 L (8.4-10.2) MG/DL Specimen Hemolysis 27 H (0-25) H & H 11/01/17 11/03/17 11/04/17 Range/Units 15:54 05:26 04:15 Hgb 11.3 L D 9.1 L D 9.6 L (12-16) GM/DL Hct 35.5 L D 29.7 L D 31.6 L (36-46) % Orthopedic Assessment and Plan (1) Status post below knee amputation of left lower extremity Status: Acute Assessment and Plan: Continue antibiotics. Recommended removing wound VAC today to give her wound VAC holiday and see how her incision progresses without the wound VAC. I'll reassess tomorrow and reapply a wound VAC if necessary. Anticipate discharge to rehabilitation tomorrow. Hospital Course Summary Disclaimer: The visit summary below is not to be considered part of the above Progress Note.
--- NOTE | 2017-11-04 16:17 | Progress Note ---
- Date 11/04/17 Subjective: Pt doing well. No acute complaints. Denies cp, sob, n/v/d. Objective Vital signs: Temperature 98.2 F 11/04/17 11:31 Pulse Rate 90 11/04/17 11:31 Respiratory Rate 16 11/04/17 11:31 Blood Pressure 133/82 11/04/17 11:31 Pulse Oximetry 93 11/04/17 11:31 Height/Weight/BMI: Height 5 ft 2 in Weight 39.3 kg Body Mass Index 14.7 - Constitutional Present: no acute distress - Routine HEENT Exam Head: Present: normocephalic, atraumatic - Routine Cardiovascular Exam Present: RRR, no murmur - Routine Abdominal Exam Present: soft, non distended, non tender - Routine Extremities Exam Present: no edema. Absent: cyanosis, clubbing - Routine Skin Exam Present: intact, dry. Absent: erythema - Routine Neurological Exam Present: alert, oriented X3 Results - Labs CBC & Chem 7: 11/04/17 04:15 11/04/17 04:15 Assessment and Plan (1) Status post below knee amputation of left lower extremity Current visit: No Status: Acute Assessment and Plan: IMPRESSION Acute Medical History Dehiscence of left BKA surgical wound secondary to fall (repair with wound vac placement 11/02/17) S/P left BKA secondary to severe peripheral arterial disease and failed outpatient treatment of bilateral lower extremity wounds. - Dr. Collier, 10/20/2017. Thrombocytosis, POA Chronic health problems CAD with severe peripheral vascular disease. A-fib/PSVT. Hypertension. Hyperlipidemia. Systolic CHF - echocardiogram 04/2017 revealed EF 15%. TIA - 03/2017. PAD. Rheumatoid arthritis. COPD Chronic anemia Oxygen dependence - 2L at night and as needed with exertion during the day. BRANDO with home CPAP. Adrenal insufficiency secondary to chronic steroid use. Anxiety and depression Hypothyroidism. Ileostomy secondary to prior bowel perforation. Lower extremity nonhealing wounds secondary to PAD. GERD. Urinary incontinence. Osteoarthritis PLAN Patient is doing well. No concerns at present. Hgb has dropped, but is likely dilutional. Will follow. - Physician Narrative Narrative: Date: 11/04/17 Time: 1615 Hospital Course Summary Disclaimer: The visit summary below is not to be considered part of the above Progress Note.
[2017-11-04] MEDS: TIOTROPIUM 18mcg/cap HANDIHALER ORAL INH SCH (20:53)
[2017-11-04] MEDS: ROSUVASTATIN 20 MG TABLET PO SCH (21:15)
[2017-11-04] MEDS: MIRTAZAPINE 30 MG TABLET PO SCH (21:15)
[2017-11-04] MEDS: OLANZapine 2.5 MG TABLET PO SCH (21:15)
[2017-11-04] MEDS: FLUDROCORTISONE 0.1 MG TABLET PO SCH (21:15)
[2017-11-04] MEDS: CLOPIDOGREL 75 MG TABLET PO SCH (21:15)
[2017-11-05] MEDS: LANSOPRAZOLE 30 MG PO SCH (07:30)
[2017-11-05] MEDS: LEVOTHYROXINE 75 MCG TABLET PO SCH (07:30)
[2017-11-05] MEDS: HYDROCODONE/APAP 7.5 MG/325 MG TABLET PO PRN ×2 (08:34→22:11)
[2017-11-05] MEDS: CALCIUM CARBONATE 600 MG TABLET PO SCH (08:37)
[2017-11-05] MEDS: BUSPIRONE 10 MG TABLET PO SCH ×2 (08:37→21:20)
[2017-11-05] MEDS: ASPIRIN *EC* 81 MG TABLET PO SCH (08:37)
[2017-11-05] MEDS: CARVEDILOL 6.25 MG TABLET PO SCH ×2 (08:37→17:52)
[2017-11-05] MEDS: PredniSONE 5 MG TABLET PO SCH (08:38)
[2017-11-05] MEDS: Venlafaxine XR 37.5 MG CAPSULE (24hr) PO SCH (08:38)
--- NOTE | 2017-11-05 08:38 | Pharmacy Consult-Antibiotics ---
Pharmacy Consult-Vancomycin - Laboratory Information WBC 5.9 T/MM3 (4.5-11.0) 11/04/17 04:15 BUN 10.0 MG/DL (7-17) 11/04/17 04:15 Creatinine 0.4 MG/DL (0.7-1.2) L 11/05/17 04:10 Vancomycin Trough 24.58 UG/ML (15-20) H* 11/05/17 04:10 - Consult Information Vancomycin trough elevated. Held dose for 4 hours, then resumed vancomycin at a reduced dose of 1000mg IV q12h. Will continue to monitor. Thank you.
[2017-11-05] MEDS: DICLOFENAC SODIUM DR 25 MG TABLET PO SCH ×2 (09:12→17:51)
--- NOTE | 2017-11-05 09:49 | Orthopedic Progress Note ---
Date: Date: 11/05/17 Time: 946 Subjective/Severity of Illness: No new complaints. Orthopedic Objective Vital signs: Temperature 98.6 F 11/05/17 07:37 Pulse Rate 94 11/05/17 07:37 Respiratory Rate 20 11/05/17 07:37 Blood Pressure 130/81 11/05/17 07:37 Pulse Oximetry 100 11/05/17 07:37 Height and Weight: Height 5 ft 2 in Weight 39.7 kg Body Mass Index 14.7 - Constitutional General Appearance: Present: no acute distress, thin - Respiratory Exam Present: non-labored - Cardiovascular Exam Capillary Refill: < 2-3 Seconds - Extremities Exam Present: no edema. Absent: cyanosis, clubbing - Lymphatic Lymphatic: Absent: adenopathy - Neurological Exam Present: intact to light touch, no deficits - Wound Management Left Leg Wound Type: Amputation Comments: Skin edges intact. There is some deep bruising of the medial/central anterior skin flap which has questionable viability. No drainage. Left Knee Wound Type: Amputation - Labs Result Diagrams: 11/04/17 04:15 11/05/17 04:10 Abnormal lab results 11/05/17 11/05/17 Range/Units 04:10 04:10 Creatinine 0.4 L (0.7-1.2) MG/DL Vancomycin Trough 24.58 H* (15-20) UG/ML H & H 11/01/17 11/03/17 11/04/17 Range/Units 15:54 05:26 04:15 Hgb 11.3 L D 9.1 L D 9.6 L (12-16) GM/DL Hct 35.5 L D 29.7 L D 31.6 L (36-46) % Orthopedic Assessment and Plan (1) Status post below knee amputation of left lower extremity Status: Acute Assessment and Plan: Continue antibiotics. Vac replaced today. Anticipate need for revision amputation on Monday. Hospital Course Summary Disclaimer: The visit summary below is not to be considered part of the above Progress Note.
[2017-11-05] MEDS: BECLOMETHASONE 80 MCG ORAL INH SCH ×2 (10:58→20:49)
--- NOTE | 2017-11-05 14:05 | Progress Note ---
- Date 11/05/17 Subjective: Pt reports she's doing well. Wound vac is back on so she will not be discharging today. Denies any n/v/d, f/c, cp or sob. Objective Vital signs: Temperature 97.8 F 11/05/17 11:52 Pulse Rate 89 11/05/17 11:52 Respiratory Rate 16 11/05/17 11:52 Blood Pressure 143/91 H 11/05/17 11:52 Pulse Oximetry 93 11/05/17 11:52 Height/Weight/BMI: Height 5 ft 2 in Weight 39.7 kg Body Mass Index 14.7 - Constitutional Present: no acute distress - Routine HEENT Exam Head: Present: normocephalic, atraumatic Eye: Present: EOMI, PERRL - Routine Respiratory Exam Present: CTA bilaterally. Absent: wheezes, crackles - Routine Cardiovascular Exam Present: RRR, no murmur - Routine Abdominal Exam Present: soft, non distended, non tender - Routine Extremities Exam Present: no edema, amputation. Absent: cyanosis, clubbing - Routine Skin Exam Present: intact, dry. Absent: cyanosis, erythema - Routine Neurological Exam Present: alert, oriented X3 Results - Labs CBC & Chem 7: 11/04/17 04:15 11/05/17 04:10 Assessment and Plan (1) Status post below knee amputation of left lower extremity Current visit: No Status: Acute Assessment and Plan: IMPRESSION Acute Medical History Dehiscence of left BKA surgical wound secondary to fall (repair with wound vac placement 11/02/17) S/P left BKA secondary to severe peripheral arterial disease and failed outpatient treatment of bilateral lower extremity wounds. - Dr. Collier, 10/20/2017. Thrombocytosis, POA Chronic health problems CAD with severe peripheral vascular disease. A-fib/PSVT. Hypertension. Hyperlipidemia. Systolic CHF - echocardiogram 04/2017 revealed EF 15%. TIA - 03/2017. PAD. Rheumatoid arthritis. COPD Chronic anemia Oxygen dependence - 2L at night and as needed with exertion during the day. BRANDO with home CPAP. Adrenal insufficiency secondary to chronic steroid use. Anxiety and depression Hypothyroidism. Ileostomy secondary to prior bowel perforation. Lower extremity nonhealing wounds secondary to PAD. GERD. Urinary incontinence. Osteoarthritis PLAN Patient is doing well. No concerns at present. Hgb has stabilized. Will follow. - Physician Narrative Narrative: Date: 11/05/17 Time: 1403 Hospital Course Summary Disclaimer: The visit summary below is not to be considered part of the above Progress Note.
[2017-11-05] MEDS: NS 1,000 ML IV SCH ×2 (16:34→21:19)
[2017-11-05] MEDS: TIOTROPIUM 18mcg/cap HANDIHALER ORAL INH SCH (20:49)
[2017-11-05] MEDS: MIRTAZAPINE 30 MG TABLET PO SCH (21:19)
[2017-11-05] MEDS: FLUDROCORTISONE 0.1 MG TABLET PO SCH (21:20)
[2017-11-05] MEDS: ROSUVASTATIN 20 MG TABLET PO SCH (21:20)
[2017-11-05] MEDS: CLOPIDOGREL 75 MG TABLET PO SCH (21:20)
[2017-11-05] MEDS: OLANZapine 2.5 MG TABLET PO SCH (21:20)
[2017-11-06] MEDS: LEVOTHYROXINE 75 MCG TABLET PO SCH (06:23)
[2017-11-06] MEDS: LANSOPRAZOLE 30 MG PO SCH (06:23)
[2017-11-06] MEDS: HYDROCODONE/APAP 7.5 MG/325 MG TABLET PO PRN (07:40)
[2017-11-06] MEDS: DICLOFENAC SODIUM DR 25 MG TABLET PO SCH ×2 (07:40→18:22)
[2017-11-06] MEDS: CALCIUM CARBONATE 600 MG TABLET PO SCH ×2 (07:41→09:47)
[2017-11-06] MEDS: ASPIRIN *EC* 81 MG TABLET PO SCH ×2 (07:42→09:47)
[2017-11-06] MEDS: CARVEDILOL 6.25 MG TABLET PO SCH ×2 (07:43→18:22)
[2017-11-06] MEDS: BUSPIRONE 10 MG TABLET PO SCH ×3 (07:43→20:51)
[2017-11-06] MEDS: PredniSONE 5 MG TABLET PO SCH (07:44)
[2017-11-06] MEDS: Venlafaxine XR 37.5 MG CAPSULE (24hr) PO SCH (07:44)
[2017-11-06] MEDS: BECLOMETHASONE 80 MCG ORAL INH SCH ×2 (09:26→21:43)
[2017-11-06] MEDS: FUROSEMIDE 20 MG TABLET PO PRN (10:55)
--- NOTE | 2017-11-06 14:04 | Progress Note ---
- Date 11/06/17 Subjective: Pt doing well, denies any n/v/d, f/c, cp or sob. Repots she is in better spirits today. Objective Vital signs: Temperature 98.3 F 11/06/17 11:00 Pulse Rate 113 H 11/06/17 11:00 Respiratory Rate 16 11/06/17 11:00 Blood Pressure 163/94 H 11/06/17 11:00 Pulse Oximetry 100 11/06/17 11:00 Height/Weight/BMI: Height 5 ft 2 in Weight 41 kg Body Mass Index 14.7 - Constitutional Present: no acute distress - Routine HEENT Exam Head: Present: normocephalic, atraumatic Eye: Present: EOMI, PERRL - Routine Respiratory Exam Present: CTA bilaterally. Absent: wheezes, crackles - Routine Cardiovascular Exam Present: RRR, no murmur - Routine Abdominal Exam Present: soft, non distended, non tender - Routine Extremities Exam Present: no edema, amputation. Absent: cyanosis, clubbing - Routine Skin Exam Present: intact, dry. Absent: erythema - Routine Neurological Exam Present: alert, oriented X3 Results - Labs CBC & Chem 7: 11/04/17 04:15 11/05/17 04:10 Assessment and Plan (1) Status post below knee amputation of left lower extremity Current visit: No Status: Acute Assessment and Plan: IMPRESSION Acute Medical History Dehiscence of left BKA surgical wound secondary to fall (repair with wound vac placement 11/02/17) S/P left BKA secondary to severe peripheral arterial disease and failed outpatient treatment of bilateral lower extremity wounds. - Dr. Collier, 10/20/2017. Thrombocytosis, POA Chronic health problems CAD with severe peripheral vascular disease. A-fib/PSVT. Hypertension. Hyperlipidemia. Systolic CHF - echocardiogram 04/2017 revealed EF 15%. TIA - 03/2017. PAD. Rheumatoid arthritis. COPD Chronic anemia Oxygen dependence - 2L at night and as needed with exertion during the day. BRANDO with home CPAP. Adrenal insufficiency secondary to chronic steroid use. Anxiety and depression Hypothyroidism. Ileostomy secondary to prior bowel perforation. Lower extremity nonhealing wounds secondary to PAD. GERD. Urinary incontinence. Osteoarthritis PLAN Patient is doing well. No concerns at present. Hgb has stabilized. Will follow. will see tomorrow to decide if more procedures or discharge pt - Physician Narrative Narrative: Date: 11/06/17 Time: 1401 Hospital Course Summary Disclaimer: The visit summary below is not to be considered part of the above Progress Note.
[2017-11-06] MEDS: OLANZapine 2.5 MG TABLET PO SCH (20:50)
[2017-11-06] MEDS: ROSUVASTATIN 20 MG TABLET PO SCH (20:50)
[2017-11-06] MEDS: CLOPIDOGREL 75 MG TABLET PO SCH (20:50)
[2017-11-06] MEDS: MIRTAZAPINE 30 MG TABLET PO SCH (20:51)
[2017-11-06] MEDS: FLUDROCORTISONE 0.1 MG TABLET PO SCH (20:53)
[2017-11-06] MEDS: SALINE FLUSH 10ml SYRINGE IV PRN (21:30)
[2017-11-06] MEDS: NS FLUSH BAG 500ml IV PRN (21:30)
[2017-11-06] MEDS: TIOTROPIUM 18mcg/cap HANDIHALER ORAL INH SCH (21:54)
[2017-11-07] MEDS: LEVOTHYROXINE 75 MCG TABLET PO SCH (05:58)
[2017-11-07] MEDS: LANSOPRAZOLE 30 MG PO SCH (05:58)
[2017-11-07] MEDS: HYDROCODONE/APAP 7.5 MG/325 MG TABLET PO PRN (06:07)
[2017-11-07] MEDS: BECLOMETHASONE 80 MCG ORAL INH SCH ×2 (08:09→20:21)
--- NOTE | 2017-11-07 08:30 | XRay Report ---
Indication: sob PROCEDURE: XR chest 1V: Encounter: Initial Comparison: November 03, 2017 Findings: Lungs are hyperinflated. No new airspace consolidation. No gross pleural effusion or pneumothorax. Heart size and mediastinal contours are stable. Pulmonary vascularity is normal. Impression: No focal pneumonia or congestive failure. .
[2017-11-07] MEDS: Venlafaxine XR 37.5 MG CAPSULE (24hr) PO SCH (09:03)
[2017-11-07] MEDS: ASPIRIN *EC* 81 MG TABLET PO SCH (09:03)
[2017-11-07] MEDS: CALCIUM CARBONATE 600 MG TABLET PO SCH (09:04)
[2017-11-07] MEDS: DICLOFENAC SODIUM DR 25 MG TABLET PO SCH ×2 (09:04→17:24)
[2017-11-07] MEDS: BUSPIRONE 10 MG TABLET PO SCH ×2 (09:05→20:22)
[2017-11-07] MEDS: PredniSONE 5 MG TABLET PO SCH (09:06)
[2017-11-07] MEDS: CARVEDILOL 6.25 MG TABLET PO SCH ×2 (09:06→17:24)
--- NOTE | 2017-11-07 13:25 | Orthopedic Progress Note ---
Date: Date: 11/07/17 Time: 1322 Subjective/Severity of Illness: No new complaints. Orthopedic Objective Vital signs: Temperature 97.8 F 11/07/17 11:00 Pulse Rate 102 H 11/07/17 11:00 Respiratory Rate 16 11/07/17 11:00 Blood Pressure 139/95 H 11/07/17 11:00 Pulse Oximetry 94 11/07/17 11:00 Height and Weight: Height 5 ft 2 in Weight 35.2 kg Body Mass Index 14.7 - Constitutional General Appearance: Present: no acute distress, thin - Respiratory Exam Present: non-labored - Cardiovascular Exam Capillary Refill: < 2-3 Seconds - Extremities Exam Present: no edema, amputation. Absent: cyanosis, clubbing - Lymphatic Lymphatic: Absent: adenopathy - Neurological Exam Present: intact to light touch, no deficits - Wound Management Left Leg Wound Type: Amputation Left Knee Wound Type: Amputation Comments: Necrotic skin edges in the mid aspect of incision anteriorly. - Labs Result Diagrams: 11/04/17 04:15 11/07/17 11:29 Abnormal lab results 11/07/17 Range/Units 11:29 Creatinine 0.5 L (0.7-1.2) MG/DL Albumin 3.3 L (3.5-5.0) G/DL H & H 11/01/17 11/03/17 11/04/17 Range/Units 15:54 05:26 04:15 Hgb 11.3 L D 9.1 L D 9.6 L (12-16) GM/DL Hct 35.5 L D 29.7 L D 31.6 L (36-46) % Orthopedic Assessment and Plan (1) Status post below knee amputation of left lower extremity Status: Acute Assessment and Plan: Her wound continues to show signs of necrosis with little healing. I recommended a revision amputation with possible closure versus wound vac placement tomorrow morning. Hospital Course Summary Disclaimer: The visit summary below is not to be considered part of the above Progress Note.
--- NOTE | 2017-11-07 14:40 | Progress Note ---
- Date 11/07/17 Subjective: Patient is seen sitting in bed. She reports her mood is a bit better today. She is feeling depressed and overwhelmed with her situation. No cough or SOA. She tells me she is going back to surgery tomorrow. Wound vac was removed today. She's noted some swelling to her R arm in the elbow region. Has been getting worse. Noted sxs a few days ago. Has some tenderness with pressure over the area. Objective Vital signs: Temperature 97.8 F 11/07/17 11:00 Pulse Rate 102 H 11/07/17 11:00 Respiratory Rate 16 11/07/17 11:00 Blood Pressure 139/95 H 11/07/17 11:00 Pulse Oximetry 94 11/07/17 11:00 Height/Weight/BMI: Height 1.57 m Weight 35.2 kg Body Mass Index 14.7 - Constitutional Present: thin - Routine Respiratory Exam Present: CTA bilaterally. Absent: wheezes - Routine Cardiovascular Exam Present: RRR. Absent: murmur - Routine Abdominal Exam Present: soft, normoactive bowel sounds, non distended. Absent: tenderness - Routine Extremities Exam Present: no edema, normal capillary refill Comments: L stump is wrapped Swelling to R proximal forearm with slight erythema and tenderness. She has small area of bruising over in the popliteal fossa from previous blood draw. Still has FROM of the elbow but "feels tight" with bending the elbow. No significant warmth. Radial pulse is nl. - Routine Skin Exam Present: dry, warm - Routine Neurological Exam Present: alert, oriented X3, CN II-XII intact - Routine Lymphatic Exam Lymphatic: Absent: adenopathy - Routine Psychiatric Exam Present: normal affect, cooperative Results - Labs CBC & Chem 7: 11/04/17 04:15 11/07/17 11:29 Assessment and Plan (1) Status post below knee amputation of left lower extremity Current visit: No Status: Acute Assessment and Plan: IMPRESSION Acute Medical History Dehiscence of left BKA surgical wound secondary to fall (repair with wound vac placement 11/02/17) Localized R arm edema S/P left BKA secondary to severe peripheral arterial disease and failed outpatient treatment of bilateral lower extremity wounds. - Dr. Collier, 10/20/2017. Thrombocytosis, POA - resolved Chronic health problems CAD with severe peripheral vascular disease. A-fib/PSVT. Hypertension. Hyperlipidemia. Systolic CHF - echocardiogram 04/2017 revealed EF 15%. TIA - 03/2017. PAD. Rheumatoid arthritis. COPD Chronic anemia Oxygen dependence - 2L at night and as needed with exertion during the day. BRANDO with home CPAP. Adrenal insufficiency secondary to chronic steroid use. Anxiety and depression Hypothyroidism. Ileostomy secondary to prior bowel perforation. Lower extremity nonhealing wounds secondary to PAD. GERD. Urinary incontinence. Osteoarthritis PLAN Patient will undergo revision amputation with possible closure versus wound vac placement tomorrow as wound is not healing appropriately. Continue on vancomycin. BP's have been up a bit over the past several days. Pt has been more anxious with the holidays. No med changes. Continue to monitor. Check US of R arm d/t swelling. Most suspicious for hematoma but need to r/o abscess or DVT. - Physician Narrative Narrative: S: Pt reports she's feeling about the same. Denies any n/v/d, f/c, cp or sob. O: Cards; RRR without murmurs Lungs: CTAB without wheezes A/P: Pt medically stable, surgery plans on taking her back to OR tomorrow. Will cont. to follow along with surgery. Date: 11/07/17 Time: 1501 Hospital Course Summary Disclaimer: The visit summary below is not to be considered part of the above Progress Note. Hospital Course: 11/07/17 14:48 Patient will undergo revision amputation with possible closure versus wound vac placement tomorrow as wound is not healing appropriately. Continue on vancomycin. BP's have been up a bit over the past several days. Pt has been more anxious with the holidays. No med changes. Continue to monitor. Check US of R arm d/t swelling. Most suspicious for hematoma but need to r/o abscess or DVT.
--- NOTE | 2017-11-07 15:45 | Ultrasound Report ---
Indication: swelling R arm PROCEDURE: US venous doppler UE RT: Encounter: Initial Comparison: None Technique: Color Doppler duplex and grayscale sonographic imaging of the right upper extremity was performed. FINDINGS: There is no evidence for acute deep venous thrombosis in the right arm. The right internal jugular, subclavian, axillary and paired brachial veins were evaluated; compression and augmentation were applied where possible. In addition, color and pulsed Doppler demonstrate appropriate spontaneous flow, cardiac pulsatility and variation with respiration. Subcutaneous edema and trace fluid in the area of swelling. IMPRESSION: No evidence of acute DVT in the right upper extremity. .
[2017-11-07] MEDS: FLUDROCORTISONE 0.1 MG TABLET PO SCH (20:22)
[2017-11-07] MEDS: MIRTAZAPINE 30 MG TABLET PO SCH (20:22)
[2017-11-07] MEDS: CLOPIDOGREL 75 MG TABLET PO SCH (20:22)
[2017-11-07] MEDS: ROSUVASTATIN 20 MG TABLET PO SCH (20:22)
[2017-11-07] MEDS: OLANZapine 2.5 MG TABLET PO SCH (20:22)
[2017-11-07] MEDS: TIOTROPIUM 18mcg/cap HANDIHALER ORAL INH SCH (20:23)
[2017-11-08] MEDS: LANSOPRAZOLE 30 MG PO SCH ×2 (05:36→05:39)
[2017-11-08] MEDS: LEVOTHYROXINE 75 MCG TABLET PO SCH ×2 (05:36→05:38)
[2017-11-08] MEDS: LR 1,000 ML IV SCH (06:47)
--- NOTE | 2017-11-08 06:58 | Anesthesia Preoperative Report ---
Anesthesia Preoperative Record - Date and Time Date: 11/08/17 Preoperative Diagnosis: Fall with dehiscence of L BKA Wound Proposed Procedure: left leg amputation revision NPO Since Date: 11/07/17 NPO Since Time: 23:00 Allergies/Adverse Reactions: Allergies Allergy/AdvReac Type Severity Reaction Status Date / Time morphine Allergy Mild ITCHING Verified 11/01/17 15:21 methylprednisolone Allergy Unknown Verified 11/01/17 15:21 doxycycline AdvReac Severe DIARRHEA Verified 11/01/17 15:21 adalimumab AdvReac Intermediate LOW GRADE Verified 11/01/17 15:21 FEVER atorvastatin AdvReac Unknown LEG CRAMPS Verified 11/01/17 15:21 bupropion AdvReac Unknown ANXIETY Verified 11/01/17 15:21 cortizone meds Allergy Unknown Anxiety Uncoded 10/19/17 12:15 - Vital Signs Vital Signs: Temperature 98.9 F 11/08/17 06:39 Pulse Rate 111 H 11/08/17 06:39 Respiratory Rate 18 11/08/17 06:39 Blood Pressure 138/90 H 11/08/17 06:39 Pulse Oximetry 93 11/08/17 06:39 Height and Weight: Height 1.57 m Weight 35.2 kg Body Mass Index 14.7 - Medications Inpatient Medications: Current Medications Acetaminophen (Tylenol) 1,000 mg PO Q6H PRN PRN Reason: Pain Hydrocodone Bitart/Acetaminophen ([place] 7.5/325) 1 - 2 tab PO Q6H PRN PRN Reason: Pain Last Admin: 11/07/17 06:07 Dose: 1 tab Albuterol Sulfate (Proventil Neb (0.083%)) 2.5 mg AEROSOL Q4H PRN PRN Reason: PRN orders Aspirin (Ecotrin) 81 mg PO DAILY [facility] Last Admin: 11/07/17 09:03 Dose: 81 mg Beclomethasone Dipropionate (Qvar Inhaler) 2 puff ORAL INH RTBID [facility] Last Admin: 11/07/17 20:21 Dose: 2 puff Buspirone HCl (Buspar) 20 mg PO BID [facility] Last Admin: 11/07/17 20:22 Dose: 20 mg Calcium Carbonate (Caltrate) 1,200 mg PO DAILY [facility] Last Admin: 11/07/17 09:04 Dose: 1,200 mg Carvedilol (Coreg) 6.25 mg PO BIDBS [facility] Last Admin: 11/07/17 17:24 Dose: 6.25 mg Cholecalciferol (Vit. D-3) 2,000 unit PO DAILY [facility] Last Admin: 11/07/17 09:03 Dose: 2,000 unit Clopidogrel Bisulfate (Plavix) 75 mg PO HS [facility] Last Admin: 11/07/17 20:22 Dose: 75 mg Cyanocobalamin (Vit. B-12) 1,000 mcg IM Q30D [facility] Last Admin: 11/03/17 09:13 Dose: 1,000 mcg Diclofenac Sodium (Voltaren) 100 mg PO BIDBS [facility] Last Admin: 11/07/17 17:24 Dose: 100 mg Fludrocortisone Acetate (Florinef) 0.1 mg PO [facility] Last Admin: 11/07/17 20:22 Dose: 0.1 mg Furosemide (Lasix) 20 mg PO DAILY PRN PRN Reason: Edema Last Admin: 11/06/17 10:55 Dose: 20 mg Hydromorphone HCl (Dilaudid) 0.2 - 0.5 mg IVP Q1H PRN PRN Reason: Pain Last Admin: 11/02/17 10:15 Dose: 0.25 mg Vancomycin HCl 1,000 mg/ (Sodium Chloride) 250 mls @ 250 mls/hr IV Q12H [facility] Last Infusion: 11/07/17 22:58 Dose: Infused Lactated Ringer's (Lactated Ringers) 1,000 mls @ 50 mls/hr IV .Q20H [facility] Last Admin: 11/08/17 06:47 Dose: 50 mls/hr Levothyroxine Sodium (Synthroid) 75 mcg PO ACB [facility] Last Admin: 11/08/17 05:38 Dose: Not Given Lisinopril (Prinivil) 5 mg PO [facility] Mirtazapine (Remeron) 30 mg PO [facility] Last Admin: 11/07/17 20:22 Dose: 30 mg Nitroglycerin (Nitrostat) 0.4 mg SL Q5MIN3 PRN PRN Reason: chest pain Pom Lansoprazole (30mg) 1 PO ACB [facility] Last Admin: 11/08/17 05:39 Dose: Not Given Olanzapine (Zyprexa) 2.5 mg PO [facility] Last Admin: 11/07/17 20:22 Dose: 2.5 mg Prednisone (Deltasone) 3 mg PO WB [facility] Last Admin: 11/07/17 09:06 Dose: 3 mg Prednisone (Deltasone) 5 mg PO WB [facility] Last Admin: 11/07/17 09:06 Dose: 5 mg Rosuvastatin Calcium (Crestor) 20 mg PO HS [facility] Last Admin: 11/07/17 20:22 Dose: 20 mg Sodium Chloride (Iv Flush) 10 ml IV PRN PRN PRN Reason: Flushing Last Admin: 11/06/17 21:30 Dose: 10 ml Sodium Chloride (Normal Saline) 500 ml IV PRN PRN Last Admin: 11/06/17 21:30 Dose: 500 ml Tiotropium [place] (Spiriva) 1 cap ORAL INH HS [facility] Last Admin: 11/07/17 20:23 Dose: 1 cap Venlafaxine HCl (Effexor Xr) 37.5 mg PO [facility] Last Admin: 11/07/17 09:03 Dose: 37.5 mg Home Medications: Home Medications Medication Instructions Recorded Confirmed Type Tiotropium Handihaler [Spiriva] 1 cap IH HS #0 07/07/10 11/01/17 History Acetaminophen 1,000 mg PO Q6H PRN #0 01/05/16 11/01/17 History Buspirone HCl 20 mg PO BID #0 01/05/16 11/01/17 History Calcium Carbonate [Calcium] 1,200 mg PO DAILY #0 07/28/16 11/01/17 History Rosuvastatin Calcium [Crestor] 20 mg PO HS #0 07/28/16 11/01/17 History Clopidogrel Bisulfate [Plavix] 75 mg PO HS #0 08/24/16 11/01/17 History Diclofenac Sodium [Diclofenac 100 mg PO BID #0 08/24/16 11/01/17 History Sodium ER] Aspirin [Aspirin EC] 81 mg PO DAILY #0 10/09/16 11/01/17 History Lisinopril 2.5 mg PO HS #0 10/09/16 11/01/17 History Nitroglycerin [Nitrostat] 0.4 mg SL Q5MIN3 PRN #0 10/09/16 11/01/17 History Fludrocortisone [Florinef] 0.1 mg PO HS #0 tab 12/18/16 11/01/17 History Levothyroxine Sodium 75 mcg PO ACB #0 tab 12/18/16 11/01/17 History Beclomethasone Dipropionate [Qvar 1 puff INH RTBID 08/17/17 11/01/17 History 80] Albuterol HFA Inhaler [Ventolin 1 - 2 puff INH Q4H PRN 09/27/17 11/01/17 History Hfa 90 mcg/actuation] Carvedilol 6.25 mg PO BIDWM 09/27/17 11/01/17 History Cyanocobalamin (B-12) [Vit. B-12] 1,000 mcg IM 1 MONTH 09/27/17 11/01/17 History Mirtazapine [Remeron] 30 mg PO HS 09/27/17 11/01/17 History OLANZapine [Zyprexa] 2.5 mg PO HS 09/27/17 11/01/17 History Cholecalciferol (Vitamin D3) 1 cap PO DAILY 10/19/17 11/01/17 History [Vitamin D3] Lansoprazole 1 cap PO ACB 10/19/17 11/01/17 History PredniSONE [Deltasone] 5 mg PO WB 10/24/17 11/01/17 History Multivitamin [Chewable-Matthew] 1 each PO 11/01/17 History Is Patient on Beta Gisela?: No - Medical History Respiratory: Reports: Asthma, Chronic Obstructive Pulmonary Disease (COPD), Sleep Apnea (uses cpap), Other Cardiovascular: Reports: Abnormal EKG, Angina (HX), Arrhythmia (at. fib./ tachycardia), Congestive Heart Failure (EF documented as 20-25%), Coronary Artery Disease, Hypertension, Myocardial Infarction (EF 20%, dec 2015) Gastrointestional: Reports: Gastroesophageal Reflux Disease, Hiatal Hernia DENIES: Nausea or Vomiting Present Neuro/Musculoskeletal: Reports: HX.MS.OSAR (osteoporosis), Depression, Muscle Weakness, Other (RA) Renal/Endocrine: Reports: Thyroid Disease, Weight Loss Other History: Reports: Blood Transfusions (NO REACTION) - Surgical History HEENT Surgeries: Reports: Nose Surgery (DEBRIDGMENT) Cardiac Surgeries/Treatments: Reports: Cardiac Catheterization (WITH STENT 2015) , Other (STENT 2015) DENIES: Pacemaker Respiratory Surgery/Treatments: Reports: CPAP Use, Oxygen Administration (2L/NC with exertion & at noc) GI Surgery/Treatments: Reports: Colon Resection, Hernia Repair, Colonoscopy, Other (ileostomy) Musculoskeletal Surgery/Tx: Reports: Carpal Tunnel Release, Joint Surgery (LEFT HIP-PINS), Shoulder Arthroscopy (RIGHT SHOULDER REPLACEMENT), Total Knee Replacement (ANDRES.), Other (FUSION- L. ANKLE, R WRIST,NECK, TOE SURGERY) Reproductive Surgery/Treatment: Reports: Tubal Ligation DENIES: Mastectomy Anesthesia Reactions: None Hx Family Anesthesia Reaction: No History of Motion Sickness: No - Social History Smoking Status: Former smoker (quit 2002) Pack-years: 40 Hx Chewing Tobacco Use: No Second Hand Exposure: No Substance Use Type: does not use Alcohol Intake: former Alcohol Intake Frequency: does not drink - Pertinent Findings Laboratory: CBC and BMP 11/04/17 04:15 11/07/17 11:29 BMP 11/07/17 11:29 Sodium 139 Potassium 3.7 Chloride 104 Carbon Dioxide 29 BUN 7.0 Creatinine 0.5 L Glucose 109 Calcium 8.6 Liver Function 11/07/17 Range/Units 11:29 Albumin 3.3 L (3.5-5.0) G/DL EKG: Sinus Tachycardia - Physical Exam Respiratory Exam: Present: bilateral breath sounds equal, decreased breath sounds-L, decreased breath sounds-R Cardiovascular Exam: Present: regular rate and rhythm, no murmur - Airway Assessment Mallampati Score: IV TMD: 2 Fingerbreadths Neck Extension: poor Overall Assessment: may be difficult mask vent, may be difficult intubation - ASA ASA Score: 4 - Plan Anesthesia: General TIVA, MAC - Discussion Discussion: Discussed risks/options/alternatives of anesthesia and questions answered. Patient consents. Nursing pain assessment noted. Present for Discussion: family member Attestation Statement: Prior to the delivery of any anesthetic medication, I examined the patient, developed the plan, obtained the patient's consent and discussed the risk and benefits of the procedure with the patient/guardian. - Additional Information Seen by Anesthesia: Yes
[2017-11-08] MEDS ORDERED: ONDANSETRON 4 MG/2 ML INJECTION IVP PRN ×2 (08:45→10:21)
[2017-11-08] MEDS: HYDROMORPHONE 2 MG/ML INJECTION IVP PRN ×2 (08:49→08:59)
--- NOTE | 2017-11-08 09:00 | Anesthesia Postoperative Note ---
- Date and Time Date: 11/08/17 Time: 09:00 - Status Patient Participated in Evaluation: Patient Participated in Person Vital Signs: Temperature 99.0 F 11/08/17 08:42 Pulse Rate 104 H 11/08/17 08:55 Respiratory Rate 26 H 11/08/17 08:55 Blood Pressure 127/80 11/08/17 08:55 Pulse Oximetry 98 11/08/17 08:55 Respiratory Function: Airway Patent Cardiovascular Function: Regular Pulse EKG: Sinus Tachycardia Mental Status: Alert and Oriented Pain Intensity: 6 (states its bone pain) Hydration: IV Infusing Complications During Recover: None Apparent - Follow-Up Instructions Instructions: Per Surgeon
[2017-11-08] MEDS: BECLOMETHASONE 80 MCG ORAL INH SCH ×2 (09:52→19:04)
[2017-11-08] MEDS: ASPIRIN *EC* 81 MG TABLET PO SCH (09:56)
[2017-11-08] MEDS: BUSPIRONE 10 MG TABLET PO SCH ×2 (09:57→20:14)
[2017-11-08] MEDS: CALCIUM CARBONATE 600 MG TABLET PO SCH (09:57)
[2017-11-08] MEDS: DICLOFENAC SODIUM DR 25 MG TABLET PO SCH ×2 (09:57→17:30)
[2017-11-08] MEDS: CARVEDILOL 6.25 MG TABLET PO SCH ×2 (09:57→17:30)
[2017-11-08] MEDS: PredniSONE 5 MG TABLET PO SCH (09:58)
[2017-11-08] MEDS: Venlafaxine XR 37.5 MG CAPSULE (24hr) PO SCH (09:58)
[2017-11-08] MEDS: HYDROCODONE/APAP 7.5 MG/325 MG TABLET PO PRN ×3 (10:49→20:16)
--- NOTE | 2017-11-08 12:02 | Operative Note ---
DATE OF PROCEDURE 11/08/2017 PREOPERATIVE DIAGNOSIS Failure of flap, left BKA stump. POSTOPERATIVE DIAGNOSIS Failure of flap, left BKA stump. PROCEDURE Revision amputation, left [id number] amputation. SURGEON Omar Collier MD ANESTHESIA TIVA COMPLICATIONS None. EBL AND FLUIDS Please see Anesthetic Records. TOURNIQUET None used. DESCRIPTION OF PROCEDURE Mrs. Gore and her left BKA stump were identified and marked in the preoperative holding area. She was brought back to the operating suite and placed supine on the operating table. She was placed under general anesthesia. Time-out was performed. The patient is on scheduled IV antibiotics. Her left lower extremity was prepped and draped in my normal sterile fashion. Time-out was performed again. I measured her incision. This measured 14 mm. She had two areas of most concern with necrotic skin tissue. One was just medial to midline, measuring 3 mm x 3 mm. The second was more lateral, measuring 3 mm x 2 mm. I started by sharply removing all necrotic skin as well as the tissue. The previous sutures were also removed. The deep tissue did not have any signs of obvious necrosis or abscess formation. I did take some samples of deep subcutaneous tissue and send to the lab for culture. There was also no sign of necrosis over the distal tibia. I removed soft tissue around the distal tibia for approximately 3 cm and removed approximately a [id number]-half of bone sharply with a sagittal saw. The same saw was then used to bevel the anteromedial edges and then a rasp was used to smooth the edges further. The wound was then thoroughly irrigated and hemostasis was obtained with electrocautery. She did have good bleeding present along the skin edges. 800 ml total of normal saline was used. The tibial resection was also sent for pathology - for culture and pathology. I then made two bone holes using a small drill, one anterior and one lateral, in the distal tibia. I brought the deep subcutaneous posterior tissue up through this bone hole with a 2-0 PDS. This did give a good soft tissue cushion distally and allowed me to sew the skin edges together with a 4- 0 nylon without any tension on the skin. Several 2-0 PDS were used in the deep tissue including the two through the bone and then multiple simple interrupted 4 -0 nylon was used to close the skin edges. The skin was then clean and a sterile dressing was placed. The drapes were removed. She was allowed to awaken from general anesthesia and taken to the Recovery Room under the care of Anesthesia. She tolerated the procedure well. There were no complications. TONY
--- NOTE | 2017-11-08 13:41 | Pharmacy Consult-Antibiotics ---
Pharmacy Consult-Vancomycin - Laboratory Information WBC 5.9 T/MM3 (4.5-11.0) 11/04/17 04:15 BUN 6.0 MG/DL (7-17) L 11/08/17 09:27 Creatinine 0.6 MG/DL (0.7-1.2) L 11/08/17 09:27 Vancomycin Trough 19.47 UG/ML (15-20) 11/08/17 09:27 - Consult Information VANCOMYCIN CONSULT: ALIZE is yo female that has an amputation of the right great toe and has been treated multiple times for chronic wounds on bilateral lower extremities. The pt was admitted 10/19/17 for vascular studies to assess her arterial status. Unfortunately, Dr Arora found that the arterial flow to her left LE cannot be corrected with any additional surgical intervention. Clarice was aware that the chances of healing her wounds without blood flow was a losing agustin and she was ready to consider amputation. Dr Collier performed the left BKA. Clarice was discharged from IRU, and she was status post left below the knee amputation. She fell hitting her left stump against her wheelchair. She complains only of left stump pain. She had bloody drainage from the wound over night. Left BKA smp has been dehisced along it's lateral 11/15. There was exposed subcutaneous tissue and mild bloody drainage. There is no exposed bone. Vancomycin Trough = 19.47 mcg/ml. Today's S Cr = 0.6 mg/dl. Estimated Cr Cl ~ 34 mL/min. The computer model indicated that the trough was going to increase to around 23- 24 mcg/mL sa I am l changing the Vancomycin to 1,500 mg IV q18hrs. The anticipated trough should be between 16-17 mcg/mL. The pharmacy sill continue to monitor and make adjustments accordingly. Thank you for the Vancomycin Protocol, Karl Neumann, Pharmacist.
--- NOTE | 2017-11-08 14:52 | Progress Note ---
- Date 11/08/17 Subjective: Patient is seen post-op. SHe is drowsy and having pain at the surgical site, but is otherwise doing well. No CP or SOA. No n/v. Objective Vital signs: Temperature 99.3 F 11/08/17 09:20 Pulse Rate 102 H 11/08/17 13:05 Respiratory Rate 16 11/08/17 13:05 Blood Pressure 117/68 11/08/17 13:05 Pulse Oximetry 98 11/08/17 13:05 Height/Weight/BMI: Height 1.57 m Weight 38.6 kg Body Mass Index 14.7 - Constitutional Present: thin - Routine Respiratory Exam Present: CTA bilaterally. Absent: wheezes - Routine Cardiovascular Exam Present: murmur, tachycardia - Routine Abdominal Exam Present: soft, normoactive bowel sounds, non distended. Absent: tenderness - Routine Extremities Exam Present: no edema, normal capillary refill Comments: L stump wrapped with PIPPA - Routine Skin Exam Present: dry, warm - Routine Neurological Exam Present: alert, oriented X3 - Routine Lymphatic Exam Lymphatic: Absent: adenopathy - Routine Psychiatric Exam Present: normal affect, cooperative Results - Labs CBC & Chem 7: 11/04/17 04:15 11/08/17 09:27 Microbiology Results: Microbiology 11/08/17 07:50 Tibia, Left, Bone Gram Stain - Final 11/08/17 07:50 Tibia, Left, Bone Surgical Culture - Preliminary Culture Initiated - Results Pending 11/08/17 07:45 Knee, Left Intraop Tissue Gram Stain - Final 11/08/17 07:45 Knee, Left Intraop Tissue Surgical Culture - Preliminary Culture Initiated - Results Pending Assessment and Plan (1) Status post below knee amputation of left lower extremity Current visit: No Status: Acute Assessment and Plan: IMPRESSION Acute Medical History Dehiscence of left BKA surgical wound secondary to fall (repair with wound vac placement 11/02/17) Localized R arm edema S/P left BKA secondary to severe peripheral arterial disease and failed outpatient treatment of bilateral lower extremity wounds. - Dr. Collier, 10/20/2017. Thrombocytosis, POA - resolved Hypernatremia - not POA Chronic health problems CAD with severe peripheral vascular disease. A-fib/PSVT. Hypertension. Hyperlipidemia. Systolic CHF - echocardiogram 04/2017 revealed EF 15%. TIA - 03/2017. PAD. Rheumatoid arthritis. COPD Chronic anemia Oxygen dependence - 2L at night and as needed with exertion during the day. BRANDO with home CPAP. Adrenal insufficiency secondary to chronic steroid use. Anxiety and depression Hypothyroidism. Ileostomy secondary to prior bowel perforation. Lower extremity nonhealing wounds secondary to PAD. GERD. Urinary incontinence. Osteoarthritis PLAN Pain control and atbx per ortho Overall doing well post-op. NO concerns at present. She is chronically mildly tachycardic and BP's are stable. - Physician Narrative Narrative: S: Pt reports she feels okay, she recently came from the OR and is in some pain. Pt denies any n/v/d, f/c, cp or sob. O: Cards: RRR without murmurs Lungs: CTAB bilaterally without wheezes A/p: Pt coming back from ortho revision, cont. to follow along with ortho. Increase lisinopril for BP. Monitor Date: 11/08/17 Time: 1644 Hospital Course Summary Disclaimer: The visit summary below is not to be considered part of the above Progress Note. Hospital Course: 11/07/17 14:48 Patient will undergo revision amputation with possible closure versus wound vac placement tomorrow as wound is not healing appropriately. Continue on vancomycin. BP's have been up a bit over the past several days. Pt has been more anxious with the holidays. No med changes. Continue to monitor. Check US of R arm d/t swelling. Most suspicious for hematoma but need to r/o abscess or DVT. 11/08/17 14:52 Sono of arm yesterday was essentially neg except for edema. Revision of amputation today. Pain control and atbx per ortho Overall doing well post-op. NO concerns at present. She is chronically mildly tachycardic and BP's are stable.
[2017-11-08] MEDS: TIOTROPIUM 18mcg/cap HANDIHALER ORAL INH SCH (19:04)
[2017-11-08] MEDS: LISINOPRIL 5 MG TABLET PO SCH (20:14)
[2017-11-08] MEDS: MIRTAZAPINE 30 MG TABLET PO SCH (20:15)
[2017-11-08] MEDS: OLANZapine 2.5 MG TABLET PO SCH (20:15)
[2017-11-08] MEDS: FLUDROCORTISONE 0.1 MG TABLET PO SCH (20:15)
[2017-11-08] MEDS: ROSUVASTATIN 20 MG TABLET PO SCH (20:15)
[2017-11-08] MEDS: CLOPIDOGREL 75 MG TABLET PO SCH (20:15)
[2017-11-08] MEDS: SALINE FLUSH 10ml SYRINGE IV PRN (20:21)
[2017-11-08] MEDS ORDERED: LISINOPRIL 5 MG TABLET PO SCH (21:00)
[2017-11-09] MEDS: LR 1,000 ML IV SCH (04:12)
[2017-11-09] MEDS: LEVOTHYROXINE 75 MCG TABLET PO SCH (05:54)
[2017-11-09] MEDS: LANSOPRAZOLE 30 MG PO SCH (05:54)
--- NOTE | 2017-11-09 08:22 | Orthopedic Progress Note ---
Date: Date: 11/09/17 Time: 818 Subjective/Severity of Illness: Clarice just finished transferring to the restroom when I walked in. She was a little short of breath. She felt "anxious". O2 sats were checked and she was 80% on room air. I applied O2 via NC at 2L, and sats improved to 91%. With that her sense of anxiety also improved. She denies chest pain or shortness of breath. Her pain is controlled. Orthopedic Objective PO Vital signs: Temperature 98.6 F 11/09/17 07:17 Pulse Rate 104 H 11/09/17 07:17 Respiratory Rate 14 11/09/17 07:17 Blood Pressure 133/76 11/09/17 07:17 Pulse Oximetry 80 L 11/09/17 07:17 Height and Weight: Height 5 ft 2 in Weight 90 lb 2.705 oz Body Mass Index 14.7 - Constitutional General Appearance: Present: alert, orientated x3, no acute distress, thin - Respiratory Exam Present: other Comments: see HPI - Cardiovascular Exam Present: tachycardia (improved to normal limits with O2 application.) - Abdominal Exam Absent: tenderness, distended - Extremities Exam Extremities: Present: amputation (Left BKA, dressing in place, some bloody drainage noted.) - Surgical Site Incision: dressing intact, bloody drainage present - Lymphatic Lymphatic: Absent: adenopathy - Neurological Exam Present: intact to light touch, no deficits - Psychiatric Exam Present: alert, normal affect - Wound Management Left Leg Wound Type: Amputation Left Knee Wound Type: Amputation - Labs Result Diagrams: 11/09/17 04:06 11/09/17 04:06 Abnormal lab results 11/08/17 11/09/17 11/09/17 Range/Units 09:27 04:06 04:06 RBC 3.09 L (4.00-5.20) M/MM3 Hgb 8.3 L (12-16) GM/DL Hct 28.3 L (36-46) % MCHC 29.3 L (31-37) GM/DL RDW Std Deviation 57.1 H (36.9-50.2) FL MPV 9.0 L (9.4-12.4) UM3 [place] % (Auto) 16.1 H (0-9.0) % Eos % (Auto) 4.4 H (0-4) % [place] # (Auto) 1.4 H (0-0.8) T/MM3 Sodium 145 H D (134-144) MEQ/L Carbon Dioxide 33 H 32 H (22-30) MEQ/L BUN 6.0 L (7-17) MG/DL Creatinine 0.6 L (0.7-1.2) MG/DL Albumin 2.8 L (3.5-5.0) G/DL H & H 11/01/17 11/03/17 11/04/17 Range/Units 15:54 05:26 04:15 Hgb 11.3 L D 9.1 L D 9.6 L (12-16) GM/DL Hct 35.5 L D 29.7 L D 31.6 L (36-46) % 11/09/17 Range/Units 04:06 Hgb 8.3 L (12-16) GM/DL Hct 28.3 L (36-46) % Orthopedic Assessment and Plan (1) Status post below knee amputation of left lower extremity Status: Acute Assessment and Plan: Doing okay, continue with pain management Medical service to address any further respiratory issue. - Anticoagulation Therapy Anticoagulation: other Hospital Course Summary Disclaimer: The visit summary below is not to be considered part of the above Progress Note. Hospital Course: 11/07/17 14:48 Patient will undergo revision amputation with possible closure versus wound vac placement tomorrow as wound is not healing appropriately. Continue on vancomycin. BP's have been up a bit over the past several days. Pt has been more anxious with the holidays. No med changes. Continue to monitor. Check US of R arm d/t swelling. Most suspicious for hematoma but need to r/o abscess or DVT. 11/08/17 14:52 Sono of arm yesterday was essentially neg except for edema. Revision of amputation today. Pain control and atbx per ortho Overall doing well post-op. NO concerns at present. She is chronically mildly tachycardic and BP's are stable.
[2017-11-09] MEDS: BECLOMETHASONE 80 MCG ORAL INH SCH ×2 (09:06→19:21)
[2017-11-09] MEDS: Venlafaxine XR 37.5 MG CAPSULE (24hr) PO SCH (09:35)
[2017-11-09] MEDS: CARVEDILOL 6.25 MG TABLET PO SCH ×2 (09:36→17:21)
[2017-11-09] MEDS: PredniSONE 5 MG TABLET PO SCH (09:36)
[2017-11-09] MEDS: BUSPIRONE 10 MG TABLET PO SCH ×2 (09:36→21:23)
[2017-11-09] MEDS: CALCIUM CARBONATE 600 MG TABLET PO SCH (09:37)
[2017-11-09] MEDS: ASPIRIN *EC* 81 MG TABLET PO SCH (09:37)
[2017-11-09] MEDS ORDERED: FUROSEMIDE 20 MG/2 ML INJECTION IVP ONE (09:54)
--- NOTE | 2017-11-09 10:17 | Progress Note ---
- Date 11/09/17 Subjective: Patient is seen today lying in her bed. She is anxious and is not ready to be dismissed. She states she was up this morning going to the bathroom and her oxygen saturations dropped down to 80%. Once oxygen was applied, sats improved to the 90s. She's not had any coughing or increased shortness of breath other than during the episode mentioned. Her pain is controlled. Her weight is up 6 kg since admission. No chest pain, no abdominal pain, bowels are moving, no swelling. Objective Vital signs: Temperature 98.6 F 11/09/17 07:17 Pulse Rate 104 H 11/09/17 07:17 Respiratory Rate 20 11/09/17 09:00 Blood Pressure 133/76 11/09/17 07:17 Pulse Oximetry 80 L 11/09/17 07:17 Height/Weight/BMI: Height 1.57 m Weight 40.9 kg Body Mass Index 14.7 - Constitutional Present: no acute distress, thin - Routine Respiratory Exam Present: decreased breath sounds, crackles (bilateral bases). Absent: wheezes - Routine Cardiovascular Exam Present: RRR. Absent: murmur - Routine Abdominal Exam Present: soft, normoactive bowel sounds, non distended. Absent: tenderness Comments: Colostomy right lower quadrant - Routine Extremities Exam Present: no edema, normal capillary refill Comments: Left stump is bandaged, evaluated by Ortho earlier today. - Routine Skin Exam Present: dry, warm - Routine Neurological Exam Present: alert, oriented X3 - Routine Lymphatic Exam Lymphatic: Absent: adenopathy - Routine Psychiatric Exam Present: normal affect, cooperative Results - Labs CBC & Chem 7: 11/09/17 04:06 11/09/17 04:06 Microbiology Results: Microbiology 11/08/17 07:50 Tibia, Left, Bone Gram Stain - Final 11/08/17 07:50 Tibia, Left, Bone Surgical Culture - Preliminary No Growth After 1 Day 11/08/17 07:45 Knee, Left Intraop Tissue Gram Stain - Final 11/08/17 07:45 Knee, Left Intraop Tissue Surgical Culture - Preliminary No Growth After 1 Day Assessment and Plan (1) Status post below knee amputation of left lower extremity Current visit: No Status: Acute Assessment and Plan: IMPRESSION Acute Medical History Dehiscence of left BKA surgical wound secondary to fall (repair with wound vac placement 11/02/17) S/P left BKA secondary to severe peripheral arterial disease and failed outpatient treatment of bilateral lower extremity wounds. - Dr. Collier, 10/20/2017. Thrombocytosis, POA - resolved Hypernatremia - not POA - resolved Chronic health problems CAD with severe peripheral vascular disease. A-fib/PSVT. Hypertension. Hyperlipidemia. Systolic CHF - echocardiogram 04/2017 revealed EF 15%. TIA - 03/2017. PAD. Rheumatoid arthritis. COPD Chronic anemia Oxygen dependence - 2L at night and as needed with exertion during the day. BRANDO with home CPAP. Adrenal insufficiency secondary to chronic steroid use. Anxiety and depression Hypothyroidism. Ileostomy secondary to prior bowel perforation. Lower extremity nonhealing wounds secondary to PAD. GERD. Urinary incontinence. Osteoarthritis PLAN Pain control and atbx per ortho. Surgical culture no growth after one day. Given her wt gain and hypoxia, will DC IV fluids and give 20mg Lasix IV. Hgb dropped 9.6-->8.3 which is expected given her recent surgery. However, given her EF of 15% and other comorbidities, rec keeping her here at least another night to monitor hgb and respiratory status. Will discuss with Dr. Penny possibility of transfusion. Discussed case with ortho. Dr. Collier wants to continue IV vanc until bone culture is back. Will likely keep her through the weekend. - Physician Narrative Narrative: S: Pt reports some sob but she is unclear if she is just anxious. Pt denies cp, n/v/d, f/c. O: Lungs: CTAB, without wheezes Cards: RRR without murmurs A/P: Pt has gained weight since admission, with hx of severe CHF will do diuresis and try to get back to stable weight. Pt has some peripheral edema. Pt's Hgb trending down, likely 2/2 anemia of chronic disease and s/p procedures per OR. No bleeding suspected. Will transfuse for Hgb <7. Will cont. to follow along ortho. Date: 11/09/17 Time: 1414 Hospital Course Summary Disclaimer: The visit summary below is not to be considered part of the above Progress Note. Hospital Course: 11/07/17 14:48 Patient will undergo revision amputation with possible closure versus wound vac placement tomorrow as wound is not healing appropriately. Continue on vancomycin. BP's have been up a bit over the past several days. Pt has been more anxious with the holidays. No med changes. Continue to monitor. Check US of R arm d/t swelling. Most suspicious for hematoma but need to r/o abscess or DVT. 11/08/17 14:52 Sono of arm yesterday was essentially neg except for edema. Revision of amputation today. Pain control and atbx per ortho Overall doing well post-op. NO concerns at present. She is chronically mildly tachycardic and BP's are stable. 11/09/17 10:52 Pain control and atbx per ortho. Surgical culture no growth after one day. Given her wt gain and hypoxia, will DC IV fluids and give 20mg Lasix IV. Hgb dropped 9.6-->8.3 which is expected given her recent surgery. However, given her EF of 15% and other comorbidities, rec keeping her here at least another night to monitor hgb and respiratory status. Will discuss with Dr. Penny possibility of transfusion. Discussed case with ortho. Dr. Collier wants to continue IV vanc until bone culture is back. Will likely keep her through the weekend.
[2017-11-09] MEDS: DICLOFENAC SODIUM DR 25 MG TABLET PO SCH ×2 (10:41→18:23)
[2017-11-09 10:49] VITALS: BMI 16.5
--- NOTE | 2017-11-09 11:47 | Orthopedic Progress Note ---
Date: Date: 11/09/17 Time: 114 Subjective/Severity of Illness: I saw Clarice this AM in her room. She felt a little SOA earlier and oxygen was added. Her pain is controlled at this time. She had some bloody drainage from the surgical site. Orthopedic Objective PO Vital signs: Temperature 98.6 F 11/09/17 07:17 Pulse Rate 104 H 11/09/17 07:17 Respiratory Rate 20 11/09/17 09:00 Blood Pressure 133/76 11/09/17 07:17 Pulse Oximetry 95 11/09/17 11:16 Height and Weight: Height 5 ft 2 in Weight 90 lb 2.705 oz Body Mass Index 16.5 - Constitutional General Appearance: Present: alert, no acute distress, thin - Respiratory Exam Present: other (Not SOA but is on oxygen.) - Cardiovascular Exam Present: tachycardia (improved to normal limits with O2 application.) - Abdominal Exam Absent: tenderness, distended - Extremities Exam Extremities: Present: amputation (Left BKA, dressing chagned. wound looks good. ) - Surgical Site Incision: dressing intact, bloody drainage present, other (Dressing changed by me this AM.) - Neurological Exam Present: intact to light touch, no deficits - Psychiatric Exam Present: alert, normal affect - Wound Management Left Leg Wound Type: Amputation Left Knee Wound Type: Amputation - Labs Result Diagrams: 11/09/17 04:06 11/09/17 04:06 Abnormal lab results 11/09/17 11/09/17 Range/Units 04:06 04:06 RBC 3.09 L (4.00-5.20) M/MM3 Hgb 8.3 L (12-16) GM/DL Hct 28.3 L (36-46) % MCHC 29.3 L (31-37) GM/DL RDW Std Deviation 57.1 H (36.9-50.2) FL MPV 9.0 L (9.4-12.4) UM3 [place] % (Auto) 16.1 H (0-9.0) % Eos % (Auto) 4.4 H (0-4) % [place] # (Auto) 1.4 H (0-0.8) T/MM3 Carbon Dioxide 32 H (22-30) MEQ/L H & H 11/01/17 11/03/17 11/04/17 Range/Units 15:54 05:26 04:15 Hgb 11.3 L D 9.1 L D 9.6 L (12-16) GM/DL Hct 35.5 L D 29.7 L D 31.6 L (36-46) % 11/09/17 Range/Units 04:06 Hgb 8.3 L (12-16) GM/DL Hct 28.3 L (36-46) % Orthopedic Assessment and Plan (1) Status post below knee amputation of left lower extremity Status: Acute Assessment and Plan: Doing okay, continue with pain management Medical service gave some IV Lasix and stopped her IVF. Her wt is up from admission. Gram stain was neg for organisms on both tissue and bone specimens. Cultures neg at 1 day. Continue IV Vanco until final culture results are available. (est 3-5 days). Dressing changes prn. She does NOT have a wound vac. Check labs in the AM as she is moderately anemic. Consider transfusion as she is tachy. Hospitalist service to manage and make this decision. Hospital Course Summary Disclaimer: The visit summary below is not to be considered part of the above Progress Note. Hospital Course: 11/07/17 14:48 Patient will undergo revision amputation with possible closure versus wound vac placement tomorrow as wound is not healing appropriately. Continue on vancomycin. BP's have been up a bit over the past several days. Pt has been more anxious with the holidays. No med changes. Continue to monitor. Check US of R arm d/t swelling. Most suspicious for hematoma but need to r/o abscess or DVT. 11/08/17 14:52 Sono of arm yesterday was essentially neg except for edema. Revision of amputation today. Pain control and atbx per ortho Overall doing well post-op. NO concerns at present. She is chronically mildly tachycardic and BP's are stable. 11/09/17 10:52 Pain control and atbx per ortho. Surgical culture no growth after one day. Given her wt gain and hypoxia, will DC IV fluids and give 20mg Lasix IV. Hgb dropped 9.6-->8.3 which is expected given her recent surgery. However, given her EF of 15% and other comorbidities, rec keeping her here at least another night to monitor hgb and respiratory status. Will discuss with Dr. Penny possibility of transfusion. Discussed case with ortho. Dr. Collier wants to continue IV vanc until bone culture is back. Will likely keep her through the weekend.
[2017-11-09] MEDS: FUROSEMIDE 20 MG/2 ML INJECTION IVP SCH (17:20)
[2017-11-09] MEDS: SALINE FLUSH 10ml SYRINGE IV PRN ×2 (17:21→18:55)
[2017-11-09] MEDS: TIOTROPIUM 18mcg/cap HANDIHALER ORAL INH SCH (19:21)
[2017-11-09] MEDS: ROSUVASTATIN 20 MG TABLET PO SCH (21:23)
[2017-11-09] MEDS: FLUDROCORTISONE 0.1 MG TABLET PO SCH (21:23)
[2017-11-09] MEDS: LISINOPRIL 5 MG TABLET PO SCH (21:24)
[2017-11-09] MEDS: MIRTAZAPINE 30 MG TABLET PO SCH (21:24)
[2017-11-09] MEDS: CLOPIDOGREL 75 MG TABLET PO SCH (21:24)
[2017-11-09] MEDS: OLANZapine 2.5 MG TABLET PO SCH (21:24)
[2017-11-10] MEDS: HYDROCODONE/APAP 7.5 MG/325 MG TABLET PO PRN ×2 (01:46→08:42)
[2017-11-10] MEDS: LEVOTHYROXINE 75 MCG TABLET PO SCH (05:52)
[2017-11-10] MEDS: LANSOPRAZOLE 30 MG PO SCH (05:52)
[2017-11-10] MEDS: BECLOMETHASONE 80 MCG ORAL INH SCH ×2 (06:41→19:32)
--- NOTE | 2017-11-10 08:53 | Orthopedic Progress Note ---
Date: Date: 11/10/17 Time: 0850 Subjective/Severity of Illness: Clarice is doing well. Breathing better and off oxygen following diuresis. Hgb improved as well. She is working with transfers No concerns at this time. Orthopedic Objective PO Vital signs: Temperature 98.7 F 11/10/17 07:13 Pulse Rate 104 H 11/10/17 07:13 Respiratory Rate 20 11/10/17 07:13 Blood Pressure 141/84 H 11/10/17 07:13 Pulse Oximetry 98 11/10/17 07:13 Height and Weight: Height 5 ft 2 in Weight 85 lb 12.157 oz Body Mass Index 16.5 - Constitutional General Appearance: Present: alert, no acute distress, thin - Respiratory Exam Present: non-labored - Extremities Exam Extremities: Present: amputation (Left BKA, dressing chagned. wound looks good. ) - Surgical Site Incision: dressing intact, bloody drainage present, other (Dressing changed by me this AM.) - Neurological Exam Present: intact to light touch, no deficits - Psychiatric Exam Present: alert, normal affect - Wound Management Left Leg Wound Type: Amputation Left Knee Wound Type: Amputation - Labs Result Diagrams: 11/10/17 08:28 11/10/17 08:28 Abnormal lab results 11/10/17 11/10/17 Range/Units 08:28 08:28 RBC 3.21 L (4.00-5.20) M/MM3 Hgb 8.9 L (12-16) GM/DL Hct 28.7 L (36-46) % RDW Std Deviation 55.8 H (36.9-50.2) FL MPV 8.8 L (9.4-12.4) UM3 Carbon Dioxide 34 H (22-30) MEQ/L H & H 11/01/17 11/03/17 11/04/17 Range/Units 15:54 05:26 04:15 Hgb 11.3 L D 9.1 L D 9.6 L (12-16) GM/DL Hct 35.5 L D 29.7 L D 31.6 L (36-46) % 11/09/17 11/10/17 Range/Units 04:06 08:28 Hgb 8.3 L 8.9 L (12-16) GM/DL Hct 28.3 L 28.7 L (36-46) % Orthopedic Assessment and Plan (1) Status post below knee amputation of left lower extremity Status: Acute Assessment and Plan: Doing okay, continue with pain management Gram stain was neg for organisms on both tissue and bone specimens. Cultures neg at 1 day. Today's update not complete yet. Continue IV Vanco until final culture results are available. (est 3-5 days). Dressing changes prn. She does NOT have a wound vac. Labs improved slightly today. Cont PT / OT . Hospital Course Summary Disclaimer: The visit summary below is not to be considered part of the above Progress Note. Hospital Course: 11/07/17 14:48 Patient will undergo revision amputation with possible closure versus wound vac placement tomorrow as wound is not healing appropriately. Continue on vancomycin. BP's have been up a bit over the past several days. Pt has been more anxious with the holidays. No med changes. Continue to monitor. Check US of R arm d/t swelling. Most suspicious for hematoma but need to r/o abscess or DVT. 11/08/17 14:52 Sono of arm yesterday was essentially neg except for edema. Revision of amputation today. Pain control and atbx per ortho Overall doing well post-op. NO concerns at present. She is chronically mildly tachycardic and BP's are stable. 11/09/17 10:52 Pain control and atbx per ortho. Surgical culture no growth after one day. Given her wt gain and hypoxia, will DC IV fluids and give 20mg Lasix IV. Hgb dropped 9.6-->8.3 which is expected given her recent surgery. However, given her EF of 15% and other comorbidities, rec keeping her here at least another night to monitor hgb and respiratory status. Will discuss with Dr. Penny possibility of transfusion. Discussed case with ortho. Dr. Collier wants to continue IV vanc until bone culture is back. Will likely keep her through the weekend.
[2017-11-10] MEDS: DICLOFENAC SODIUM DR 25 MG TABLET PO SCH ×2 (08:57→17:55)
[2017-11-10] MEDS: CALCIUM CARBONATE 600 MG TABLET PO SCH (08:58)
[2017-11-10] MEDS: ASPIRIN *EC* 81 MG TABLET PO SCH (08:58)
[2017-11-10] MEDS: PredniSONE 5 MG TABLET PO SCH (08:58)
[2017-11-10] MEDS: Venlafaxine XR 37.5 MG CAPSULE (24hr) PO SCH (08:58)
[2017-11-10] MEDS: CARVEDILOL 6.25 MG TABLET PO SCH ×2 (08:58→16:53)
[2017-11-10] MEDS: BUSPIRONE 10 MG TABLET PO SCH ×2 (08:58→21:17)
[2017-11-10] MEDS: FUROSEMIDE 20 MG/2 ML INJECTION IVP SCH (09:52)
--- NOTE | 2017-11-10 09:56 | Progress Note ---
- Date 11/10/17 Subjective: I saw Clarice while she was working with physical therapy. She feels fatigued and easily gets short of breath. She has swelling to her arms. She really doesn' t want any more diuretics, if she could avoid them. She denies chest pain. No abdominal pain or nausea. She states that her left BKA stump is healing well. She notes increasing depressive symptoms, and would like to speak to a psychiatrist - she usually sees Dr. Dean at [facility]. Objective Vital signs: Temperature 98.7 F 11/10/17 07:13 Pulse Rate 104 H 11/10/17 07:13 Respiratory Rate 20 11/10/17 07:13 Blood Pressure 141/84 H 11/10/17 07:13 Pulse Oximetry 98 11/10/17 07:13 Height/Weight/BMI: Height 1.57 m Weight 38.9 kg Body Mass Index 16.5 - Constitutional Present: no acute distress, thin - Routine HEENT Exam Head: Present: normocephalic Eye: Absent: conjunctival icterus, scleral injection - Routine Respiratory Exam Present: decreased breath sounds (LLL), CTA bilaterally - Routine Cardiovascular Exam Present: RRR, S1, S2 - Routine Abdominal Exam Present: soft, normoactive bowel sounds, ostomy - Routine Extremities Exam Present: no edema - Routine Musculoskeletal Exam Musculoskeletal: Present: other (dressing to left stump is c/d/i) - Routine Skin Exam Present: dry, warm - Routine Neurological Exam Present: alert, oriented X3, normal speech - Routine Psychiatric Exam Present: normal affect, normal thought process, cooperative Results - Labs CBC & Chem 7: 11/10/17 08:28 11/10/17 08:28 Microbiology Results: Microbiology 11/08/17 07:50 Tibia, Left, Bone Gram Stain - Final 11/08/17 07:50 Tibia, Left, Bone Surgical Culture - Preliminary No Growth After 2 Days 11/08/17 07:45 Knee, Left Intraop Tissue Gram Stain - Final 11/08/17 07:45 Knee, Left Intraop Tissue Surgical Culture - Preliminary No Growth After 1 Day Assessment and Plan (1) Status post below knee amputation of left lower extremity Current visit: No Status: Acute Assessment and Plan: IMPRESSION Acute Medical History Dehiscence of left BKA surgical wound secondary to fall (revision on 11/02/17) Stump revision 11/08 for flap failure. RLL 11/10/17 S/P left BKA secondary to severe peripheral arterial disease and failed outpatient treatment of bilateral lower extremity wounds - Dr. Collier, 10/20/2017. Thrombocytosis, POA - resolved Hypernatremia - not POA - resolved Chronic health problems CAD with severe peripheral vascular disease. A-fib/PSVT. Hypertension. Hyperlipidemia. Systolic CHF - echocardiogram 04/2017 revealed EF 15%. TIA - 03/2017. PAD. Rheumatoid arthritis. COPD Chronic anemia Oxygen dependence - 2L at night and as needed with exertion during the day. BRANDO with home CPAP. Adrenal insufficiency secondary to chronic steroid use. Anxiety and depression Hypothyroidism. Ileostomy secondary to prior bowel perforation. Lower extremity nonhealing wounds secondary to PAD. GERD. Urinary incontinence. Osteoarthritis PLAN Discussed case with ODALYS Amor. Stump is healing well and dressing has remained clean and dry. She is high risk for complications given her chronic conditions and recent wound dehiscence. Surgical culture shows no growth to date. Orthopedic team recommends to continue IV vancomycin until culture is resulted. She received IV Lasix yesterday for diuresis, and her weight has decreased by 2 kg. Her lungs are clear. Will hold off on further diuretics at this time, but will need to monitor closely with her history of systolic heart failure. Hemoglobin increased from 8.3 to 8.9, suggesting hemodilution/fluid overload. Consult Dr. Adhikari for increasing depressive symptoms. Discussed with immigration case manager: Apparently Clarice was confused yesterday, but is doing better today. When she is ready for discharge, she will go to [facility]. If she requires IV antibiotics, she will need a PICC line placed prior to discharge. Change code status to DNR (discussed with Clarice and family in depth on 10/20). Resuscitation Status: Do Not Resuscitate - Physician Narrative Narrative: Date: 11/10/17 Time: 1600 I have independently evaluated and examined this patient. I reviewed the chart, the patient's history, and the RETAIL SALES ASSISTANT/PA's documented findings as above. We discussed and formulated the assessment and plan as above with additions as below: Clarice was seen with her daughter at bedside. She reports adequate pain control and denied dyspnea. She reports that she's depressed due to all the difficulty with her leg over the past month. She went on to tell me that she has been trying to wean off of Effexor prior to hospitalization and that her psychiatrist Yareli Del Cid started Zyprexa 2-3 months ago with immediate improvement in her mood and appetite but she doesn't feel she is getting the same benefit that she did initially. She indicated that she is sleeping fairly well at that her appetite is only fair; she denied suicidal thoughts or intent to harm herself. Respirations are nonlabored with fair airflow and clear breath sounds. Rheumatoid deformities in the hands bilaterally. Regular cardiac rhythm, soft abdomen. Dr. Adhikari consulted for assistance with psychiatric medications. Surgical cultures from 11/08 negative; pathology with negative margins from recent surgical resection. Could potentially discharge to [facility] on vancomycin pending final culture results. Hospital Course Summary Disclaimer: The visit summary below is not to be considered part of the above Progress Note. Hospital Course: 11/07/17 14:48 Patient will undergo revision amputation with possible closure versus wound vac placement tomorrow as wound is not healing appropriately. Continue on vancomycin. BP's have been up a bit over the past several days. Pt has been more anxious with the holidays. No med changes. Continue to monitor. Check US of R arm d/t swelling. Most suspicious for hematoma but need to r/o abscess or DVT. 11/08/17 14:52 Sono of arm yesterday was essentially neg except for edema. Revision of amputation today. Pain control and atbx per ortho Overall doing well post-op. NO concerns at present. She is chronically mildly tachycardic and BP's are stable. 11/09/17 10:52 Pain control and atbx per ortho. Surgical culture no growth after one day. Given her wt gain and hypoxia, will DC IV fluids and give 20mg Lasix IV. Hgb dropped 9.6-->8.3 which is expected given her recent surgery. However, given her EF of 15% and other comorbidities, rec keeping her here at least another night to monitor hgb and respiratory status. Will discuss with Dr. Penny possibility of transfusion. Discussed case with ortho. Dr. Collier wants to continue IV vanc until bone culture is back. Will likely keep her through the weekend. 11/10/17: Culture shows no growth to date; continue vancomycin. Weight down 2 kg since IV Lasix, still with mild fluid overload symptoms. Hgb improved to 8.9. Dr. Adhikari consulted for depression.
[2017-11-10] MEDS: TIOTROPIUM 18mcg/cap HANDIHALER ORAL INH SCH (19:32)
[2017-11-10] MEDS: CLOPIDOGREL 75 MG TABLET PO SCH (21:15)
[2017-11-10] MEDS: ROSUVASTATIN 20 MG TABLET PO SCH (21:15)
[2017-11-10] MEDS: MIRTAZAPINE 30 MG TABLET PO SCH (21:16)
[2017-11-10] MEDS: LISINOPRIL 5 MG TABLET PO SCH (21:16)
[2017-11-10] MEDS: FLUDROCORTISONE 0.1 MG TABLET PO SCH (21:16)
[2017-11-10] MEDS: OLANZapine 2.5 MG TABLET PO SCH (21:16)
[2017-11-11] MEDS: LEVOTHYROXINE 75 MCG TABLET PO SCH (06:26)
[2017-11-11] MEDS: LANSOPRAZOLE 30 MG PO SCH (06:26)
[2017-11-11] MEDS: PredniSONE 5 MG TABLET PO SCH (08:48)
[2017-11-11] MEDS: DICLOFENAC SODIUM DR 25 MG TABLET PO SCH ×2 (08:48→18:18)
[2017-11-11] MEDS: CARVEDILOL 6.25 MG TABLET PO SCH ×2 (08:48→18:18)
[2017-11-11] MEDS: BUSPIRONE 10 MG TABLET PO SCH ×2 (08:51→20:42)
[2017-11-11] MEDS: CALCIUM CARBONATE 600 MG TABLET PO SCH (08:51)
[2017-11-11] MEDS: SALINE FLUSH 10ml SYRINGE IV PRN ×3 (08:53→20:42)
[2017-11-11] MEDS: ASPIRIN *EC* 81 MG TABLET PO SCH (08:53)
[2017-11-11] MEDS: Venlafaxine XR 37.5 MG CAPSULE (24hr) PO SCH (08:53)
[2017-11-11] MEDS: BECLOMETHASONE 80 MCG ORAL INH SCH ×2 (09:58→20:05)
--- NOTE | 2017-11-11 10:00 | Pharmacy Consult-Antibiotics ---
Pharmacy Consult-Vancomycin - Laboratory Information WBC 9.8 T/MM3 (4.5-11.0) 11/11/17 05:59 BUN 19.0 MG/DL (7-17) H 11/11/17 05:59 Creatinine 0.7 MG/DL (0.7-1.2) 11/11/17 05:59 Vancomycin Trough 25.49 UG/ML (15-20) H* 11/11/17 05:59 - Consult Information Vancomycin protocol: day 11 goal trough range= 15 to 20 mcg/ml high trough level = 25.49, SCr has increased to 0.7 mg/dL Vancomycin dose adjusted to Vanco 1,250 mg IV Q24H. Pharmacy will monitor and adjust as needed. Thank you for the dosing protocol, Katherine Pichardo RPh
--- NOTE | 2017-11-11 11:06 | Orthopedic Progress Note ---
Date: Date: 11/11/17 Time: 1058 Subjective/Severity of Illness: Clairce is feeling a little short of breath today and is on 1L of O2. She feels it is her "anxiety". The hospital service did diurese her yesterday and her weight is down to 85 lbs as compared to 90lbs on the . She denies chest pain. IRU did not accept her; she prefers [facility] at [facility]. The final cultures from her tibia show no growth. I've discussed this with Dr. Collier who is recommending PO Keflex on discharge. Likely 500mg PO QID for [address] Grady notes that on previous admissions Dr. Rizo has used Dicloxacillin for two weeks in a similar situation. Lisette and I spoke about her respiratory status and the discharge plan. We expect her to be here through the holiday weekend. Orthopedic Objective PO Vital signs: Temperature 98.5 F 11/11/17 09:00 Pulse Rate 125 H 11/11/17 09:15 Respiratory Rate 16 11/11/17 09:00 Blood Pressure 158/91 H 11/11/17 09:15 Pulse Oximetry 100 11/11/17 09:00 Height and Weight: Height 5 ft 2 in Weight 85 lb 12.157 oz Body Mass Index 16.5 - Constitutional General Appearance: Present: alert, no acute distress, thin - Respiratory Exam Present: non-labored - Cardiovascular Exam Present: tachycardia (improved to normal limits with O2 application.) - Abdominal Exam Absent: tenderness, distended - Extremities Exam Extremities: Present: amputation (Left BKA, dressing chagned. wound looks good. One mid incision area noted to be open, wound edges appear viable.) - Surgical Site Incision: dressing intact, other (Dressing changed by Triston Rosenberg this AM.) - Lymphatic Lymphatic: Absent: adenopathy - Neurological Exam Present: intact to light touch, no deficits - Psychiatric Exam Present: alert, normal affect - Wound Management Left Leg Wound Type: Amputation Left Knee Wound Type: Amputation - Labs Result Diagrams: 11/11/17 05:59 11/11/17 05:59 Abnormal lab results 11/11/17 11/11/17 11/11/17 Range/Units 05:59 05:59 05:59 RBC 3.26 L (4.00-5.20) M/MM3 Hgb 9.0 L (12-16) GM/DL Hct 28.9 L (36-46) % RDW Std Deviation 55.4 H (36.9-50.2) FL MPV 9.2 L (9.4-12.4) UM3 [place] % (Auto) 16.7 H (0-9.0) % Eos % (Auto) 5.6 H (0-4) % [place] # (Auto) 1.6 H (0-0.8) T/MM3 Eos # (Auto) 0.6 H (0-0.5) T/MM3 Carbon Dioxide 35 H (22-30) MEQ/L BUN 19.0 H (7-17) MG/DL BUN/Creatinine Ratio 27 H (6-26) RATIO Vancomycin Trough 25.49 H* (15-20) UG/ML H & H 11/01/17 11/03/17 11/04/17 Range/Units 15:54 05:26 04:15 Hgb 11.3 L D 9.1 L D 9.6 L (12-16) GM/DL Hct 35.5 L D 29.7 L D 31.6 L (36-46) % 11/09/17 11/10/17 11/11/17 Range/Units 04:06 08:28 05:59 Hgb 8.3 L 8.9 L 9.0 L (12-16) GM/DL Hct 28.3 L 28.7 L 28.9 L (36-46) % Orthopedic Assessment and Plan (1) Status post below knee amputation of left lower extremity Status: Acute Assessment and Plan: Doing okay, continue with pain management Gram stain show Coag negative Staph on tissue culture and no growth on tibial culture. I've discussed the situation with both Dr. Collier and Dr. Grady. Dr. Collier is recommending Keflex. Dr. Grady notes looking back at Concetta's previous visits, that Dr. Rizo had put her on a two week course of Dicloxacillin. Dressing changes prn. Wound looks good. Cont PT / OT . Hospital Course Summary Disclaimer: The visit summary below is not to be considered part of the above Progress Note. Hospital Course: 11/07/17 14:48 Patient will undergo revision amputation with possible closure versus wound vac placement tomorrow as wound is not healing appropriately. Continue on vancomycin. BP's have been up a bit over the past several days. Pt has been more anxious with the holidays. No med changes. Continue to monitor. Check US of R arm d/t swelling. Most suspicious for hematoma but need to r/o abscess or DVT. 11/08/17 14:52 Sono of arm yesterday was essentially neg except for edema. Revision of amputation today. Pain control and atbx per ortho Overall doing well post-op. NO concerns at present. She is chronically mildly tachycardic and BP's are stable. 11/09/17 10:52 Pain control and atbx per ortho. Surgical culture no growth after one day. Given her wt gain and hypoxia, will DC IV fluids and give 20mg Lasix IV. Hgb dropped 9.6-->8.3 which is expected given her recent surgery. However, given her EF of 15% and other comorbidities, rec keeping her here at least another night to monitor hgb and respiratory status. Will discuss with Dr. Penny possibility of transfusion. Discussed case with ortho. Dr. Collier wants to continue IV vanc until bone culture is back. Will likely keep her through the weekend. 11/10/17: Culture shows no growth to date; continue vancomycin. Weight down 2 kg since IV Lasix, still with mild fluid overload symptoms. Hgb improved to 8.9. Dr. Adhikari consulted for depression.
--- NOTE | 2017-11-11 11:53 | Neuropsychiatric Consult ---
[facility] HPI Date: 11/11/17 Requesting Physician: Sheela Grady Reason for Consultation: Depression Start Time: 11:00 Stop Time: 11:30 History of Present Illness: HPI: 67 Y/O CF with a hx of depression admitted for complications to [facility] after a fall. Pt states she has been dealing with depression for many years but it has gotten worse recently. Denies S/I. STRESSORS: Health issues. Pt is worried about possibly having to move to an AL at D/C. PSYCH ROS: Pt reports feeling depressed with low interest, low energy and low motivation. She reports some anhedonia. She denies S/I. She reports feeling anxious but primarily tied to her current stressors. Denies danelle or psychosis. PAST PSYCH: Pt is seen at by Dr. Khan. She is currently being tapered off of Effexor and was recently started on Zyprexa 2.5mg at . She is also on Remeron 30mg. She has been on Zoloft, Wellbutrin, and Trintellix. She denies ever trying to harm herself and has never been in a psychiatric hospital. SUBSTANCE ABUSE: Has a hx of alcohol use but has been sober for some time. [facility] Patient Stated Medical History Transient Ischemic Attacks ( Yes: MARCH 2017 TIA) Other HEENT Yes: WEARS GLASSES Angina Yes: HX Cardiac Arrhythmia Yes: at. fib./ tachycardia Congestive Heart Failure Yes: EF documented as 20-25% Coronary Artery Disease Yes Hypertension Yes Myocardial Infarction Yes: EF 20%, dec 2015 Asthma Yes Chronic Obstructive Pulmonary Yes Disease (COPD) Sleep Apnea Yes: uses cpap Other Respiratory Yes Gastroesophageal Reflux Yes Disease Hiatal Hernia Yes Hx Incontinence Yes Hx Renal Disease No Anemia Yes Clotting Problems Yes: takes plavix Osteoarthritis Yes: osteoporosis Other Musculoskeletal Yes: RA MRSA Yes Blood Transfusions Yes: NO REACTION Depression Yes Ovarian Cysts Yes Post Menopausal Yes Surgical History: Left inguinal hernia and mid abdominal incisional hernia repair (2007). Repeat left inguinal hernia repair (2008). Right hernia repair (06/2011). Tubal ligation (1980). Right oophorectomy and lysis of adhesions (2001). Sinus surgery (01/1999). Right knee synovectomy (02/2003). Small bowel perforation with right hemicolectomy and ileostomy placement 01/23. Bilateral bunionectomies. Right foot joint fusion (1989). Left ankle fusion (07/2000). Bilateral knee replacements (left 2006, right 2004). Left hip repair. Right wrist fusion (09/2002). Right shoulder surgery. Cervical spine fusion C3, 4, 5 fusion (Isaac). Carpal tunnel surgery (left 2005, right 2003). Right great toe amputation secondary to osteomyelitis (Dr. Collier 08/2017). Left BKA ( Dr. Collier 10/20/17). Cardiac stent 1 (Dr. Arora 2014). Colonoscopy 04/2011 ( diverticulitis), EGD 07/28 (essentially normal) - Social History Smoking status: Former smoker (quit 2002) Does patient use chewing tobacco?: No Mental Status Exam Vitals: Last Vital Signs Temp 98.5 F 11/11/17 09:00 Pulse 125 H 11/11/17 09:15 Resp 16 11/11/17 09:00 BP 158/91 H 11/11/17 09:15 Pulse Ox 100 11/11/17 09:00 Height: 1.57 m Weight: 38.9 kg - Mental Status Exam Muscle Strength/Tone: Normal Dressing: Casual Grooming: Good Attitude: Cooperative Motor Activity: Normal Eye Contact: Good Speech: Normal Volume: Normal Rhythm: Appropriate Rhythm Orientation: Oriented X4 Mood: Depressed Affect: Sad Rate of Thoughts: Appropriate Rate Thought Organization: Organized Associations: Intact Abstract Reasoning: Intact, able to abstract Computation: Intact Thought Content: Hopelessness Perception/Psychotic: Perception Normal Language: Naming Intact Fund of Knowledge: Appropriate Memory: Grossly Intact Suicidal Ideation: None Homicidal Ideation: None Insight: Limited Judgement: Limited Impulse Control: Fair - Laboratory Result Diagrams: 11/11/17 05:59 11/11/17 05:59 Laboratory Results - last 24 hr 11/11/17 11/11/17 11/11/17 05:59 05:59 05:59 WBC 9.8 RBC 3.26 L Hgb 9.0 L Hct 28.9 L MCV 88.7 MCH 27.6 MCHC 31.1 RDW Std Deviation 55.4 H Plt Count 279 MPV 9.2 L Immature Gran % (Auto) 0.1 Neut % (Auto) 52.1 Lymph % (Auto) 25.0 [place] % (Auto) 16.7 H Eos % (Auto) 5.6 H Baso % (Auto) 0.5 Neut # (Auto) 5.1 Lymph # (Auto) 2.5 [place] # (Auto) 1.6 H Eos # (Auto) 0.6 H Baso # (Auto) 0.1 Abs Immat Gran (auto) 0.01 Turbidity < 20 Sodium 141 Potassium 3.6 Chloride 101 Carbon Dioxide 35 H Anion Gap 5 BUN 19.0 H Creatinine 0.7 GFR Calculation 84 BUN/Creatinine Ratio 27 H Glucose 77 Calculated Osmolality 272 Calcium 9.1 Magnesium 1.6 Icterus Index < 2 Specimen Hemolysis 22 Vancomycin Trough 25.49 H* Assessment and Plan (1) Major depressive disorder with current active episode Qualifiers: Major depression recurrence: recurrent Major depression episode severity: moderate Qualified Code(s): F33.1 - Major depressive disorder, recurrent, moderate Current visit: Yes Status: Acute Will increase Zyprexa to 5mg at HS. Continue Buspar, Remeron, and Effexor. Pt will follow up with Dr. Khan at [place]
[2017-11-11] MEDS ORDERED: FUROSEMIDE 20 MG/2 ML INJECTION IVP ONE (12:16)
--- NOTE | 2017-11-11 12:19 | Progress Note ---
- Date 11/11/17 Subjective: Clarice is back on oxygen - her sat dropped down to 86% while resting last evening. She feels more short of breath today, even compared to yesterday. She thinks some of her dyspnea is b/c of anxiety. She denies chest pain. She is encouraged from Triston Rosenberg's report of her wound cx and incision. She denies any abdominal pain and has had adequate output via colostomy. Objective Vital signs: Temperature 98.5 F 11/11/17 09:00 Pulse Rate 125 H 11/11/17 09:15 Respiratory Rate 16 11/11/17 09:00 Blood Pressure 158/91 H 11/11/17 09:15 Pulse Oximetry 100 11/11/17 09:00 Height/Weight/BMI: Height 1.57 m Weight 38.9 kg Body Mass Index 16.5 - Constitutional Present: no acute distress, thin, cachectic - Routine HEENT Exam Head: Present: normocephalic Eye: Present: PERRL ENT: Present: oropharynx clear - Routine Respiratory Exam Present: decreased breath sounds - Routine Cardiovascular Exam Present: RRR, S1, S2 - Routine Abdominal Exam Present: soft, normoactive bowel sounds, ostomy - Routine Extremities Exam Present: edema (both arms) Comments: left stump incision was examined when dressing was changed by Triston Rosenberg - no erythema or drainage; well approximated and healing well. + ecchymosis - Routine Musculoskeletal Exam Musculoskeletal: Present: other (hand deformities d/t RA) - Routine Skin Exam Present: dry, warm - Routine Neurological Exam Present: alert, oriented X3 - Routine Psychiatric Exam Present: normal affect, normal thought process, cooperative Results - Labs CBC & Chem 7: 11/11/17 05:59 11/11/17 05:59 Microbiology Results: Microbiology 11/08/17 07:50 Tibia, Left, Bone Gram Stain - Final 11/08/17 07:50 Tibia, Left, Bone Surgical Culture - Final No Growth After 3 Days 11/08/17 07:45 Knee, Left Intraop Tissue Gram Stain - Final 11/08/17 07:45 Knee, Left Intraop Tissue Surgical Culture - Final Coag negative Staphylococcus Assessment and Plan (1) Status post below knee amputation of left lower extremity Current visit: No Status: Acute Assessment and Plan: IMPRESSION Acute Medical History Dehiscence of left BKA surgical wound secondary to fall (revision on 11/02/17 and again on 11/08 for flap failure) S/P left BKA secondary to severe peripheral arterial disease and failed outpatient treatment of bilateral lower extremity wounds - Dr. Collier, 10/20/2017. Thrombocytosis, POA - resolved Hypernatremia - not POA - resolved Chronic health problems CAD with severe peripheral vascular disease. A-fib/PSVT. Hypertension. Hyperlipidemia. Systolic CHF - echocardiogram 04/2017 revealed EF 15%. TIA - 03/2017. PAD. Rheumatoid arthritis. COPD Chronic anemia Oxygen dependence - 2L at night and as needed with exertion during the day. BRANDO with home CPAP. Adrenal insufficiency secondary to chronic steroid use. Anxiety and depression Hypothyroidism. Ileostomy secondary to prior bowel perforation. Lower extremity nonhealing wounds secondary to PAD. GERD. Urinary incontinence. Osteoarthritis PLAN Requiring oxygen and Clarice is dyspneic - Lasix 20 mg IV x1; may need additional diuresis. Weight on 11/02 was 36.6; this am it was 38.9 kg. Synovial fluid culture + PAVING BED MAKER but tibial culture was negative. Discussed with Triston Rosenberg - Dr. Collier recommends changing abx to Keflex at MD - though may want to discuss with Dr. Rizo, as Clarice's been on Dicloxacillin for previous similar cultures. Vanco trough was elevated at 25.49 - being managed per pharmacy. Check BMP in am to check electrolytes/renal function with diuresis and elevated vanc trough. Dr. Velasquez evaluated Clarice today and increased Zyprexa to 5mg at HS. Continue Buspar, Remeron, and Effexor. Follow up with Dr. Khan at [facility] is checking on weekend dc options at [facility] Resuscitation Status: Do Not Resuscitate - Physician Narrative Physician: Sheela Grady MD Narrative: Date: 11/11/17 Time: 1540 I have independently evaluated and examined this patient. I reviewed the chart, the patient's history, and the CONTROL CLERK HEAD/PA's documented findings as above. We discussed and formulated the assessment and plan as above with additions as below: Clarice reports more trouble feeling short of breath today and that her oxygen level has been low intermittently requiring resumption of oxygen at 1 L. She attributes dyspnea to anxiety. Pain control is good. NAD, alert; blood pressure modestly elevated today but was well controlled yesterday Respirations nonlabored, good airflow, breath sounds clear posteriorly Abdomen benign Synovial culture positive PAVING BED MAKER, pansensitive; bone culture negative 3 days Past cultures reviewed-typically has cultured TALON and occasionally enterococcus or PAVING BED MAKER Agree that with negative bone cultures/negative pathology oral antibiotics with either dicloxacillin or cephalexin should be adequate. Discussed with Dr. Velsaquez-Zyprexa being increased. Clarice expressed concern about anemia-hemoglobin has been up and down over the past year; iron studies consistent with iron deficiency and ferritin was 13.1 in January of this year. She reports previously receiving IV iron due to poor response work tolerance of oral iron. We will repeat iron studies in the event additional supplementation needed. In addition to above acute problems would add: Acute blood loss anemia Hospital Course Summary Disclaimer: The visit summary below is not to be considered part of the above Progress Note. Hospital Course: 11/07/17 14:48 Patient will undergo revision amputation with possible closure versus wound vac placement tomorrow as wound is not healing appropriately. Continue on vancomycin. BP's have been up a bit over the past several days. Pt has been more anxious with the holidays. No med changes. Continue to monitor. Check US of R arm d/t swelling. Most suspicious for hematoma but need to r/o abscess or DVT. 11/08/17 14:52 Sono of arm yesterday was essentially neg except for edema. Revision of amputation today. Pain control and atbx per ortho Overall doing well post-op. NO concerns at present. She is chronically mildly tachycardic and BP's are stable. 11/09/17 10:52 Pain control and atbx per ortho. Surgical culture no growth after one day. Given her wt gain and hypoxia, will DC IV fluids and give 20mg Lasix IV. Hgb dropped 9.6-->8.3 which is expected given her recent surgery. However, given her EF of 15% and other comorbidities, rec keeping her here at least another night to monitor hgb and respiratory status. Will discuss with Dr. Penny possibility of transfusion. Discussed case with ortho. Dr. Collier wants to continue IV vanc until bone culture is back. Will likely keep her through the weekend. 11/10/17: Culture shows no growth to date; continue vancomycin. Weight down 2 kg since IV Lasix, still with mild fluid overload symptoms. Hgb improved to 8.9. Dr. Adhikari consulted for depression. 11/11/17: Requiring oxygen for hypoxia; diuresed with Lasix IV. Synovial fluid culture pos for PAVING BED MAKER but tibial culture negative. Likely will change to oral abx at time of discharge (Keflex or dicloxacillin). Dr. Velasquez evaluated Clarice and increased Zyprexa to 5 mg HS.
[2017-11-11] MEDS: TIOTROPIUM 18mcg/cap HANDIHALER ORAL INH SCH (20:05)
[2017-11-11] MEDS: OLANZapine 5 MG TABLET PO SCH (20:41)
[2017-11-11] MEDS: NS FLUSH BAG 500ml IV PRN (20:41)
[2017-11-11] MEDS: FLUDROCORTISONE 0.1 MG TABLET PO SCH (20:41)
[2017-11-11] MEDS: ROSUVASTATIN 20 MG TABLET PO SCH (20:41)
[2017-11-11] MEDS: LISINOPRIL 5 MG TABLET PO SCH (20:42)
[2017-11-11] MEDS: MIRTAZAPINE 30 MG TABLET PO SCH (20:42)
[2017-11-11] MEDS: HYDROCODONE/APAP 7.5 MG/325 MG TABLET PO PRN (20:58)
[2017-11-11] MEDS: CLOPIDOGREL 75 MG TABLET PO SCH (20:59)
[2017-11-12] MEDS: HYDROCODONE/APAP 7.5 MG/325 MG TABLET PO PRN ×2 (05:02→08:37)
[2017-11-12] MEDS: LANSOPRAZOLE 30 MG PO SCH (05:36)
[2017-11-12] MEDS: LEVOTHYROXINE 75 MCG TABLET PO SCH (05:36)
[2017-11-12] MEDS: SALINE FLUSH 10ml SYRINGE IV PRN ×2 (05:36→20:03)
[2017-11-12] MEDS: CALCIUM CARBONATE 600 MG TABLET PO SCH (08:12)
[2017-11-12] MEDS: DICLOFENAC SODIUM DR 25 MG TABLET PO SCH ×2 (08:12→17:38)
[2017-11-12] MEDS: BUSPIRONE 10 MG TABLET PO SCH ×2 (08:12→20:13)
[2017-11-12] MEDS: Venlafaxine XR 37.5 MG CAPSULE (24hr) PO SCH (08:13)
[2017-11-12] MEDS: ASPIRIN *EC* 81 MG TABLET PO SCH (08:13)
[2017-11-12] MEDS: PredniSONE 5 MG TABLET PO SCH (08:13)
[2017-11-12] MEDS: CARVEDILOL 6.25 MG TABLET PO SCH ×2 (08:13→17:38)
[2017-11-12] MEDS: BECLOMETHASONE 80 MCG ORAL INH SCH ×2 (09:54→18:51)
--- NOTE | 2017-11-12 14:33 | Progress Note ---
- Date 11/12/17 Subjective: Clarice is seen today in follow up for her recent hypoxia following her surgical revision to her BKA on 11/02 and on 11/08 due to flap failure. She is seen while resting in bed and arouses easily with soft voice stimuli. She reports that she is pretty worn out today and is tired because she has been up and about with her family and company all day. She also complaints of increased dyspnea with exertion but denies any dyspnea while at rest. No cough or congestion. No fevers, chills, chest pain, dizziness or lightheadedness. She reports that her appetite is fair and bowels are moving via colostomy. No abdominal pain, nausea, vomiting or dysuria. She is not currently requiring oxygen while at rest and is breathing easily on room air. She states that overall her pain has been controlled but she did have increased pain in her stump this morning requiring her to take a pain pill. Current pain is 2/10. Her weight was discussed and she reports that she believes her dry weight to be around 85 pounds (38.6 kg) which is close to her current weight. Documented weight on admission was 76 pounds (34.5 kg) which she believes is inaccurate. Objective Vital signs: Temperature 98.6 F 11/12/17 11:34 Pulse Rate 100 11/12/17 11:34 Respiratory Rate 22 11/12/17 11:34 Blood Pressure 123/75 11/12/17 11:34 Pulse Oximetry 93 11/12/17 11:34 Height/Weight/BMI: Height 5 ft 2 in Weight 86 lb 3.212 oz Body Mass Index 16.5 Comments: Patient resting in bed, arouses easily with soft voice stimuli. - Constitutional Present: no acute distress, well nourished, well developed, thin, cooperative - Routine HEENT Exam Head: Present: normocephalic, atraumatic Eye: Present: PERRL. Absent: conjunctival icterus ENT: Present: mucous membranes moist - Routine Respiratory Exam Present: decreased breath sounds, crackles (bibasilar). Absent: respiratory distress, wheezes - Routine Cardiovascular Exam Present: RRR, S1, S2 - Routine Abdominal Exam Present: soft, normoactive bowel sounds, non distended, non tender. Absent: rebound, guarding - Routine Extremities Exam Present: no edema, full ROM Comments: BTK amputation on left with stocking in place. Incision not evaluated on exam due to bandage in place. - Routine Back/Spine/Pelvis Exam Back/Spine: Present: full ROM, kyphosis. Absent: vertebral tenderness - Routine Musculoskeletal Exam Musculoskeletal: Present: moving extremities well - Routine Skin Exam Present: dry, warm. Absent: jaundice Comments: afebrile - Routine Neurological Exam Present: alert, oriented X3, moving all extremities, hearing grossly intact, normal speech - Routine Lymphatic Exam Lymphatic: Absent: lymphedema - Routine Psychiatric Exam Present: normal affect, cooperative Comments: very pleasant Results - Labs CBC & Chem 7: 11/11/17 05:59 11/12/17 04:11 Microbiology Results: Microbiology 11/08/17 07:50 Tibia, Left, Bone Gram Stain - Final 11/08/17 07:50 Tibia, Left, Bone Surgical Culture - Final No Growth After 3 Days 11/08/17 07:45 Knee, Left Intraop Tissue Gram Stain - Final 11/08/17 07:45 Knee, Left Intraop Tissue Surgical Culture - Final Coag negative Staphylococcus Assessment and Plan (1) Status post below knee amputation of left lower extremity Current visit: No Status: Acute Assessment and Plan: IMPRESSION Acute Medical History Dehiscence of left BKA surgical wound secondary to fall (revision on 11/02/17 and again on 11/08 for flap failure) S/P left BKA secondary to severe peripheral arterial disease and failed outpatient treatment of bilateral lower extremity wounds - Dr. Collier, 10/20/2017. Thrombocytosis, POA - resolved Hypernatremia - not POA - resolved Chronic health problems CAD with severe peripheral vascular disease. A-fib/PSVT. Hypertension. Hyperlipidemia. Systolic CHF - echocardiogram 04/2017 revealed EF 15%. TIA - 03/2017. PAD. Rheumatoid arthritis. COPD Chronic anemia Oxygen dependence - 2L at night and as needed with exertion during the day. BRANDO with home CPAP. Adrenal insufficiency secondary to chronic steroid use. Anxiety and depression Hypothyroidism. Ileostomy secondary to prior bowel perforation. Lower extremity nonhealing wounds secondary to PAD. GERD. Urinary incontinence. Osteoarthritis PLAN - 11/12 (Mirakian) She complains of continued dyspnea, especially with exertion. No longer requiring supplemental oxygen during the day - CPAP at 2L at night. Current weight at 86 pounds (38.6 kg) which she states is close to her baseline, though her weight on admission was 76 pounds (34.5 kg) which she believes is inaccurate. Continue to monitor daily weight closely. Lungs sounds are diminished in bases with bibasilar crackles noted. Will discuss additional diuresis with Dr. Grady. Synovial fluid culture + IT PROJECT COORDINATOR, pansensitive, but tibial culture was negative x [address] Collier recommends changing abiotic to Keflex at time of discharge. Due to the holiday, Dr. Rizo is unavailable for consult until 11/15. Continue vancomycin with pharmacy to manage. Appreciate their time and expertise. Recheck BMP in AM to monitor blood counts, electrolytes and renal function given recent diuresis and previously elevated vancomycin trough. Continue to monitor emotional state of patient and continue to provide safe and supportive environment. She is to follow up with Dr. Khan as an outpatient following discharge. Anticipating discharge in near future, hopefully . is checking on discharge options at [facility]. Resuscitation Status: Do Not Resuscitate - Time spent with patient Time with patient PN: 35 minutes - Physician Narrative Physician: Sheela Grady MD Narrative: Date: 11/12/17 Time: 1700 I have independently evaluated and examined this patient. I reviewed the chart, the patient's history, and the INSURANCE RISK ANALYST/PA's documented findings as above. We discussed and formulated the assessment and plan as above with additions as below: Mrs. Gore reports that she doesn't want any more Lasix because it wears her out and she's never weighed 75 pounds. She does not feel short of breath today and is back on room air after dose of Lasix yesterday. She reports she becomes a little short of breath with activities but thinks that's been a chronic problem and may be due to anxiety about activities. Overall she thinks anxiety is controlled better today after higher Zyprexa yesterday evening. NAD, alert Respirations nonlabored with patient supine, breath sounds clear posteriorly-no crackles/wheezes Chest x-ray reviewed by myself-NAD, no evidence of heart failure Bone culture remains negative. Discontinue Lasix; weight appears to be relatively stable by reviewing weight since admission in early October (although must consider some weight loss with amputation in the intervening time). Reassess hemoglobin in addition to iron studies tomorrow morning to determine if IV iron should be considered. In addition to above diagnoses please add: acute blood loss anemia. Hospital Course Summary Disclaimer: The visit summary below is not to be considered part of the above Progress Note. Hospital Course: 11/07/17 14:48 Patient will undergo revision amputation with possible closure versus wound vac placement tomorrow as wound is not healing appropriately. Continue on vancomycin. BP's have been up a bit over the past several days. Pt has been more anxious with the holidays. No med changes. Continue to monitor. Check US of R arm d/t swelling. Most suspicious for hematoma but need to r/o abscess or DVT. 11/08/17 14:52 Sono of arm yesterday was essentially neg except for edema. Revision of amputation today. Pain control and atbx per ortho Overall doing well post-op. NO concerns at present. She is chronically mildly tachycardic and BP's are stable. 11/09/17 10:52 Pain control and atbx per ortho. Surgical culture no growth after one day. Given her wt gain and hypoxia, will DC IV fluids and give 20mg Lasix IV. Hgb dropped 9.6-->8.3 which is expected given her recent surgery. However, given her EF of 15% and other comorbidities, rec keeping her here at least another night to monitor hgb and respiratory status. Will discuss with Dr. Penny possibility of transfusion. Discussed case with ortho. Dr. Collier wants to continue IV vanc until bone culture is back. Will likely keep her through the weekend. 11/10/17: Culture shows no growth to date; continue vancomycin. Weight down 2 kg since IV Lasix, still with mild fluid overload symptoms. Hgb improved to 8.9. Dr. Adhikari consulted for depression. 11/11/17: Requiring oxygen for hypoxia; diuresed with Lasix IV. Synovial fluid culture pos for IT PROJECT COORDINATOR but tibial culture negative. Likely will change to oral abx at time of discharge (Keflex or dicloxacillin). Dr. Velasquez evaluated Clarice and increased Zyprexa to 5 mg HS. PLAN - 11/12 (Mirakian) She complains of continued dyspnea, especially with exertion. No longer requiring supplemental oxygen during the day - CPAP at 2L at night. Current weight at 86 pounds (38.6 kg) which she states is close to her baseline, though her weight on admission was 76 pounds (34.5 kg) which she believes is inaccurate. Continue to monitor daily weight closely. Lungs sounds are diminished in bases with bibasilar crackles noted. Will discuss additional diuresis with Dr. Grady. Synovial fluid culture + IT PROJECT COORDINATOR, pansensitive, but tibial culture was negative x [address] Collier recommends changing abiotic to Keflex at time of discharge. Due to the holiday, Dr. Rizo is unavailable for consult until 11/15. Continue vancomycin with pharmacy to manage. Appreciate their time and expertise. Recheck BMP in AM to monitor blood counts, electrolytes and renal function given recent diuresis and previously elevated vancomycin trough. Continue to monitor emotional state of patient and continue to provide safe and supportive environment. She is to follow up with Dr. Khan as an outpatient following discharge. Anticipating discharge in near future, hopefully . RM is checking on discharge options at [facility].
[2017-11-12] MEDS: TIOTROPIUM 18mcg/cap HANDIHALER ORAL INH SCH (18:50)
[2017-11-12] MEDS: NS FLUSH BAG 500ml IV PRN (20:01)
[2017-11-12] MEDS: CLOPIDOGREL 75 MG TABLET PO SCH (20:13)
[2017-11-12] MEDS: FLUDROCORTISONE 0.1 MG TABLET PO SCH (20:13)
[2017-11-12] MEDS: MIRTAZAPINE 30 MG TABLET PO SCH (20:13)
[2017-11-12] MEDS: ROSUVASTATIN 20 MG TABLET PO SCH (20:13)
[2017-11-12] MEDS: OLANZapine 5 MG TABLET PO SCH (20:13)
[2017-11-12] MEDS: LISINOPRIL 5 MG TABLET PO SCH (20:14)
[2017-11-12] MEDS ORDERED: FALL RISK - PHARMACY CONSULT MC ONE (20:43)
[2017-11-13 03:41] VITALS: RESP 16
[2017-11-13] MEDS: LEVOTHYROXINE 75 MCG TABLET PO SCH (05:53)
[2017-11-13] MEDS: LANSOPRAZOLE 30 MG PO SCH (05:53)
[2017-11-13] MEDS: BECLOMETHASONE 80 MCG ORAL INH SCH (06:31)
[2017-11-13] MEDS: Venlafaxine XR 37.5 MG CAPSULE (24hr) PO SCH (08:22)
[2017-11-13] MEDS: DICLOFENAC SODIUM DR 25 MG TABLET PO SCH (08:22)
[2017-11-13] MEDS: PredniSONE 5 MG TABLET PO SCH (08:22)
[2017-11-13] MEDS: ASPIRIN *EC* 81 MG TABLET PO SCH (08:22)
[2017-11-13] MEDS: BUSPIRONE 10 MG TABLET PO SCH (08:22)
[2017-11-13] MEDS: CALCIUM CARBONATE 600 MG TABLET PO SCH (08:22)
[2017-11-13] MEDS: CARVEDILOL 6.25 MG TABLET PO SCH (08:22)
--- NOTE | 2017-11-13 08:39 | Progress Note ---
- Date 11/13/17 Subjective: Clarice is seen today in follow up for her recent surgical revision to her BKA on 11/02 and on 11/08 due to flap failure and medical management. She is seen first thing this morning and reports that she is doing much better today. She apparently slept "like a rock" last night and didn't wake up at all. Her pain is well controlled and denies any pain or concerns on exam. She denies any dyspnea or cough and states that she feels her breathing is improved. She smiles on exam and admits that feels like there is some "hope" for her future which she attributes to the addition of Zyprexa to her medications. Her appetite is stable and bowels are moving. Objective Vital signs: Temperature 98.2 F 11/13/17 06:59 Pulse Rate 103 H 11/13/17 06:59 Respiratory Rate 16 11/13/17 06:59 Blood Pressure 133/87 11/13/17 06:59 Pulse Oximetry 91 11/13/17 06:59 Height/Weight/BMI: Height 5 ft 2 in Weight 86 lb 3.212 oz Body Mass Index 16.5 Comments: Patient resting in bed and is A&O x3 with pleasant and upbeat disposition. - Constitutional Present: no acute distress, well nourished, well developed, thin, cooperative - Routine HEENT Exam Head: Present: normocephalic, atraumatic Eye: Present: PERRL. Absent: conjunctival icterus ENT: Present: mucous membranes moist - Routine Respiratory Exam Present: CTA bilaterally. Absent: rales, respiratory distress, rhonchi, stridor , wheezes, crackles - Routine Cardiovascular Exam Present: RRR, S1, S2 - Routine Abdominal Exam Present: soft, normoactive bowel sounds, non distended, non tender Comments: thin; ostomy present without abnormalities. - Routine Extremities Exam Present: no edema, non tender, full ROM, pulses intact Comments: stocking with bandage that is clean, dry and intact to left stump; incision no evaluated on exam. - Routine Back/Spine/Pelvis Exam Back/Spine: Present: full ROM. Absent: vertebral tenderness - Routine Musculoskeletal Exam Musculoskeletal: Present: moving extremities well - Routine Skin Exam Present: dry, warm. Absent: jaundice Comments: afebrile. - Routine Neurological Exam Present: alert, oriented X3, moving all extremities, hearing grossly intact, normal speech. Absent: facial asymmetry - Routine Lymphatic Exam Lymphatic: Absent: lymphedema - Routine Psychiatric Exam Present: cooperative Comments: bright affect and feels hopeful. Results - Labs CBC & Chem 7: 11/13/17 04:35 11/13/17 04:35 Microbiology Results: Microbiology 11/08/17 07:50 Tibia, Left, Bone Gram Stain - Final 11/08/17 07:50 Tibia, Left, Bone Surgical Culture - Final No Growth After 3 Days 11/08/17 07:45 Knee, Left Intraop Tissue Gram Stain - Final 11/08/17 07:45 Knee, Left Intraop Tissue Surgical Culture - Final Coag negative Staphylococcus Assessment and Plan (1) Status post below knee amputation of left lower extremity Status: Acute Assessment and Plan: IMPRESSION Acute Medical History Dehiscence of left BKA surgical wound secondary to fall (revision on 11/02/17 and again on 11/08 for flap failure) S/P left BKA secondary to severe peripheral arterial disease and failed outpatient treatment of bilateral lower extremity wounds - Dr. Collier, 10/20/2017. Thrombocytosis, POA - resolved Hypernatremia - not POA - resolved Acute blood loss anemia - improving. Chronic health problems CAD with severe peripheral vascular disease. A-fib/PSVT. Hypertension. Hyperlipidemia. Systolic CHF - echocardiogram 04/2017 revealed EF 15%. TIA - 03/2017. PAD. Rheumatoid arthritis. COPD Chronic anemia Oxygen dependence - 2L at night and as needed with exertion during the day. BRANDO with home CPAP. Adrenal insufficiency secondary to chronic steroid use. Anxiety and depression Hypothyroidism. Ileostomy secondary to prior bowel perforation. Lower extremity nonhealing wounds secondary to PAD. GERD. Urinary incontinence. Osteoarthritis PLAN - 11/12 (Mirakian) Overall, Clarice appears to be making good gains. Sleeping is improving and her mood is bright; she is feeling more hopeful. Appreciate Dr. Chaparro time and expertise - continue psychiatric care. Patient credits Edgardo GARCIA for increase in mood - will continue. Dyspnea improved. Continue CPAP at 2L at night (baseline) and oxygen PRN. Weight stable, slightly trending up. Repeat CXR complete 11/12/17 and review by myself with no evidence of heart failure. Synovial fluid culture + RAG SORTER, pansensitive, but tibial culture was negative x [address] Collier recommends changing abiotic to Keflex at time of discharge. Due to the holiday, Dr. Rizo is unavailable for consult until 11/15. Continue vancomycin with pharmacy to manage. Appreciate their time and expertise. Recheck BMP in AM to monitor blood counts, electrolytes and renal function given recent diuresis and previously elevated vancomycin trough. Hemoglobin trending up - 10.2 today. Iron studies pending. Continue to monitor. Continue to monitor emotional state of patient and continue to provide safe and supportive environment. She is to follow up with Dr. Khan as an outpatient following discharge. Anticipating discharge in near future. CM is checking on discharge options at [facility]. DVT Prophylaxis: SCD's Resuscitation Status: Do Not Resuscitate - Time spent with patient Time with patient PN: 35 minutes - Physician Narrative Physician: Sheela Grady MD Narrative: Date: 11/13/17 Time: 1100 I have independently evaluated and examined this patient. I reviewed the chart, the patient's history, and the BRADDISHER/PA's documented findings as above. We discussed and formulated the assessment and plan as above with additions as below: Clarice reports of anxiety about transfer today due to weather. She reports minor shortness of breath which she attributes to anxiety. She slept well and feels that increased dose Zyprexa is helping with her anxiety overall. She asked to have a wound on her right great toe checked before she leaves-she doesn 't think the dressing has been changed while she's been hospitalized. NAD, alert, appears comfortable Respirations nonlabored, airflow good, breath sounds clear anteriorly/ posteriorly Dressing removed from stump right great toe-2 x 5 mm foam dressing adherent to wound; nursing asked to soak to remove before redressing. Hemoglobin 10.2-improving; iron studies pending. Stable for discharge on oral antibiotics as previously discussed. Discussed with nursing and case management. Hospital Course Summary Disclaimer: The visit summary below is not to be considered part of the above Progress Note. Hospital Course: 11/07/17 14:48 Patient will undergo revision amputation with possible closure versus wound vac placement tomorrow as wound is not healing appropriately. Continue on vancomycin. BP's have been up a bit over the past several days. Pt has been more anxious with the holidays. No med changes. Continue to monitor. Check US of R arm d/t swelling. Most suspicious for hematoma but need to r/o abscess or DVT. 11/08/17 14:52 Sono of arm yesterday was essentially neg except for edema. Revision of amputation today. Pain control and atbx per ortho Overall doing well post-op. NO concerns at present. She is chronically mildly tachycardic and BP's are stable. 11/09/17 10:52 Pain control and atbx per ortho. Surgical culture no growth after one day. Given her wt gain and hypoxia, will DC IV fluids and give 20mg Lasix IV. Hgb dropped 9.6-->8.3 which is expected given her recent surgery. However, given her EF of 15% and other comorbidities, rec keeping her here at least another night to monitor hgb and respiratory status. Will discuss with Dr. Penny possibility of transfusion. Discussed case with ortho. Dr. Collier wants to continue IV vanc until bone culture is back. Will likely keep her through the weekend. 11/10/17: Culture shows no growth to date; continue vancomycin. Weight down 2 kg since IV Lasix, still with mild fluid overload symptoms. Hgb improved to 8.9. Dr. Adhikari consulted for depression. 11/11/17: Requiring oxygen for hypoxia; diuresed with Lasix IV. Synovial fluid culture pos for RAG SORTER but tibial culture negative. Likely will change to oral abx at time of discharge (Keflex or dicloxacillin). Dr. Velasquez evaluated Clarice and increased Zyprexa to 5 mg HS. PLAN - 11/12 (Mirakian) She complains of continued dyspnea, especially with exertion. No longer requiring supplemental oxygen during the day - CPAP at 2L at night. Current weight at 86 pounds (38.6 kg) which she states is close to her baseline, though her weight on admission was 76 pounds (34.5 kg) which she believes is inaccurate. Continue to monitor daily weight closely. Lungs sounds are diminished in bases with bibasilar crackles noted. Will discuss additional diuresis with Dr. Grady. Synovial fluid culture + RAG SORTER, pansensitive, but tibial culture was negative x [address] Collier recommends changing abiotic to Keflex at time of discharge. Due to the holiday, Dr. Rizo is unavailable for consult until 11/15. Continue vancomycin with pharmacy to manage. Appreciate their time and expertise. Recheck BMP in AM to monitor blood counts, electrolytes and renal function given recent diuresis and previously elevated vancomycin trough. Continue to monitor emotional state of patient and continue to provide safe and supportive environment. She is to follow up with Dr. Khan as an outpatient following discharge. Anticipating discharge in near future, hopefully . RM is checking on discharge options at [facility]. PLAN - 11/12 (Mirakian) Overall, Clarice appears to be making good gains. Sleeping is improving and her mood is bright; she is feeling more hopeful. Appreciate Dr. Chaparro time and expertise - continue psychiatric care. Patient credits Zyprexa HS for increase in mood - will continue. Dyspnea improved. Continue CPAP at 2L at night (baseline) and oxygen PRN. Weight stable, slightly trending up. Repeat CXR complete 11/12/17 and review by myself with no evidence of heart failure. Synovial fluid culture + RAG SORTER, pansensitive, but tibial culture was negative x [address] Collier recommends changing abiotic to Keflex at time of discharge. Due to the holiday, Dr. Rizo is unavailable for consult until 11/15. Continue vancomycin with pharmacy to manage. Appreciate their time and expertise. Recheck BMP in AM to monitor blood counts, electrolytes and renal function given recent diuresis and previously elevated vancomycin trough. Hemoglobin trending up - 10.2 today. Iron studies pending. Continue to monitor. Continue to monitor emotional state of patient and continue to provide safe and supportive environment. She is to follow up with Dr. Khan as an outpatient following discharge. Anticipating discharge in near future. RM is checking on discharge options at [facility].
[2017-11-13 11:02] VITALS: BP 136/79; PULSE 100; TEMP 98.8; O2SAT 94
--- NOTE | 2017-11-13 11:29 | Orthopedic Progress Note ---
Date: Date: 11/13/17 Time: 112 Subjective/Severity of Illness: Clarice is feeling good. The hospitalist service has okayed discharge and a bed is available at [facility]. Orthopedic Objective PO Vital signs: Temperature 98.8 F 11/13/17 11:01 Pulse Rate 100 11/13/17 11:01 Respiratory Rate 16 11/13/17 11:01 Blood Pressure 136/79 11/13/17 11:01 Pulse Oximetry 94 11/13/17 11:01 Height and Weight: Height 5 ft 2 in Weight 86 lb 3.212 oz Body Mass Index 16.5 - Constitutional General Appearance: Present: alert, no acute distress, thin - Respiratory Exam Present: non-labored - Cardiovascular Exam Present: tachycardia (improved to normal limits with O2 application.) - Abdominal Exam Absent: tenderness, distended - Extremities Exam Extremities: Present: amputation (Left BKA, dressing chagned. wound looks good. One mid incision area noted to be open, and improving, wound edges appear viable.) - Surgical Site Incision: dressing intact, other (Dressing changed by Triston Rosenberg this AM.) - Lymphatic Lymphatic: Absent: lymphedema - Neurological Exam Present: intact to light touch, no deficits - Psychiatric Exam Present: alert, normal affect - Wound Management Left Leg Wound Type: Amputation Left Knee Wound Type: Amputation - Labs Result Diagrams: 11/13/17 04:35 11/13/17 04:35 Abnormal lab results 11/13/17 11/13/17 Range/Units 04:35 04:35 RBC 3.62 L (4.00-5.20) M/MM3 Hgb 10.2 L D (12-16) GM/DL Hct 32.4 L D (36-46) % RDW Std Deviation 58.3 H (36.9-50.2) FL [place] % (Auto) 19.2 H (0-9.0) % Eos % (Auto) 6.2 H (0-4) % [place] # (Auto) 1.6 H (0-0.8) T/MM3 Carbon Dioxide 31 H (22-30) MEQ/L Creatinine 0.6 L (0.7-1.2) MG/DL Specimen Hemolysis 33 H (0-25) H & H 11/01/17 11/03/17 11/04/17 Range/Units 15:54 05:26 04:15 Hgb 11.3 L D 9.1 L D 9.6 L (12-16) GM/DL Hct 35.5 L D 29.7 L D 31.6 L (36-46) % 11/09/17 11/10/17 11/11/17 Range/Units 04:06 08:28 05:59 Hgb 8.3 L 8.9 L 9.0 L (12-16) GM/DL Hct 28.3 L 28.7 L 28.9 L (36-46) % 11/13/17 Range/Units 04:35 Hgb 10.2 L D (12-16) GM/DL Hct 32.4 L D (36-46) % Orthopedic Assessment and Plan (1) Status post below knee amputation of left lower extremity Status: Acute Assessment and Plan: Doing well, ready for discharge Gram stain show Coag negative Staph on tissue culture and no growth on tibial culture. I've discussed the situation with both Dr. Collier and Dr. Grady. Dr. Collier is recommending Keflex. Dr. Grady notes looking back at Concetta's previous visits, that Dr. Rizo had put her on a two week course of Dicloxacillin. I'll put her on a 2 week course of Kelflex 500mg PO QID with a 1 week follow up in the wound care center. Dressing changes prn. Wound looks good. Cont PT / OT . Hospital Course Summary Disclaimer: The visit summary below is not to be considered part of the above Progress Note. Hospital Course: 11/07/17 14:48 Patient will undergo revision amputation with possible closure versus wound vac placement tomorrow as wound is not healing appropriately. Continue on vancomycin. BP's have been up a bit over the past several days. Pt has been more anxious with the holidays. No med changes. Continue to monitor. Check US of R arm d/t swelling. Most suspicious for hematoma but need to r/o abscess or DVT. 11/08/17 14:52 Sono of arm yesterday was essentially neg except for edema. Revision of amputation today. Pain control and atbx per ortho Overall doing well post-op. NO concerns at present. She is chronically mildly tachycardic and BP's are stable. 11/09/17 10:52 Pain control and atbx per ortho. Surgical culture no growth after one day. Given her wt gain and hypoxia, will DC IV fluids and give 20mg Lasix IV. Hgb dropped 9.6-->8.3 which is expected given her recent surgery. However, given her EF of 15% and other comorbidities, rec keeping her here at least another night to monitor hgb and respiratory status. Will discuss with Dr. Penny possibility of transfusion. Discussed case with ortho. Dr. Collier wants to continue IV vanc until bone culture is back. Will likely keep her through the weekend. 11/10/17: Culture shows no growth to date; continue vancomycin. Weight down 2 kg since IV Lasix, still with mild fluid overload symptoms. Hgb improved to 8.9. Dr. Adhikari consulted for depression. 11/11/17: Requiring oxygen for hypoxia; diuresed with Lasix IV. Synovial fluid culture pos for WINDSHIELD WIPER REPAIRER but tibial culture negative. Likely will change to oral abx at time of discharge (Keflex or dicloxacillin). Dr. Velasquez evaluated Clarice and increased Zyprexa to 5 mg HS. PLAN - 11/12 (Mirakian) She complains of continued dyspnea, especially with exertion. No longer requiring supplemental oxygen during the day - CPAP at 2L at night. Current weight at 86 pounds (38.6 kg) which she states is close to her baseline, though her weight on admission was 76 pounds (34.5 kg) which she believes is inaccurate. Continue to monitor daily weight closely. Lungs sounds are diminished in bases with bibasilar crackles noted. Will discuss additional diuresis with Dr. Grady. Synovial fluid culture + WINDSHIELD WIPER REPAIRER, pansensitive, but tibial culture was negative x [address] Collier recommends changing abiotic to Keflex at time of discharge. Due to the holiday, Dr. Rizo is unavailable for consult until 11/15. Continue vancomycin with pharmacy to manage. Appreciate their time and expertise. Recheck BMP in AM to monitor blood counts, electrolytes and renal function given recent diuresis and previously elevated vancomycin trough. Continue to monitor emotional state of patient and continue to provide safe and supportive environment. She is to follow up with Dr. Khan as an outpatient following discharge. Anticipating discharge in near future, hopefully . RM is checking on discharge options at [facility]. PLAN - 11/12 (Mirakian) Overall, Clarice appears to be making good gains. Sleeping is improving and her mood is bright; she is feeling more hopeful. Appreciate Dr. Chaparro time and expertise - continue psychiatric care. Patient credits Edgardo GARCIA for increase in mood - will continue. Dyspnea improved. Continue CPAP at 2L at night (baseline) and oxygen PRN. Weight stable, slightly trending up. Repeat CXR complete 11/12/17 and review by myself with no evidence of heart failure. Synovial fluid culture + W[employer]SHIELD WIPER REPAIRER, pansensitive, but tibial culture was negative x [address] Collier recommends changing abiotic to Keflex at time of discharge. Due to the holiday, Dr. Rizo is unavailable for consult until 11/15. Continue vancomycin with pharmacy to manage. Appreciate their time and expertise. Recheck BMP in AM to monitor blood counts, electrolytes and renal function given recent diuresis and previously elevated vancomycin trough. Hemoglobin trending up - 10.2 today. Iron studies pending. Continue to monitor. Continue to monitor emotional state of patient and continue to provide safe and supportive environment. She is to follow up with Dr. Khan as an outpatient following discharge. Anticipating discharge in near future. RM is checking on discharge options at [facility].
--- NOTE | 2017-11-13 11:34 | Discharge Summary ---
Orthopedic Discharge Info Date of admission: 11/01/17 14:43 Primary care physician: Eula Shoemaker MD Attending Physician: Omar Collier MD Consults: 11/01/17 Pharmacy Consult [CONS] Routine Pharmacy Consult: Vancomycin 11/02/17 14:51 Physician [Physician Consult] [CONS] Routine Consulting Provider: Moises Penny Reason For Exam: Medical management. Ordering Provider has [employer] Sales Consultant: Yes 11/03/17 Inpatient Rehab Screening [CONS] Routine 11/03/17 09:08 Physician Consult [CONS] Routine Consulting Provider: William Pool Reason For Exam: cont care Ordering Provider has [employer] Sales Consultant: Yes 11/10/17 10:27 Physician Consult [CONS] Routine Consulting Provider: Milagros Adhikari Reason For Exam: depression Ordering Provider has [employer] Sales Consultant: Yes - Discharge Diagnosis (1) Status post below knee amputation of left lower extremity Status: Acute - Procedures Procedures: Procedures Detachment at Left Lower Leg, Mid, Open Approach (10/20/17) Detachment at Right 1st Toe, Complete, Open Approach (08/18/17) Dilation of Coronary Artery, One Site with Drug-eluting Intraluminal Device, Percutaneous Approach (01/06/16) Drainage of Right Foot Skin, External Approach (12/18/16) Excision of Left Foot Subcutaneous Tissue and Fascia, Open Approach (08/18/17) Excision of Right Metatarsal, Open Approach (12/18/16) Excision of Right Metatarsal, Open Approach, Diagnostic (08/18/17) Fluoroscopy of Left Heart using Low Osmolar Contrast (01/06/16) Fluoroscopy of Multiple Coronary Arteries using Low Osmolar Contrast (01/06/16) Gait Training/Functional Ambulation Treatment using Assistive, Adaptive, Supportive or Protective Equipment (12/24/16) Home Management Treatment (10/24/17) Measurement of Cardiac Sampling and Pressure, Left Heart, Percutaneous Approach (01/06/16) Synovectomy, knee (06/23/09) Therapeutic Exercise Treatment of Musculoskeletal System - Whole Body (10/24/17) Total knee replacement (06/23/09) Transfusion of Nonautologous Red Blood Cells into Peripheral Vein, Percutaneous Approach (10/20/17) Transfusion of packed cells (06/23/09) - Laboratory Result Diagrams: 11/13/17 04:35 11/13/17 04:35 Laboratory: Abnormal lab results 11/13/17 11/13/17 Range/Units 04:35 04:35 RBC 3.62 L (4.00-5.20) M/MM3 Hgb 10.2 L D (12-16) GM/DL Hct 32.4 L D (36-46) % RDW Std Deviation 58.3 H (36.9-50.2) FL [place] % (Auto) 19.2 H (0-9.0) % Eos % (Auto) 6.2 H (0-4) % [place] # (Auto) 1.6 H (0-0.8) T/MM3 Carbon Dioxide 31 H (22-30) MEQ/L Creatinine 0.6 L (0.7-1.2) MG/DL Specimen Hemolysis 33 H (0-25) H & H 11/01/17 11/03/17 11/04/17 Range/Units 15:54 05:26 04:15 Hgb 11.3 L D 9.1 L D 9.6 L (12-16) GM/DL Hct 35.5 L D 29.7 L D 31.6 L (36-46) % 11/09/17 11/10/17 11/11/17 Range/Units 04:06 08:28 05:59 Hgb 8.3 L 8.9 L 9.0 L (12-16) GM/DL Hct 28.3 L 28.7 L 28.9 L (36-46) % 11/13/17 Range/Units 04:35 Hgb 10.2 L D (12-16) GM/DL Hct 32.4 L D (36-46) % - Microbiology Microbiology 11/08/17 07:50 Tibia, Left, Bone Gram Stain - Final 11/08/17 07:50 Tibia, Left, Bone Surgical Culture - Final No Growth After 3 Days 11/08/17 07:45 Knee, Left Intraop Tissue Gram Stain - Final 11/08/17 07:45 Knee, Left Intraop Tissue Surgical Culture - Final Coag negative Staphylococcus Orthopedic Discharge HPI - HPI Comments Clarice was admitted to the hospital after falling causing a left BKA wound dehiscence. Orthopedic Hospital Course Hospital course: Clarice underwent left BKA wound dehiscence revision. She was placed on Vancomycin until tibial and soft tissue wound cultures could be obtained. Final tibial cultures were negative for organism. The soft tissue cultures showed Coag Neg Staph which was pansensitive. Dr. Collier recommended Keflex 500mg PO QID on discharge. The hospitalist service managed her medically throughout her stay. Dieresis was needed to improve her respiratory status. Please see their notes for specifics. In addition, Psychiatry saw her and adjusted medications to help with depression. On discharge all services felt she was stable. Disposition was to [facility] with a 1 week follow up in wound care with Dr. Collier. 11/13/17 11:35 Care extended to > 2 midnight stays?: Yes Discharge Plan - Med Rec/Dispo Prescriptions: New cephALEXin [Keflex] 500 mg PO QID #40 cap Continue Acetaminophen 1,000 mg PO Q6H PRN #0 PRN Reason: PAIN Buspirone HCl 20 mg PO BID #0 Rosuvastatin Calcium [Crestor] 20 mg PO HS #0 Clopidogrel Bisulfate [Plavix] 75 mg PO HS #0 Nitroglycerin [Nitrostat] 0.4 mg SL Q5MIN3 PRN #0 PRN Reason: CHEST PAIN Levothyroxine Sodium 75 mcg PO ACB #0 tab Beclomethasone Dipropionate [Qvar 80] 1 puff INH RTBID Cyanocobalamin (B-12) [Vit. B-12] 1,000 mcg IM 1 MONTH Albuterol HFA Inhaler [Ventolin Hfa 90 mcg/actuation] 1 - 2 puff INH Q4H PRN PRN Reason: Prn Orders Carvedilol 6.25 mg PO BIDWM Mirtazapine [Remeron] 30 mg PO HS Lansoprazole 1 cap PO ACB PredniSONE [Deltasone] 3 mg PO WB tab PredniSONE [Deltasone] 5 mg PO WB Venlafaxine XR [Effexor Xr] 37.5 mg PO WB #30 cap Tiotropium Handihaler [Spiriva] 1 cap IH HS #0 Calcium Carbonate [Calcium] 1,200 mg PO DAILY #0 Diclofenac Sodium [Diclofenac Sodium ER] 100 mg PO BID #0 Aspirin [Aspirin EC] 81 mg PO DAILY #0 Lisinopril 2.5 mg PO HS #0 Fludrocortisone [Florinef] 0.1 mg PO HS #0 tab OLANZapine [Zyprexa] 2.5 mg PO HS Cholecalciferol (Vitamin D3) [Vitamin D3] 1 cap PO DAILY Furosemide [Lasix] 20 mg PO DAILY PRN #0 PRN Reason: Edema Multivitamin [Chewable-Matthew] 1 each PO Hydrocodone/APAP 7.5/325 [[place] 7.5/325] 1 - 2 tab PO Q6H PRN #60 tab PRN Reason: Pain - Disposition 03 To [facility] Not [facility] (SNF) - Dismissal Complete Discharge Instructions are:: Complete
--- NOTE | 2017-11-13 11:43 | Extended Care Facility Orders ---
Admission Orders Admit to:: Alf Allergies/Adverse Reactions: Allergies morphine Allergy (Mild, Verified 11/01/17 15:21) ITCHING methylprednisolone Allergy (Unknown, Verified 11/01/17 15:21) doxycycline Adverse Reaction (Severe, Verified 11/01/17 15:21) DIARRHEA adalimumab Adverse Reaction (Intermediate, Verified 11/01/17 15:21) LOW GRADE FEVER atorvastatin Adverse Reaction (Unknown, Verified 11/01/17 15:21) LEG CRAMPS bupropion Adverse Reaction (Unknown, Verified 11/01/17 15:21) ANXIETY cortizone meds Allergy (Unknown, Uncoded 10/19/17 12:15) Anxiety Admitting Diagnosis: Fall with dehiscence of L BKA Wound Admitting Physician: Omar Collier MD Attending Physician: Omar Collier MD Code Status: Do Not Resuscitate Anticiapted Length of Stay: 30 days or less Rehab Potential: fair Rehab Prognosis: fair Diet: 11/08/17 Breakfast Regular Diet [DIET] Diet Modifications: Wound/Incision Care: Leave dressing on and dry until follow up with Dr. Collier in 1 week. May use Facility Protocol or Standing Orders: Yes (aside from dressing/wound orders.) Evaluations/Treatment: PT, OT Alf Certification: I certify that SNF services are required to be given on an Inpatient basis because of the patients need for assisted care on a continuing basis for the condition(s) for which he/she received inpatient hospital services prior to his/her transfer to the SNF. SNF inpatient care is necessary for the following reasons Indication for Alf: Postop Assessment Care - Additional Information In Event of Arrest: Do Not Start CPR (verify with patient again.) Resident is Aware of Diagnosis: Yes Additional Orders: Please make a follow up with the wound care center within [address] Collier.
--- NOTE | 2017-11-14 08:35 | XRay Report ---
Indication: dyspnea PROCEDURE: XR chest 1V: Encounter: Initial Comparison: November 06, 2017 Findings: The lungs are stable in appearance without new focal airspace consolidation. Hyperinflation. There is no pleural effusion or pneumothorax. The heart size, pulmonary vascularity and mediastinal contours are unchanged. IMPRESSION: Stable appearance of the chest without acute cardiopulmonary disease. .
--- NOTE | 2017-11-18 12:07 | Progress Note ---
Progress Note: Received call from patient today reporting she was not discharged on the correct dose of Zyprexa during recent hospitalization. As verified, and the chart that patient upon admission was on Zyprexa 2.5 milligrams at bedtime, however, during her stay. She was seen in consultation by Dr. Velasquez for her increased depression. He did recommend increasing the Zyprexa dose at that time to 5 milligrams at at bedtime, however, this was not done in the computer. Therefore at time of discharge, she was continued on her previous Zyprexa dose. I did speak with Dr. Velasquez today 11/18/17 at 1155 a.m. I did verify that he recommends increasing Zyprexa to 5 milligrams at at bedtime. He does give order to send a new prescription to [facility], where Patient currently resides for rehabilitation. Will send a faxed prescription Zyprexa 5 milligrams, 1 tab by mouth at at bedtime, dispense #20. This is faxed to [place] by case management.
== END 2017-11-13 14:07 | DRG 464 ==
LOC: SRG 14:43
PROVIDERS: ADMIT Orthopaedic Surgery; ATTEND Orthopaedic Surgery

== ENCOUNTER 2017-11-21 12:29 | Inpatient (IN) ==
[2017-11-21] MEDS ORDERED: HYDROCODONE/APAP 7.5 MG/325 MG TABLET PO ONE (13:26)
--- NOTE | 2017-11-21 13:43 | Emergency Department Report ---
Fall HPI - General Chief Complaint: Fall Stated Complaint: fell out of chair Time Seen by Provider: 11/21/17 13:20 Source: patient, family Mode of arrival: wheelchair Limitations: no limitations - History of Present Illness HPI Narrative: Pt has a BKA from 11/02/17. SHe was transferring from her wheelchair to the toilet when she hit her stump on a cabinet and fell. Pt complains of right rib pain, talibone pain, and bleeding from her stump which was reinforced with additional dressing. Pt denies striking her head. complaint: fall Onset (ago): minute(s) Fall from: wheelchair Fall witnessed: yes, by family Place fall occurred: [facility] Loss of consciousness: none Prolonged down time: no Symptoms prior to fall: none Context: tripped/slipped Location of injury: chest, buttocks Location of injury - extremities: Right: elbow (skin tear) Severity: moderate Associated symptoms (after fall): denies - Related Data Home Medications Medication Instructions Recorded Confirmed Tiotropium Handihaler [Spiriva] 1 cap IH HS #0 07/07/10 11/21/17 Nitroglycerin [Nitrostat] 0.4 mg SL Q5MIN3 PRN #0 10/09/16 11/21/17 Fludrocortisone [Florinef] 0.1 mg PO HS #0 tab 12/18/16 11/21/17 Levothyroxine Sodium 75 mcg PO ACB #0 tab 12/18/16 11/21/17 Beclomethasone Dipropionate [Qvar 1 puff INH RTBID 08/17/17 11/21/17 80] Albuterol HFA Inhaler [Ventolin 1 - 2 puff INH Q4H PRN 09/27/17 11/21/17 Hfa 90 mcg/actuation] Carvedilol 6.25 mg PO BIDWM 09/27/17 11/21/17 Cyanocobalamin (B-12) [Vit. B-12] 1,000 mcg IM 1 MONTH 09/27/17 11/21/17 Mirtazapine [Remeron] 30 mg PO HS 09/27/17 11/21/17 OLANZapine [Zyprexa] 5 mg PO HS 09/27/17 11/21/17 Cholecalciferol (Vitamin D3) 2,000 unit PO DAILY 10/19/17 11/21/17 [Vitamin D3] Lansoprazole 1 cap PO ACB 10/19/17 11/21/17 PredniSONE [Deltasone] 5 mg PO WB 10/24/17 11/21/17 Multivitamin [Chewable-Matthew] 1 tab PO DAILY 11/01/17 11/21/17 Acetaminophen [Acetaminophen Extra 1,000 mg PO Q6HR PRN 11/21/17 11/21/17 Strength] Aspirin Chewable [ASA] 81 mg PO DAILY 11/21/17 11/21/17 Buspirone [Buspar] 20 mg PO BID 11/21/17 11/21/17 Calcium Carbonate 1,200 mg PO DAILY 11/21/17 11/21/17 Clopidogrel Bisulfate [Clopidogrel] 75 mg PO DAILY 11/21/17 11/21/17 Diclofenac Sodium [Voltaren-Xr] 100 mg PO BID 11/21/17 11/21/17 Previous Rx's Medication Instructions Recorded PredniSONE [Deltasone] 3 mg PO WB tab 10/24/17 Furosemide [Lasix] 20 mg PO DAILY PRN #0 10/30/17 Venlafaxine XR [Effexor Xr] 37.5 mg PO WB #30 cap 10/30/17 Hydrocodone/APAP 7.5/325 [[place] 1 - 2 tab PO Q6H PRN #60 tab 11/11/17 7.5/325] cephALEXin [Keflex] 500 mg PO QID #40 cap 11/13/17 Allergies Allergy/AdvReac Type Severity Reaction Status Date / Time morphine Allergy Mild ITCHING Verified 11/21/17 12:47 methylprednisolone Allergy Unknown Verified 11/21/17 12:47 doxycycline AdvReac Severe DIARRHEA Verified 11/21/17 12:47 adalimumab AdvReac Intermediate LOW GRADE Verified 11/21/17 12:47 FEVER atorvastatin AdvReac Unknown LEG CRAMPS Verified 11/21/17 12:47 bupropion AdvReac Unknown ANXIETY Verified 11/21/17 12:47 cortizone meds Allergy Unknown Anxiety Uncoded 11/21/17 12:47 Review of Systems All systems: reviewed and negative except as stated Musculoskeletal: Reports: as per HPI Integumentary: Reports: as per HPI PFSH Patient Stated Medical History Transient Ischemic Attacks ( Yes: MARCH 2017 TIA) Other HEENT Yes: WEARS GLASSES Angina Yes: HX Cardiac Arrhythmia Yes: at. fib./ tachycardia Congestive Heart Failure Yes: EF documented as 20-25% Coronary Artery Disease Yes Hypertension Yes Myocardial Infarction Yes: EF 20%, dec 2015 Asthma Yes Chronic Obstructive Pulmonary Yes Disease (COPD) Sleep Apnea Yes: uses cpap Other Respiratory Yes Gastroesophageal Reflux Yes Disease Hiatal Hernia Yes Hx Incontinence Yes Hx Renal Disease No Anemia Yes Clotting Problems Yes: takes plavix Osteoarthritis Yes: osteoporosis Other Musculoskeletal Yes: RA MRSA Yes Blood Transfusions Yes: NO REACTION Depression Yes Ovarian Cysts Yes Post Menopausal Yes Surgical History: Left inguinal hernia and mid abdominal incisional hernia repair (2007). Repeat left inguinal hernia repair (2008). Right hernia repair (06/2011). Tubal ligation (1980). Right oophorectomy and lysis of adhesions (2001). Sinus surgery (01/1999). Right knee synovectomy (02/2003). Small bowel perforation with right hemicolectomy and ileostomy placement 01/23. Bilateral bunionectomies. Right foot joint fusion (1989). Left ankle fusion (07/2000). Bilateral knee replacements (left 2006, right 2004). Left hip repair. Right wrist fusion (09/2002). Right shoulder surgery. Cervical spine fusion C3, 4, 5 fusion ([facility]). Carpal tunnel surgery (left 2005, right 2003). Right great toe amputation secondary to osteomyelitis (Dr. Collier 08/2017). Left BKA ( Dr. Collier 10/20/17). Cardiac stent 1 (Dr. Arora 2014). Colonoscopy 04/2011 ( diverticulitis), EGD 07/28 (essentially normal) - Social History Smoking status: Former smoker Physical Exam - Limitations Limitations: no limitations - General General appearance: alert, in no apparent distress - Normal Exams: Head:: Normocephalic without trauma Eyes:: Pupils are PERRLA w/ EOMI Neck:: Full range of motion, without adenopathy Chest/Respirations:: Clear all ball, with good airflow, and symmetry bilaterally Cardiovascular:: Regular rate and rhythm, without murmur or gallop, Pulses 2+ all extremities, capillary refill Abdomen:: Bowel sounds positive, soft, non-tender, non-distended Neurological:: Patient is alert, and oriented, cranial nerves, motor/sensory/ cerebellar, exams w/o gross deficits, to observation Psychiatric:: Patient exhibits, appropriate attention, emotion and affect - Expanded Lower Extremity Exam left Knee exam: Present: tenderness (Pt has surgical wound with suture to left BKA stump with bleeding. Lateral edge of wound appears to be open with pulled suture ) - Expanded Skin Exam Type of lesion: Present: other (skin tear to right elbow with dressing) Course Vital Signs Temperature 98.9 F 11/21/17 12:48 Pulse Rate 112 H 11/21/17 12:48 Respiratory Rate 20 11/21/17 12:48 Blood Pressure 165/88 H 11/21/17 12:48 Pulse Oximetry 96 11/21/17 12:48 Temperature 98.9 F 11/21/17 12:48 Pulse Rate 109 H 11/21/17 13:15 Respiratory Rate 22 11/21/17 13:15 Blood Pressure 138/79 11/21/17 13:15 Pulse Oximetry 96 11/21/17 13:15 Fall - [facility] Narrative Medical decision making narrative: Pt given [place] for pain which is what she takes at home. Dr Collier notified of findings of surgical wound assessment. IV to be placed and pt to be given a gram of Ancef. Skin tear to be wrapped as well as surgical wound. Dr Collier at bedside. Pt to be NPO and admitted observation, OR for surgical wound revision with Dr Collier. Pt verbalizes understanding of plan - Differential Diagnosis Likely: compression fracture (rib fracture, wound dehisence, sacral fracture) - Radiology Data Attestation: I reviewed the patient's radiology results. (read per Dr Wetzel no acute findings) Disposition Clinical Impression: Delayed surgical wound healing of [id number] amputation stump Disposition: 02 To [facility] [place] Condition: Improved Prescriptions: No Action Nitroglycerin [Nitrostat] 0.4 mg SL Q5MIN3 PRN #0 PRN Reason: CHEST PAIN Levothyroxine Sodium 75 mcg PO ACB #0 tab Beclomethasone Dipropionate [Qvar 80] 1 puff INH RTBID Cyanocobalamin (B-12) [Vit. B-12] 1,000 mcg IM 1 MONTH Albuterol HFA Inhaler [Ventolin Hfa 90 mcg/actuation] 1 - 2 puff INH Q4H PRN PRN Reason: Prn Orders Carvedilol 6.25 mg PO BIDWM Mirtazapine [Remeron] 30 mg PO HS Lansoprazole 1 cap PO ACB PredniSONE [Deltasone] 3 mg PO WB tab PredniSONE [Deltasone] 5 mg PO WB Venlafaxine XR [Effexor Xr] 37.5 mg PO WB #30 cap Aspirin Chewable [ASA] 81 mg PO DAILY Buspirone [Buspar] 20 mg PO BID Calcium Carbonate 1,200 mg PO DAILY Diclofenac Sodium [Voltaren-Xr] 100 mg PO BID Tiotropium Handihaler [Spiriva] 1 cap IH HS #0 Fludrocortisone [Florinef] 0.1 mg PO HS #0 tab OLANZapine [Zyprexa] 5 mg PO HS Cholecalciferol (Vitamin D3) [Vitamin D3] 2,000 unit PO DAILY Furosemide [Lasix] 20 mg PO DAILY PRN #0 PRN Reason: Edema Multivitamin [Chewable-Matthew] 1 tab PO DAILY Hydrocodone/APAP 7.5/325 [[place] 7.5/325] 1 - 2 tab PO Q6H PRN #60 tab PRN Reason: Pain cephALEXin [Keflex] 500 mg PO QID #40 cap Clopidogrel Bisulfate [Clopidogrel] 75 mg PO DAILY Acetaminophen [Acetaminophen Extra Strength] 1,000 mg PO Q6HR PRN PRN Reason: Pain Referrals: Eula Shoemaker MD [Family Provider] - Time of Disposition: 14:18 - Seen By: midlevel
[2017-11-21] MEDS ORDERED: SALINE FLUSH 10ml SYRINGE IVF PRN (13:54)
--- NOTE | 2017-11-21 14:03 | XRay Report ---
Indication: fall pain PROCEDURE: XR ribs RT 2-3V: Encounter: Initial Comparison: Chest x-ray dated November 03, 2017 Findings/ Impression: No acute displaced rib fracture. Right reverse shoulder prosthesis. Old T7 and T12 compression fractures. .
--- NOTE | 2017-11-21 14:04 | XRay Report ---
Indication: fall pain PROCEDURE: XR sacrum coccyx min 2V: Encounter: Initial Comparison: None Findings/ Impression: No acute displaced sacrococcygeal fracture. Orthopedic screws in the left femoral head and neck. Mild bony demineralization. .
[2017-11-21] MEDS: CEFAZOLIN 1 G INJECTION IVP ONE ×2 (14:16→17:06)
--- NOTE | 2017-11-21 14:22 | Orthopedic History & Physical ---
Orthopedic HPI - HPI Comments Clarice is a kind 67-year-old female who is well-known to me from previous below- the-knee amputation. Her last surgery was on 11/02/2017 at that surgery her stump was closed. She is been PRA unfortunately she fell today onto her left stump. It was bleeding so she was brought into the emergency room by her family. She has been on Keflex by mouth. She denies any signs of infection. She states the wound was healing well before today. [facility] Patient Stated Medical History Transient Ischemic Attacks ( Yes: MARCH 2017 TIA) Other HEENT Yes: WEARS GLASSES Angina Yes: HX Cardiac Arrhythmia Yes: at. fib./ tachycardia Congestive Heart Failure Yes: EF documented as 20-25% Coronary Artery Disease Yes Hypertension Yes Myocardial Infarction Yes: EF 20%, dec 2015 Asthma Yes Chronic Obstructive Pulmonary Yes Disease (COPD) Sleep Apnea Yes: uses cpap Other Respiratory Yes Gastroesophageal Reflux Yes Disease Hiatal Hernia Yes Hx Incontinence Yes Hx Renal Disease No Anemia Yes Clotting Problems Yes: takes plavix Osteoarthritis Yes: osteoporosis Other Musculoskeletal Yes: RA MRSA Yes Blood Transfusions Yes: NO REACTION Depression Yes Ovarian Cysts Yes Post Menopausal Yes Surgical History: Left inguinal hernia and mid abdominal incisional hernia repair (2007). Repeat left inguinal hernia repair (2008). Right hernia repair (06/2011). Tubal ligation (1980). Right oophorectomy and lysis of adhesions (2001). Sinus surgery (01/1999). Right knee synovectomy (02/2003). Small bowel perforation with right hemicolectomy and ileostomy placement 01/23. Bilateral bunionectomies. Right foot joint fusion (1989). Left ankle fusion (07/2000). Bilateral knee replacements (left 2006, right 2004). Left hip repair. Right wrist fusion (09/2002). Right shoulder surgery. Cervical spine fusion C3, 4, 5 fusion ([facility] Carpal tunnel surgery (left 2005, right 2003). Right great toe amputation secondary to osteomyelitis (Dr. Collier 08/2017). Left BKA ( Dr. Collier 10/20/17). Cardiac stent 1 (Dr. Arora 2014). Colonoscopy 04/2011 ( diverticulitis), EGD 07/28 (essentially normal) - Social History Smoking status: Former smoker Review of Systems - Constitutional Constitutional: Absent: chills, fever(s), night sweats - Cardiovascular Cardiovascular: Absent: chest pain, palpitations - Respiratory Respiratory: Absent: cough, dyspnea - Gastrointestinal Gastrointestinal: Absent: abdominal pain, nausea, vomiting - Genitourinary Genitourinary Female: Absent: dysuria - Musculoskeletal Musculoskeletal: Present: as per HPI - Integumentary/Breasts Integumentary: Absent: lesions, rash - Neurological Neurological: Absent: numbness, tingling Medications Home Medications Medication Instructions Recorded Confirmed Type Tiotropium Handihaler [Spiriva] 1 cap IH HS #0 07/07/10 11/21/17 History Nitroglycerin [Nitrostat] 0.4 mg SL Q5MIN3 PRN #0 10/09/16 11/21/17 History Fludrocortisone [Florinef] 0.1 mg PO HS #0 tab 12/18/16 11/21/17 History Levothyroxine Sodium 75 mcg PO ACB #0 tab 12/18/16 11/21/17 History Beclomethasone Dipropionate [Qvar 1 puff INH RTBID 08/17/17 11/21/17 History 80] Albuterol HFA Inhaler [Ventolin 1 - 2 puff INH Q4H PRN 09/27/17 11/21/17 History Hfa 90 mcg/actuation] Carvedilol 6.25 mg PO BIDWM 09/27/17 11/21/17 History Cyanocobalamin (B-12) [Vit. B-12] 1,000 mcg IM 1 MONTH 09/27/17 11/21/17 History Mirtazapine [Remeron] 30 mg PO HS 09/27/17 11/21/17 History OLANZapine [Zyprexa] 5 mg PO HS 09/27/17 11/21/17 History Cholecalciferol (Vitamin D3) 2,000 unit PO DAILY 10/19/17 11/21/17 History [Vitamin D3] Lansoprazole 1 cap PO ACB 10/19/17 11/21/17 History PredniSONE [Deltasone] 5 mg PO WB 10/24/17 11/21/17 History Multivitamin [Chewable-Matthew] 1 tab PO DAILY 11/01/17 11/21/17 History Acetaminophen [Acetaminophen Extra 1,000 mg PO Q6HR PRN 11/21/17 11/21/17 History Strength] Aspirin Chewable [ASA] 81 mg PO DAILY 11/21/17 11/21/17 History Buspirone [Buspar] 20 mg PO BID 11/21/17 11/21/17 History Calcium Carbonate 1,200 mg PO DAILY 11/21/17 11/21/17 History Clopidogrel Bisulfate [Clopidogrel] 75 mg PO DAILY 11/21/17 11/21/17 History Diclofenac Sodium [Voltaren-Xr] 100 mg PO BID 11/21/17 11/21/17 History Allergies Allergy/AdvReac Type Severity Reaction Status Date / Time morphine Allergy Mild ITCHING Verified 11/21/17 12:47 methylprednisolone Allergy Unknown Verified 11/21/17 12:47 doxycycline AdvReac Severe DIARRHEA Verified 11/21/17 12:47 adalimumab AdvReac Intermediate LOW GRADE Verified 11/21/17 12:47 FEVER atorvastatin AdvReac Unknown LEG CRAMPS Verified 11/21/17 12:47 bupropion AdvReac Unknown ANXIETY Verified 11/21/17 12:47 cortizone meds Allergy Unknown Anxiety Uncoded 11/21/17 12:47 Orthopedic Exam Vital signs: Temperature 98.9 F 11/21/17 12:48 Pulse Rate 109 H 11/21/17 13:15 Respiratory Rate 22 11/21/17 13:15 Blood Pressure 138/79 11/21/17 13:15 Pulse Oximetry 96 11/21/17 13:15 - Constitutional General Appearance: Present: no acute distress, well developed, well nourished - Respiratory Exam Present: non-labored - Integumentary Exam Present: pink, warm, dry - Psychiatric Exam Present: alert, normal affect - Additional findings Additional findings: The lateral one third of the left BKA stump has dehisced. There is minimal bloody drainage with exposed subcutaneous tissue. No necrotic tissue was noted. No foul odor. Skin edges are clean dry. Orthopedic Assessment and Plan (1) Dehiscence of amputation stump Status: Acute Assessment and Plan: I recommended IV antibiotic in the emergency room with irrigation agreement expiration and possible closure of her left BKA stump and the operative room. Her family and her agree with this plan and surgery will be later this afternoon. Hospital Course Summary Disclaimer: The visit summary below is not to be considered part of the above Progress Note.
--- NOTE | 2017-11-21 14:42 | XRay Report ---
Indication: pre op PROCEDURE: XR chest 1V: Encounter: Initial Comparison: November 12, 2017 FINDINGS: The lungs are hyperinflated but grossly clear. There is no consolidation, pleural effusion or pneumothorax identified. The heart size, pulmonary vasculature and mediastinum are within normal limits. No significant skeletal abnormality is seen. IMPRESSION: Stable chest without acute cardiopulmonary abnormality. .
[2017-11-21] MEDS ORDERED: SALINE FLUSH 10ml SYRINGE IV PRN (14:58)
[2017-11-21] MEDS ORDERED: LIDOCAINE 1% (10mg/ml) 2mL INJ PF SDV ID ONE (14:58)
[2017-11-21] MEDS ORDERED: NS 1,000 ML IV SCH (15:00)
--- NOTE | 2017-11-21 15:48 | Anesthesia Preoperative Report ---
Anesthesia Preoperative Record - Date and Time Date: 11/21/17 Preoperative Diagnosis: fell out of chair Proposed Procedure: Left BKA stump I&D and closure. NPO Since Date: 11/21/17 NPO Since Time: 12:00 (H2O at 1200. Small breakfast at 0830. Clear "boost" drink at 1030) Allergies/Adverse Reactions: Allergies Allergy/AdvReac Type Severity Reaction Status Date / Time morphine Allergy Mild ITCHING Verified 11/21/17 12:47 methylprednisolone Allergy Unknown Verified 11/21/17 12:47 doxycycline AdvReac Severe DIARRHEA Verified 11/21/17 12:47 adalimumab AdvReac Intermediate LOW GRADE Verified 11/21/17 12:47 FEVER atorvastatin AdvReac Unknown LEG CRAMPS Verified 11/21/17 12:47 bupropion AdvReac Unknown ANXIETY Verified 11/21/17 12:47 cortizone meds Allergy Unknown Anxiety Uncoded 11/21/17 12:47 - Vital Signs Vital Signs: Temperature 98.4 F 11/21/17 15:00 Pulse Rate 107 H 11/21/17 15:03 Respiratory Rate 22 11/21/17 15:00 Blood Pressure 138/89 11/21/17 15:00 Pulse Oximetry 97 11/21/17 15:30 Height and Weight: Height 5 ft 2 in Weight 38.555 kg - Medications Inpatient Medications: Current Medications Sodium Chloride (Normal Saline) 1,000 mls @ 0 mls/hr IV .Q0M KATHERINE PRN Reason: Per Protocol Last Admin: 11/21/17 15:02 Dose: 50 mls/hr Sodium Chloride (Iv Flush) 10 - 80 ml IVF PRN PRN PRN Reason: Flushing Last Admin: 11/21/17 14:16 Dose: 10 ml Sodium Chloride (Iv Flush) 10 ml IV PRN PRN PRN Reason: Flushing Last Admin: 11/21/17 15:01 Dose: 10 ml Home Medications: Home Medications Medication Instructions Recorded Confirmed Type Tiotropium Handihaler [Spiriva] 1 cap IH HS #0 07/07/10 11/21/17 History Nitroglycerin [Nitrostat] 0.4 mg SL Q5MIN3 PRN #0 10/09/16 11/21/17 History Fludrocortisone [Florinef] 0.1 mg PO HS #0 tab 12/18/16 11/21/17 History Levothyroxine Sodium 75 mcg PO ACB #0 tab 12/18/16 11/21/17 History Beclomethasone Dipropionate [Qvar 1 puff INH RTBID 08/17/17 11/21/17 History 80] Albuterol HFA Inhaler [Ventolin 1 - 2 puff INH Q4H PRN 09/27/17 11/21/17 History Hfa 90 mcg/actuation] Carvedilol 6.25 mg PO BIDWM 09/27/17 11/21/17 History Cyanocobalamin (B-12) [Vit. B-12] 1,000 mcg IM 1 MONTH 09/27/17 11/21/17 History Mirtazapine [Remeron] 30 mg PO HS 09/27/17 11/21/17 History OLANZapine [Zyprexa] 5 mg PO HS 09/27/17 11/21/17 History Cholecalciferol (Vitamin D3) 2,000 unit PO DAILY 10/19/17 11/21/17 History [Vitamin D3] Lansoprazole 1 cap PO ACB 10/19/17 11/21/17 History PredniSONE [Deltasone] 5 mg PO WB 10/24/17 11/21/17 History Multivitamin [Chewable-Matthew] 1 tab PO DAILY 11/01/17 11/21/17 History Acetaminophen [Acetaminophen Extra 1,000 mg PO Q6HR PRN 11/21/17 11/21/17 History Strength] Aspirin Chewable [ASA] 81 mg PO DAILY 11/21/17 11/21/17 History Buspirone [Buspar] 20 mg PO BID 11/21/17 11/21/17 History Calcium Carbonate 1,200 mg PO DAILY 11/21/17 11/21/17 History Clopidogrel Bisulfate [Clopidogrel] 75 mg PO DAILY 11/21/17 11/21/17 History Diclofenac Sodium [Voltaren-Xr] 100 mg PO BID 11/21/17 11/21/17 History Is Patient on Beta Gisela?: Yes - Medical History Respiratory: Reports: Asthma, Chronic Obstructive Pulmonary Disease (COPD) ( home 02 at night and with exertion), Sleep Apnea (uses cpap), Other Cardiovascular: Reports: Abnormal EKG, Angina (HX), Arrhythmia (at. fib./ tachycardia), Congestive Heart Failure (EF documented as 20-25%), Coronary Artery Disease, Hypertension, Myocardial Infarction (EF 20%, dec 2015) Gastrointestional: Reports: Gastroesophageal Reflux Disease (well controlled with meds), Hiatal Hernia Neuro/Musculoskeletal: Reports: HX.MS.OSAR (osteoporosis), Back Problems, Depression, Muscle Weakness, Other (RA) Renal/Endocrine: Reports: Thyroid Disease, Weight Loss Other History: Reports: Blood Transfusions (NO REACTION) - Surgical History HEENT Surgeries: Reports: Nose Surgery (DEBRIDGMENT) Cardiac Surgeries/Treatments: Reports: Cardiac Catheterization (WITH STENT 2015) , Other (STENT 2015) DENIES: Pacemaker Respiratory Surgery/Treatments: Reports: CPAP Use, Oxygen Administration (2L/NC with exertion & at noc) GI Surgery/Treatments: Reports: Colon Resection, Hernia Repair, Colonoscopy, Other (ileostomy) Musculoskeletal Surgery/Tx: Reports: Carpal Tunnel Release, Joint Surgery (LEFT HIP-PINS), Shoulder Arthroscopy (RIGHT SHOULDER REPLACEMENT), Total Knee Replacement (ANDRES.), Other (FUSION- L. ANKLE, R WRIST,NECK, TOE SURGERY) Reproductive Surgery/Treatment: Reports: Tubal Ligation DENIES: Mastectomy Anesthesia Reactions: None Hx Family Anesthesia Reaction: No History of Motion Sickness: No - Social History Smoking Status: Former smoker Pack-years: 40 Hx Chewing Tobacco Use: No Second Hand Exposure: No Substance Use Type: does not use Alcohol Intake: former Alcohol Intake Frequency: does not drink - Pertinent Findings Laboratory: CBC and BMP 11/21/17 14:30 EKG: Sinus Tachycardia - Physical Exam Respiratory Exam: Present: lungs clear, bilateral breath sounds equal, decreased breath sounds-L (base), decreased breath sounds-R (base) Cardiovascular Exam: Present: regular rate and rhythm, no murmur - Airway Assessment Mallampati Score: IV TMD: 3 Fingerbreadths Neck Extension: poor (C3-6 Fusion. extremely limited extension) Overall Assessment: may be difficult intubation - ASA ASA Score: 4, E - Plan Anesthesia: General TIVA, MAC - Discussion Discussion: Discussed risks/options/alternatives of anesthesia and questions answered. Patient consents. Nursing pain assessment noted. Present for Discussion: children Attestation Statement: Prior to the delivery of any anesthetic medication, I examined the patient, developed the plan, obtained the patient's consent and discussed the risk and benefits of the procedure with the patient/guardian. - Additional Information Seen by Anesthesia: Yes
[2017-11-21] MEDS ORDERED: FentaNYL 100 MCG/2 ML INJECTION ONE (17:12)
[2017-11-21] MEDS ORDERED: PROPOFOL 20 ML ONE (17:12)
[2017-11-21] MEDS ORDERED: MIDAZOLAM 2mg/2ml INJECTION ONE (17:13)
[2017-11-21] MEDS ORDERED: KETAMINE 500 MG/10 ML INJECTION ONE (17:13)
[2017-11-21] MEDS ORDERED: HYDROMORPHONE 2 MG/ML INJECTION IVP PRN ×2 (18:28→19:09)
[2017-11-21] MEDS ORDERED: ONDANSETRON 4 MG/2 ML INJECTION IVP PRN ×2 (18:28→19:09)
--- NOTE | 2017-11-21 18:35 | Anesthesia Postoperative Note ---
- Date and Time Date: 11/21/17 Time: 18:35 - Status Patient Participated in Evaluation: Patient Participated in Person Vital Signs: Temperature 97.6 F 11/21/17 18:00 Pulse Rate 103 H 11/21/17 18:25 Respiratory Rate 14 11/21/17 18:00 Blood Pressure 121/72 11/21/17 18:25 Pulse Oximetry 92 11/21/17 18:25 Respiratory Function: Airway Patent Cardiovascular Function: Regular Pulse EKG: Sinus Rhythm Mental Status: Alert and Oriented Pain Intensity: 7 Hydration: IV Infusing Complications During Recover: None Apparent - Follow-Up Instructions Instructions: Per Surgeon
[2017-11-21] MEDS ORDERED: FUROSEMIDE 20 MG TABLET PO PRN (19:09)
[2017-11-21] MEDS ORDERED: NITROGLYCERIN 0.4 MG SUBLINGUAL TABLET SL PRN (19:09)
[2017-11-21] MEDS ORDERED: HYDROCODONE/APAP 7.5 MG/325 MG TABLET PO PRN (19:09)
[2017-11-21] MEDS: FLUDROCORTISONE 0.1 MG TABLET PO SCH (20:19)
[2017-11-21] MEDS: TIOTROPIUM 18mcg/cap HANDIHALER ORAL INH SCH (20:19)
[2017-11-21] MEDS: MIRTAZAPINE 30 MG TABLET PO SCH (20:19)
[2017-11-21] MEDS: BUSPIRONE 10 MG TABLET PO SCH (20:19)
[2017-11-21] MEDS: CARVEDILOL 3.125 MG TABLET PO SCH (20:20)
[2017-11-21] MEDS: BECLOMETHASONE 80 MCG ORAL INH SCH (20:20)
[2017-11-21] MEDS: NS 1,000 ML IV SCH (20:32)
[2017-11-21] MEDS ORDERED: OLANZapine 2.5 MG TABLET PO SCH (21:00)
[2017-11-22] MEDS ORDERED: CEFAZOLIN 1 G INJECTION IVP ONE (01:00)
[2017-11-22] MEDS: LEVOTHYROXINE 75 MCG TABLET PO SCH (06:33)
[2017-11-22] MEDS ORDERED: BUDESONIDE INH.SOLN 0.5mg/2ml NEB AEROSOL SCH (07:00)
[2017-11-22] MEDS ORDERED: ALBUTEROL 2.5mg/3ml (0.083%) NEB AEROSOL PRN (07:00)
--- NOTE | 2017-11-22 08:15 | Orthopedic Progress Note ---
Date: Date: 11/22/17 Time: 0811 Feels a little shaky this morning. Pain is as expected in left BKA stump. No lightheadedness. Orthopedic Objective Vital signs: Temperature 96.7 F L 11/22/17 07:52 Pulse Rate 102 H 11/22/17 07:52 Respiratory Rate 16 11/22/17 07:52 Blood Pressure 116/72 11/22/17 07:52 Pulse Oximetry 96 11/22/17 07:52 Height and Weight: Height 5 ft 2 in Weight 38.555 kg - Constitutional General Appearance: Present: no acute distress - Respiratory Exam Present: non-labored - Psychiatric Exam Present: alert - Wound Management Left Leg Drainage Description: Sanguineous Drainage Amount: Small - Labs Result Diagrams: 11/22/17 04:14 11/22/17 04:14 Abnormal lab results 11/21/17 11/22/17 11/22/17 Range/Units 14:30 04:14 04:14 RBC 3.31 L 2.83 L (4.00-5.20) M/MM3 Hgb 9.2 L 7.7 L D (12-16) GM/DL Hct 29.9 L 26.1 L D (36-46) % MCHC 30.8 L 29.5 L (31-37) GM/DL RDW Std Deviation 58.4 H 60.5 H (36.9-50.2) FL Plt Count 407 H D (130-400) T/MM3 MPV 9.2 L 9.3 L (9.4-12.4) UM3 [place] % (Auto) 14.3 H (0-9.0) % Eos % (Auto) 6.1 H (0-4) % [place] # (Auto) 1.2 H (0-0.8) T/MM3 Neutrophils % (Manual) 71.0 H (33-66) % Lymphocytes % (Manual) 21.0 L (23-45) % Calcium 8.0 L (8.4-10.2) MG/DL H & H 11/21/17 11/22/17 Range/Units 14:30 04:14 Hgb 9.2 L 7.7 L D (12-16) GM/DL Hct 29.9 L 26.1 L D (36-46) % Orthopedic Assessment and Plan (1) Dehiscence of amputation stump Status: Acute Assessment and Plan: Incision looks good with just minimal bleeding. She does not feel comfortable going home today from a PT/OT perspective. We will start PT/OT and monitor her hgb in the morning. Anticipate possible D/C tomorrow if hgb is stable. Hospital Course Summary Disclaimer: The visit summary below is not to be considered part of the above Progress Note.
[2017-11-22] MEDS: BECLOMETHASONE 80 MCG ORAL INH SCH ×2 (09:05→19:58)
[2017-11-22] MEDS: Venlafaxine XR 37.5 MG CAPSULE (24hr) PO SCH (09:45)
[2017-11-22] MEDS: DICLOFENAC SODIUM DR 25 MG TABLET PO SCH ×2 (09:46→21:12)
[2017-11-22] MEDS: ASPIRIN 81 MG CHEWABLE TABLET PO SCH (09:46)
[2017-11-22] MEDS: PredniSONE 5 MG TABLET PO SCH (09:46)
[2017-11-22] MEDS: MULTI-VITAMIN PLAIN TABLET PO SCH (09:47)
[2017-11-22] MEDS: BUSPIRONE 10 MG TABLET PO SCH ×2 (09:47→21:12)
[2017-11-22] MEDS: CLOPIDOGREL 75 MG TABLET PO SCH (09:47)
[2017-11-22] MEDS: PANTOPRAZOLE 40 MG TABLET PO SCH (09:47)
[2017-11-22] MEDS: CARVEDILOL 6.25 MG TABLET PO SCH ×2 (09:51→17:56)
[2017-11-22] MEDS: CARVEDILOL 3.125 MG TABLET PO SCH (09:57)
--- NOTE | 2017-11-22 15:53 | Operative Note ---
DATE 11/21/2017 PREOPERATIVE DIAGNOSIS Left BKA wound dehiscence. POSTOPERATIVE DIAGNOSIS Left BKA wound dehiscence. PROCEDURE Exploration of left BKA wound with irrigation and closure. SURGEON Omar Collier MD ASSISTANT ACCOUNT EXECUTIVE None. COMPLICATIONS None. ANESTHESIA TIVA BRIEF HISTORY Mrs. Gore is a kind 67-year-old female who, unfortunately, fell at home today onto her left BKA stump. She is approximately 2-1/2 weeks status post closure of this BKA stump. She was bleeding, so she was brought into the ER where I evaluated her and recommended closure in the operating room with irrigation and exploration. DESCRIPTION OF PROCEDURE Mrs. Gore and her left BKA stump were identified and marked in the emergency room. She was brought back to the operating suite and placed supine on the operating table. She was placed under general anesthesia. The left lower extremity was prepped and draped in my normal sterile fashion. Time-out was performed. I started by evaluating her wound. It had dehisced from about the midportion laterally. This was a complete dehiscence of the superficial layer. The deep subcutaneous tissue remained closed. There was no tunneling to the bone. I starting by removing her previous sutures to allow us in the incision. After exploration and no deep tunneling was found and also necrotic tissue was found, the wound was thoroughly irrigated with 2 liters of normal saline using a bulb syringe. I then freshened up the skin edges sharply and reclosed the skin edges to each other with 3-0 nylon in a simple interrupted fashion. A sterile dressing was then placed. The drapes were removed. She was allowed to awaken from general anesthesia and taken to the Recovery Room under the care of Anesthesia. She tolerated the procedure well. There were no complications. MTDD
[2017-11-22] MEDS: NS 1,000 ML IV SCH (19:31)
[2017-11-22] MEDS: TIOTROPIUM 18mcg/cap HANDIHALER ORAL INH SCH (19:58)
[2017-11-22] MEDS ORDERED: OLANZapine 5 MG TABLET PO SCH (21:00)
[2017-11-22] MEDS: FLUDROCORTISONE 0.1 MG TABLET PO SCH (21:12)
[2017-11-22] MEDS: MIRTAZAPINE 30 MG TABLET PO SCH (21:13)
[2017-11-23] MEDS: LEVOTHYROXINE 75 MCG TABLET PO SCH (05:42)
[2017-11-23] MEDS: PANTOPRAZOLE 40 MG TABLET PO SCH (05:42)
[2017-11-23 07:20] VITALS: RESP 18
[2017-11-23] MEDS: DICLOFENAC SODIUM DR 25 MG TABLET PO SCH (08:28)
[2017-11-23] MEDS: CARVEDILOL 6.25 MG TABLET PO SCH (08:28)
[2017-11-23] MEDS: BUSPIRONE 10 MG TABLET PO SCH (08:30)
[2017-11-23] MEDS: MULTI-VITAMIN PLAIN TABLET PO SCH (08:30)
[2017-11-23] MEDS: CLOPIDOGREL 75 MG TABLET PO SCH (08:30)
[2017-11-23] MEDS: PredniSONE 5 MG TABLET PO SCH (08:30)
[2017-11-23] MEDS: ASPIRIN 81 MG CHEWABLE TABLET PO SCH (08:30)
[2017-11-23] MEDS: Venlafaxine XR 37.5 MG CAPSULE (24hr) PO SCH (08:31)
[2017-11-23] MEDS: BECLOMETHASONE 80 MCG ORAL INH SCH (09:26)
[2017-11-23 11:29] VITALS: BP 131/74; PULSE 82; TEMP 96.6; O2SAT 98
--- NOTE | 2017-11-23 12:03 | Orthopedic Progress Note ---
Date: Date: 11/23/17 Time: 1200 Subjective/Severity of Illness: Clarice's pain is controlled. She feels ready to return to [facility]. Although the chart shows she is on RA, she does have some O2 on via NC. Vitals are stable, weight is actually a little less than on admit. Hgb is 8.2. Orthopedic Objective PO Vital signs: Temperature 96.6 F L 11/23/17 11:28 Pulse Rate 82 11/23/17 11:28 Respiratory Rate 18 11/23/17 11:28 Blood Pressure 131/74 11/23/17 11:28 Pulse Oximetry 98 11/23/17 11:28 Height and Weight: Weight 83 lb 8.883 oz - Constitutional General Appearance: Present: alert, orientated x3, no acute distress - Respiratory Exam Present: non-labored - Cardiovascular Exam Capillary Refill: < 2-3 Seconds - Abdominal Exam Absent: tenderness - Extremities Exam Comments: BKA stump dressing is on and dry. - Surgical Site Incision: dressing intact - Integumentary Exam Present: pink, warm, dry - Neurological Exam Present: intact to light touch - Psychiatric Exam Present: alert - Wound Management Left Leg Drainage Description: Sanguineous Drainage Amount: Small - Labs Result Diagrams: 11/23/17 04:06 11/23/17 04:06 Abnormal lab results 11/23/17 11/23/17 Range/Units 04:06 04:06 RBC 2.92 L (4.00-5.20) M/MM3 Hgb 8.2 L (12-16) GM/DL Hct 27.0 L (36-46) % MCHC 30.4 L (31-37) GM/DL RDW Std Deviation 60.3 H (36.9-50.2) FL MPV 9.2 L (9.4-12.4) UM3 [place] % (Auto) 15.2 H (0-9.0) % Eos % (Auto) 8.0 H (0-4) % [place] # (Auto) 1.2 H (0-0.8) T/MM3 Eos # (Auto) 0.6 H (0-0.5) T/MM3 Carbon Dioxide 32 H (22-30) MEQ/L Anion Gap 3 L (5-15) MEQ/L Calcium 8.3 L (8.4-10.2) MG/DL Total Bilirubin < 0.10 L (0.20-1.30) MG/DL Total Protein 5.5 L (6.3-8.2) G/DL Albumin 3.0 L (3.5-5.0) G/DL H & H 11/23/17 Range/Units 04:06 Hgb 8.2 L (12-16) GM/DL Hct 27.0 L (36-46) % Orthopedic Assessment and Plan (1) Dehiscence of amputation stump Status: Acute Assessment and Plan: Orthopaedically ready for discharge. I'll discuss this with Dr. Collier. (2) Anemia Status: Acute Assessment and Plan: continue to monitor labs and vitals. Hospital Course Summary Disclaimer: The visit summary below is not to be considered part of the above Progress Note.
--- NOTE | 2017-11-23 12:50 | Discharge Summary ---
Orthopedic Discharge Info Date of admission: 11/22/17 09:36 Primary care physician: Eula Shoemaker MD Attending Physician: Omar Collier MD Consults: 11/22/17 12:21 Physician [Physician Consult] [CONS] Routine Consulting Provider: William Pool Reason For Exam: cont care Ordering Provider has Notified Life Coach: Yes - Discharge Diagnosis (1) Dehiscence of amputation stump Status: Acute (2) Anemia Status: Acute - Procedures Procedures: Procedures Left revision BKA stump - Laboratory Result Diagrams: 11/23/17 04:06 11/23/17 04:06 Laboratory: Abnormal lab results 11/23/17 11/23/17 Range/Units 04:06 04:06 RBC 2.92 L (4.00-5.20) M/MM3 Hgb 8.2 L (12-16) GM/DL Hct 27.0 L (36-46) % MCHC 30.4 L (31-37) GM/DL RDW Std Deviation 60.3 H (36.9-50.2) FL MPV 9.2 L (9.4-12.4) UM3 [place] % (Auto) 15.2 H (0-9.0) % Eos % (Auto) 8.0 H (0-4) % [place] # (Auto) 1.2 H (0-0.8) T/MM3 Eos # (Auto) 0.6 H (0-0.5) T/MM3 Carbon Dioxide 32 H (22-30) MEQ/L Anion Gap 3 L (5-15) MEQ/L Calcium 8.3 L (8.4-10.2) MG/DL Total Bilirubin < 0.10 L (0.20-1.30) MG/DL Total Protein 5.5 L (6.3-8.2) G/DL Albumin 3.0 L (3.5-5.0) G/DL H & H 11/23/17 Range/Units 04:06 Hgb 8.2 L (12-16) GM/DL Hct 27.0 L (36-46) % Orthopedic Discharge HPI - HPI Comments Clarice is a kind 67-year-old female who is well-known to me from previous below- the-knee amputation. Her last surgery was on 11/02/2017 at that surgery her stump was closed. She is been PRA unfortunately she fell today onto her left stump. It was bleeding so she was brought into the emergency room by her family. She has been on Keflex by mouth. She denies any signs of infection. She states the wound was healing well before today. Orthopedic Hospital Course Hospital course: 11/23/17 12:46 Dr. Collier revised her left BKA stump. She then stayed overnight for 24 hours of antibiotics. She was pain free and demonstrated apprpriate transfers before consideration for discharge. Hgb of 8.2 was noted, and asymptomatic. Historically, Clarice's Hgb is 8-10. Follow up [address] Collier. Continue Keflex on discharge. Care extended to > 2 midnight stays?: No Discharge Plan - Med Rec/Dispo Referrals/Follow Up: Eula Shoemaker MD [Family Provider] - [facility] Instructions: [facility] Postop Instructions Prescriptions: New Hydrocodone/APAP 7.5/325 [[place] 7.5/325] 1 - 2 tab PO Q6H PRN #30 tab PRN Reason: Pain Continue Nitroglycerin [Nitrostat] 0.4 mg SL Q5MIN3 PRN #0 PRN Reason: CHEST PAIN Levothyroxine Sodium 75 mcg PO ACB #0 tab Beclomethasone Dipropionate [Qvar 80] 1 puff INH RTBID Cyanocobalamin (B-12) [Vit. B-12] 1,000 mcg IM 1 MONTH Albuterol HFA Inhaler [Ventolin Hfa 90 mcg/actuation] 1 - 2 puff INH Q4H PRN PRN Reason: Prn Orders Carvedilol 6.25 mg PO BIDWM Mirtazapine [Remeron] 30 mg PO HS Lansoprazole 1 cap PO ACB PredniSONE [Deltasone] 3 mg PO WB tab PredniSONE [Deltasone] 5 mg PO WB Venlafaxine XR [Effexor Xr] 37.5 mg PO WB #30 cap Aspirin Chewable [ASA] 81 mg PO DAILY Buspirone [Buspar] 20 mg PO BID Calcium Carbonate 1,200 mg PO DAILY Diclofenac Sodium [Voltaren-Xr] 100 mg PO BID Tiotropium Handihaler [Spiriva] 1 cap IH HS #0 Fludrocortisone [Florinef] 0.1 mg PO HS #0 tab OLANZapine [Zyprexa] 5 mg PO HS Cholecalciferol (Vitamin D3) [Vitamin D3] 2,000 unit PO DAILY Furosemide [Lasix] 20 mg PO DAILY PRN #0 PRN Reason: Edema Multivitamin [Chewable-Matthew] 1 tab PO DAILY Hydrocodone/APAP 7.5/325 [[place] 7.5/325] 1 - 2 tab PO Q6H PRN #60 tab PRN Reason: Pain cephALEXin [Keflex] 500 mg PO QID #40 cap Clopidogrel Bisulfate [Clopidogrel] 75 mg PO DAILY Discontinued Acetaminophen [Acetaminophen Extra Strength] 1,000 mg PO Q6HR PRN PRN Reason: Pain - Disposition 03 To SNU Not [facility] (SNF) - Dismissal Complete Discharge Instructions are:: Complete
--- NOTE | 2017-11-23 12:53 | Extended Care Facility Orders ---
Admission Orders Admit to:: Long Term Allergies/Adverse Reactions: Allergies morphine Allergy (Mild, Verified 11/21/17 12:47) ITCHING methylprednisolone Allergy (Unknown, Verified 11/21/17 12:47) doxycycline Adverse Reaction (Severe, Verified 11/21/17 12:47) DIARRHEA adalimumab Adverse Reaction (Intermediate, Verified 11/21/17 12:47) LOW GRADE FEVER atorvastatin Adverse Reaction (Unknown, Verified 11/21/17 12:47) LEG CRAMPS bupropion Adverse Reaction (Unknown, Verified 11/21/17 12:47) ANXIETY cortizone meds Allergy (Unknown, Uncoded 11/21/17 12:47) Anxiety Admitting Diagnosis: left bka stump dehiscence from fall Admitting Physician: Omar Collier MD Attending Physician: Omar Collier MD Anticiapted Length of Stay: 30 days or less Rehab Potential: fair Rehab Prognosis: fair Diet: regular Wound/Incision Care: change dressing with Xerofoam, Crystal and PIPPA wrap if saturated. May use Facility Protocol or Standing Orders: Yes Evaluations/Treatment: PT, OT Long Term Certification: I certify that SNF services are required to be given on an Inpatient basis because of the patients need for long term care on a continuing basis for the condition(s) for which he/she received inpatient hospital services prior to his/her transfer to the SNF. SNF inpatient care is necessary for the following reasons Indication for Long Term: Postop Assessment Care - Additional Information In Event of Arrest: Start CPR,call 911,send patient to the ER Resident is Aware of Diagnosis: Yes Referrals: Eula Shoemaker MD [Family Provider] -
== END 2017-11-23 14:05 | DRG 566 ==
LOC: ED 12:29 → SUR 14:58 → SRG 18:36
PROVIDERS: ADMIT Orthopaedic Surgery; ATTEND Orthopaedic Surgery